=== PATIENT | female | born 1950 | race Caucasian/White ===

== ENCOUNTER → 2020-09-03 13:45 | Outpatient (BNVA) | payer MEDICARE, MEDICAID, SELFPAY | PROVIDERS: Family Provider Family Medicine; PCP Family Medicine; Visit Provider Nurse Practitioner Family | DX: N39.0 Urinary tract infection, site not specified (principal) | CPT/HCPCS: 81003; 87077; 87086; 87184 ==

== ENCOUNTER 2020-12-01 13:03 | Inpatient (IN) | payer MEDICARE, MEDICAID, SELFPAY ==
[2020-12-01] VITALS (16 sets, daily range): BP systolic 98–122; BP diastolic 64–94; PULSE 68–160; RESP 15–26; TEMP 36.6–37.1; O2SAT 96–100; BMI 23.0
--- NOTE | 2020-12-01 13:07 | XRR_ITS ---
PROCEDURE INFORMATION: Exam: XR Chest Exam date and time: 12/01/2020 1:07 PM Age: 70 years old Clinical indication: Other: Tachycardia TECHNIQUE: Imaging protocol: XR of the chest. Views: 1 view. COMPARISON: CR Chest 1 [place] [id number] 02/28/2018 2:35 PM FINDINGS: Lungs: Unremarkable. No consolidation. Pleural spaces: Unremarkable. No pleural effusion. No pneumothorax. Heart/Mediastinum: Unremarkable. No cardiomegaly. Bones/joints: Unremarkable. XR/XR chest 1V portable [id number] IMPRESSION: No acute findings.
--- NOTE | 2020-12-01 13:07 | W.ED.GENADLT ---
HPI - General Adult General: Chief complaint: General Medical Stated complaint: NAUSE/ DIARRHEA/ RAPID HEART RATE Time Seen by Provider: 12/01/20 13:06 History of Present Illness: HPI narrative: Ms. Valedz is a 70-year-old lady without significant past medical history presents the emergency department due to nausea and diarrhea. Symptom onset was Monday and subacute. She endorses associated abdominal discomfort with multiple episodes of nonbloody diarrhea. Today she was found to have rapid heart rate. She has associated generalized fatigue but no chest pain or shortness of breath. Overall the course of symptoms has persisted. The intensity is moderate. She denies similar episodes or irregular heart rate in the past. Review of Systems General: Reports: 10 or more systems reviewed and unremarkable except in HPI and below Narrative: CONSTITUTIONAL: see hpi EYES - denies pain, denies loss of vision EARS - denies ear issues. NOSE - denies congestion or rhinorrhea. THROAT - denies sore throat or difficulty swallowing. CARDIOVASCULAR - denies chest pain and palpitations RESPIRATORY - denies shortness of breath and cough GASTROINTESTINAL - see hpi GENITOURINARY - denies dysuria or urinary frequency MUSCULOSKELETAL- denies deformity or pain SKIN - denies rashes or new changed skin lesions NEUROLOGIC - denies focal weakness or sensory changes HEMATOLOGIC/LYMPHATIC - denies easy bruising or lymphadenopathy. PFS ED PFSH: Medical History Anxiety Bilateral wrist pain Chronic ankle pain, bilateral Chronic pain of both knees Dysuria GERD without esophagitis Interstitial cystitis Mixed incontinence Moderate episode of recurrent major depressive disorder Overactive bladder Recurrent UTI Tremor Surgical History Hx of hysterectomy Family History Mother , AT AGE 80 Diabetes Cancer Father CAD (coronary artery disease) Social History Smoking and tobacco status: never smoked Alcohol intake: never Marital status: / Current occupational status: disabled Physical Exam Narrative: EXAM NARRATIVE: GENERAL/CONSTITUTIONAL - well-appearing. No acute distress. Eyes - PERRL, no conjunctival injection ENMT - Atraumatic external nose and ears. Moist mucous membranes NECK - supple. trachea midline CARDIOVASCULAR - afib with rvr. Peripheral pulses 2+ and equal RESPIRATORY -clear to auscultation bilaterally. No retractions or accessory muscle use. ABDOMEN/GI - generalized tenderness. Nondistended. No tenderness to percussion or evidence of peritonitis MSK - Extremities without obvious deformity or tenderness to palpation SKIN - Warm, Dry NEURO - alert and appropriately oriented. strength and sensation intact. Moves all extremities equally. PSYCH - Appropriate mood and affect Course ED course: - Patient seen and evaluated by me at bedside - hall monitor applied and IV access obtained - initial evaluation notable for no acute distress, non toxic appearance. Etro fibrillation with RVR is present, no reported history of this. - Diltiazam ordered - No significant Hematologic or metabolic abnormality to expand patient symptoms - Xr without consolidation. CT abd/pelvis notable for colitis. Abx ordered. - Rate improved however pushes of metoprolol needed for additional rate control - Patient updated on ED eval results and need for admission. Patient was agreeable. - Hospitalist contacted and agreed to admit the patient. - Patient admitted without acute deterioration or significant events. Vital Signs: Vital signs: Vital Signs Temperature 97.7 F 12/03/20 18:50 Pulse Rate 67 12/03/20 20:23 Respiratory Rate 18 12/03/20 20:23 Blood Pressure 115/72 12/03/20 18:50 Pulse Oximetry 97 12/03/20 20:23 MDM - General Adult Medical Records: Attestation: I reviewed the patient's medical records. Lab Data: Attestation: I reviewed the patient's lab results. Labs: Lab Results 12/01/20 12/01/20 12/01/20 Range/Units 11:50 11:50 13:08 WBC 6.5 (4.0-10.0) 10^3/ uL RBC 4.95 (4.1-5.3) 10^6/u L Hgb 14.2 (11.5-15.3) g/dL Hct 43.9 (37.0-47.0) % MCV 88.7 (81-99) fl MCH 28.7 (28.0-34.0) pg MCHC 32.3 (30.0-36.0) g/dL RDW 13.2 (12.1-15.1) % Plt Count 213 (130-400) 10^3/c mm MPV 11.4 H (7.4-10.4) fL Neut % (Auto) 72.6 % Lymph % (Auto) 15.0 % [place] % (Auto) 11.3 % Eos % (Auto) 0.3 % Baso % (Auto) 0.5 % Neut # (Auto) 4.71 (1.8-7.7) 10^3/u L Lymph # (Auto) 1.0 (0.8-4.8) 10^3/u L [place] # (Auto) 0.7 (0.2-0.9) 10^3/u L Eos # (Auto) 0.0 (0.0-0.8) 10^3/u L Baso # (Auto) 0.0 (0.0-0.1) 10^3/u L Nucleated RBC % (a uto) 0 % Nucleated RBCs # 0.0 /100WBC D-Dimer (0-0.59) ug/mIFE U Sodium (136-145) mmol/L Potassium (3.5-5.1) mmol/L Chloride (98-107) mmol/L Carbon Dioxide (22-29) mmol/L Anion Gap (5-19) BUN (8-23) mg/dL Creatinine (0.5-0.9) mg/dL GFR Calculation (90-130) mL/min Glucose (65-115) mg/dL Calculated Osmolal ity (285-295) mOsm/k g Calcium (8.5-10.5) mg/dL Magnesium (1.7-2.3) mg/dL Total Bilirubin (0.15-1.2) mg/dL AST (0-32) U/L ALT (0-33) U/L Alkaline Phosphata se (35-105) IU/L Troponin T Baselin e (0-10) ng/L Troponin T 120 Min [place] 18.72 H (0-10) ng/L Delta Troponin T Not Reportable C-Reactive Protein (0.0-4.9) mg/L NT-Pro-B Natriuret Pep (0-125) pg/mL Total Protein (6.6-8.7) g/dL Albumin (3.5-5.2) g/dL Globulin (1.3-4.6) g/dL Procalcitonin (0-0.5) ng/mL TSH 2.11 (0.27-4.20) uIU/ mL SARS-CoV-2 Ag (Rap id) (Negative) 12/01/20 12/01/20 12/01/20 Range/Units 13:08 13:08 13:08 WBC (4.0-10.0) 10^3/ uL RBC (4.1-5.3) 10^6/u L Hgb (11.5-15.3) g/dL Hct (37.0-47.0) % MCV (81-99) fl MCH (28.0-34.0) pg MCHC (30.0-36.0) g/dL RDW (12.1-15.1) % Plt Count (130-400) 10^3/c mm MPV (7.4-10.4) fL Neut % (Auto) % Lymph % (Auto) % [place] % (Auto) % Eos % (Auto) % Baso % (Auto) % Neut # (Auto) (1.8-7.7) 10^3/u L Lymph # (Auto) (0.8-4.8) 10^3/u L [place] # (Auto) (0.2-0.9) 10^3/u L Eos # (Auto) (0.0-0.8) 10^3/u L Baso # (Auto) (0.0-0.1) 10^3/u L Nucleated RBC % (a uto) % Nucleated RBCs # /100WBC D-Dimer 2.21 H (0-0.59) ug/mIFE U Sodium 141 (136-145) mmol/L Potassium 4.0 (3.5-5.1) mmol/L Chloride 105 (98-107) mmol/L Carbon Dioxide 23 (22-29) mmol/L Anion Gap 17.0 (5-19) BUN 14 (8-23) mg/dL Creatinine 0.5 (0.5-0.9) mg/dL GFR Calculation 122.0 (90-130) mL/min Glucose 118 H (65-115) mg/dL Calculated Osmolal ity 294 (285-295) mOsm/k g Calcium 9.3 (8.5-10.5) mg/dL Magnesium 1.8 (1.7-2.3) mg/dL Total Bilirubin 0.2 (0.15-1.2) mg/dL AST 18 (0-32) U/L ALT 12 (0-33) U/L Alkaline Phosphata se 69 (35-105) IU/L Troponin T Baselin e 18 H (0-10) ng/L Troponin T 120 Min [place] (0-10) ng/L Delta Troponin T C-Reactive Protein 25.4 H (0.0-4.9) mg/L NT-Pro-B Natriuret Pep 947 H (0-125) pg/mL Total Protein 7.0 (6.6-8.7) g/dL Albumin 4.0 (3.5-5.2) g/dL Globulin 3.0 (1.3-4.6) g/dL Procalcitonin 0.11 (0-0.5) ng/mL TSH 2.11 (0.27-4.20) uIU/ mL SARS-CoV-2 Ag (Rap id) (Negative) 12/01/20 Range/Units 15:30 WBC (4.0-10.0) 10^3/ uL RBC (4.1-5.3) 10^6/u L Hgb (11.5-15.3) g/dL Hct (37.0-47.0) % MCV (81-99) fl MCH (28.0-34.0) pg MCHC (30.0-36.0) g/dL RDW (12.1-15.1) % Plt Count (130-400) 10^3/c mm MPV (7.4-10.4) fL Neut % (Auto) % Lymph % (Auto) % [place] % (Auto) % Eos % (Auto) % Baso % (Auto) % Neut # (Auto) (1.8-7.7) 10^3/u L Lymph # (Auto) (0.8-4.8) 10^3/u L [place] # (Auto) (0.2-0.9) 10^3/u L Eos # (Auto) (0.0-0.8) 10^3/u L Baso # (Auto) (0.0-0.1) 10^3/u L Nucleated RBC % (a uto) % Nucleated RBCs # /100WBC D-Dimer (0-0.59) ug/mIFE U Sodium (136-145) mmol/L Potassium (3.5-5.1) mmol/L Chloride (98-107) mmol/L Carbon Dioxide (22-29) mmol/L Anion Gap (5-19) BUN (8-23) mg/dL Creatinine (0.5-0.9) mg/dL GFR Calculation (90-130) mL/min Glucose (65-115) mg/dL Calculated Osmolal ity (285-295) mOsm/k g Calcium (8.5-10.5) mg/dL Magnesium (1.7-2.3) mg/dL Total Bilirubin (0.15-1.2) mg/dL AST (0-32) U/L ALT (0-33) U/L Alkaline Phosphata se (35-105) IU/L Troponin T Baselin e (0-10) ng/L Troponin T 120 Min [place] (0-10) ng/L Delta Troponin T C-Reactive Protein (0.0-4.9) mg/L NT-Pro-B Natriuret Pep (0-125) pg/mL Total Protein (6.6-8.7) g/dL Albumin (3.5-5.2) g/dL Globulin (1.3-4.6) g/dL Procalcitonin (0-0.5) ng/mL TSH (0.27-4.20) uIU/ mL SARS-CoV-2 Ag (Rap id) Negative (Negative) EKG Data^: EKG 1: Attestation: I personally reviewed and interpreted this EKG as follows: EKG interpretation date: 12/01/20 EKG interpretation time: 13:10 Prior EKG tracings: not available for review Interpretation: 12 lead shows irregular rhythm at rate of 157 No KS int, QRS 121, QTc 470 Right axis deviation Interp: A fib with RVR, RBBB, ectopy Computer generated interpretation: Chest X-Ray 12/01/20 13:07 IMPRESSION: No acute findings. Abdomen/Pelvis CT 12/01/20 13:55 IMPRESSION: There is colitis of the descending and rectosigmoid colons. Radiation Dose CTDIVOL = (mGy): DLP = 1140.73 (mGy-cm) Chest CTA 12/02/20 07:27 IMPRESSION: 1. Proximal main pulmonary arteries are normal. No evidence of pulmonary embolus. 2. Both lungs are well aerated. No acute pulmonary infiltrates. 3. No mediastinal or hilar lymphadenopathy. EKG 2: Attestation: I personally reviewed and interpreted this EKG as follows: EKG interpretation date: 12/01/20 EKG interpretation time: 15:30 Prior EKG tracings: available for review Interpretation: 12 lead shows irregular rhythm at rate of 109 No [place], QRS 126, QTc 408 Right axis dev Interp: A fib with RVR, improved rate from prior Computer generated interpretation: Chest X-Ray 12/01/20 13:07 IMPRESSION: No acute findings. Abdomen/Pelvis CT 12/01/20 13:55 IMPRESSION: There is colitis of the descending and rectosigmoid colons. Radiation Dose CTDIVOL = (mGy): DLP = 1140.73 (mGy-cm) Chest CTA 12/02/20 07:27 IMPRESSION: 1. Proximal main pulmonary arteries are normal. No evidence of pulmonary embolus. 2. Both lungs are well aerated. No acute pulmonary infiltrates. 3. No mediastinal or hilar lymphadenopathy. Discharge Plan Discharge Patient Disposition: Admitted As Inpatient Admit Provider: Emilee Champion Clinical Impression: Atrial fibrillation with rapid ventricular response, Colitis Condition: Stable Coding Level of Care Code ED Automotive Technician for Fredy Cabrera
--- NOTE | 2020-12-01 13:08 | ECG_ITS ---
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 Measurements Intervals [place] Rate: 157 P: PA: QRS: 83 QRSD: 121 T: -22 QT: 291 QTc: 470 Interpretive Statements ATRIAL FIBRILLATION WITH RAPID VENTRICULAR RESPONSE WITH ABERRANT CONDUCTION OR VENTRICULAR PREMATURE COMPLEXES RIGHT BUNDLE BRANCH BLOCK Compared to ECG 02/28/2018 14:24:37 Aberrant conduction of supraventricular beat(s) now present Ventricular premature complex(es) now present Right bundle-branch block now present Sinus rhythm no longer present Myocardial infarct finding no longer present Electronically Signed On 12-03-2020 9:05:05 CDT by Nery Dawson M.D. [email or web address]/[id number]
--- NOTE | 2020-12-01 13:55 | CTR_ITS ---
PROCEDURE INFORMATION: Exam: CT Abdomen And Pelvis With Contrast Exam date and time: 12/01/2020 1:55 PM Age: 70 years old Clinical indication: Vomiting and other: Diarrhea; Prior surgery; Surgery type: Hsyt; Additional info: Vomitting, pain, diarrhea TECHNIQUE: Imaging protocol: Computed tomography of the abdomen and pelvis with contrast. Radiation optimization: All CT scans at this facility use at least one of these dose optimization techniques: automated exposure control; mA and/or kV adjustment per patient size (includes targeted exams where dose is matched to clinical indication); or iterative reconstruction. Contrast material: OMNI 300; Contrast volume: 95 ml; Contrast route: INTRAVENOUS (IV); COMPARISON: CR XR chest 1V portable [id number] 12/01/2020 1:17 PM RADIATION DOSE METRICS: Total DLP (mGy-cm): 1140.73 FINDINGS: Liver: Normal. No mass. Gallbladder and bile ducts: Normal. No calcified stones. No ductal dilation. Pancreas: Normal. No ductal dilation. Spleen: Normal. No splenomegaly. Adrenal glands: Normal. No mass. Kidneys and ureters: Normal. No hydronephrosis. Stomach and bowel: There is wall thickening of the descending and rectosigmoid colons. No bowel obstruction. Appendix: No evidence of appendicitis. Intraperitoneal space: Unremarkable. No free air. No significant fluid collection. Vasculature: Unremarkable. No abdominal aortic aneurysm. Lymph nodes: Unremarkable. No enlarged lymph nodes. Urinary bladder: Unremarkable as visualized. Reproductive: There has been a hysterectomy. Bones/joints: Unremarkable. No acute fracture. Soft tissues: Unremarkable. CT/CT abdomen pelvis w con* [id number] IMPRESSION: There is colitis of the descending and rectosigmoid colons. Radiation Dose CTDIVOL = (mGy): DLP = 1140.73 (mGy-cm)
[2020-12-01 13:56] LABS: Basophils % 0.5 %; Eosinophils % 0.3 %; Hematocrit 43.9 % (37.0-47.0); Hemoglobin 14.2 g/dL (11.5-15.3); Mean Corpuscular HGB Conc 32.3 g/dL (30.0-36.0); Mean Corpuscular Hemoglobin 28.7 pg (28.0-34.0); Mean Corpuscular Volume 88.7 fl (81-99); Mean Platelet Volume 11.4 fL (7.4-10.4); Monocytes # 0.7 10^3/uL (0.2-0.9); Monocytes % 11.3 %; Neutrophils # 4.71 10^3/uL (1.8-7.7); Neutrophils % 72.6 %; Nucleated Red Blood Cells % 0 %; Platelet Count 213 10^3/cmm (130-400); Red Blood Count 4.95 10^6/uL (4.1-5.3); Red Cell Distribution Width 13.2 % (12.1-15.1); White Blood Count 6.5 10^3/uL (4.0-10.0)
--- NOTE | 2020-12-01 14:44 | PC.PHAR ---
PT STATES SHE HAS NOT BEEN TAKING ANY OF HER PRESCRIPTIONS FOR A FEW MONTHS BECAUSE SHE CANNOT AFFORD TO GET THEM. SHE IS TAKING OTC VITAMINS.
[2020-12-01 14:46] LABS: Troponin(5th) Baseline 18 ng/L (0-10)
[2020-12-01 14:57] LABS: NT Pro B Type Natriuretic Pept 947 pg/mL (0-125); Procalcitonin 0.11 ng/mL (0-0.5); Thyroid Stimulating Hormone 2.11 uIU/mL (0.27-4.20)
[2020-12-01 15:08] LABS: Alanine Aminotransferase 12 U/L (0-33); Alkaline Phosphatase 69 IU/L (35-105); Aspartate Amino Transferase 18 U/L (0-32); Blood Urea Nitrogen 14 mg/dL (8-23); C Reactive Protein 25.4 mg/L (0.0-4.9); Calcium 9.3 mg/dL (8.5-10.5); Carbon Dioxide 23 mmol/L (22-29); Chloride 105 mmol/L (98-107); Glucose 118 mg/dL (65-115); Magnesium 1.8 mg/dL (1.7-2.3); Osmolality Calculated 294 mOsm/kg (285-295); Sodium 141 mmol/L (136-145); Total Bilirubin 0.2 mg/dL (0.15-1.2)
--- NOTE | 2020-12-01 15:08 | ECG_ITS ---
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 Measurements Intervals [place] Rate: 109 P: NC: QRS: 63 QRSD: 126 T: -23 QT: 302 QTc: 408 Interpretive Statements ATRIAL FIBRILLATION WITH RAPID VENTRICULAR RESPONSE RIGHT BUNDLE BRANCH BLOCK [120+ ms QRS DURATION, UPRIGHT V1, 40+ ms S IN I/aVL/V4/V5/V6] Compared to ECG 12/01/2020 13:08:51 Aberrant conduction of supraventricular beat(s) no longer present Ventricular premature complex(es) no longer present Electronically Signed On 12-03-2020 10:41:27 CDT by Nery Dawson M.D. [email or web address] regional medical [email or web address] Metricsdelaware county hospital.[employer]/store/OM/[id number]
[2020-12-01] MEDS: lactated ringers 500 ML 999 ML IV (15:23)
[2020-12-01] MEDS: metoprolol tartrate 1 mg/1 mL SDV 5 mL 5 MG IVP (15:30)
--- NOTE | 2020-12-01 15:34 | ECG_ITS ---
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 Measurements Intervals [place] Rate: 96 P: 98 OK: 210 QRS: 231 QRSD: 130 T: 39 QT: 363 QTc: 460 Interpretive Statements ELECTRONIC VENTRICULAR PACEMAKER ABNORMAL RHYTHM ECG Compared to ECG 12/01/2020 13:08:51 Atrial fibrillation no longer present Aberrant conduction of supraventricular beat(s) no longer present Ventricular premature complex(es) no longer present Right bundle-branch block no longer present Electronically Signed On 12-03-2020 10:41:36 CDT by Nery Dawson M.D. [email or web address]/[id number] f
[2020-12-01] MEDS: iohexol 300 mg/mL 100 mL Btl IV (16:06)
[2020-12-01 16:13] LABS: SARS Covid-2 Antigen Negative (Negative)
[2020-12-01 16:52] LABS: Troponin 5 2HR 18.72 ng/L (0-10)
--- NOTE | 2020-12-01 17:07 | P.HP_ITS ---
Providers/Chief Complaint Primary Care Provider: Desirae Da Silva DO Chief Complaint: NAUSE/ DIARRHEA/ RAPID HEART RATE History of Present Illness Sabina Valdez is a 70 year old female who presented today with chief complaint of rigors, chills and abdominal pain. Patient stating that she had a stress test in [facility] which was unremarkable. She stopped following up with Dr. Jimenez. In last 3 days she has been experiencing multiple episodes of diarrhea associated with abdominal pain. She has not eaten out. She lives alone and co oks for herself. She has not noticed any fever, shortness of breath, vomiting. No recent use of antibiotics. No recent chest pain shortness of breath Diagnosis in the ER revealed A. fib with RVR and colitis she received antibiotics in the ER and was started on Cardizem drip it was running at 15 mg/h heart rate is in 70 systolic blood pressure 98 mmHg Review of Systems Const: Reports: chills, body aches and fatigue Eyes: Denies: change in vision ENMT: Denies: throat pain Card: Denies: chest pain Resp: Denies: dyspnea GI: Reports: abdominal pain, nausea and diarrhea; Denies: vomiting : Denies: flank pain Musc: Denies: neck pain Skin/Breast: Denies: rash Neuro: Denies: headache(s) Psych: Reports: anxiety Endo: Denies: polyuria Ortega/Lymph: Denies: easy bruising All/Imm: Denies: urticaria Medications/Allergies Home Medications Medication Instructions Recorded Confirmed Last Taken Type multivitamin 1 tab PO DAILY 06/16/20 12/01/20 12/01/20 History vitamin C-vitamin E capsule 1 cap PO DAILY cap 06/16/20 12/01/20 12/01/20 History cyanocobalamin (vitamin B-12) 250 mcg PO DAILY 12/01/20 12/01/20 12/01/20 History [Vitamin B-12] [id number] 1 cap PO DAILY 12/01/20 12/01/20 12/01/20 History [Krill Oil ([place] 3 and 6)] magnesium 200 mg PO DAILY 12/01/20 12/01/20 12/01/20 History Allergies Allergy/AdvReac Type Severity Reaction Status Date / Time codeine Allergy Unknown ALGY-Rash Verified 08/25/20 12:14 sulfamethoxazole Allergy Unknown ALGY-Rash Verified 08/25/20 12:14 [From Bactrim] trimethoprim [From Bactrim] Allergy Unknown ALGY-Rash Verified 08/25/20 12:14 PFSH Acute PFSH: Medical History Anxiety Bilateral wrist pain Chronic ankle pain, bilateral Chronic pain of both knees Dysuria GERD without esophagitis Interstitial cystitis Mixed incontinence Moderate episode of recurrent major depressive disorder Overactive bladder Recurrent UTI Tremor Surgical History Hx of hysterectomy Family History Mother , AT AGE 80 Diabetes Cancer Father CAD (coronary artery disease) Social History Smoking and tobacco status: never smoked Alcohol intake: never Marital status: / Current occupational status: disabled Vitals/I&O/Wt Last Vital Signs Temp 98.7 F 12/01/20 13:06 Pulse 87 12/01/20 15:33 Resp 15 12/01/20 15:33 BP 108/65 12/01/20 15:33 Pulse Ox 99 12/01/20 15:33 12/01/20 12/01/20 12/01/20 06:59 14:59 22:59 Intake Total 6.084 / 6.084 Balance 6.084 / 6.084 Weight last 48 hrs Weight 66.678 kg Physical Exam Narrative: EXAM NARRATIVE: Pleasant elderly female who appears stated age clinically looks dehydrated Variable S1-S2 no signs of heart failure Bilateral breath sounds without adventitious rhonchi or crackles Abdomen soft nontender no signs of peritonitis bowel sounds present Mild tenderness in left upper quadrant Lower extremity no edema Patient is awake and alert oriented time place and person No neurological deficit No sign of cellulitis tenderness of joint noticed EOMI, PERRLA Appropriate mood and affect Data : 12/01/20 13:08 12/01/20 13:08 A&P Assessment and plan (1) Atrial fibrillation with rapid ventricular response: Status: Acute (2) Colitis: Status: Acute Additional A&P Information A. fib with acute onset RVR Check TSH No active chest pain Troponin without significant delta Magnesium 1.8 Check D-dimer Previous stress test 2016 unremarkable We will request echo [id number]: We will start Eliquis 5 mg twice a day, benefits of medication explained to the patient along side effects and why this is indicated patient understood and agreed with initiation of Eliquis, she was explained why aspirin will not help in this scenario to prevent stroke Cardizem drip running at 15 mg/h we will start metoprolol 25 mg twice a day, I have asked nurse to titrate down Cardizem drip because her heart rate was in 70s systolic blood pressure 113 mmHg Acute colitis No signs of sepsis Patient is stating that her diarrhea has improved I highly doubt this is related to mesenteric acute embolic phenomenon there is no clinical signs of mesenteric ischemia, Continue IV fluid hydration along Eliquis I will keep her on Zosyn and soft diet GI soft diet advance as tolerated DVT prophylaxis not indicated I will start her on Eliquis Full code Attestations Medical Necessity Statement*: Needing more than 2 midnights in the hospital for colitis and new onset A. fib RVR Time Spent in Patient Care: Greater than 35 minutes Coding Level of Care Code Acute Dispatcher Electric Power for Chg Fwd Diagnoses Atrial fibrillation with rapid ventricular response I48.91 Colitis K52.9
[2020-12-01] MEDS: metroNIDAZOLE IV 500 MG/100 ML PREMIX 100 MG IV (17:37)
[2020-12-01] MEDS: cefTRIAXone 1,000 MG in sodium chloride 0.9% (plus) 50 ML 100 MG IV (17:37)
[2020-12-01 17:49] LABS: Add Urine Microscopic? NO; Charge for UA Resulting for Rev
[2020-12-01 17:58] LABS: Bilirubin Urine Neg (Negative); Blood Urine Neg (Negative); Glucose Urine UA Norm (Normal); Ketones Urine 1+ (Negative); Leukocyte Esterase Urine Negative (Negative); Nitrate Urine Negative (Negative); Protein Urine Neg (Negative); Urine Appearance Clear (CLEAR); Urine Color Straw (Yellow); Urobilinogen Urine Norm (Negative); pH Urine 5 (5-7)
[2020-12-01 18:35] LABS: D Dimer 2.21 ug/mIFEU (0-0.59)
[2020-12-01 19:08] LABS: Thyroid Stimulating Hormone 2.11 uIU/mL (0.27-4.20)
--- NOTE | 2020-12-01 19:08 | ECG_ITS ---
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 Measurements Intervals [place] Rate: 94 P: MN: QRS: 76 QRSD: 134 T: -48 QT: 397 QTc: 497 Interpretive Statements ATRIAL FIBRILLATION RIGHT BUNDLE BRANCH BLOCK [120+ ms QRS DURATION, UPRIGHT V1, 40+ ms S IN I/aVL/V4/V5/V6] Compared to ECG 12/01/2020 15:23:02 No significant changes Electronically Signed On 12-03-2020 10:41:14 CDT by Nery Dawson M.D. [id number]
[2020-12-01 20:26] LABS: Troponin 5 6HR 20.26 ng/L (0-10); Troponin 5 6HR Delta 2.26 ng/L (0-12)
--- NOTE | 2020-12-01 21:41 | PC.NURSE ---
Report called to Monica VARMA
[2020-12-01] MEDS: apixaban 5 mg Tablet PO (22:32)
[2020-12-01] MEDS: metoprolol tartrate 25 mg Tablet PO (22:32)
[2020-12-01] MEDS: piperacillin-tazobactam 3.375 GM in sodium chloride 0.9% (plus) 50 ML IV (22:34)
[2020-12-02] VITALS (11 sets, daily range): BP systolic 93–138; BP diastolic 60–82; PULSE 73–143; RESP 16–24; TEMP 36.4–36.8; O2SAT 94–99
[2020-12-02] MEDS: sodium chloride 0.9% 1,000 ML 75 ML IV (02:00)
[2020-12-02 03:43] LABS: Basophils % 0.6 %; Eosinophils # 0.1 10^3/uL (0.0-0.8); Eosinophils % 1.4 %; Hematocrit 41.9 % (37.0-47.0); Lymphocytes # 1.3 10^3/uL (0.8-4.8); Lymphocytes % 18.1 %; Mean Corpuscular Hemoglobin 28.4 pg (28.0-34.0); Mean Corpuscular Volume 91.7 fl (81-99); Mean Platelet Volume 10.8 fL (7.4-10.4); Monocytes # 1.1 10^3/uL (0.2-0.9); Monocytes % 14.8 %; Neutrophils # 4.63 10^3/uL (1.8-7.7); Neutrophils % 64.8 %; Nucleated Red Blood Cells % 0 %; Platelet Count 192 10^3/cmm (130-400); Red Blood Count 4.57 10^6/uL (4.1-5.3); Red Cell Distribution Width 13.2 % (12.1-15.1); White Blood Count 7.1 10^3/uL (4.0-10.0)
[2020-12-02 04:00] LABS: Anion Gap 15.9 (5-19); Blood Urea Nitrogen 11 mg/dL (8-23); Calcium 8.6 mg/dL (8.5-10.5); Carbon Dioxide 22 mmol/L (22-29); Chloride 106 mmol/L (98-107); Glucose 82 mg/dL (65-115); Magnesium 1.8 mg/dL (1.7-2.3); Osmolality Calculated 288 mOsm/kg (285-295); Potassium 3.9 mmol/L (3.5-5.1); Sodium 140 mmol/L (136-145)
[2020-12-02] MEDS: piperacillin-tazobactam 3.375 GM in sodium chloride 0.9% (plus) 50 ML IV ×3 (05:48→21:42)
--- NOTE | 2020-12-02 06:35 | PC.NURSE ---
Admit Note Patient admitted to [facility] from ED via stretcher. Covering service notified. Patient presents with c/o shakiness. Orders reviewed & will continue to monitor. Patient and/or auto claim representative oriented to environment, equipment, and informed of the following as found in the admission booklet: patient rights & responsibilities, visitor policy, hand and respiratory hygiene practice. Other education includes: telemetry, activity, and prescribed medications. Patient and/or auto claim representative verbalized understanding of all teaching.
--- NOTE | 2020-12-02 07:27 | CT_ITS ---
WS: [id number] CTA OF THE CHEST WITH PULMONARY EMBOLISM PROTOCOL TECHNIQUE: High-resolution contrast enhanced CTA of the chest with coronal and sagittal reformatted i mages with pulmonary embolism protocol. MIP images are also reviewed. CLINICAL INFORMATION: afib rvr new onset, sob COMPARISON: None. DLP: 462.[address] scans at [facility] use at least one of these dose optimization techniques: automated e xposure control; mA and/or kV adjustment per patient size (includes targeted exams where dose is matc hed to clinical indication); or iterative reconstruction. FINDINGS: Proximal main pulmonary arteries are normal. Normal segmental and subsegmental pulmonary arteries. No evidence of pulmonary embolus. Both lungs are well aerated. No acute pulmonary infiltrates. Mild chronic emphysematous changes. Subs egmental atelectasis in the lung bases. No mediastinal or hilar lymphadenopathy. No axillary lymphadenopathy. Adrenal glands are normal. CT/CT angio chest PE protcl [id number] IMPRESSION: 1. Proximal main pulmonary arteries are normal. No evidence of pulmonary embol us. 2. Both lungs are well aerated. No acute pulmonary infiltrates. 3. No mediastinal or hilar lymphadenopathy.
[2020-12-02] MEDS: iohexol 350 mg/mL 100 mL Btl IV (08:17)
[2020-12-02] MEDS: apixaban 5 mg Tablet PO ×2 (08:39→18:01)
[2020-12-02] MEDS: metoprolol tartrate 25 mg Tablet PO (08:39)
[2020-12-02] MEDS: magnesium oxide 400 mg tablet 200 MG PO (08:39)
--- NOTE | 2020-12-02 12:35 | PC.NURSE ---
cardizem drip has been weaned off.heart rate 70-80's afib.
--- NOTE | 2020-12-02 13:27 | P.PN_ITS ---
Subjective Subjective: Interval history: Patient is endorsing feeling better, high D- dimer, CTA rule out PE No signs of pneumonia Patient is denying any worsening abdominal pain or diarrhea No overnight fever or worsening leukocytosis Vitals/I&O/Wt Last Vital Signs Temp 97.9 F 12/02/20 04:05 Pulse 143 H 12/02/20 08:00 Resp 20 H 12/02/20 08:00 BP 103/81 12/02/20 08:00 Pulse Ox 94 12/02/20 07:56 12/01/20 12/02/20 12/02/20 22:59 06:59 14:59 Intake Total 696.75 / 702.834 121.500 / 824.334 125.0 / 125.0 Output Total 700 / 700 Balance 696.75 / 702.834 -578.500 / 124.334 125.0 / 125.0 Weight last 48 hrs Weight 66.224 kg Weight 66.224 kg Weight 66.678 kg Physical Exam Narrative: EXAM NARRATIVE: Patient was sitting comfortably without any active discomfort Saturating well on room air S1, S2 variable Cardizem running at 10 mg/h No active neurological deficit Abdomen soft with active bowel sounds mild tenderness to deep palpation in left quadrant otherwise no signs of worsening peritonitis Lower extremity no edema Awake alert oriented x3 GCS 15 Data : 12/02/20 03:05 12/02/20 03:05 A&P Assessment and plan (1) Atrial fibrillation with rapid ventricular response: Status: Acute (2) Colitis: Status: Acute Additional A&P Information A. fib with acute onset RVR Potassium and magnesium normal TSH normal Echo 40 to 45% EF no valvular abnormality Titrate off Cardizem drip we will add p.o. Cardizem to overlap with IV, will add Metroprolol as her heart rate is consistently above 110 for now Colitis: Afebrile no leukocytosis currently doing well on Zosyn Will de-escalate to Cipro and Flagyl at the time of discharge Advance diet to regular Full code DVT prophylaxis Lovenox Attestations Medical Necessity Statement*: Anticipating discharge tomorrow Time Spent in Patient Care: 16 - 35 minutes Coding Level of Care Code Acute Physician Credentialing Specialist for g Fwd Diagnoses Atrial fibrillation with rapid ventricular response I48.91 Colitis K52.9
[2020-12-02] MEDS: dilTIAZem 30 mg Tablet PO ×2 (16:07→19:39)
--- NOTE | 2020-12-02 21:51 | USCV_ITS ---
Sabina Valdez Age: 70 Gender: F : 1950 Exam Date: 12/02/2020 06:05 Ordering Phys: Emilee Champion MD Technologist: Ketty Katz [place] [facility] [place] Indication: A FIB BP: 93 / 60 HR: 96 Rhythm: Atrial fibrillation Technical Quality: Adequate MEASUREMENTS (Male / Female) Normal Values 2D ECHO LV Diastolic Diameter PLAX 4.2 cm 4.2 - 5.9 / 3.9 - 5.3 cm LV Systolic Diameter PLAX 2.9 cm IVS Diastolic Thickness 1.1 cm 0.6 - 1.0 / 0.6 - 0.9 cm IVS Systolic Thickness 1.8 cm LVPW Diastolic Thickness 1.3 cm 0.6 - 1.0 / 0.6 - 0.9 cm LVPW Systolic Thickness 1.6 cm LVOT Diameter 2.0 cm LV Ejection Fraction 2D Teich 56.8 % LV Ejection Fraction MOD 2C 34.9 % LV Ejection Fraction 2C AL 33.9 % LA Diameter 4.2 cm LA Width 4.0 cm LA Height 5.8 cm RA Width 2.7 cm RA Height 4.6 cm Aorta at Sinotubular Diameter 2.7 cm M-MODE Aortic Annulus Diameter 3.5 cm LA Ao Ratio MM 1.2 MV E Point Septal Separation 2.0 cm DOPPLER AV Peak Velocity 110.0 cm/s LVOT Peak Velocity 81.0 cm/s AV Area Cont Eq vti 2.5 cm squared AV Area Cont Eq pk 2.3 cm squared MV Peak Velocity 160.0 cm/s MV Area PHT 2.3 cm squared MV E' Velocity 113.0 cm/s TR Peak Velocity 210.0 cm/s TR Peak Gradient 17.6 mmHg TR Mean Velocity 167.6 cm/s TR Mean Gradient 11.8 mmHg TR Velocity Time Integral 66.6 cm TV Peak E Velocity 54.0 cm/s Right Atrial Pressure 3.0 mmHg Pulmonary Artery Systolic Pressu 20.6 mmHg PV Peak Velocity 98.0 cm/s RV Acceleration Time 0.1 s RV Ejection Time 0.2 s RV AcT/ET 0.4 FINDINGS Left Ventricle Normal left ventricular size. LV systolic function is mildly reduced with EF of 40-45%. Mild global hypokinesis is noted. Diastolic function is indeterminate because of atrial fibrillation Right Ventricle The right ventricle is normal in size and function. Right Atrium The right atrium is normal in size. Left Atrium The left atrium is enlarged Mitral Valve Mitral valve is thickened. There is mild mitral stenosis with mean gradient of 4 mmHg across the mitral valve. There is trace mitral regurgitation. Aortic Valve Structurally normal aortic valve without significant sclerosis or stenosis. There is mild aortic regurgitation. Tricuspid Valve Structurally normal tricuspid valve without significant stenosis. Trace tricuspid regurgitation. Pulmonary artery systolic pressure is normal. Pulmonic Valve Structurally normal pulmonic valve without significant stenosis. There is mild pulmonic regurgitation. Pericardium Normal pericardium without effusion. Aorta Normal ascending aorta dimension. CONCLUSIONS LV systolic function is mildly reduced with EF 40 to 45%. Diastolic function is indeterminate because of atrial fibrillation. Left atrium is enlarged. Mild mitral stenosis with mean gradient of 4 mmHg noted. Trace mitral regurgitation. Trace tricuspid regurgitation. Mild aortic regurgitation and mild pulmonic regurgitation. No comparison studies are available. Kyree Jimenez MD (Electronically Signed) Final Date: 02 December 2020 09:35 S
[2020-12-03] VITALS (9 sets, daily range): BP systolic 109–125; BP diastolic 72–91; PULSE 67–115; RESP 18–28; TEMP 36.5–37; O2SAT 97–100
[2020-12-03] MEDS: dilTIAZem 30 mg Tablet PO ×2 (02:08→08:10)
[2020-12-03] MEDS: acetaminophen 500 mg Tablet PO (02:08)
[2020-12-03 04:52] LABS: Basophils % 0.7 %; Eosinophils # 0.2 10^3/uL (0.0-0.8); Eosinophils % 2.7 %; Hematocrit 39.4 % (37.0-47.0); Hemoglobin 12.5 g/dL (11.5-15.3); Lymphocytes # 1.5 10^3/uL (0.8-4.8); Mean Corpuscular HGB Conc 31.7 g/dL (30.0-36.0); Mean Corpuscular Hemoglobin 28.7 pg (28.0-34.0); Mean Corpuscular Volume 90.6 fl (81-99); Mean Platelet Volume 10.8 fL (7.4-10.4); Monocytes # 0.8 10^3/uL (0.2-0.9); Neutrophils # 3.09 10^3/uL (1.8-7.7); Neutrophils % 55.2 %; Nucleated Red Blood Cells % 0 %; Platelet Count 208 10^3/cmm (130-400); Red Blood Count 4.35 10^6/uL (4.1-5.3); Red Cell Distribution Width 13.2 % (12.1-15.1); White Blood Count 5.6 10^3/uL (4.0-10.0)
[2020-12-03 05:09] LABS: Blood Urea Nitrogen 18 mg/dL (8-23); Calcium 8.1 mg/dL (8.5-10.5); Carbon Dioxide 23 mmol/L (22-29); Chloride 110 mmol/L (98-107); Glucose 95 mg/dL (65-115); Magnesium 1.7 mg/dL (1.7-2.3); Osmolality Calculated 296 mOsm/kg (285-295); Sodium 142 mmol/L (136-145)
[2020-12-03] MEDS: piperacillin-tazobactam 3.375 GM in sodium chloride 0.9% (plus) 50 ML IV ×2 (06:43→14:39)
[2020-12-03] MEDS: magnesium oxide 400 mg tablet 200 MG PO (08:10)
[2020-12-03] MEDS: apixaban 5 mg Tablet PO ×2 (08:10→18:41)
[2020-12-03] MEDS: digoxin 250 mcg/ml INJ 2 mL IVP ×2 (11:03→18:41)
--- NOTE | 2020-12-03 12:40 | P.PN_ITS ---
Subjective Subjective: Interval history: Patient was seen this morning, she went into A. fib RVR again heart rate range between 120-130s, she is also having loose stools, requested C. difficile panel start Cardizem drip and added metoprolol, gave her first loading dose of digoxin Patient is refusing intermediate and home health services, will follow up again with her before discharge Vitals/I&O/Wt Last Vital Signs Temp 98.6 F 12/03/20 04:00 Pulse 106 H 12/03/20 12:00 Resp 28 H 12/03/20 12:00 BP 125/79 12/03/20 12:00 Pulse Ox 99 12/03/20 12:00 12/02/20 12/03/20 12/03/20 22:59 06:59 14:59 Intake Total 1410 / 1585.0 200 / 1785.0 50 / 50 Output Total 250 / 250 600 / 850 Balance 1160 / 1335.0 -400 / 935.0 50 / 50 Weight last 48 hrs Weight 66.224 kg Weight 66.224 kg Weight 66.678 kg Physical Exam Narrative: EXAM NARRATIVE: She seems a bit anxious today A. fib RVR no active signs of peritonitis Lower extremity no edema Clinically does look dry Saturating well on room air Rhonchi at the base of the lungs Abdomen soft Data : 12/03/20 04:30 12/03/20 04:30 A&P Assessment and plan (1) Atrial fibrillation with rapid ventricular response: Status: Acute (2) Colitis: Status: Acute Additional A&P Information A. fib RVR No active chest pain or shortness of breath Clinically looks dry 2 episodes of diarrhea this morning I will give her 500 mL bolus Give her IV digoxin first loading dose Start Cardizem drip and add metoprolol Potassium 4 magnesium 1.7, TSH 2.1 EF 44 45%, no active chest pain, troponin without significant delta Colitis Patient is endorsing 2 episodes of diarrhea this morning rule out C. difficile Currently she is on Zosyn, clinically looks dry Full code DVT prophylaxis Eliquis Regular diet Attestations Medical Necessity Statement*: on Cardizem drip Time Spent in Patient Care: 16 - 35 minutes Coding Level of Care Code Acute Documentation Engineer for Chg Fwd Diagnoses Atrial fibrillation with rapid ventricular response I48.91 Colitis K52.9
[2020-12-03] MEDS: dilTIAZem 60 mg Tablet PO ×2 (14:38→20:32)
[2020-12-03] MEDS: sodium chloride 0.9% 500 ML IV (14:38)
[2020-12-03] MEDS: metoprolol tartrate 25 mg Tablet PO (15:57)
--- NOTE | 2020-12-03 16:45 | PC.NURSE ---
Cardizem drip was restarted at 1042 and drip was stopped at 1630.
--- NOTE | 2020-12-03 17:30 | PC.NURSE ---
Pt sitting up in bed watching TV and talking to staff. Pt resp even and non-labored no distress noted. Pt had no c/o pain or discomfort at the present time. No needs voiced at the present time. Call light in reach. Will cont to monitor.
[2020-12-04 00:25] VITALS: BP 122/77; PULSE 63; RESP 26
[2020-12-04] MEDS: piperacillin-tazobactam 3.375 GM in sodium chloride 0.9% (plus) 50 ML IV ×2 (00:35→05:43)
[2020-12-04] MEDS: dilTIAZem 60 mg Tablet PO ×2 (01:18→10:41)
[2020-12-04 03:37] VITALS: BP 106/63; PULSE 58; RESP 19; TEMP 36.5
[2020-12-04 04:26] LABS: Basophils % 0.8 %; Eosinophils # 0.2 10^3/uL (0.0-0.8); Hematocrit 41.5 % (37.0-47.0); Hemoglobin 13.1 g/dL (11.5-15.3); Lymphocytes # 1.8 10^3/uL (0.8-4.8); Lymphocytes % 34.1 %; Mean Corpuscular HGB Conc 31.6 g/dL (30.0-36.0); Mean Corpuscular Volume 91.8 fl (81-99); Mean Platelet Volume 10.8 fL (7.4-10.4); Monocytes # 0.7 10^3/uL (0.2-0.9); Neutrophils # 2.53 10^3/uL (1.8-7.7); Neutrophils % 47.5 %; Nucleated Red Blood Cells % 0 %; Platelet Count 226 10^3/cmm (130-400); Red Blood Count 4.52 10^6/uL (4.1-5.3); Red Cell Distribution Width 12.9 % (12.1-15.1); White Blood Count 5.3 10^3/uL (4.0-10.0)
[2020-12-04 04:46] LABS: Anion Gap 12.9 (5-19); Blood Urea Nitrogen 14 mg/dL (8-23); Calcium 8.5 mg/dL (8.5-10.5); Carbon Dioxide 23 mmol/L (22-29); Chloride 107 mmol/L (98-107); Glucose 87 mg/dL (65-115); Osmolality Calculated 288 mOsm/kg (285-295); Potassium 3.9 mmol/L (3.5-5.1); Sodium 139 mmol/L (136-145)
[2020-12-04 06:00] VITALS: PULSE 73
[2020-12-04 07:34] LABS: Slide Review Slide Review Perform
--- NOTE | 2020-12-04 07:58 | PC.NURSE ---
Shift Note Frequent safety and comfort rounds continue. Orders and/or nursing care completed as indicated. Patient monitored for response to intervention and treatment(s). Education provided includes plan of care. Patient and/or senior account representative verbalized understanding. Will continue to monitor.
[2020-12-04 08:27] VITALS: PULSE 73; RESP 18; O2SAT 97
--- NOTE | 2020-12-04 10:03 | PC.SOCIAL ---
IMM Update Discussed medicare rights with patient. Verbalized understanding. Gave patient a copy and placed initialed timed dated copy in chart.
[2020-12-04] MEDS: metoprolol tartrate 25 mg Tablet PO (10:41)
[2020-12-04] MEDS: magnesium oxide 400 mg tablet 200 MG PO (10:41)
[2020-12-04] MEDS: apixaban 5 mg Tablet PO (10:42)
--- NOTE | 2020-12-04 12:27 | PM.DCS ---
Discharge Providers Date of Admission: 12/01/20 16:59 Date of Discharge: December 04, 2020 Attending Provider at Admission: Emilee Champion MD Attending Provider at Discharge: Emilee Champion MD Primary Care Provider: Desirae Da Silva DO Diagnoses at Discharge Discharge Diagnosis (1) Atrial fibrillation with rapid ventricular response: Status: Acute (2) Colitis: Status: Acute Reason for Visit Reason for Visit: NAUSE/ DIARRHEA/ RAPID HEART RATE Hospital Course Hospital Course 70-year-old female who was admitted for management of new onset A. fib RVR, abdominal pain rigors and chills. She was diagnosed with colitis. Zosyn was started which improved her symptoms. She only had 2 episodes of loose stool which did not meet criteria for C. difficile sampling as stool was semisolid. She remained afebrile. For her rate control she was started on Cardizem drip in the ER after getting IV metoprolol. With Cardizem drip at optimal dose her heart rate was consistently above 120s fluctuating between 1 20-1 50s. She never complained of any chest pain or shortness of breath. Cardizem 30 mg p.o. every 6 hours was added however after 24 hours her heart rate went up to 150s again, Cardizem drip was reinitiated and this time it was overlapped with Cardizem 60 mg p.o. every 6 hour, addition of metoprolol 25 mg twice a day and digoxin 250 mcg x 2 IV push for loading dose. Cardizem drip was titrated off. Next day her heart rate was fluctuating between 70-90, rhythm never converted to sinus, however patient remained asymptomatic. She refused physical therapy evaluation and requested home health services. She will go home with Cardizem 240 mg extended release, metoprolol 25 mg twice a day and digoxin lowest possible dose. She will get digoxin level checked on 12/09, asked her to follow-up with Dr. Jimenez. Referral sent. The reason for choosing low-dose dose of digoxin is to stay cautious for electrolyte imbalance especially potassium because of her loose stools and colitis. Magnesium was repleted with p.o. regimen, CTA ruled out PE, she was given 40 mEq potassium chloride on the day of discharge, Potassium 3.9 Clinically patient looks euvolemic however BNP 947 with slightly reduced EF TSH normal Please note left atrial diameter 4.2 cm, left atrial with 4 cm Echo done during this hospitalization CONCLUSIONS LV systolic function is mildly reduced with EF 40 to 45%. Diastolic function is indeterminate because of atrial fibrillation. Left atrium is enlarged. Mild mitral stenosis with mean gradient of 4 mmHg noted. Trace mitral regurgitation. Trace tricuspid regurgitation. Mild aortic regurgitation and mild pulmonic regurgitation. No comparison studies are available. Physical Exam Narrative: EXAM NARRATIVE: A. fib rate controlled 70 to 90s no active signs of peritonitis Lower extremity no edema Clinically does look dry Saturating well on room air Rhonchi at the base of the lungs Abdomen soft Discharge Data Data Completed and Pending: Completed Studies During Hospitalization Category Date Time Status CT abdomen pelvis w con* [id number] Urge nt Cat Scan 12/01/20 13:[address] angio chest PE protcl [id number] Stat Cat Scan 12/02/20 07:27 Completed XR chest 1V arnav ble [id number] Urgent Exams 12/01/20 13:07 Completed CV. echo complete * [id number] Routine Ultrasound 12/02/20 21:51 Completed Pending at discharge Category Date Time Status C DIFF [Clostridi oides Difficile PC R] Routine Lab 12/03/20 10:47 Uncollected Enteric Bacterial Panel by PCR Rout ine Lab 12/03/20 12:57 Uncollected Enteric Parasite Panel by PCR Routi ne Lab 12/03/20 12:57 Uncollected Labs from last 24 hours 12/04/20 12/04/20 04:07 04:07 WBC 5.3 RBC 4.52 Hgb 13.1 Hct 41.5 MCV 91.8 MCH 29.0 MCHC 31.6 RDW 12.9 Plt Count 226 MPV 10.8 H Neut % (Auto) 47.5 Lymph % (Auto) 34.1 [place] % (Auto) 13.0 Eos % (Auto) 4.0 Baso % (Auto) 0.8 Neut # (Auto) 2.53 Lymph # (Auto) 1.8 [place] # (Auto) 0.7 Eos # (Auto) 0.2 Baso # (Auto) 0.0 Nucleated RBC % (a uto) 0 Nucleated RBCs # 0.0 Sodium 139 Potassium 3.9 Chloride 107 Carbon Dioxide 23 Anion Gap 12.9 BUN 14 Creatinine 0.5 GFR Calculation 122.0 Glucose 87 Calculated Osmolal ity 288 Calcium 8.5 Vitals: Last Vital Signs Temp 97.7 F 12/04/20 03:37 Pulse 73 12/04/20 08:27 Resp 18 12/04/20 08:27 BP 106/63 12/04/20 03:37 Pulse Ox 97 12/04/20 08:27 Discharge Plan Discharge Patient Disposition: Home Condition: Stable Prescriptions: New metoprolol tartrate 25 mg Tablet 25 mg PO BID@0900,2100 30 Days Qty: 60 RF: 3 Eliquis 5 mg Tablet 5 mg PO BID 30 Days Qty: 60 RF: 6 Cardizem LA 240 mg tablet extended release 24 hr 240 mg PO DAILY 30 Days Qty: 30 RF: 3 Flagyl 500 mg tablet 500 mg PO Q8H 7 Days Qty: 21 RF: 0 ciprofloxacin HCl 500 mg tablet 500 mg PO BID Qty: 14 RF: 0 Digox 125 mcg (0.125 mg) tablet 62.5 mcg PO DAILY Qty: 30 RF: 1 Continued vitamin C-vitamin E Capsule 1 cap PO DAILY RF: 0 multivitamin Tablet 1 tab PO DAILY RF: 0 Vitamin B-12 250 mcg Tablet 250 mcg PO DAILY RF: 0 magnesium 200 mg Tablet 200 mg PO DAILY RF: 0 Krill Oil ([place] 3 and 6) 1000-130(40-80) mg Capsule 1 cap PO DAILY RF: 0 Discharge Orders: Discharge Order (Routine); Ordered 12/04/20 Ordered By: Emilee Champion Other Ambulatory Orders: Digoxin (Routine) Timeframe: 20201209 Facility: [facility] - Location: Lab - Main Lab Ordered By: Emilee Champion Referrals: [place] In Home Service Setup [Other] (Call this number to get In Home Services Setup. They will ask you questions & based off your answers you are given points. You have to have a certain number of points to qualify. ) Ori Jimenez MD [Physician] - 4-7 days (New onset A. fib) Desirae Da Silva DO [Primary Care Provider] - 1-3 days Nery Dawson MD [Physician] - 7-10 days (New onset A. fib) Discharge Diet: Cardiac Discharge Activity: Increase activity as tolerated Patient Instructions: Opioid Safety Activity Restrictions/Additional Instructions: Please take Cardizem 240 mg daily and metoprolol 25 mg twice a day for heart rate control your ideal heart rate should be less than 110 on ambulation and less than 80 at rest We will need digoxin level test and I will give you a prescription for that which should be on 12/09 Please follow-up with Dr. Jimenez you will get digoxin very low dose Please do not take above-mentioned medications if your heart rate is less than 60 or blood pressure less than 100 mmHg You are getting Eliquis to prevent stroke 5 mg twice a day Please let your MD know if you notice any dark-colored stools or bleeding You will also get 7 days of antibiotics for your colitis Home health services being set up Please follow-up with your PCP as soon as possible Discharge Attestations Time Spent in Discharge Care*: less than 30 min Quality Metrics Clinical Quality Measures During this hospital stay, did patient experience: None Coding Level of Care Code Acute Chg FW DC note Diagnoses Atrial fibrillation with rapid ventricular response I48.91 Colitis K52.9
[2020-12-04 13:19] VITALS: BP 130/90; PULSE 73; RESP 18; O2SAT 97
[2020-12-04 14:22] VITALS: BP 106/63
--- NOTE | 2020-12-04 17:03 | PC.NURSE ---
Pt discharged home. IV removed no redness or swelling noted. Pts discharge instructions given along with prescriptions and follow up appointments. Pt had no c/o pain or discomfort at the time of discharge.
--- NOTE | 2020-12-08 08:21 | PC.SOCIAL ---
multiple attempts to reach patient yesterday, number that is listed for patient is no longer a working number, number listed for grandson, unable to leave a voicemail. called Dr. Jimenez's office and cancelled appointment that had been made for today. Will continue to call patient.
--- NOTE | 2020-12-08 11:59 | PC.SOCIAL ---
Sourcing Analyst has continued to make multiple phone calls, unable to reach patient. unable to leave voicemail.
== END 2020-12-04 13:39 | disposition home health service (06) | DRG 309 ==
LOC: ER 16:30 → CSU 20:09
PROVIDERS: Admitting Provider Internal Medicine; Emergency Provider Emergency Medicine; PCP Family Medicine; Visit Provider Internal Medicine
DX: I48.91 Unspecified atrial fibrillation (principal); F33.9 Major depressive disorder, recurrent, unspecified; K52.9 Noninfective gastroenteritis and colitis, unspecified; F41.9 Anxiety disorder, unspecified; K21.9 Gastro-esophageal reflux disease without esophagitis
CPT/HCPCS: 36415; 71045; 71275; 74177; 80048; 80053; 81003; 83735; 83880; 84145; 84443; 84484; 85025; 85378; 86140; 87426; 93005; 93306; 96365; 96366; 96367; 96375; 99285; J0696; J1160; J2543; J3490; J7030; J7040; Q9967; S0030

== ENCOUNTER 2020-12-05 23:01 | Emergency (ER) | payer MEDICARE, MEDICAID, SELFPAY ==
[2020-12-05 23:23] VITALS: BP 95/65; PULSE 87; RESP 15; TEMP 36.9; O2SAT 99; BMI 22.8
[2020-12-05 23:49] VITALS: BP 94/64; PULSE 74; RESP 14; O2SAT 97
--- NOTE | 2020-12-05 23:59 | W.ED.CHESTPA ---
HPI - Chest Pain General: Chief Complaint: Chest Pain Stated Complaint: A FIB WITH RVR Time Seen by Provider: 12/05/20 23:59 History of Present Illness: HPI narrative: Ms. Valdez is a 70-year-old lady with significant recent diagnosis of atrial fibrillation and hospitalization for such who presents emergency department due to concern over atrial fibrillation with RVR. She reports since discharge she has felt well until earlier on the . She describes feeling jittery all day though no specific shortness of breath, lightheadedness, chest pain, or palpitations. She reports compliance with her medication regimen however this is with the exception of her Eliquis which she has not been on. She endorses no additional shortness of breath. She has not been on her Eliquis because it is not available yet at pharmacy. Intensity of jitteriness was moderate and subacute in onset. It persisted throughout the day without significant change in intensity. She otherwise denies infectious symptoms or changes in health. No specific provoking, exacerbating, or alleviating factors identified. Review of Systems General: Reports: 10 or more systems reviewed and unremarkable except in HPI and below Narrative: CONSTITUTIONAL: denies fever, fatigue, weakness. See HPI EYES - denies pain, denies loss of vision EARS - denies ear issues. NOSE - denies congestion or rhinorrhea. THROAT - denies sore throat or difficulty swallowing. CARDIOVASCULAR - denies chest pain and palpitations RESPIRATORY - denies shortness of breath and cough GASTROINTESTINAL - denies abdominal pain, no nausea vomiting, no changes in bowel habits GENITOURINARY - denies dysuria or urinary frequency MUSCULOSKELETAL- denies deformity or pain SKIN - denies rashes or new changed skin lesions NEUROLOGIC - denies focal weakness or sensory changes HEMATOLOGIC/LYMPHATIC - denies easy bruising or lymphadenopathy. [facility] ED PFSH: Medical History Anxiety Bilateral wrist pain Chronic ankle pain, bilateral Chronic pain of both knees Dysuria GERD without esophagitis Interstitial cystitis Mixed incontinence Moderate episode of recurrent major depressive disorder Overactive bladder Recurrent UTI Tremor Surgical History Hx of hysterectomy Family History Mother , AT AGE 80 Diabetes Cancer Father CAD (coronary artery disease) Social History Smoking and tobacco status: never smoked Alcohol intake: never Marital status: / Current occupational status: disabled Physical Exam Narrative: EXAM NARRATIVE: GENERAL/CONSTITUTIONAL - well-appearing. No acute distress. Eyes - PERRL, no conjunctival injection ENMT - Atraumatic external nose and ears. Moist mucous membranes NECK - supple. trachea midline CARDIOVASCULAR - regular rate and rhythm. Peripheral pulses 2+ and equal RESPIRATORY -clear to auscultation bilaterally. No retractions or accessory muscle use. ABDOMEN/GI - Nontender/Nondistended. No tenderness to percussion or evidence of peritonitis MSK - Extremities without obvious deformity or tenderness to palpation SKIN - Warm, Dry NEURO - alert and appropriately oriented. strength and sensation intact. Moves all extremities equally. PSYCH - Appropriate mood and affect Course ED course: - Patient was seen and evaluated by me at bedside - Patient placed on cardiac monitors, IV access obtained - Initial evaluation notable for no acute distress, nontoxic appearance. EMS reports initial atrial fibrillation at a rate of approximately 150. They gave 15 mg Cardizem and her rate is now well controlled. - Labs notable for no significant hematologic abnormality to explain the patient's symptoms. The patient has mild new transaminitis of unclear etiology. -No lobar consolidation noted on x-ray. -Prior to completion of ED evaluation the patient left AGAINST MEDICAL ADVICE. I was performing laceration repair at time of notification and as such the patient declined to remain at the emergency department for any further discussion or otherwise typical AGAINST MEDICAL ADVICE information Vital Signs: Vital signs: Vital Signs Temperature 98.4 F 12/05/20 23:23 Pulse Rate 90 12/06/20 02:40 Respiratory Rate 15 12/06/20 02:40 Blood Pressure 123/70 12/06/20 02:40 Pulse Oximetry 97 12/06/20 02:40 MDM - Chest Pain Medical Records: Attestation: I reviewed the patient's medical records. Lab Data: Attestation: I reviewed the patient's lab results. Labs: Lab Results 12/05/20 12/05/20 12/05/20 Range/Units 23:00 23:00 23:00 WBC 8.6 (4.0-10.0) 10^3/ uL RBC 4.79 (4.1-5.3) 10^6/u L Hgb 13.6 (11.5-15.3) g/dL Hct 42.5 (37.0-47.0) % MCV 88.7 (81-99) fl MCH 28.4 (28.0-34.0) pg MCHC 32.0 (30.0-36.0) g/dL RDW 12.7 (12.1-15.1) % Plt Count 277 (130-400) 10^3/c mm MPV 11.4 H (7.4-10.4) fL Neut % (Auto) 53.4 % Lymph % (Auto) 31.5 % [place] % (Auto) 10.8 % Eos % (Auto) 2.6 % Baso % (Auto) 0.7 % Neut # (Auto) 4.60 (1.8-7.7) 10^3/u L Lymph # (Auto) 2.7 (0.8-4.8) 10^3/u L [place] # (Auto) 0.9 (0.2-0.9) 10^3/u L Eos # (Auto) 0.2 (0.0-0.8) 10^3/u L Baso # (Auto) 0.1 (0.0-0.1) 10^3/u L Nucleated RBC % (a uto) 0 % Nucleated RBCs # 0.0 /100WBC Sodium 136 (136-145) mmol/L Potassium 4.3 (3.5-5.1) mmol/L Chloride 100 (98-107) mmol/L Carbon Dioxide 24 (22-29) mmol/L Anion Gap 16.3 (5-19) BUN 20 (8-23) mg/dL Creatinine 0.6 (0.5-0.9) mg/dL GFR Calculation 98.8 (90-130) mL/min Glucose 97 (65-115) mg/dL Calculated Osmolal ity 285 (285-295) mOsm/k g Calcium 9.2 (8.5-10.5) mg/dL Magnesium 2.0 (1.7-2.3) mg/dL Total Bilirubin 0.2 (0.15-1.2) mg/dL AST 49 H (0-32) U/L ALT 62 H (0-33) U/L Alkaline Phosphata se 68 (35-105) IU/L Troponin T Baselin e 20 H (0-10) ng/L NT-Pro-B Natriuret Pep 2100 H (0-125) pg/mL Total Protein 6.8 (6.6-8.7) g/dL Albumin 4.0 (3.5-5.2) g/dL Globulin 2.8 (1.3-4.6) g/dL TSH 4.36 H (0.27-4.20) uIU/ mL EKG Data^: EKG 1: Attestation: I personally reviewed and interpreted this EKG as follows: EKG interpretation date: 12/06/20 EKG interpretation time: 00:25 Prior EKG tracings: available for review Interpretation: Twelve-lead EKG shows an irregular rhythm at a rate of 73. No IA interval, QRS duration 127, QTc 484. Normal axis. Interpretation: Atrial fibrillation, bundle branch block. Discharge Plan Discharge Prescriptions: No Action vitamin C-vitamin E Capsule 1 cap PO DAILY RF: 0 multivitamin Tablet 1 tab PO DAILY RF: 0 Vitamin B-12 250 mcg Tablet 250 mcg PO DAILY RF: 0 magnesium 200 mg Tablet 200 mg PO DAILY RF: 0 Krill Oil ([place] 3 and 6) 1000-130(40-80) mg Capsule 1 cap PO DAILY RF: 0 metoprolol tartrate 25 mg Tablet 25 mg PO BID@0900,2100 30 Days Qty: 60 RF: 3 Eliquis 5 mg Tablet 5 mg PO BID 30 Days Qty: 60 RF: 6 Cardizem LA 240 mg tablet extended release 24 hr 240 mg PO DAILY 30 Days Qty: 30 RF: 3 Flagyl 500 mg tablet 500 mg PO Q8H 7 Days Qty: 21 RF: 0 ciprofloxacin HCl 500 mg tablet 500 mg PO BID Qty: 14 RF: 0 Digox 125 mcg (0.125 mg) tablet 62.5 mcg PO DAILY Qty: 30 RF: 1 Referrals: Desirae Da Silva DO [Primary Care Provider] - Coding Level of Care Code ED Digital Sales Manager for Chg Rick
--- NOTE | 2020-12-06 00:02 | ECG_ITS ---
[facility] Test Date: 2020-12-06 Pat Name: Sabina Valdez Department: Room: Gender: Female Final Expense Agent: : 1950 Requested By: Kendall Jang Order Number: [id number] Dulce Maria MD: Nery Dawson M.D. Measurements Intervals [place] Rate: 73 P: [place]: QRS: 53 QRSD: 127 T: -6 QT: 437 QTc: 484 Interpretive Statements ATRIAL FLUTTER RIGHT BUNDLE BRANCH BLOCK [120+ ms QRS DURATION, UPRIGHT V1, 40+ ms S IN I/aVL/V4/V5/V6] Compared to ECG 12/01/2020 19:43:44 Atrial fibrillation no longer present Electronically Signed On 12-07-2020 19:14:30 CDT by Nery Dawson M.D. [email or web address]
--- NOTE | 2020-12-06 00:02 | XRR_ITS ---
PROCEDURE INFORMATION: Exam: XR Chest Exam date and time: 12/06/2020 12:02 AM Age: 70 years old Clinical indication: Sternal or substernal pain; Additional info: Chest pain TECHNIQUE: Imaging protocol: XR of the chest. Views: 1 view. COMPARISON: CR XR chest 1V portable [id number] 12/01/2020 1:17 PM FINDINGS: Lungs: Linear scar or atelectasis in the left mid lung. Pleural spaces: Unremarkable. No pleural effusion. No pneumothorax. Heart/Mediastinum: There is mild cardiomegaly. Bones/joints: Unremarkable. XR/XR chest 1V portable [id number] IMPRESSION: 1. Mild cardiomegaly. 2. Linear scar or atelectasis in the left mid lung.
[2020-12-06 00:34] LABS: Basophils # 0.1 10^3/uL (0.0-0.1); Basophils % 0.7 %; Eosinophils # 0.2 10^3/uL (0.0-0.8); Eosinophils % 2.6 %; Hematocrit 42.5 % (37.0-47.0); Hemoglobin 13.6 g/dL (11.5-15.3); Lymphocytes # 2.7 10^3/uL (0.8-4.8); Lymphocytes % 31.5 %; Mean Corpuscular Hemoglobin 28.4 pg (28.0-34.0); Mean Corpuscular Volume 88.7 fl (81-99); Mean Platelet Volume 11.4 fL (7.4-10.4); Monocytes # 0.9 10^3/uL (0.2-0.9); Monocytes % 10.8 %; Neutrophils % 53.4 %; Nucleated Red Blood Cells % 0 %; Platelet Count 277 10^3/cmm (130-400); Red Blood Count 4.79 10^6/uL (4.1-5.3); Red Cell Distribution Width 12.7 % (12.1-15.1); White Blood Count 8.6 10^3/uL (4.0-10.0)
[2020-12-06 00:46] LABS: Troponin(5th) Baseline 20 ng/L (0-10)
[2020-12-06 00:55] VITALS: BP 99/68; PULSE 73; RESP 16; O2SAT 98
[2020-12-06 00:57] LABS: Alanine Aminotransferase 62 U/L (0-33); Alkaline Phosphatase 68 IU/L (35-105); Anion Gap 16.3 (5-19); Aspartate Amino Transferase 49 U/L (0-32); Blood Urea Nitrogen 20 mg/dL (8-23); Calcium 9.2 mg/dL (8.5-10.5); Carbon Dioxide 24 mmol/L (22-29); Chloride 100 mmol/L (98-107); Globulin 2.8 g/dL (1.3-4.6); Glomerular Filtration Rate 98.8 mL/min (90-130); Glucose 97 mg/dL (65-115); NT Pro B Type Natriuretic Pept 2100 pg/mL (0-125); Osmolality Calculated 285 mOsm/kg (285-295); Potassium 4.3 mmol/L (3.5-5.1); Sodium 136 mmol/L (136-145); Thyroid Stimulating Hormone 4.36 uIU/mL (0.27-4.20); Total Bilirubin 0.2 mg/dL (0.15-1.2); Total Protein 6.8 g/dL (6.6-8.7)
[2020-12-06 01:16] LABS: Slide Review Slide Review Perform
--- NOTE | 2020-12-06 02:02 | ECG_ITS ---
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 Measurements Intervals [place] Rate: 74 P: [place]: QRS: 52 QRSD: 134 T: 7 QT: 439 QTc: 488 Interpretive Statements ATRIAL FLUTTER RIGHT BUNDLE BRANCH BLOCK [120+ ms QRS DURATION, UPRIGHT V1, 40+ ms S IN I/aVL/V4/V5/V6] Compared to ECG 12/01/2020 19:43:44 Atrial fibrillation no longer present Electronically Signed On 12-07-2020 21:37:27 CDT by Nery Dawson M.D. [email or web address].[employer]store/NU/[email or web address]/[id number] f
[2020-12-06 02:40] VITALS: BP 123/70; PULSE 90; RESP 15; O2SAT 97
== END 2020-12-06 02:24 ==
PROVIDERS: Emergency Provider Emergency Medicine; PCP Family Medicine
DX: R07.9 Chest pain, unspecified (principal); Z79.01 Long term (current) use of anticoagulants
CPT/HCPCS: 71045; 80053; 83735; 83880; 84443; 84484; 85025; 93005; 99283

== ENCOUNTER 2020-12-16 02:57 | Inpatient (IN) | payer MEDICARE, MEDICAID, SELFPAY ==
[2020-12-16] VITALS (25 sets, daily range): BP systolic 107–153; BP diastolic 67–105; PULSE 36–132; RESP 17–43; TEMP 36.2–36.8; O2SAT 92–99; BMI 22.8
--- NOTE | 2020-12-16 | CTR_ITS ---
[facility] Final Radiology Report Call: [phone] assistance Online chat: [email or web address] Name: JIMENA MASON Age: 70Years F Date: 12/16/2020 SSN: [id number] : 1950 Study: CT SPINE THORACIC WO Requesting Physician: ALEXYS NATION Images: [id number] Add?l Studies: Provided Clinical History: back pain Procedure Accession CTDI Vol (mGy) DLP (mGy-cm) CT SPINE THORACIC WO [id number] 948.63 PROCEDURE INFORMATION: Exam: CT Thoracic Spine Without Contrast Exam date and time: 12/16/2020 10:35 AM Age: 70 years old Clinical indication: Pain in thoracic spine; Additional info: Back pain TECHNIQUE: Imaging protocol: Computed tomography images of the thoracic spine without contrast. Radiation optimization: All CT scans at this facility use at least one of these dose optimization techniques: automated exposure control; mA and/or kV adjustment per patient size (includes targeted exams where dose is matched to clinical indication); or iterative reconstruction. COMPARISON: CT abdomen pelvis w con* [id number] 12/01/2020 4:02 PM RADIATION DOSE METRICS: Total DLP (mGy-cm): 948.63 FINDINGS: Vertebrae: Alignment is normal. No fracture. Discs/Spinal canal/Neural foramina: Degenerative changes throughout much of the thoracic spine. Mild. Soft tissues: Unremarkable. Pleural spaces: Moderate pleural effusions right greater than left. Heart: Cardiomegaly Thyroid: Thyroid nodule on the left. 15 mm. IMPRESSION: 1. No fracture. 2. Degenerative changes throughout much of the thoracic spine. Mild. 3. Moderate pleural effusions right greater than left. Thank you for allowing us to participate in the care of your patient. Dictated and Authenticated by: Justice Noe MD 12/16/2020 1:41 PM Central Time ([place] & [place]) [facility]
--- NOTE | 2020-12-16 | CTR_ITS ---
[facility] Final Radiology Report Call: [phone] assistance Online chat: [email or web address] Name: JIMENA MASON Age: 70Years F Date: 12/16/2020 SSN: [id number] : 1950 Study: CT SPINE LUMBAR WO Requesting Physician: ALEXYS NATION Images: [id number] Add?l Studies: Provided Clinical History: back pain Procedure Accession CTDI Vol (mGy) DLP (mGy-cm) CT SPINE LUMBAR WO [id number] 1899.54 PROCEDURE INFORMATION: Exam: CT Lumbar Spine Without Contrast Exam date and time: 12/16/2020 10:35 AM Age: 70 years old Clinical indication: Low back pain TECHNIQUE: Imaging protocol: Computed tomography images of the lumbar spine without contrast. Radiation optimization: All CT scans at this facility use at least one of these dose optimization techniques: automated exposure control; mA and/or kV adjustment per patient size (includes targeted exams where dose is matched to clinical indication); or iterative reconstruction. COMPARISON: CT thoracic spin wo con* [id number] 12/16/2020 12:37 PM RADIATION DOSE METRICS: Total DLP (mGy-cm): 1899.54 FINDINGS: Vertebrae: No spondylolisthesis. No pars defect. No fracture. Discs/Spinal canal/Neural foramina: Mild central canal narrowing L4-L5. Moderate degenerative disc disease diffusely reflected as decrease in disc space height and anterior endplate osteophytosis. Gallbladder and bile ducts: Question prominent gallbladder. Consider gallbladder ultrasound. Question mild inflammation in the upper abdomen. Soft tissues: See Gallbladder and bile ducts finding. IMPRESSION: 1. Moderate diffuse degenerative disc disease. 2. Mild central canal narrowing L4-L5. 3. Soft tissue prominence right upper abdomen likely gallbladder. Consider gallbladder ultrasound. Thank you for allowing us to participate in the care of your patient. Dictated and Authenticated by: Justice Noe MD 12/16/2020 1:45 PM Central Time ([place] & [place]) [facility]
--- NOTE | 2020-12-16 03:05 | ECG_ITS ---
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 Measurements Intervals [place] Rate: 131 P: 200 WV: 138 QRS: 90 QRSD: 131 T: -58 QT: 337 QTc: 499 Interpretive Statements SINUS TACHYCARDIA/atrial flutter WITH OCCASIONAL VENTRICULAR PREMATURE COMPLEXES RIGHT BUNDLE BRANCH BLOCK [120+ ms QRS DURATION, UPRIGHT V1, 40+ ms S IN I/aVL/V4/V5/V6] INTERPRETATION BASED ON A DEFAULT AGE OF 40 YEARS Compared to ECG 12/06/2020 00:18:23 Ventricular premature complex(es) now present Electronically Signed On 12-16-2020 23:31:14 CDT by Ori Jimenez M.D. [email or web address] [email or web address] c. watkins memorial hospitalBensussen Deutschsycamore [facility] center.[employer]/store/NU/[id number]/ecg/[id number] f
--- NOTE | 2020-12-16 03:06 | ED_ITS ---
HPI - Weakness General: Chief complaint: Back Pain/Injury Stated complaint: BACK/CHEST PAIN Time Seen by Provider: 12/16/20 03:04 Source: patient and EMS Mode of arrival: EMS Limitations: no limitations History of Present Illness: HPI Narrative: 70-year-old female has a history of A. fib. Patient has been here twice this month admitted once for her A. fib. She is on Cardizem digoxin and Eliquis. She states that this her months she just been having weakness shortness of breath and back pain. She states she started having palpitations today and her heart rate is in the one thirties A. fib with RVR. She has had slight cough and dyspnea. She denies any fevers. She denies any chest pain currently. Patient had a CTA earlier this month that was normal with no signs of pulmonary embolism or dissection. She denies any vomiting or diarrhea. Associated symptoms: Denies chills, dysuria, easy bruising, fever(s), nausea or vomiting Review of Systems Const: Denies: fever(s), chills, body aches or change in appetite Eyes: Denies: blurry vision or eye discomfort ENMT: Denies: throat pain or dental pain Card: Reports: palpitations Resp: Reports: dyspnea GI: Denies: abdominal pain, nausea, vomiting or diarrhea : Denies: dysuria Musc: Reports: back pain Skin/Breast: Denies: rash Neuro: Reports: weakness in extremities Psych: Denies: depression Ortega/Lymph: Denies: easy bruising All/Imm: Denies: urticaria PFS ED PFSH: Medical History (Updated 12/16/20 @ 04:26 by Case Flanagan MD) Anxiety Bilateral wrist pain Chronic ankle pain, bilateral Chronic pain of both knees Dysuria GERD without esophagitis Interstitial cystitis Mixed incontinence Moderate episode of recurrent major depressive disorder Overactive bladder Recurrent UTI Tremor Surgical History Hx of hysterectomy Family History (Updated 12/07/20 @ 18:36 by Kate Angulo RN) Mother , AT AGE 80 Diabetes Cancer CAD (coronary artery disease) Father CAD (coronary artery disease) Brother CAD (coronary artery disease) Sister CAD (coronary artery disease) Social History Smoking and tobacco status: never smoked Alcohol intake: never Marital status: / Current occupational status: disabled Physical Exam Const: COMMON NORMALS: no acute distress, patient oriented x3 and healthy appearing HENMT: COMMON NORMALS: normocephalic and atraumatic HEAD & SCALP: normocephalic and atraumatic Eye: COMMON NORMALS: Equal, round and reactive pupils present and EOMs intact bilaterally PUPIL: Yes Equal, round and reactive pupils present Neck/C-Spine: COMMON NORMALS: full ROM and supple Chest: COMMONS NORMALS: normal inspection of the chest and normal palpation of entire chest wall Resp: COMMON NORMALS: normal respiratory effort, No retractions, No use of ac cessory muscles and clear to auscultation bilaterally AUSCULTATION: clear to auscultation bilaterally Cardio: COMMON NORMALS: No murmurs present (Cardio) RATE: tachycardic RHYTHM: abnormal rhythm irregularly irregular GI: COMMON NORMALS: Normal to inspection, nondistended, normoactive bowel sounds present, Soft to palpation, non-tender and no masses PALPATION: Yes Soft to palpation Extremity: COMMON NORMALS: normal to inspection and full ROM Neuro: COMMON NORMALS: patient oriented x3, moves all extremities and no focal motor deficits Psych: COMMON NORMALS: mental status grossly normal, Normal thought process present and cooperative THOUGHT PROCESS: Normal thought process present Skin: COMMON NORMALS: no rashes or lesions noted and no wounds GENERAL SKIN EXAM: no rashes or lesions noted Course Vital Signs: Vital signs: Vital Signs Temperature 97.2 F L 12/16/20 03:06 Pulse Rate 132 H 12/16/20 03:06 Respiratory Rate 18 12/16/20 03:06 Blood Pressure 153/67 12/16/20 03:06 Pulse Oximetry 96 12/16/20 03:06 MDM - Weakness MDM Narrative: Medical decision making narrative: Patient presents with A. fib with RVR along with CHF. Patient's heart rate is still in the one tens after Cardizem bolus. Patient started on a Cardizem drip and I spoke to hospitalist will admit to cardiac stepdown. Patient has been stable while here. She has no signs of pulmonary embolism she had a normal CTA earlier this month. Lab Data: Labs: Lab Results 12/16/20 12/16/20 12/16/20 03:02 03:02 03:02 WBC 8.2 10^3/uL 10^3/ uL (4.0-10.0) RBC 4.62 10^6/uL 10^6 /uL (4.1-5.3) Hgb 13.3 g/dL g/dL (11.5-15.3) Hct 42.5 % % (37.0-47.0) MCV 92.0 fl fl (81-99) MCH 28.8 pg pg (28.0-34.0) MCHC 31.3 g/dL g/dL (30.0-36.0) RDW 14.1 % % (12.1-15.1) Plt Count 241 10^3/cmm 10^3 /cmm (130-400) MPV 11.5 fL H fL (7.4-10.4) Neut % (Auto) 63.0 % % Lymph % (Auto) 24.1 % % [place] % (Auto) 10.7 % % Eos % (Auto) 1.2 % % Baso % (Auto) 0.6 % % Neut # (Auto) 5.16 10^3/uL 10^3 /uL (1.8-7.7) Lymph # (Auto) 2.0 10^3/uL 10^3/ uL (0.8-4.8) [place] # (Auto) 0.9 10^3/uL 10^3/ uL (0.2-0.9) Eos # (Auto) 0.1 10^3/uL 10^3/ uL (0.0-0.8) Baso # (Auto) 0.1 10^3/uL 10^3/ uL (0.0-0.1) Nucleated RBC % (a uto) 0 % % Nucleated RBCs # 0.0 /100WBC /100W BC PT 16.60 SECONDS H S ECONDS (12.1-14.9) INR 1.31 H (0.8-1.2) Sodium 137 mmol/L mmol/L (136-145) Potassium 4.4 mmol/L mmol/L (3.5-5.1) Chloride 105 mmol/L mmol/L (98-107) Carbon Dioxide 20 mmol/L L mmol/ L (22-29) Anion Gap 16.4 (5-19) BUN 21 mg/dL mg/dL (8-23) Creatinine 0.5 mg/dL mg/dL (0.5-0.9) GFR Calculation 122.0 mL/min mL/m in (90-130) Glucose 135 mg/dL H mg/dL (65-115) Calculated Osmolal ity 289 mOsm/kg mOsm/ kg (285-295) Calcium 9.2 mg/dL mg/dL (8.5-10.5) Total Bilirubin 0.5 mg/dL mg/dL (0.15-1.2) AST 33 U/L H U/L (0-32) ALT 33 U/L U/L (0-33) Alkaline Phosphata se 75 IU/L IU/L (35-105) Troponin T Baselin e NT-Pro-B Natriuret Pep 2226 pg/mL H pg/m L (0-125) Total Protein 6.6 g/dL g/dL (6.6-8.7) Albumin 3.6 g/dL g/dL (3.5-5.2) Globulin 3.0 g/dL g/dL (1.3-4.6) Digoxin 0.3 ng/mL L ng/mL (0.6-1.2) SARS-CoV-2 Ag (Rap id) 12/16/20 12/16/20 03:02 03:18 WBC RBC Hgb Hct MCV MCH MCHC RDW Plt Count MPV Neut % (Auto) Lymph % (Auto) [place] % (Auto) Eos % (Auto) Baso % (Auto) Neut # (Auto) Lymph # (Auto) [place] # (Auto) Eos # (Auto) Baso # (Auto) Nucleated RBC % (a uto) Nucleated RBCs # PT INR Sodium Potassium Chloride Carbon Dioxide Anion Gap BUN Creatinine GFR Calculation Glucose Calculated Osmolal ity Calcium Total Bilirubin AST ALT Alkaline Phosphata se Troponin T Baselin e 15 ng/L H ng/L (0-10) NT-Pro-B Natriuret Pep Total Protein Albumin Globulin Digoxin SARS-CoV-2 Ag (Rap id) Negative (Negative) Imaging Data^: CXR: Attestation: I personally reviewed and interpreted this imaging study as follows: Radiologist's impression: [email or web address] [address] XRay Report Signed Patient: Sabina Valdez Unit #: [id number] : 1950 Age/Sex: 70 / F ADM Date: 12/16/20 Loc: ER Room/Bed: Attending Dr: Ordering Provider/Ordering MD: Case Flanagan MD Date of Service: 12/16/20 Procedure(s): XR chest 1V portable [id number] Accession Number(s): [id number] Report Number: [id number] PROCEDURE INFORMATION: Exam: XR Chest Exam date and time: 12/16/2020 3:05 AM Age: 70 years old Clinical indication: Shortness of breath; Chest pressure; Patient HX: Chest pain with SOB. History of afib. TECHNIQUE: Imaging protocol: XR of the chest. Views: 1 view. COMPARISON: CR (CHEST, ) 12/06/2020 12:42 AM FINDINGS: Lungs: There is enlargement of the pulmonary vascularity. There is thickening of the interstitial markings. Pleural spaces: Unremarkable. No pleural effusion. No pneumothorax. Heart/Mediastinum: The heart is mildly enlarged. Bones/joints: Unremarkable. XR/XR chest 1V portable [id number] IMPRESSION: Congestive heart failure. Dictated By: Juwan Montero Signed By: Juwan Montero Signed Date/Time: 12/16/20346 DD/ 4 EKG Data^: EKG 1: Attestation: I personally reviewed and interpreted this EKG as follows: EKG interpretation date: 12/16/20 EKG interpretation time: 04:01 Interpretation: atrial fib rvr hr [address] or twave abnormaliteis qrs 134 qtc 412 Discharge Plan Discharge Patient Disposition: Admitted As Inpatient Clinical Impression: Atrial fibrillation with RVR, CHF (congestive heart failure) Condition: Stable Coding Level of Care Code ED Production Sorter for Chg Fwd Exam Comprehensive
[2020-12-16 03:18] LABS: Basophils # 0.1 10^3/uL (0.0-0.1); Basophils % 0.6 %; Eosinophils # 0.1 10^3/uL (0.0-0.8); Eosinophils % 1.2 %; Hematocrit 42.5 % (37.0-47.0); Hemoglobin 13.3 g/dL (11.5-15.3); Lymphocytes % 24.1 %; Mean Corpuscular HGB Conc 31.3 g/dL (30.0-36.0); Mean Corpuscular Hemoglobin 28.8 pg (28.0-34.0); Mean Platelet Volume 11.5 fL (7.4-10.4); Monocytes # 0.9 10^3/uL (0.2-0.9); Monocytes % 10.7 %; Neutrophils # 5.16 10^3/uL (1.8-7.7); Nucleated Red Blood Cells % 0 %; Platelet Count 241 10^3/cmm (130-400); Red Blood Count 4.62 10^6/uL (4.1-5.3); Red Cell Distribution Width 14.1 % (12.1-15.1); White Blood Count 8.2 10^3/uL (4.0-10.0)
[2020-12-16 03:28] LABS: INR 1.31 (0.8-1.2)
[2020-12-16] MEDS: sodium chloride 0.9% 1,000 ML 999 ML IV (03:37)
[2020-12-16 03:46] LABS: Troponin(5th) Baseline 15 ng/L (0-10)
[2020-12-16 03:53] LABS: Alanine Aminotransferase 33 U/L (0-33); Albumin Level 3.6 g/dL (3.5-5.2); Alkaline Phosphatase 75 IU/L (35-105); Aspartate Amino Transferase 33 U/L (0-32); Blood Urea Nitrogen 21 mg/dL (8-23); Calcium 9.2 mg/dL (8.5-10.5); Carbon Dioxide 20 mmol/L (22-29); Chloride 105 mmol/L (98-107); Digoxin 0.3 ng/mL (0.6-1.2); Glucose 135 mg/dL (65-115); NT Pro B Type Natriuretic Pept 2226 pg/mL (0-125); Osmolality Calculated 289 mOsm/kg (285-295); Sodium 137 mmol/L (136-145); Total Bilirubin 0.5 mg/dL (0.15-1.2); Total Protein 6.6 g/dL (6.6-8.7)
[2020-12-16 03:54] LABS: Anion Gap 16.4 (5-19); Potassium 4.4 mmol/L (3.5-5.1)
[2020-12-16 03:54] LABS: SARS Covid-2 Antigen Negative (Negative)
--- NOTE | 2020-12-16 05:05 | ECG_ITS ---
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 Measurements Intervals [place] Rate: 130 P: [place]: QRS: 90 QRSD: 134 T: -43 QT: 335 QTc: 493 Interpretive Statements ATRIAL FLUTTER/TACHYCARDIA WITH RAPID VENTRICULAR RESPONSE RIGHT BUNDLE BRANCH BLOCK [120+ ms QRS DURATION, UPRIGHT V1, 40+ ms S IN I/aVL/V4/V5/V6] Compared to ECG 12/16/2020 03:20:44 Sinus tachycardia no longer present Ventricular premature complex(es) no longer present Electronically Signed On 12-16-2020 23:48:10 CDT by Ori Jimenez M.D. [email or web address] medical centerKnox Media Hubsamaritan north health center.[employer]s/store/OM/[id number]/ecg/[id number]
[2020-12-16 06:29] LABS: Troponin 5 2HR 13.32 ng/L (0-10)
[2020-12-16 06:33] LABS: Troponin 5 2HR Delta -1.68 ABS# (0-10)
--- NOTE | 2020-12-16 09:00 | PC.NURSE ---
Pt lying in bed awake talking to staff. Pt resp even and non-labored no distress noted. Pt on Cardizem drip at 10 ml/hr. Pt had no c/o pain or discomfort at the present time. No needs voiced. Call light in reach.
[2020-12-16] MEDS: FUROsemide 10 mg/mL SDV 2mL 20 MG IVP (09:55)
[2020-12-16] MEDS: digoxin 125 mcg Tablet 62.5 MCG PO (09:56)
[2020-12-16] MEDS: pantoprazole DR 40 mg Tablet PO (09:56)
[2020-12-16] MEDS: apixaban 5 mg Tablet PO ×2 (09:56→17:20)
[2020-12-16] MEDS: dilTIAZem ER (24HR) 240 mg Capsule PO (09:56)
[2020-12-16] MEDS: metoprolol tartrate 25 mg Tablet PO (10:24)
--- NOTE | 2020-12-16 10:24 | PM.HP ---
Providers/Chief Complaint Admitting Physician: Lselie Jamison MD Primary Care Provider: Desirae Da Silva DO Chief Complaint: BACK/CHEST PAIN History of Present Illness Sabina Valdez is a 70 year old female with past medical history of recently diagnosed atrial fibrillation, mixed congestive heart failure who was recently discharged from hospital on December 04 on Cardizem two forty, metoprolol twenty-five twice daily, digoxin 62.5 mcg daily. She states since last Monday that is December 07 she has been having recurrent episodes of back pain, chest pain, pain in her left shoulder along with palpitations and difficulty in breathing on and off on mild exertion which has been getting worse so she came to the ER today. She denies any nausea vomiting, diarrhea, headache. Blood work in the ER done shows white count of 8.2, hemoglobin 13.3, INR 1.3, bicarb of twenty, AST/ALT of 33/33, baseline troponin of 15, proBNP of 2226. Review of Systems General: Reports: 10 or more systems reviewed and unremarkable except in HPI and below Const: Denies: fever(s), chills, body aches, change in appetite, change in weight, malaise, night sweats, diaphoresis, change in sleep pattern, daytime sleepiness or snoring Eyes: Denies: change in vision, blurry vision, photophobia, eye discomfort or eye discharge ENMT: Denies: throat pain, enlarged tonsils, hoarseness, mouth pain, oral sores, dry mouth, tinnitus, nasal congestion or post nasal drip Card: Denies: chest pain, palpitations, irregular heart rhythm, edema, swelling of feet/ankles, lightheadedness, syncope, pre-syncope, dyspnea on exertion, orthopnea, leg pain with exertion or acrocyanosis Resp: Denies: dyspnea, productive cough, non-productive cough, wheezing, stridor, pain on inspiration, change in phlegm color, hemoptysis or chest congestion GI: Denies: abdominal pain, nausea, vomiting, hematemesis, coffee ground emesis, dysphagia, heartburn, diarrhea, constipation, bloating, GI cramping, change in bowel habits, pain on defecation, hematochezia or melena : Denies: flank pain, dysuria, urinary frequency, urinary urgency, urinary hesitancy, nocturia or hematuria Musc: Denies: neck pain, back pain, extremity pain, joint pain, joint swelling, joint redness, joint stiffness or limited range of motion Neuro: Denies: headache(s), numbness in extremities, weakness in extremities, sensory changes, lack of coordination, difficulty walking, frequent falls, dizziness, vertigo, confusion, Slurred speech present, difficulty communicating thoughts or seizure-like activity Psych: Denies: anxiety, depression, mood swings, panic attacks, hopelessness or irritability Endo: Denies: polyuria, polydipsia, tired all the time, cold intolerance, excessive sweating, flushing or heat intolerance Ortega/Lymph: Denies: easy bruising or easy bleeding All/Imm: Denies: tongue swelling, facial swelling or acute wheezing Medications/Allergies Home Medications Medication Instructions Recorded Confirmed Last Taken Type multivitamin 1 tab PO DAILY 06/16/20 12/16/20 12/15/20 13:00 History vitamin C-vitamin E capsule 1 cap PO DAILY cap 06/16/20 12/16/20 12/15/20 09:00 History Krill Oil ([place] 3 and 6) 1 cap PO DAILY 12/01/20 12/16/20 12/15/20 13:00 History cyanocobalamin (vitamin B-12) 250 mcg PO DAILY 12/01/20 12/16/20 12/15/20 09:00 History [Vitamin B-12] magnesium 200 mg PO DAILY 12/01/20 12/16/20 12/07/20 09:00 History apixaban [Eliquis] 5 mg PO BID 30 Days #60 tab 12/04/20 12/16/20 12/15/20 21:00 Rx 5 mg ciprofloxacin HCl 500 mg PO BID #14 tab 12/04/20 12/16/20 12/15/20 21:00 Rx digoxin [Digox] 62.5 mcg PO DAILY #30 tab 12/04/20 12/16/20 12/15/20 09:00 Rx diltiazem HCl [Cardizem LA] 240 mg PO DAILY 30 Days #30 tab 12/04/20 12/16/20 12/15/20 09:00 Rx metoprolol tartrate 25 mg PO BID@0900,2100 30 Days #60 12/04/20 12/16/20 12/15/20 09:00 Rx tab Allergies Allergy/AdvReac Type Severity Reaction Status Date / Time codeine Allergy Unknown ALGY-Rash Verified 08/25/20 12:14 sulfamethoxazole Allergy Unknown ALGY-Rash Verified 08/25/20 12:14 [From Bactrim] trimethoprim [From Bactrim] Allergy Unknown ALGY-Rash Verified 08/25/20 12:14 PFSH Acute PFSH: Medical History (Updated 12/16/20 @ 10:30 by Indra Jackson MD) Anxiety Aortic regurgitation Back pain Bilateral wrist pain Chest pain Chronic ankle pain, bilateral Chronic pain of both knees Depression Dizziness Dysuria GERD without esophagitis Interstitial cystitis Migraine Mitral regurgitation Mixed incontinence Moderate episode of recurrent major depressive disorder Overactive bladder Recurrent UTI Shortness of breath Tremor Surgical History Hx of hysterectomy Family History (Updated 12/07/20 @ 18:36 by Kate Angulo RN) Mother , AT AGE 80 Diabetes Cancer CAD (coronary artery disease) Father CAD (coronary artery disease) Brother CAD (coronary artery disease) Sister CAD (coronary artery disease) Social History Smoking and tobacco status: never smoked Alcohol intake: never Marital status: / Current occupational status: disabled Vitals/I&O/Wt Last Vital Signs Temp 97.7 F 12/16/20 07:52 Pulse 86 12/16/20 09:56 Resp 25 H 12/16/20 07:52 BP 113/83 12/16/20 07:52 Pulse Ox 95 12/16/20 07:52 Weight last 48 hrs Weight 66.224 kg Physical Exam Narrative: EXAM NARRATIVE: General: No acute distress, AO x3, anxious HEENT: PERRLA, pupils bilaterally equal and reactive Chest: Normal vesicular breath sounds, no added sounds, equal good air entry bilaterally CVS: S1-S2 irregularly irregular,no tachycardia, no gallops, no rubs Abdomen: Soft, nontender, no organomegaly, bowel sounds present Neuro: No focal deficits, no facial deformity, AO x3, power 5/5 in all limbs Data : 12/16/20 03:02 12/16/20 03:02 A&P Assessment and plan (1) Atrial fibrillation with RVR: Status: Acute (2) CHF (congestive heart failure): Status: Acute (3) Chest pain: Status: Acute (4) Back pain: Status: Acute Additional A&P Information Atrial fibrillation: Recent diagnosis. Recently discharged on Cardizem 240 mg daily, metoprolol 25 twice daily, digoxin 62.5 mcg daily. Check digoxin levels. If digoxin level is low can plan to stop digoxin and increase metoprolol. Continue with Cardizem drip for now. We will try to wean accordingly keeping heart rate less than one hundred. Increase metoprolol to 50 mg twice daily. Continue with home dose of Eliquis 5 mg twice daily. Congestive heart failure: Recent diagnosis. Recent echocardiogram done on December 02 showed an EF of 40 to 45% with diastolic dysfunction, enlarged LA, mild MR, mild AI. Start on IV Lasix 40 mg daily for now. Strict input output charting, daily weights. Chest pain: Given low EF cannot rule out ischemic cardiomyopathy as well. Discussed with patient once heart rate is controlled can plan for possible stress test. Patient verbalized understanding. Check HbA1c, lipid panel. Back pain: Chronic. CT back. Tramadol 50 mg every 12 as needed. Full code. Carb consistent cardiac diet. Eliquis will help with DVT prophylaxis. Famotidine for PUD prophylaxis. Attestations Medical Necessity Statement*: Admission for more than two midnights for management of atrial fibrillation with rapid ventricular response, congestive heart failure, chest pain under evaluation. Time Spent in Patient Care: Greater than 35 minutes (>than 50% of time spent in counselling and/or direct pt care on unit). Coding Level of Care Code Acute Wash Test Checker for [facility] Fwd Diagnoses Atrial fibrillation with RVR I48.91 CHF (congestive heart failure) I50.9 Chest pain R07.9 Back pain M54.9
--- NOTE | 2020-12-16 11:03 | PC.PHAR ---
PT STATES SHE TAKES CARE OF HER OWN MEDICATIONS-PT STATES SHE IS TAKING CARDIZEM [place] [facility]MG [facility] STATES THEY HAVE THIS MEDICATION ON HOLD AND NEVER FILLED IT-PT STATES SHE HAS BEEN USING OFLOXACIN 0.3% 5 DROPS IN BOTH EARS DAILY [facility] LAST FILLED ON 11/10/20 FOR 5 DROPS TO AFFECTED EAR BID FOR 7-10 DAYS-PT STATES SHE STOP TAKING METRONIDAZOLE FILLED ON 12/04/20 7D/S- PT STATES SHE HASNT TAKEN CYMBALTA OR USED PREMARIN VAG CREAM FOR OVER A MONTH
[2020-12-16 11:06] LABS: Troponin 5 6HR 12.71 ng/L (0-10)
[2020-12-16 11:07] LABS: Troponin 5 6HR Delta -2.29 ng/L (0-12)
[2020-12-16 11:45] LABS: Estmated Average Glucose 111; Hemoglobin A1C 5.5 % (4.0-6.0)
[2020-12-16] MEDS: metoprolol tartrate 25 mg Tablet 50 MG PO ×2 (11:45→21:31)
[2020-12-16 11:57] LABS: Folate Level 19.5 ng/mL (4.8-37.3)
[2020-12-16 12:27] LABS: Iron 85 ug/dL (37-145); Thyroid Stimulating Hormone 6.97 uIU/mL (0.27-4.20)
[2020-12-16 12:31] LABS: Total Iron Binding Capacity 303 mcg/dl; Unsaturated Iron Binding 218 ug/dL (112-347)
[2020-12-16 12:44] LABS: Vitamin B12 896 pg/mL (232-1245)
--- NOTE | 2020-12-16 14:15 | PC.NURSE ---
Pts heart rate running from 50s to 70s. Cardizem drip turned off. MD notified.
[2020-12-16 14:46] LABS: Add Urine Microscopic? NO; Charge for UA Resulting for Rev
[2020-12-16 14:58] LABS: Bilirubin Urine Neg (Negative); Blood Urine Neg (Negative); Glucose Urine UA Norm (Normal); Ketones Urine Negative (Negative); Leukocyte Esterase Urine Negative (Negative); Nitrate Urine Negative (Negative); Protein Urine Neg (Negative); Urine Appearance Clear (CLEAR); Urine Color Straw (Yellow); Urobilinogen Urine Norm (Negative); pH Urine 5 (5-7)
[2020-12-16 15:07] LABS: Amphetamines Screen Urine Negative (Negative); Barbiturates Screen Urine Negative (Negative); Benzodiazepines Screen Urine Negative (Negative); Cocaine Screen Urine Negative (Negative); Opiate Screen Urine Negative (Negative); PCP Screen Urine Negative (Negative); THC Screen Urine Negative (Negative)
--- NOTE | 2020-12-16 18:23 | ECG_ITS ---
[facility] Test Date: 2020-12-17 Pat Name: Sabina Valdez Department: Room: 101 Gender: Female Ranger Aide: : 1950 Requested By: Indra Jackson Order Number: [id number] Dulce Maria MD: Ori Jimenez M.D. Interpretive Statements NAME OF STUDY: LEXISCAN SESTAMIBI STRESS TEST INDICATION: Unstable Angina PROCEDURE: At the baseline, the EKG revealed atrial flutter/fibrillation with a controlled ventricular response rate of 71 bpm. Right bundle branch block pattern. Some nonspecific T wave changes. The baseline blood pressure was 136/79 mm Hg with a heart rate of 70 beats/min. Lexiscan was infused over a period of 20 seconds. A total of 0.4 milligrams of Lexiscan was infused. The stress phase was continued for a total of 5 minutes. Heart rate at the end of the stress phase was 85 with a blood pressure 111/68. The EKG at the peak infusion revealed no significant changes. Sestamibi was injected 20 seconds after the Lexiscan infusion. Blood pressure at the end of the recovery phase was 117/70 with a heart rate of 72 per minute. CONCLUSION: 1. No significant EKG changes with the LexiScan infusion 2. No LexiScan induced chest pain or cardiac arrhythmia 3. Normal blood pressure and heart rate response 4. Sestamibi/sestamibi perfusion scan pending; see separate report. Electronically Signed On 12-31-2020 23:42:09 CDT by Ori Jimenez M.D. [id number]
[2020-12-16] MEDS: ondansetron 2 mg/ML SDV 2 mL 4 MG IVP (20:00)
[2020-12-17] VITALS (14 sets, daily range): BP systolic 114–144; BP diastolic 70–80; PULSE 54–105; RESP 17–28; TEMP 36.6–36.8; O2SAT 86–97
[2020-12-17 04:17] LABS: Alanine Aminotransferase 24 U/L (0-33); Albumin Level 3.1 g/dL (3.5-5.2); Alkaline Phosphatase 60 IU/L (35-105); Aspartate Amino Transferase 22 U/L (0-32); Blood Urea Nitrogen 17 mg/dL (8-23); Calcium 8.3 mg/dL (8.5-10.5); Carbon Dioxide 24 mmol/L (22-29); Chloride 108 mmol/L (98-107); Chol HDL Ratio 2.81 mg/dL (0.0-4.40); Cholesterol 118 mg/dL (0-200); Globulin 2.7 g/dL (1.3-4.6); Glomerular Filtration Rate 98.8 mL/min (90-130); Glucose 92 mg/dL (65-115); HDL Cholesterol 42 mg/dL (60-100); LDL Cholesterol Calculated 64 mg/dL (50-129); Magnesium 1.9 mg/dL (1.7-2.3); Osmolality Calculated 291 mOsm/kg (285-295); Sodium 140 mmol/L (136-145); Total Bilirubin 0.4 mg/dL (0.15-1.2); Total Protein 5.8 g/dL (6.6-8.7); Triglycerides 58 mg/dL (0-150); VLDL Cholestrol Calculation 12 mg/dL (0-30)
[2020-12-17 04:20] LABS: Anion Gap 12.1 (5-19); Potassium 4.1 mmol/L (3.5-5.1)
--- NOTE | 2020-12-17 06:28 | PC.NURSE ---
patient is awake sitting up in bed this morning prepped to go for her stress test, patient had a good night and rested well, no complaints stated by patient at this time patient is currently in stable condition.
[2020-12-17] MEDS: regadenoson 0.4 Mg/5 ml Syringe IVP (08:00)
--- NOTE | 2020-12-17 08:00 | SUR.PREOP ---
No pain reported prior to the start of the stress test.
[2020-12-17] MEDS: aminophylline 25 mg/mL SDV 10 mL IVP (08:11)
[2020-12-17] MEDS: FUROsemide 10 mg/mL SDV 2mL 20 MG IVP (09:19)
[2020-12-17] MEDS: pantoprazole DR 40 mg Tablet PO (09:19)
[2020-12-17] MEDS: dilTIAZem ER (24HR) 240 mg Capsule PO (09:19)
[2020-12-17] MEDS: apixaban 5 mg Tablet PO (09:19)
[2020-12-17] MEDS: metoprolol tartrate 25 mg Tablet 50 MG PO ×2 (09:19→21:26)
--- NOTE | 2020-12-17 14:03 | PC.CHAP ---
Pastoral Care Encounter/Spiritual Assessment Type of Contact [x] Declined rubber chemist visit [] Patient/Family/Request visit [] Outpatient visit [] Follow-up visit [] Physician referral [] Code/Alert [] Routine visit [] Staff referral [] Actively dying [] Patient sleeping [] Family support [] [] Out of room [] Palliative care [] [] Receiving care in room [] Pre-surgical visit [] Trauma [] Long length of stay [] ICU visit [] Other: Relational/Emotional Strength [] Patient feels connected with others/family/visitors/staff [] Distress [] Loneliness/isolation [] Abandonment Spirituality of Patient [] Person of Joanna [] Attends Moravian of their Joanna [] Believes in Prayer [] Reads Bible or Scientology materials [] There are Spiritual issues to be addressed Admissions Clinician Interventions [] Prayer [] Active listening [] Non-anxious presence [] Spiritual/emotional support [] Crisis/trauma care [] Spiritual counseling [] Bereavement support [] Provided bereavement packet [] Provided Bible/devotional materials [] Provided toy/stuffed animal, coloring book to patient or family member [] Provided Communion [] Anointing/[place] [] Salvation [] Completed spiritual assessment [] Other: Impact on Illness or Injury [] Angry [] Fearful [] Anxious [] Often cries [] Exhaustion [] Unable to work [] Unable to attend judaism [] Unable to walk/stand [] Unable to read [] Unable to drive [] Unable to eat/drink [] Unable to sleep [] Unable to be with family [] Patient intubated [] Other: Summary Declined rubber chemist visit Time spent with patient 5 mins
--- NOTE | 2020-12-17 14:05 | P.PN_ITS ---
Subjective Subjective: Interval history: No acute events overnight. On examination today patient be taken to the practice. Denies any nausea vomiting, headache. Has remained rate controlled. Cardizem drip stopped yesterday Vitals/I&O/Wt Last Vital Signs Temp 97.9 F 12/17/20 12:00 Pulse 79 12/17/20 12:00 Resp 28 H 12/17/20 12:00 BP 134/78 12/17/20 12:00 Pulse Ox 96 12/17/20 12:00 12/16/20 12/17/20 12/17/20 22:59 06:59 14:59 Intake Total 365 / 365 480 / 845 Output Total 150 / 150 150 / 300 400 / 400 Balance 215 / 215 330 / 545 -400 / -400 Weight last 48 hrs Weight 69.853 kg Weight 66.224 kg Physical Exam Narrative: EXAM NARRATIVE: General: No acute distress, AO x3, anxious HEENT: PERRLA, pupils bilaterally equal and reactive Chest: Normal vesicular breath sounds, no added sounds, equal good air entry bilaterally CVS: S1-S2 irregularly irregular,no tachycardia, no gallops, no rubs Abdomen: Soft, nontender, no organomegaly, bowel sounds present Neuro: No focal deficits, no facial deformity, AO x3, power 5/5 in all limbs Data : 12/16/20 03:02 12/17/20 03:20 Other Labs: Laboratory Results Lexiscan stress test: IMPRESSIONS Medium-sized area of moderate ischemia noted in basal to distal anteroseptal wall suggestive of possible lesion in the LAD territory. Large area of old myocardial infarction versus scarring noted in basal to distal inferior infer olateral wall. EKG segment will be documented separately. Impressions Chest X-Ray 12/16/20 03:05 IMPRESSION: Congestive heart failure. A&P Assessment and plan (1) Atrial fibrillation with RVR: Status: Acute (2) CHF (congestive heart failure): Status: Acute (3) Chest pain: Status: Acute (4) Back pain: Status: Acute (5) Positive cardiac stress test: Status: Acute Additional A&P Information Atrial fibrillation: Recent diagnosis. Rate controlled. Continue with Cardizem 240 mg daily, metoprolol 50 mg twice daily. Continue with home dose of Eliquis 5 mg twice daily. Congestive heart failure: Recent diagnosis. 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 Continue with IV Lasix 40 mg daily for now. Strict input output charting, daily weights. Positive stress test/chest pain: Stress test results appreciated. Given low EF cannot rule out ischemic cardiomyopathy as well. A1c 5.5, lipid panel within normal limits. Start patient on aspirin 81 mg daily. Troponin negative on admission. Will consult cardiology for possible cardiac angiogram. Back pain: Chronic. Secondary to the degenerative disc disorder CT back. Tramadol 50 mg every 12 as needed. Full code. Carb consistent cardiac diet. Eliquis will help with DVT prophylaxis. Famotidine for PUD prophylaxis. Attestations Medical Necessity Statement*: Needs further hospitalization for management of atrial fibrillation, systolic congestive heart failure, positive stress test Time Spent in Patient Care: Greater than 35 minutes (>than 50% of time spent in counselling and/or direct pt care on unit) . Coding Level of Care Code Acute Services Account Manager for Fredy Cabrera Diagnoses Atrial fibrillation with RVR I48.91 CHF (congestive heart failure) I50.9 Chest pain R07.9 Back pain M54.9 Positive cardiac stress test R94.39
--- NOTE | 2020-12-17 16:00 | PC.NURSE ---
Pt is sitting up in bed talking to staff. Pts resp even and non-labored no distress noted. Pt has no c/o pain or discomfort at the present time. No needs voiced. Call light in reach. Will cont to monitor.
--- NOTE | 2020-12-17 18:23 | NMCV_ITS ---
NM june perf SPECT r/s* [id number] Sabina Valdez Age: 70 Gender: F : 1950 Exam Date: 12/17/2020 07:05 Ordering Phys: Indra Jackson MD Technologist: SUPA Cummings Exam Location: [facility] Indications: BACK/ CHEST PAIN STRESS TEST [facility] IMAGE PROTOCOL Rest/Stress 1 Lexiscan Day Radiopharmaceutical Dose (mCi) Administration Site Administered by Rest: Tc-99m 10.9 IV SUPA Olivares Sestamibi Stress:Tc-99m 32.6 IV SUPA Cummings Sestamivianney Rest: 17-Dec-2020 60 Discovery 630 Stress: 17-Dec-2020 30 Discovery 630 0.4mg Lexiscan. Supine position only as patient was unable to lay prone. SPECT RESULTS Technical Quality: Good Raw Data Analysis: Normal Image Corrections: No attenuation or motion correction applied Summed Stress Score: 12 Summed Rest Score: 10 Summed Difference Score: 2 PERFUSION FINDINGS Large area of patchy decreased tracer uptake noted in basal to distal inferior inferolateral wall suggestive of old myocardial infarction versus scarring in the inferior inferolateral wall. Medium-sized area of moderate reversibility noted in basal to distal anteroseptal wall suggestive of ischemia in the LAD territory. FUNCTIONAL RESULTS (calculated via Gated SPECT) Stress Image LV EF (%): 24 Stress EDV (mL):106 TID: 0.94 Stress ESV (mL):81 Rest Image LV EF (%): 24 FUNCTIONAL FINDINGS: Severe global hypokinesis. Severely depressed ejection fraction 24% IMPRESSIONS Medium-sized area of moderate ischemia noted in basal to distal anteroseptal wall suggestive of possible lesion in the LAD territory. Large area of old myocardial infarction versus scarring noted in basal to distal inferior inferolateral wall. EKG segment will be documented separately. Emilee Veronica MD (Electronically Signed) Final Date: 17 December 2020 11:29 S
--- NOTE | 2020-12-17 19:40 | PM.CONSULT ---
Providers/Reason For Consult Consulting Physician/Specialty*: Cardiology Reason for Consult*: Abnormal stress test, new onset of heart failure, LV dysfunction Attending Physician: Indra Jackson MD Primary Care Provider: Travis Boss History of Present Illness History of Present Illness Sabina Valdez is a 70 year old female past medical history significant for hypertension but recent atrial fibrillation congestive heart failure new onset new onset of left ventricle dysfunction for worsening of chest pain and back pain and uncontrolled atrial fibrillation was admitted to the hospital. During the process of investigation she underwent stress test which was suggestive of moderate ischemia in the LAD territory. It is the reason we have been asked to assist in her care. According the patient few days ago she was admitted with atrial fibrillation at that time echocardiogram was performed it was thought that new onset of heart failure may be due to atrial fibrillation and she will follow up with cardiology as an outpatient for LV dysfunction however after discharge from the hospital she continues to have symptoms which are worsened including shortness of breath palpitation racing of the heart and pain in the back in between 2 shoulder. Today her heart rate is under control she still says that her back is sore. She has been ruled out for acute current syndrome however stress test being positive in LAD territory may further require exploration with left heart catheterization. Review of Systems General: Reports: 10 or more systems reviewed and unremarkable except in HPI and below Const: Denies: fever(s), chills, body aches, change in appetite, change in weight, malaise, night sweats, diaphoresis, change in sleep pattern, daytime sleepiness or snoring Eyes: Denies: change in vision, blurry vision, photophobia, eye discomfort or eye discharge ENMT: Denies: throat pain, enlarged tonsils, hoarseness, mouth pain, oral sores, dental pain, dry mouth, tinnitus, nasal congestion or post nasal drip Card: Denies: chest pain, palpitations, irregular heart rhythm, edema, swelling of feet/ankles, lightheadedness, syncope, pre-syncope, dyspnea on exertion, orthopnea, leg pain with exertion or acrocyanosis Resp: Denies: dyspnea, productive cough, non-productive cough, wheezing, stridor, pain on inspiration, change in phlegm color, hemoptysis or chest congestion GI: Denies: abdominal pain, nausea, vomiting, hematemesis, coffee ground emesis, dysphagia, heartburn, diarrhea, constipation, bloating, GI cramping, change in bowel habits, pain on defecation, hematochezia or melena : Denies: flank pain, dysuria, urinary frequency, urinary urgency, urinary hesitancy, nocturia or hematuria Musc: Denies: neck pain, back pain, extremity pain, joint pain, joint swelling, joint redness, joint stiffness or limited range of motion Skin/Breast: Denies: rash Neuro: Denies: headache(s), numbness in extremities, weakness in extremities, sensory changes, lack of coordination, difficulty walking, frequent falls, dizziness, vertigo, confusion, Slurred speech present, difficulty communicating thoughts or seizure-like activity Psych: Denies: anxiety, depression, mood swings, panic attacks, hopelessness or irritability Endo: Denies: polyuria, polydipsia, tired all the time, cold intolerance, excessive sweating, flushing or heat intolerance Ortega/Lymph: Denies: easy bruising or easy bleeding All/Imm: Denies: urticaria, tongue swelling, facial swelling or acute wheezing Meds/Allergies Home Medications and Allergies Home Medications Medication Instructions Recorded Confirmed Last Taken Type multivitamin 1 tab PO DAILY@12 06/16/20 12/16/20 12/15/20 History Krill Oil ([place] 3 and 6) 1 cap PO DAILY 12/01/20 12/16/20 12/15/20 History cyanocobalamin (vitamin B-12) 250 mcg PO QAM 12/01/20 12/16/20 12/15/20 History [Vitamin B-12] magnesium 200 mg PO DAILY 12/01/20 12/16/20 12/01/20 History apixaban [Eliquis] 5 mg PO BID 30 Days #60 tab 12/04/20 12/16/20 12/15/20 Rx digoxin [Digox] 62.5 mcg PO DAILY #30 tab 12/04/20 12/16/20 12/15/20 09:00 Rx diltiazem HCl [Cardizem LA] 240 mg PO DAILY 30 Days #30 tab 12/04/20 12/16/20 Unknown Rx metoprolol tartrate 25 mg PO BID@0900,2100 30 Days #60 12/04/20 12/16/20 12/15/20 09:00 Rx tab ascorbic acid (vitamin C) [Vitamin 500 mg PO QAM 12/16/20 12/16/20 12/15/20 History C] aspirin 325 mg PO Q4H PRN 12/16/20 12/16/20 Unknown History aspirin [Aspir-81] 324 mg PO ONCE 12/16/20 12/16/20 12/15/20 History ciprofloxacin HCl 500 mg PO BID 12/16/20 12/16/20 12/15/20 History fluticasone propionate [Flonase] 2 spray INTRANASAL DAILY 12/16/20 12/16/20 Unknown History ofloxacin 5 drp OTIC (EAR) DAILY 12/16/20 12/16/20 12/15/20 History Allergies Allergy/AdvReac Type Severity Reaction Status Date / Time codeine Allergy Unknown ALGY-Rash Verified 12/16/20 11:03 sulfamethoxazole Allergy Unknown ALGY-Rash Verified 12/16/20 11:03 [From Bactrim] trimethoprim [From Bactrim] Allergy Unknown ALGY-Rash Verified 12/16/20 11:03 Current Medications Current Medications Generic Name Dose Route Start Last Admin Trade Name Freq PRN Reason Stop Dose Admin Aminophylline 25 mg 12/17/20 07:02 12/17/20 08:11 Aminophylline 25 Mg/Ml Sdv 10 Ml IVP 12/18/20 07:01 25 mg Q2M PRN Administration see dose instructions Apixaban 5 mg 12/16/20 09:00 12/17/20 09:19 Apixaban 5 Mg Tablet PO 5 mg BID JODIE Administration Digoxin 62.5 mcg 12/16/20 09:00 12/16/20 09:56 Digoxin 125 Mcg Tablet PO 62.5 mcg DAILY JODIE Administration Diltiazem HCl 240 mg 12/16/20 09:00 12/17/20 09:19 Diltiazem Er (24hr) 240 Mg Capsule PO 240 mg DAILY JODIE Administration Furosemide 20 mg 12/16/20 08:30 12/17/20 09:19 Furosemide 10 Mg/Ml Sdv 2ml IVP 20 mg Q24H JODIE Administration Diltiazem HCl 125 mg/ Sodium 125 mls @ 10 mls/hr 12/16/20 04:30 12/17/20 11:05 Chloride IV Not Given .[id number] JODIE 10 MG/HR Metoprolol Tartrate 50 mg 12/16/20 10:30 12/17/20 09:19 Metoprolol Tartrate 25 Mg Tablet PO 50 mg BID@0900,2100 JODIE Administration Ondansetron HCl 4 mg 12/16/20 08:06 12/16/20 20:00 Ondansetron 2 Mg/Ml Sdv 2 Ml IVP 4 mg Q8H PRN Administration vomiting, or N/V if npo Pantoprazole Sodium 40 mg 12/16/20 09:00 12/17/20 09:[address] 40 Mg Tablet PO 40 mg DAILY JDOIE Administration PFSH Acute PFSH: Medical History (Updated 12/17/20 @ 22:38 by Emilee Veronica MD) Anxiety Aortic regurgitation Back pain Bilateral wrist pain Chest pain Chronic ankle pain, bilateral Chronic pain of both knees Depression Dizziness Dysuria GERD without esophagitis Interstitial cystitis Migraine Mitral regurgitation Mixed incontinence Moderate episode of recurrent major depressive disorder Overactive bladder Recurrent UTI Shortness of breath Tremor Surgical History Hx of hysterectomy Family History (Updated 12/07/20 @ 18:36 by Kate Angulo RN) Mother , AT AGE 80 Diabetes Cancer CAD (coronary artery disease) Father CAD (coronary artery disease) Brother CAD (coronary artery disease) Sister CAD (coronary artery disease) Social History Smoking and tobacco status: never smoked Alcohol intake: never Marital status: / Current occupational status: disabled Dietary Habits: Current diet type/program: regular Vitals/I&O/Wt Last Vital Signs Temp 98.2 F 12/17/20 16:00 Pulse 73 12/17/20 19:24 Resp 24 H 12/17/20 19:24 BP 121/72 12/17/20 19:24 Pulse Ox 97 12/17/20 19:24 12/17/20 12/17/20 12/17/20 06:59 14:59 22:59 Intake Total 480 / 845 Output Total 150 / 300 700 / 700 850 / 1550 Balance 330 / 545 -700 / -700 -850 / -1550 Weight last 48 hrs Weight 154 lb Weight 146 lb Physical Exam Narrative: EXAM NARRATIVE: GENERAL: Patient is alert, awake and oriented x3. NECK: No jugular vein distension. HEENT: No cyanosis. No icterus. No pallor. HEART: Regular S1 and S2. No murmur, rub or gallop. LUNGS: Clear to auscultate bilaterally. ABDOMEN: Soft, nontender and nondistended. Positive bowel sounds. No guarding, rebound or tenderness. CENTRAL NERVOUS SYSTEM: Grossly nonfocal. EXTREMITIES: Lower extremities without edema bilaterally. A&P Assessment and plan (1) Atrial fibrillation with RVR: Currently rate controlled on anticoagulation we will stop it anticoagulation for now for possible left heart cath in the morning Status: Acute (2) CHF (congestive heart failure): well compensated continue current regimen patient has LV dysfunction and new onset of heart failure for that she requires further exploration with left heart cath Status: Acute Qualifiers: Heart failure type: systolic Heart failure chronicity: chronic Qualified Code(s): I50.22 - Chronic systolic (congestive) heart failure (3) Chest pain: Worsening of chest pressure radiating to the back and back pressure in the face of positive stress test could be angina further exploration as above with left heart cath has been recommended. Patient has been explained all risk benefit and alternative for the procedure she understand risk for major minor bleeding, hematoma, stroke arrhythmia pseudoaneurysm vascular injury. She would like to proceed with it. Patient is a candidate for DAPT however we will load her with Plavix tonight. Plan is to continue Plavix and apixaban without aspirin if she requires stents in order to avoid bleeding Status: Acute Qualifiers: Chest pain type: precordial pain Qualified Code(s): R07.2 - Precordial pain (4) Positive cardiac stress test: As defined above patient will be going for left heart cath in the morning for a positive stress test for the plan be devised as per progress of the patient Status: Acute Consult Attestations Medical Necessity Statement: Patient require continuation hospitalization for above defined care Coding Level of Care Code New Pt Acute Protection Manager for [facility] Rick Patient Type New History Detailed Exam Detailed Medical Decision Making Moderate Complexity Diagnoses Atrial fibrillation with RVR I48.91 CHF (congestive heart failure) I50.22 Heart failure type: systolic Heart failure chronicity: chronic Chest pain R07.2 Chest pain type: precordial pain Positive cardiac stress test R94.39
--- NOTE | 2020-12-17 20:26 | PC.NURSE ---
Received report from AVANI Robbins. Patient resting in bed. Assisted up to BSC with standby assist. Patient tolerated well. Discussed possible LHC tomorrow. Dr Veronica in to see patient. Patient verbalized understanding. Patient denies pain presently but is requesting her normal evening pain medication she takes at home.
[2020-12-17] MEDS: zolpidem 5 mg Tablet PO (21:25)
[2020-12-17] MEDS: TRAMadol 50 mg Tablet PO (21:25)
[2020-12-17] MEDS: clopidogrel 300 mg Tablet PO (21:26)
[2020-12-18] VITALS (9 sets, daily range): BP systolic 91–134; BP diastolic 39–83; PULSE 42–75; RESP 14–26; TEMP 36.3–36.6; O2SAT 94–97
--- NOTE | 2020-12-18 04:41 | PC.NURSE ---
Shift Note Frequent safety and comfort rounds continue. Orders and/or nursing care completed as indicated. Patient monitored for response to intervention and treatment(s). Education provided includes plavix and LHC. Patient and grandson verbalized complete understanding. Discussed left heart cath and expectations at length. Patient reports feeling much at ease. Patient reports pain controlled this morning. Denies other needs. No distress observed. Will continue to monitor.
[2020-12-18 04:53] LABS: Basophils # 0.1 10^3/uL (0.0-0.1); Basophils % 0.9 %; Eosinophils # 0.2 10^3/uL (0.0-0.8); Eosinophils % 3.3 %; Hematocrit 40.4 % (37.0-47.0); Hemoglobin 12.8 g/dL (11.5-15.3); Lymphocytes # 1.4 10^3/uL (0.8-4.8); Lymphocytes % 22.8 %; Mean Corpuscular HGB Conc 31.7 g/dL (30.0-36.0); Mean Corpuscular Hemoglobin 29.6 pg (28.0-34.0); Mean Corpuscular Volume 93.3 fl (81-99); Monocytes # 0.9 10^3/uL (0.2-0.9); Monocytes % 13.9 %; Neutrophils # 3.67 10^3/uL (1.8-7.7); Neutrophils % 58.2 %; Nucleated Red Blood Cells % 0 %; Platelet Count 228 10^3/cmm (130-400); Red Blood Count 4.33 10^6/uL (4.1-5.3); Red Cell Distribution Width 14.2 % (12.1-15.1); White Blood Count 6.3 10^3/uL (4.0-10.0)
[2020-12-18 05:15] LABS: Alanine Aminotransferase 20 U/L (0-33); Albumin Level 3.4 g/dL (3.5-5.2); Alkaline Phosphatase 60 IU/L (35-105); Anion Gap 11.9 (5-19); Aspartate Amino Transferase 15 U/L (0-32); Blood Urea Nitrogen 18 mg/dL (8-23); Calcium 8.6 mg/dL (8.5-10.5); Carbon Dioxide 24 mmol/L (22-29); Chloride 108 mmol/L (98-107); Globulin 2.9 g/dL (1.3-4.6); Glomerular Filtration Rate 98.8 mL/min (90-130); Glucose 92 mg/dL (65-115); Osmolality Calculated 292 mOsm/kg (285-295); Potassium 3.9 mmol/L (3.5-5.1); Sodium 140 mmol/L (136-145); Total Bilirubin 0.4 mg/dL (0.15-1.2); Total Protein 6.3 g/dL (6.6-8.7)
[2020-12-18] MEDS: aspirin 81 mg EC Tablet PO (09:24)
[2020-12-18] MEDS: dilTIAZem ER (24HR) 240 mg Capsule PO (09:24)
[2020-12-18] MEDS: pantoprazole DR 40 mg Tablet PO (09:24)
[2020-12-18] MEDS: metoprolol tartrate 25 mg Tablet 50 MG PO (09:29)
[2020-12-18] MEDS: FUROsemide 10 mg/mL SDV 2mL 20 MG IVP (10:00)
--- NOTE | 2020-12-18 10:51 | P.PN_ITS ---
Subjective Subjective: Interval history: No acute events overnight. Patient has remained hemodynamically stable and afebrile. Has remained rate controlled. Denies any nausea, vomiting, headache. Complaining of occasional back pain. Plan for angiogram today. Grandson at bedside. Vitals/I&O/Wt Last Vital Signs Temp 97.8 F 12/18/20 07:36 Pulse 71 12/18/20 07:36 Resp 14 12/18/20 07:36 BP 119/75 12/18/20 07:36 Pulse Ox 96 12/18/20 07:36 12/17/20 12/18/20 12/18/20 22:59 06:59 14:59 Intake Total 240 / 240 0 / 0 Output Total 850 / 1550 Balance -610 / -1310 0 / 0 Weight last 48 hrs Weight 67.495 kg Weight 69.853 kg Physical Exam Narrative: EXAM NARRATIVE: General: No acute distress, AO x3, anxious HEENT: PERRLA, pupils bilaterally equal and reactive Chest: Normal vesicular breath sounds, no added sounds, equal good air entry bilaterally CVS: S1-S2 irregularly irregular,no tachycardia, no gallops, no rubs Abdomen: Soft, nontender, no organomegaly, bowel sounds present Neuro: No focal deficits, no facial deformity, AO x3, power 5/5 in all limbs Data : 12/18/20 04:09 12/18/20 04:09 A&P Assessment and plan (1) Atrial fibrillation with RVR: Status: Acute (2) CHF (congestive heart failure): Status: Acute Qualifiers: Heart failure chronicity: chronic Heart failure type: systolic Qualified Code(s): I50.22 - Chronic systolic (congestive) heart failure (3) Chest pain: Status: Acute Qualifiers: Chest pain type: precordial pain Qualified Code(s): R07.2 - Precordial pain (4) Back pain: Status: Acute (5) Positive cardiac stress test: Status: Acute Additional A&P Information Atrial fibrillation: Recent diagnosis. Rate controlled. Continue with Cardizem 240 mg daily, metoprolol 50 mg twice daily. Eliquis on hold for angiogram. Will continue home dose of Eliquis 5 mg twice daily post procedure. Congestive heart failure: Recent diagnosis. 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 Continue with IV Lasix 40 mg daily for now. Strict input output charting, daily weights. Positive stress test/chest pain: Stress test results appreciated. Given low EF cannot rule out ischemic cardiomyopathy as well. Plan for angiogram today. A1c 5.5, lipid panel within normal limits. Appreciate cardiology recommendations. Continue with aspirin. Loaded with Plavix overnight. Back pain: Chronic. Secondary to the degenerative disc disorder CT back. Tramadol 50 mg every 12 as needed. Full code. Carb consistent cardiac diet. Eliquis will help with DVT prophylaxis. Famotidine for PUD prophylaxis. Attestations Medical Necessity Statement*: For management of positive stress test, angina, atrial fibrillation, new low EF with cardiac angiogram and possible intervention today Time Spent in Patient Care: Greater than 35 minutes (>than 50% of time sp ent in counselling and/or direct pt care on unit) . Coding Level of Care Code Acute Leather Polisher for Fredy Chaud Diagnoses Atrial fibrillation with RVR I48.91 CHF (congestive heart failure) I50.22 Heart failure chronicity: chronic Heart failure type: systolic Chest pain R07.2 Chest pain type: precordial pain Back pain M54.9 Positive cardiac stress test R94.39
[2020-12-18] MEDS: sodium chloride 0.9% 1,000 ML 50 ML IV (11:26)
--- NOTE | 2020-12-18 12:30 | PC.NURSE ---
To catheter builder Ushered via bed.
--- NOTE | 2020-12-18 13:00 | XACV_ITS ---
Exam Room: [facility] Ht: 170 cm Wt: 67 kg BSA: 1.79 m2 Gender: Female : 1950 Any Known Allergies: Other Exam Priority: Routine Procedure(s): Procedure Description: Diagnostic procedure Procedure Description: Left Heart Catheterization Procedure Description: Left ventriculography Procedure Description: Coronary Angiography Glenys HARRISON; Diagnostic Cath Status: Elective Diagnostic Findings * Left Main has no disease. * Right Coronary Artery has no disease. * Distal Left Anterior Descending: mild 40% stenosis, ASTER: 3 flow. * CIRC AV: severe 90% stenosis, ASTER: 3 flow. * Coronary angiography shows left dominance. Conclusions 1. Patient require anticoagulation for atrial fibrillation with A. fib RVR patient leaked cardiac markers had chest pain. Angiogram was noted to have severely depressed LV function and distal circumflex high-grade lesion. At this point we will continue medical management. At this point no intervention indicated. 2. There is severe coronary artery disease with two vessel disease. 3. The apex, septal, basal posterior, anterolateral, inferobasal doe are hypokinetic. 4. The mid posterior and mid inferior doe are akinetic. 5. Severe left ventricular systolic dysfunction. Ejection fraction of 20%. Recommendations * Continue current medical management and risk factor modification. Ventriculography Ejection Fraction: 20.0 % Pressures Phase:Rest AO : 100 / 62 ( 80 ) @ 12:27:00 PM 152 / 55 ( 92 ) @ 12:30:00 PM 114 / 58 ( 61 ) @ 12:43:00 PM LV : 111 / 8 / 17 @ 12:42:00 PM 102 / 9 / 49 @ 12:43:00 PM Clinical Evaluation EBL: 5mL-10mL Procedural Details Procedure Consent Obtained. Current Diagnosis : NSTEMI. Pre-Procedure Time Out. Identified patient by full name and date of as verbalized by the patient/guarantor. Does the consent match the physician's order: Yes. Accurate & Complete Informed Consent: Yes. Inpatient/Outpatient History & Physical on Chart: Yes. If H&P is completed, is and addenduem needed: Yes; If yes, is the addendum complete: N/A. Visualize and Verify Site with Patient/Guarantor: N/A. Relevant Radiology Images available: Yes. Pre-op teaching completed and patient verbalized understanding. The risks, benefits, and alternatives of sedation and/or procedure were discussed by physician. The patient agrees to continue. Procedure started. [facility] Clinical Fraility Score: 4: Vulnerable. Orthotic And Prosthetic Technician Indications: ACS > 24 hours. Chest Pain Symptom Assessment: Typical Angina Symptoms. PERRLA. Strong, equal hand outpatient admitting clerk bilaterally. Lungs clear x 5 lobes. IV Site on Arrival: 18 gauge in the left anticubital. IV Fluids: 0.9% NaCl at KVO. 0 mL infused prior to test lab technician. Pre Procedural Pulses: right radial was 2+. Oxygen started at 2liters/min via nasal canula. right groin was prepped with chloroprep then draped in the usual sterile fashion. right radial was prepped with chloroprep then draped in the usual sterile fashion. Physician notified. Baseline sample Acquired. HR: 70 BPM. Physician arrived. Physician scrubbed in. Immediate Pre-Procedure Time Out. Correct Patient: Yes; Correct Procedure: Yes; Correct Site: Yes; Correct Patient Position: Yes; Correct Supplies: Yes; Dried Flammable Prep: Yes; Blood Products Available: N/A;. Lidocaine 1% infiltrated to the right radial. Arterial access obtained. A 5 honduran TIG catheter in over wire. Multiple views taken of left coronary artery. Catheter redirected to the RCA. Multiple views taken of right coronary artery. Catheter removed over the exchange wire. Physician review of cine films. Side port of sheath attached to Normal Saline flush at KVO to maintain patency. Catheter removed over the exchange wire. A 5 honduran Angled Pig catheter in over wire. EDP Sample taken: LV 111/8,17; HR: 73 BPM; SpO2: 96%. LV gram performed in BISHOP @ 10 mL/second for a total of 30 mL. EDP Sample taken: LV 102/9,49; HR: 80 BPM; SpO2: 97%. Pullback taken: LV Off; AO Off; Mean: , Peak to Peak: , SEP: ; HR: 61 BPM; SpO2: 97%. Catheter removed over the exchange wire. A TR Band was successful obtaining hemostatsis at the Right Radial artery insertion site. TR band placed. Hemostasis obtained. Arterial sheath flushed and connected to tranducer and pressure bag with heparinized saline. Post Procedure: Pulses reassessed and unchanged. PERRLA. Strong, equal hand outpatient admitting clerk bilaterally. No VTE prophylaxis required. Medication's Wasted: Lidocaine 1% = 15 mL. Medication's Wasted: Heparin = 1000 units. Medication's Wasted: Nitro = 49.8 mcg. Medication's Wasted: Other = Versed 1 mg Fentanyl 75 mg. Medication's Wasted: Other = Benadryl 25 mg. Total IV fluids: 54 mL. Contrast type used: Omnipaque 300 mgI/mL, 500 mL bottle. Complications: None. Estimated blood loss: 5mL-10mL. Procedure completed. Vital chart was stopped. Patient transferred by wheelchair to 1st floor. Access Site Site: Right Radial artery Sheath Size: 6 Fr Hemostasis Method: TR Band Hemostasis Success: Successful Procedure Medications Start: 1:12 PM Stop: 1:12 PM Medication: Versed 1 mg and Fentanyl 25 mcg Amount: 1 Route: I.V. Start: 1:21 PM Stop: 1:21 PM Medication: Nitrogylcerin Amount: 200 mcg Route: I.A. Start: 1:25 PM Stop: 1:25 PM Medication: Heparin Amount: 5000 units Route: I.V. Start: 1:39 PM Stop: 1:39 PM Medication: Diphendryamine Amount: 25 mg Route: I.V. I, the attending physician, have reviewed and verified all procedure medications. Yes, all medications given per verbal order History/Risk Factors Hypertension: No Dyslipidemia: No Peripheral Arterial Disease (PAD): No Myocardial Infarction (WA): No Obesity: No Renal Disease: No Tobacco Use: Never Prior Interventions PCI: No CABG: No Valve Surgery: No Report Signatures Finalized by Emilee Veronica MD on 12/30/2020 08:12 PM
--- NOTE | 2020-12-18 15:21 | P.PN_ITS ---
Subjective Subjective: Interval history: Patient underwent left heart cath this afternoon. He was noted to have single-vessel coronary artery disease with distal groove left circumflex lesion around 80 to 90%. Medical management was advised. Vitals/I&O/Wt Last Vital Signs Temp 97.9 F 12/18/20 11:36 Pulse 70 12/18/20 11:36 Resp 20 H 12/18/20 11:36 BP 134/82 12/18/20 11:36 Pulse Ox 97 12/18/20 11:36 12/18/20 12/18/20 12/18/20 06:59 14:59 22:59 Intake Total 0 / 0 Balance 0 / 0 Weight last 48 hrs Weight 148 lb 12.8 oz Weight 154 lb Physical Exam Narrative: EXAM NARRATIVE: GENERAL: Patient is alert, awake and oriented x3. NECK: No jugular vein distension. HEENT: No cyanosis. No icterus. No pallor. HEART: Regular S1 and S2. No murmur, rub or gallop. LUNGS: Clear to auscultate bilaterally. ABDOMEN: Soft, nontender and nondistended. Positive bowel sounds. No guarding, rebound or tenderness. CENTRAL NERVOUS SYSTEM: Grossly nonfocal. EXTREMITIES: Lower extremities without edema bilaterally. Data : 12/18/20 04:09 12/18/20 04:09 A&P Assessment and plan (1) Atrial fibrillation with RVR: Currently heart rate controlled however patient has congestive heart failure with significantly depressed LV function therefore we recommend either starting patient on beta-janelle metoprolol with combination of digoxin and discontinuing calcium channel janelle which could have negative anatomic effect. At the same time since patient has single-vessel coronary artery disease for antianginal therapy will add isosorbide mononitrate 15 mg once a day. If patient goes back and forth in A. fib she may can be started on amiodarone. Status: Acute (2) CHF (congestive heart failure): Appear to be well compensated however she has severely depressed LV function left ventricle ejection fraction 25%. Advised LifeVest Status: Acute Qualifiers: Heart failure chronicity: chronic Heart failure type: systolic Qualified Code(s): I50.22 - Chronic systolic (congestive) heart failure (3) Chest pain: Patient underwent coronary angiogram today she was noted to have significant 90% stenosis of distal groove circumflex vessel. Since it is single-vessel disease and this vessel is highly unlikely to cause LV dysfunction and may be an incidental finding and because of the fact that treating it with stent may will require patient to take antiplatelet along with anticoagulation which can put her at a high risk for bleeding we therefore recommend medical management and not to place stent however in the future if he continues to have chest pain we may can change our strategy. I have explained this to the patient and her grandson in detail who is by bedside. Status: Acute Qualifiers: Chest pain type: precordial pain Qualified Code(s): R07.2 - Precordial pain (4) Positive cardiac stress test: As above. Status: Acute Attestations Medical Necessity Statement*: Patient require continuation hospitalization overnight for optimization of medicine Coding Level of Care Code Established Pt Acute Territory Sales Professional for Fredy Cabrera Patient Type Established History Detailed Exam Detailed Medical Decision Making Moderate Complexity Diagnoses Atrial fibrillation with RVR I48.91 CHF (congestive heart failure) I50.22 Heart failure chronicity: chronic Heart failure type: systolic Chest pain R07.2 Chest pain type: precordial pain Positive cardiac stress test R94.39
--- NOTE | 2020-12-18 17:01 | PC.NURSE ---
2nd TR Band if off no Bleeding or hematoma on right wrist. radial pulse is palpable +2.
--- NOTE | 2020-12-18 17:45 | PC.NURSE ---
TR band off No hematoma, bleeding or swelling. radial pulse is palpable. Instructed pt to not lift any weight, use right arm to push, pull for next 24 hrs. Discuss to pt on post angiogram home care instructions such as s/s of infection, wound care and what to expect on her right arm. Pt verbalizes understanding.
[2020-12-18] MEDS: metoprolol tartrate 25 mg Tablet 12.5 MG PO (20:27)
[2020-12-18] MEDS: zolpidem 5 mg Tablet PO (20:28)
[2020-12-19 00:07] VITALS: BP 108/68; PULSE 68; RESP 17; O2SAT 93
[2020-12-19 04:07] LABS: Basophils # 0.1 10^3/uL (0.0-0.1); Basophils % 1.5 %; Eosinophils # 0.2 10^3/uL (0.0-0.8); Eosinophils % 2.7 %; Hematocrit 40.9 % (37.0-47.0); Hemoglobin 12.9 g/dL (11.5-15.3); Lymphocytes # 1.2 10^3/uL (0.8-4.8); Mean Corpuscular HGB Conc 31.5 g/dL (30.0-36.0); Mean Corpuscular Hemoglobin 29.1 pg (28.0-34.0); Mean Corpuscular Volume 92.1 fl (81-99); Mean Platelet Volume 11.2 fL (7.4-10.4); Monocytes # 0.8 10^3/uL (0.2-0.9); Monocytes % 13.3 %; Neutrophils # 3.67 10^3/uL (1.8-7.7); Neutrophils % 61.8 %; Nucleated Red Blood Cells % 0 %; Platelet Count 240 10^3/cmm (130-400); Red Blood Count 4.44 10^6/uL (4.1-5.3); Red Cell Distribution Width 14.4 % (12.1-15.1); White Blood Count 5.9 10^3/uL (4.0-10.0)
[2020-12-19 04:15] VITALS: BP 125/81; PULSE 75; RESP 22; TEMP 36.6; O2SAT 96
[2020-12-19 04:28] LABS: Alanine Aminotransferase 18 U/L (0-33); Albumin Level 3.3 g/dL (3.5-5.2); Alkaline Phosphatase 61 IU/L (35-105); Anion Gap 10.8 (5-19); Aspartate Amino Transferase 15 U/L (0-32); Blood Urea Nitrogen 22 mg/dL (8-23); Calcium 8.6 mg/dL (8.5-10.5); Carbon Dioxide 24 mmol/L (22-29); Chloride 107 mmol/L (98-107); Globulin 2.9 g/dL (1.3-4.6); Glomerular Filtration Rate 98.8 mL/min (90-130); Glucose 90 mg/dL (65-115); Osmolality Calculated 289 mOsm/kg (285-295); Potassium 3.8 mmol/L (3.5-5.1); Sodium 138 mmol/L (136-145); Total Bilirubin 0.5 mg/dL (0.15-1.2); Total Protein 6.2 g/dL (6.6-8.7)
[2020-12-19 04:43] VITALS: PULSE 71
--- NOTE | 2020-12-19 04:44 | PC.NURSE ---
Shift Note Frequent safety and comfort rounds continue. Pt did not sleep much throughout the night. Orders and nursing care completed as indicated. Patient monitored for response to intervention and treatment. Education provided included importance to use call light before getting out of bed. Patient needs reinforcement.
--- NOTE | 2020-12-19 07:30 | PC.SOCIAL ---
IMM update IMM updated with patient. Verbalized an understanding. Copy Pg. 2 provided. Initialled, dated, timed and placed in chart.
[2020-12-19 08:00] VITALS: BP 127/67; PULSE 71; RESP 24; TEMP 36.5; O2SAT 98
[2020-12-19] MEDS: apixaban 5 mg Tablet PO (08:02)
[2020-12-19] MEDS: isosorbide mononitrate ER 30 mg Tablet 15 MG PO (08:02)
[2020-12-19] MEDS: pantoprazole DR 40 mg Tablet PO (08:02)
[2020-12-19] MEDS: metoprolol tartrate 25 mg Tablet 50 MG PO (08:02)
[2020-12-19] MEDS: dilTIAZem ER (24HR) 180 mg Capsule PO (08:02)
[2020-12-19] MEDS: FUROsemide 20 mg Tablet PO (08:02)
[2020-12-19] MEDS: aspirin 81 mg EC Tablet PO (08:02)
--- NOTE | 2020-12-19 08:45 | P.PN_ITS ---
Subjective Subjective: Interval history: Patient is overall doing well. No complaints of chest pain, shortness of breath or palpitations. Vitals/I&O/Wt Last Vital Signs Temp 97.7 F 12/19/20 08:00 Pulse 71 12/19/20 08:00 Resp 24 H 12/19/20 08:00 BP 127/67 12/19/20 08:00 Pulse Ox 98 12/19/20 08:00 12/18/20 12/19/20 12/19/20 22:59 06:59 14:59 Intake Total 240 / 240 1000 / 1240 440 / 440 Output Total 600 / 600 Balance -360 / -360 1000 / 640 440 / 440 Weight last 48 hrs Weight 149 lb 4.8 oz Weight 148 lb 12.8 oz Physical Exam Narrative: EXAM NARRATIVE: GENERAL: Patient is alert, awake and oriented x3. NECK: No jugular vein distension. HEENT: No cyanosis. No icterus. No pallor. HEART: Regular S1 and S2. No murmur, rub or gallop. LUNGS: Clear to auscultate bilaterally. ABDOMEN: Soft, nontender and nondistended. Positive bowel sounds. No guarding, rebound or tenderness. CENTRAL NERVOUS SYSTEM: Grossly nonfocal. EXTREMITIES: Lower extremities without edema bilaterally. Data : 12/19/20 03:05 12/19/20 03:05 A&P Assessment and plan (1) Atrial fibrillation with RVR: Rate controlled currently. Continue metoprolol and cardizem. Patient has single vessel coronary artery disease, plan for medical therapy. Start on Imdur Patient is stable to be discharged from cardiology standpoint Status: Acute (2) CHF (congestive heart failure): LV systolic function is depressed. Well compensated at this time Status: Acute Qualifiers: Heart failure chronicity: chronic Heart failure type: systolic Qualified Code(s): I50.22 - Chronic systolic (congestive) heart failure Attestations Medical Necessity Statement*: Care expected to cross 2 midnights. Coding Level of Care Code Acute Police Communications Dispatcher for Fredy Cabrera Diagnoses Atrial fibrillation with RVR I48.91 CHF (congestive heart failure) I50.22 Heart failure chronicity: chronic Heart failure type: systolic
--- NOTE | 2020-12-19 09:02 | PM.DCS ---
Discharge Providers Date of Admission: 12/16/20 04:23 Date of Discharge: December 19, 2020 Attending Provider at Admission: Leslie Jamison MD Attending Provider at Discharge: Idnra Jackson MD Consults: Cardiology: Dr. Veronica Primary Care Provider: Travis Boss Diagnoses at Discharge Discharge Diagnosis (1) Atrial fibrillation with RVR: Status: Acute (2) CHF (congestive heart failure): Status: Acute Qualifiers: Heart failure chronicity: chronic Heart failure type: systolic Qualified Code(s): I50.22 - Chronic systolic (congestive) heart failure (3) Chest pain: Status: Acute Qualifiers: Chest pain type: precordial pain Qualified Code(s): R07.2 - Precordial pain (4) Positive cardiac stress test: Status: Acute Reason for Visit Reason for Visit: BACK/CHEST PAIN Hospital Course Hospital Course Sabina Valdez is a 70 year old female with past medical history of recently diagnosed atrial fibrillation, mixed congestive heart failure who was recently discharged from hospital on December 04 on Cardizem two forty, metoprolol twenty-five twice daily, digoxin 62.5 mcg daily. She states since last Monday that is December 07 she has been having recurrent episodes of back pain, chest pain, pain in her left shoulder along with palpitations and difficulty in breathing on and off on mild exertion which has been getting worse so she came to the ER today. She denies any nausea vomiting, diarrhea, headache. Blood work in the ER done shows white count of 8.2, hemoglobin 13.3, INR 1.3, bicarb of twenty, AST/ALT of 33/33, baseline troponin of 15, proBNP of 2226. Patient under the hospital for further management of atrial fibrillation with rapid ventricular response. Initially started on Cardizem drip which was transitioned over to oral Cardizem. Her rate limiting medications were adjusted. She supposed to take Cardizem 180 mg daily, metoprolol 50 mg twice daily and to stop digoxin. Patient recently in hospital a week prior to admission during which time she was found to have a new EF of 40 to 45% with diastolic dysfunction, enlarged left atrium, mild MR and mild AI. No further work-up of new congestive heart failure patient underwent Lexiscan stress test on December 16 which was concerning for medium sized area of moderate ischemia in basal to distal anteroseptal wall suggestive of possible lesion in LAD territory, large area of old myocardial infarction versus scarring in basal to distal inferior, inferior lateral valve. Cardiology was consulted and patient underwent cardiac angiogram on December 18 which showed single-vessel coronary artery disease with distal groove LCx lesion around 80 to 90%. It is believed the lesion is not contributing to patient's symptoms are low EF and was decided to treat medically. Patient is been discharged hemodynamically stable condition with advice to follow-up with the primary care provider within next 1 week and with cardiology within next 2 weeks. Physical Exam Narrative: EXAM NARRATIVE: General: No acute distress, AO x3, anxious HEENT: PERRLA, pupils bilaterally equal and reactive Chest: Normal vesicular breath sounds, no added sounds, equal good air entry bilaterally CVS: S1-S2 irregularly irregular,no tachycardia, no gallops, no rubs Abdomen: Soft, nontender, no organomegaly, bowel sounds present Neuro: No focal deficits, no facial deformity, AO x3, power 5/5 in all limbs Discharge Data Data Completed and Pending: Completed Studies During Hospitalization Category Date Time Status CT lumbar spine w o con* [id number] Routi ne Cat Scan 12/16/20 10:[address] thoracic spin wo con* [id number] Rout ine Cat Scan 12/16/20 10:35 Completed Sestamibi Stress Test Request Routi ne Exams 12/16/20 18:23 Draft XR chest 1V arnav ble [id number] Stat Exams 12/16/20 03:05 Completed NM june perf SPECT r/s* [id number] Routin e Nuc Med 12/17/20 18:23 Completed Pending at discharge Category Date Time Status [employer] request for service Routin e Exams 12/18/20 13:00 Taken Labs from last 24 hours 12/19/20 12/19/20 03:05 03:05 WBC 5.9 RBC 4.44 Hgb 12.9 Hct 40.9 MCV 92.1 MCH 29.1 MCHC 31.5 RDW 14.4 Plt Count 240 MPV 11.2 H Neut % (Auto) 61.8 Lymph % (Auto) 20.0 Major % (Auto) 13.3 Eos % (Auto) 2.7 Baso % (Auto) 1.5 Neut # (Auto) 3.67 Lymph # (Auto) 1.2 Major # (Auto) 0.8 Eos # (Auto) 0.2 Baso # (Auto) 0.1 Nucleated RBC % (a uto) 0 Nucleated RBCs # 0.0 Sodium 138 Potassium 3.8 Chloride 107 Carbon Dioxide 24 Anion Gap 10.8 BUN 22 Creatinine 0.6 GFR Calculation 98.8 Glucose 90 Calculated Osmolal ity 289 Calcium 8.6 Total Bilirubin 0.5 AST 15 ALT 18 Alkaline Phosphata se 61 Total Protein 6.2 L Albumin 3.3 L Globulin 2.9 Addt'l Data from Hospital Stay: Laboratory Results WBC 5.9 10^3/uL (4.0- 10.0) 12/19/20 03:05 RBC 4.44 10^6/uL (4.1 -5.3) 12/19/20 03:05 Hgb 12.9 g/dL (11.5-1 5.3) 12/19/20 03:05 Hct 40.9 % (37.0-47.0 ) 12/19/20 03:05 MCV 92.1 fl (81-99) 12/19/20 03:05 MCH 29.1 pg (28.0-34. 0) 12/19/20 03:05 MCHC 31.5 g/dL (30.0-3 6.0) 12/19/20 03:05 RDW 14.4 % (12.1-15.1 ) 12/19/20 03:05 Plt Count 240 10^3/cmm (130 -400) 12/19/20 03:05 MPV 11.2 fL (7.4-10.4 ) H 12/19/20 03:05 Neut % (Auto) 61.8 % 12/19/20 03:05 Lymph % (Auto) 20.0 % 12/19/20 03:05 Major % (Auto) 13.3 % 12/19/20 03:05 Eos % (Auto) 2.7 % 12/19/20 03:05 Baso % (Auto) 1.5 % 12/19/20 03:05 Neut # (Auto) 3.67 10^3/uL (1.8 -7.7) 12/19/20 03:05 Lymph # (Auto) 1.2 10^3/uL (0.8- 4.8) 12/19/20 03:05 Major # (Auto) 0.8 10^3/uL (0.2- 0.9) 12/19/20 03:05 Eos # (Auto) 0.2 10^3/uL (0.0- 0.8) 12/19/20 03:05 Baso # (Auto) 0.1 10^3/uL (0.0- 0.1) 12/19/20 03:05 Nucleated RBC % (a uto) 0 % 12/19/20 03:05 Nucleated RBCs # 0.0 /100WBC 12/19/20 03:05 PT 16.60 SECONDS (12 .1-14.9) H 12/16/20 03:02 INR 1.31 (0.8-1.2) H 12/16/20 03:02 Sodium 138 mmol/L (136-1 45) 12/19/20 03:05 Potassium 3.8 mmol/L (3.5-5 .1) 12/19/20 03:05 Chloride 107 mmol/L (98-10 7) 12/19/20 03:05 Carbon Dioxide 24 mmol/L (22-29) 12/19/20 03:05 Anion Gap 10.8 (5-19) 12/19/20 03:05 BUN 22 mg/dL (8-23) 12/19/20 03:05 Creatinine 0.6 mg/dL (0.5-0. 9) 12/19/20 03:05 GFR Calculation 98.8 mL/min (90-1 30) 12/19/20 03:05 Glucose 90 mg/dL (65-115) 12/19/20 03:05 Estimat Average Gl ucose 111 12/16/20 03:02 Hemoglobin A1c 5.5 % (4.0-6.0) 12/16/20 03:02 Calculated Osmolal ity 289 mOsm/kg (285- 295) 12/19/20 03:05 Calcium 8.6 mg/dL (8.5-10 .5) 12/19/20 03:05 Magnesium 1.9 mg/dL (1.7-2. 3) 12/17/20 03:20 Iron 85 ug/dL (37-145) 12/16/20 03:02 TIBC 303 mcg/dl 12/16/20 03:02 % Saturation 28.0 % (20-50) 12/16/20 03:02 Unsat Iron Binding 218 ug/dL (112-34 7) 12/16/20 03:02 Total Bilirubin 0.5 mg/dL (0.15-1 .2) 12/19/20 03:05 AST 15 U/L (0-32) 12/19/20 03:05 ALT 18 U/L (0-33) 12/19/20 03:05 Alkaline Phosphata se 61 IU/L (35-105) 12/19/20 03:05 Troponin T Baselin e 15 ng/L (0-10) H 12/16/20 03:02 Troponin T 120 Min [place] 13.32 ng/L (0-10) H 12/16/20 06:05 Delta Troponin T -1.68 ABS# (0-10) L 12/16/20 06:05 Troponin T Hi Sens 6Hr 12.71 ng/L (0-10) H 12/16/20 10:30 Troponin T Hi Sens 6Hr Delta -2.29 ng/L (0-12) L 12/16/20 10:30 NT-Pro-B Natriuret Pep 2226 pg/mL (0-125 ) H 12/16/20 03:02 Total Protein 6.2 g/dL (6.6-8.7 ) L 12/19/20 03:05 Albumin 3.3 g/dL (3.5-5.2 ) L 12/19/20 03:05 Globulin 2.9 g/dL (1.3-4.6 ) 12/19/20 03:05 Triglycerides 58 mg/dL (0-150) 12/17/20 03:20 Cholesterol 118 mg/dL (0-200) 12/17/20 03:20 LDL Cholesterol, C alc 64 mg/dL (50-129) 12/17/20 03:20 Total VLDL Cholest agustina 12 mg/dL (0-30) 12/17/20 03:20 HDL Cholesterol 42 mg/dL (60-100) L 12/17/20 03:20 Cholesterol/HDL Ra pepper 2.81 mg/dL (0.0-4 .40) 12/17/20 03:20 Vitamin B12 896 pg/mL (232-12 45) 12/16/20 03:02 Folate 19.5 ng/mL (4.8-3 7.3) 12/16/20 03:02 TSH 6.97 uIU/mL (0.27 -4.20) H 12/16/20 03:02 Free T4 1.40 ng/dL (0.82- 1.77) 12/16/20 03:02 Urine Color Straw (Yellow) 12/16/20 14:40 Urine Appearance Clear (CLEAR) 12/16/20 14:40 Urine pH 5 (5-7) 12/16/20 14:40 Ur Specific Gravit y 1.010 (1.005-1.0 30) 12/16/20 14:40 Urine Protein Neg (Negative) 12/16/20 14:40 Urine Glucose (UA) Norm (Normal) 12/16/20 14:40 Urine Ketones Negative (Negati ve) 12/16/20 14:40 Urine Blood Neg (Negative) 12/16/20 14:40 Urine Nitrate Negative (Negati ve) 12/16/20 14:40 Urine Bilirubin Neg (Negative) 12/16/20 14:40 Urine Urobilinogen Norm mg/dL (Negat james) 12/16/20 14:40 Ur Leukocyte Maggy ase Negative (Negati ve) 12/16/20 14:40 Digoxin 0.3 ng/mL (0.6-1. 2) L 12/16/20 03:02 Urine Opiates Scre en Negative ng/mL (N egative) 12/16/20 14:40 Ur Barbiturates Sc reen Negative ng/mL (N egative) 12/16/20 14:40 Ur Phencyclidine S crn Negative ng/mL (N egative) 12/16/20 14:40 Ur Amphetamines Sc reen Negative ng/mL (N egative) 12/16/20 14:40 U Benzodiazepines Scrn Negative ng/mL (N egative) 12/16/20 14:40 Urine Cocaine Scre en Negative ng/mL (N egative) 12/16/20 14:40 U Marijuana (THC) Screen Negative ng/mL (N egative) 12/16/20 14:40 SARS-CoV-2 Ag (Rap id) Negative (Negati ve) 12/16/20 03:18 Impressions Chest X-Ray 12/16/20 03:05 IMPRESSION: Congestive heart failure. Lexiscan stress test: PERFUSION FINDINGS Large area of patchy decreased tracer uptake noted in basal to distal inferior inferolateral wall suggestive of old myocardial infarction versus scarring in the inferior inferolateral wall. Medium-sized area of moderate reversibility noted in basal to distal anteroseptal wall suggestive of ischemia in the LAD territory. FUNCTIONAL RESULTS (calculated via Gated SPECT) Stress Image LV EF (%): 24 Stress EDV (mL):106 TID: 0.94 Stress ESV (mL):81 Rest Image LV EF (%): 24 FUNCTIONAL FINDINGS: Severe global hypokinesis. Severely depressed ejection fraction 24% IMPRESSIONS Medium-sized area of moderate ischemia noted in basal to distal anteroseptal wall suggestive of possible lesion in the LAD territory. Large area of old myocardial infarction versus scarring noted in basal to distal inferior inferolateral wall. EKG segment will be documented separately. Emilee Veronica MD (Electronically Signed) Final Date: 17 December 2020 11:29 Echocardiogram: CONCLUSIONS LV systolic function is mildly reduced with EF 40 to 45%. Diastolic function is indeterminate because of atrial fibrillation. Left atrium is enlarged. Mild mitral stenosis with mean gradient of 4 mmHg noted. Trace mitral regurgitation. Trace tricuspid regurgitation. Mild aortic regurgitation and mild pulmonic regurgitation. No comparison studies are available. Kyree Jimenez MD (Electronically Signed) Final Date: 02 December 2020 09:35 Vitals: Last Vital Signs Temp 97.7 F 12/19/20 08:00 Pulse 71 12/19/20 08:00 Resp 24 H 12/19/20 08:00 BP 127/67 12/19/20 08:00 Pulse Ox 98 12/19/20 08:00 Discharge Plan Discharge Patient Disposition: Home Condition: Stable Prescriptions: New isosorbide mononitrate 30 mg Tablet Extended Release 24 Hr 15 mg PO DAILY 30 Days Qty: 30 RF: 0 aspirin 81 mg Tablet,Delayed Release (Dr/Ec) 81 mg PO DAILY 30 Days Qty: 30 RF: 0 furosemide 20 mg Tablet 20 mg PO DAILY@0800 30 Days Qty: 30 RF: 0 DILT-XR 180 mg Capsule,Ext.Rel 24h Degradable 180 mg PO DAILY 30 Days Qty: 30 RF: 0 metoprolol tartrate 50 mg tablet 50 mg PO BID Qty: 60 RF: 0 lisinopril 2.5 mg tablet 2.5 mg PO DAILY Qty: 30 RF: 0 Continued multivitamin Tablet 1 tab PO DAILY@12 RF: 0 cyanocobalamin (vitamin B-12) [Vitamin B-12] 250 mcg Tablet 250 mcg PO QAM RF: 0 magnesium 200 mg Tablet 200 mg PO DAILY RF: 0 Krill Oil ([place] 3 and 6) 1000-130(40-80) mg Capsule 1 cap PO DAILY RF: 0 Eliquis 5 mg Tablet 5 mg PO BID 30 Days Qty: 60 RF: 6 ofloxacin 0.3 % Drops 5 drp otic (ear) DAILY RF: 0 Flonase 50 mcg/actuation [place],Suspension 2 spray INTRANASAL DAILY RF: 0 Discontinued metoprolol tartrate 25 mg Tablet 25 mg PO BID@0900,2100 30 Days Qty: 60 RF: 3 diltiazem HCl [Cardizem LA] 240 mg tablet extended release 24 hr 240 mg PO DAILY 30 Days Qty: 30 RF: 3 digoxin [Digox] 125 mcg (0.125 mg) tablet 62.5 mcg PO DAILY Qty: 30 RF: 1 ciprofloxacin HCl 250 mg tablet 500 mg PO BID RF: 0 Vitamin C 500 mg Tablet 500 mg PO QAM RF: 0 aspirin 325 mg Tablet 325 mg PO Q4H PRN (Reason: Headache) RF: 0 Aspir-81 81 mg Tablet,Delayed Release (Dr/Ec) 324 mg PO ONCE RF: 0 Discharge Orders: Discharge Order (Routine); Ordered 12/19/20 Ordered By: Indra Jackson Referrals: Emilee Veronica MD [Physician] - 2 weeks Travis Boss [Primary Care Provider] - 12/22/20 9:00 am (Your appointment with Travis Braxton has been moved up. The appointment on January 01, 2021 has been cancelled. [facility] has been scheduled for this appointment. Phone: . Round Trip (will call when ready for pickup to return home) with Trip ID: [id number]. They will pick you up from your residence at [address] [place] [address] between 8:17am-8:37am. If this information is incorrect please call them to update.) Patient Instructions: Opioid Safety Activity Restrictions/Additional Instructions: Stop digoxin. Increase the dose of metoprolol to 50 mg twice daily. Dose of Cardizem has been decreased to 20 mg daily. Imdur 15 mg daily, lisinopril 2.5 mg daily. Do not take aspirin 324 mg anymore. Take baby aspirin 81 mg daily. Continue Eliquis 5 mg twice daily. Follow-up with your primary care provider on set appointment and with Dr. Howard from cardiology within next 2 weeks. Discharge Attestations Time Spent in Discharge Care*: greater than 30 min Specific Discharge Activities: educating patient, discussing with pcp/other providers, discussing with case work aide/social workers/dc planners, documenting/other paperwork and evaluating patient/reviewing data Status at Discharge: Cognitive status at discharge: cognitively intact, Behavioral status at discharge: cooperative, Functional status at discharge: independent ambulation Overall status at discharge: patient is back to baseline Quality Metrics Clinical Quality Measures During this hospital stay, did patient experience: None Coding Level of Care Code Acute Chg FW DC note Diagnoses Atrial fibrillation with RVR I48.91 CHF (congestive heart failure) I50.22 Heart failure chronicity: chronic Heart failure type: systolic Chest pain R07.2 Chest pain type: precordial pain Positive cardiac stress test R94.39
[2020-12-19 10:02] VITALS: BP 127/67; PULSE 71; RESP 24; TEMP 36.5; O2SAT 98
--- NOTE | 2020-12-19 10:29 | PC.NURSE ---
discharge education has been provided, nurse went over medication list and instructions thoroughly. pt has no questions or concerns. waiting for meds to beds to be delivered before transport may be arranged. Pts VS are stable. Nurse will continue to monitor.
--- NOTE | 2020-12-19 11:26 | PC.NURSE ---
d/c is pending due to delivery of meds from [facility]
--- NOTE | 2020-12-22 14:59 | PC.SOCIAL ---
discharge follow up call made. patient is aware of all new medications and directions for taking. patient has stopped all discontinued medications. patient wasn't able to make appointment today with pcp, due to diarrhea, but rescheduled and will set up her medicaid ride. patient given follow up date and time to see Jaylin Oquendo, and she will set up her ride for that appointment too. Patient denies any questions or concerns.
== END 2020-12-19 13:10 | disposition home or self-care (01) | DRG 286 ==
LOC: ER 04:28 → CSU 04:51
PROVIDERS: Internal Medicine Cardiovascular Disease; Admitting Provider Student in an Organized Health Care Education/Training Program; Emergency Provider Emergency Medicine; PCP Clinical Nurse Specialist Adult Health; Visit Provider Student in an Organized Health Care Education/Training Program
PROC: B2151ZZ Fluoroscopy of Left Heart using Low Osmolar Contrast (ICD-10-PCS; principal; 2020-12-18 12:30)
DX: I48.91 Unspecified atrial fibrillation (principal); I50.43 Acute on chronic combined systolic (congestive) and diastolic (congestive) heart failure; F33.9 Major depressive disorder, recurrent, unspecified; I25.10 Atherosclerotic heart disease of native coronary artery without angina pectoris; F41.9 Anxiety disorder, unspecified; K21.9 Gastro-esophageal reflux disease without esophagitis; Z87.440 Personal history of urinary (tract) infections; M51.36 Other intervertebral disc degeneration, lumbar region; I25.5 Ischemic cardiomyopathy; Z79.01 Long term (current) use of anticoagulants
CPT/HCPCS: 36415; 71045; 72128; 72131; 78452; 80053; 80061; 80162; 80306; 81003; 82607; 82746; 83036; 83540; 83550; 83735; 83880; 84439; 84443; 84484; 85025; 85610; 87426; 93005; 93017; 93452; 96365; 96375; 99285; A9500; C1769; C1887; C1894; J0280; J1200; J1644; J1940; J2250; J2405; J2785; J3010; J3490; J7030; Q9967

== ENCOUNTER 2020-12-31 06:08 | Inpatient (IN) | payer MEDICARE, MEDICAID, SELFPAY ==
[2020-12-31] VITALS (52 sets, daily range): BP systolic 105–140; BP diastolic 59–110; PULSE 71–140; RESP 14–34; TEMP 36.2–36.8; O2SAT 69–100; BMI 24.1
[2020-12-31 06:23] LABS: Basophils # 0.1 10^3/uL (0.0-0.1); Eosinophils # 0.1 10^3/uL (0.0-0.8); Eosinophils % 2.2 %; Hematocrit 42.4 % (37.0-47.0); Hemoglobin 13.6 g/dL (11.5-15.3); Lymphocytes # 1.6 10^3/uL (0.8-4.8); Lymphocytes % 26.8 %; Mean Corpuscular HGB Conc 32.1 g/dL (30.0-36.0); Mean Corpuscular Hemoglobin 29.1 pg (28.0-34.0); Mean Corpuscular Volume 90.6 fl (81-99); Mean Platelet Volume 11.1 fL (7.4-10.4); Monocytes # 0.8 10^3/uL (0.2-0.9); Monocytes % 12.8 %; Neutrophils # 3.36 10^3/uL (1.8-7.7); Neutrophils % 56.7 %; Nucleated Red Blood Cells % 0 %; Platelet Count 205 10^3/cmm (130-400); Red Blood Count 4.68 10^6/uL (4.1-5.3); Red Cell Distribution Width 14.1 % (12.1-15.1); White Blood Count 5.9 10^3/uL (4.0-10.0)
--- NOTE | 2020-12-31 06:25 | XRR_ITS ---
PROCEDURE INFORMATION: Exam: XR Right Ankle Exam date and time: 12/31/2020 6:25 AM Age: 70 years old Clinical indication: Bilateral; Patient HX: Pain to ankle since last pm, no known injury TECHNIQUE: Imaging protocol: XR Right ankle. Views: 3 or more views. COMPARISON: CR XR tibia fibula RT 2V [id number] 12/31/2020 6:48 AM FINDINGS: Bones/joints: Normal. Soft tissues: Normal. XR/XR ankle RT min 3V* [id number] IMPRESSION: No significant abnormality. Radiation Dose CTDIVOL = (mGy): DLP = (mGy-cm)
--- NOTE | 2020-12-31 06:25 | XRR_ITS ---
PROCEDURE INFORMATION: Exam: XR Right Tibia and Fibula Exam date and time: 12/31/2020 6:25 AM Age: 70 years old Clinical indication: Bilateral; Patient HX: Pain to ankle since last pm, no known injury TECHNIQUE: Imaging protocol: XR Right tibia and fibula. Views: 2 views. COMPARISON: CR XR knee RT 3V* [id number] 12/31/2020 6:43 AM FINDINGS: Bones/joints: Normal. Soft tissues: Normal. XR/XR tibia fibula RT 2V [id number] IMPRESSION: The right tibia and fibula are unremarkable. Radiation Dose CTDIVOL = (mGy): DLP = (mGy-cm)
--- NOTE | 2020-12-31 06:25 | XRR_ITS ---
PROCEDURE INFORMATION: Exam: XR Right Knee Exam date and time: 12/31/2020 6:25 AM Age: 70 years old Clinical indication: Other: No pain to knee TECHNIQUE: Imaging protocol: XR Right knee. Views: 3 views. COMPARISON: No relevant prior studies available. FINDINGS: Bones/joints: No fracture or other acute bony abnormalities are seen. [id number] DJD is present with small osteophyte formation on the patella, medial femoral condyle and tibial plateau. There is mild joint space narrowing. Soft tissues: Normal. XR/XR knee RT 3V* [id number] IMPRESSION: Chronic DJD. No acute abnormality. Radiation Dose CTDIVOL = (mGy): DLP = (mGy-cm)
--- NOTE | 2020-12-31 06:26 | ED_ITS ---
HPI - Arrhythmia/Palpitations General: Chief Complaint: Arrhythmia/Palpitations Stated Complaint: R LEG PAIN/Elevated HR Time Seen by Provider: 12/31/20 06:08 History of Present Illness: HPI narrative: 70-year-old female presents emergency room via EMS complaining of right lower leg pain. She refers the pain from the knee distally. She states she woke up with the pain yesterday and has been going on for 16+ hours. She was recently in the emergency room was noted to be in atrial fibrillation was started on diltiazem and Eliquis. She has been taking her Eliquis regularly. Today EMS found her in A. fib with RVR and she remains in that rhythm on arrival here. However she is completely asymptomatic of it. She is not concerned about her heart rate and mostly focused on the leg. She denies any chest pain or shortness of breath. No history of any trauma to the leg. MD complaint: rapid heart beat and heart racing Onset (ago): minute(s) Duration: constant Severity: moderate Context: occurred during rest Arrhythmia history: atrial fibrillation Associated symptoms: Reports anxiety (Related to her leg pain); Deny cough, diaphoresis, muscle cramps, nausea, paresthesias, pre-syncope, sense of impending doom, short of breath, syncope or vomiting Review of Systems Const: Denies: diaphoresis ENMT: Denies: throat pain, ear or mastoid pain, nasal discharge or nasal congestion Card: Denies: syncope or pre-syncope Resp: Denies: dyspnea, productive cough or non-productive cough GI: Denies: nausea or vomiting : Denies: flank pain, difficulty voiding, dysuria, urinary frequency or urinary urgency Musc: Denies: muscle cramps Skin/Breast: Denies: rash or pruritus Psych: Reports: anxiety (Related to her leg pain) PFSH ED PFSH: Medical History Anxiety Aortic regurgitation Back pain Bilateral wrist pain Chest pain Chronic ankle pain, bilateral Chronic pain of both knees Depression Dizziness Dysuria GERD without esophagitis Interstitial cystitis Migraine Mitral regurgitation Mixed incontinence Moderate episode of recurrent major depressive disorder Overactive bladder Positive cardiac stress test Recurrent UTI Shortness of breath Tremor Surgical History Hx of hysterectomy Family History Mother , AT AGE 80 Diabetes Cancer CAD (coronary artery disease) Father CAD (coronary artery disease) Brother CAD (coronary artery disease) Sister CAD (coronary artery disease) Social History Smoking and tobacco status: never smoked Alcohol intake: never Marital status: / Current occupational status: disabled Physical Exam Const: COMMON NORMALS: no acute distress GENERAL APPEARANCE: cooperative and comfortable ORIENTATION/CONSCIOUSNESS: Yes awake, Yes oriented to person, Yes oriented to place and Yes oriented to time HENMT: COMMON NORMALS: normocephalic, atraumatic and hearing grossly normal bilaterally HEAD & SCALP: normocephalic and atraumatic Neck/C-Spine: COMMON NORMALS: no JVD Resp: COMMON NORMALS: normal respiratory effort, No retractions, No use of accessory muscles and clear to auscultation bilaterally AUSCULTATION: clear to auscultation bilaterally Cardio: COMMON NORMALS: no JVD and No murmurs present (Cardio) RATE: tachycardic RHYTHM: abnormal rhythm irregularly irregular GI: COMMON NORMALS: Soft to palpation and No hepatosplenomegaly present AUSCULTATION: Yes normoactive bowel sounds PALPATION: Yes Soft to palpation, No Tenderness to palpation present (GI), No Guarding due to palpation present (GI) and Yes No hepatosplenomegaly present Extremity: COMMON NORMALS: normal to inspection, capillary refill normal, no clubbing, cyanosis or edema, no calf tenderness and no pedal edema OTHER: Fullness in the right popliteal fossa negative Homans test no obvious deformities no redness no erythema no swelling Neuro: SENSORIUM/ORIENTATION: Yes oriented to person, Yes oriented to place and Yes oriented to time Skin: COMMON NORMALS: no rashes or lesions noted GENERAL SKIN EXAM: no rashes or lesions noted Course Vital Signs: Vital signs: Vital Signs Temperature 97.1 F L 12/31/20 06:09 Pulse Rate 116 H 12/31/20 08:49 Respiratory Rate 17 12/31/20 08:49 Blood Pressure 140/94 12/31/20 08:49 Pulse Oximetry 94 12/31/20 08:49 MDM - Arrhythmia/Palpitations MDM Narrative: Medical decision making narrative: Labs imaging and EKGs reviewed. Patient has a right popliteal artery occlusion. This despite being on Eliquis. Her rate did respond well to the single dose of IV push diltiazem along with her regular oral dose this morning. Discussed with Dr. Pierce he is intending to see the patient in the emergency room Lab Data: Labs: Lab Results 12/31/20 12/31/20 12/31/20 05:53 05:53 05:53 WBC 5.9 10^3/uL 10^3/ uL (4.0-10.0) RBC 4.68 10^6/uL 10^6 /uL (4.1-5.3) Hgb 13.6 g/dL g/dL (11.5-15.3) Hct 42.4 % % (37.0-47.0) MCV 90.6 fl fl (81-99) MCH 29.1 pg pg (28.0-34.0) MCHC 32.1 g/dL g/dL (30.0-36.0) RDW 14.1 % % (12.1-15.1) Plt Count 205 10^3/cmm 10^3 /cmm (130-400) MPV 11.1 fL H fL (7.4-10.4) Neut % (Auto) 56.7 % % Lymph % (Auto) 26.8 % % [place] % (Auto) 12.8 % % Eos % (Auto) 2.2 % % Baso % (Auto) 1.0 % % Neut # (Auto) 3.36 10^3/uL 10^3 /uL (1.8-7.7) Lymph # (Auto) 1.6 10^3/uL 10^3/ uL (0.8-4.8) [place] # (Auto) 0.8 10^3/uL 10^3/ uL (0.2-0.9) Eos # (Auto) 0.1 10^3/uL 10^3/ uL (0.0-0.8) Baso # (Auto) 0.1 10^3/uL 10^3/ uL (0.0-0.1) Nucleated RBC % (a uto) 0 % % Nucleated RBCs # 0.0 /100WBC /100W BC Sodium 139 mmol/L mmol/L (136-145) Potassium 3.7 mmol/L mmol/L (3.5-5.1) Chloride 105 mmol/L mmol/L (98-107) Carbon Dioxide 20 mmol/L L mmol/ L (22-29) Anion Gap 17.7 (5-19) BUN 16 mg/dL mg/dL (8-23) Creatinine 0.6 mg/dL mg/dL (0.5-0.9) GFR Calculation 98.8 mL/min mL/mi n (90-130) Glucose 151 mg/dL H mg/dL (65-115) Calculated Osmolal ity 292 mOsm/kg mOsm/ kg (285-295) Calcium 9.2 mg/dL mg/dL (8.5-10.5) Total Bilirubin 0.5 mg/dL mg/dL (0.15-1.2) AST 14 U/L U/L (0-32) ALT 14 U/L U/L (0-33) Alkaline Phosphata se 73 IU/L IU/L (35-105) Troponin T Baselin e 16 ng/L H ng/L (0-10) Troponin T 120 Min [place] Troponin T Total Protein 7.0 g/dL g/dL (6.6-8.7) Albumin 3.9 g/dL g/dL (3.5-5.2) Globulin 3.1 g/dL g/dL (1.3-4.6) 12/31/20 07:53 WBC RBC Hgb Hct MCV MCH MCHC RDW Plt Count MPV Neut % (Auto) Lymph % (Auto) [place] % (Auto) Eos % (Auto) Baso % (Auto) Neut # (Auto) Lymph # (Auto) [place] # (Auto) Eos # (Auto) Baso # (Auto) Nucleated RBC % (a uto) Nucleated RBCs # Sodium Potassium Chloride Carbon Dioxide Anion Gap BUN Creatinine GFR Calculation Glucose Calculated Osmolal ity Calcium Total Bilirubin AST ALT Alkaline Phosphata se Troponin T Baselin e Troponin T 120 Min [place] 16.82 ng/L H ng/L (0-10) Delta Troponin T 0.82 ABS# ABS# (0-10) Total Protein Albumin Globulin Discharge Plan Discharge Patient Disposition: Admitted As Inpatient Admit Provider: Kyree Jimenez Clinical Impression: Thrombosis of right popliteal artery, Atrial fibrillation with RVR, PAD (peripheral artery disease) Condition: Stable Coding Level of Care Code ED Splicing Machine Operator Automatic for Chg Fwd Exam Comprehensive
[2020-12-31 06:39] LABS: Alanine Aminotransferase 14 U/L (0-33); Albumin Level 3.9 g/dL (3.5-5.2); Alkaline Phosphatase 73 IU/L (35-105); Anion Gap 17.7 (5-19); Aspartate Amino Transferase 14 U/L (0-32); Blood Urea Nitrogen 16 mg/dL (8-23); Calcium 9.2 mg/dL (8.5-10.5); Carbon Dioxide 20 mmol/L (22-29); Chloride 105 mmol/L (98-107); Globulin 3.1 g/dL (1.3-4.6); Glomerular Filtration Rate 98.8 mL/min (90-130); Glucose 151 mg/dL (65-115); Osmolality Calculated 292 mOsm/kg (285-295); Potassium 3.7 mmol/L (3.5-5.1); Sodium 139 mmol/L (136-145); Total Bilirubin 0.5 mg/dL (0.15-1.2)
[2020-12-31 06:40] LABS: Troponin(5th) Baseline 16 ng/L (0-10)
--- NOTE | 2020-12-31 07:25 | USCV_ITS ---
Sabina Valdez Age: 70 Gender: F : 1950 Exam Date: 12/31/2020 07:32 Ordering Phys: Nick Butler DO Technologist: Ketty Katz [place]am Location: [facility] [place] Indication: RLE PAIN HISTORY: Lower extremity pain. PROCEDURES: Venous duplex imaging was performed in only the right lower extremity. The following venous structures were evaluated: common femoral vein, profunda vein, proximal portion of the greater saphenous vein, superficial femoral vein, and the popliteal vein. In addition, the posterior tibial and peroneal trunk were evaluated. Serial compression, augmentation maneuvers, and spectral Doppler flow evaluation were performed. FINDINGS: No evidence of DVT seen in any vessel visualized at this time. CONCLUSIONS No evidence of right lower extremity DVT. Suman Powell MD (Electronically Signed) Final Date: 31 December 2020 16:35 S
[2020-12-31] MEDS: HYDROcodone-acetaminophen 5-325 mg Tablet 1 TAB PO (07:36)
[2020-12-31] MEDS: dilTIAZem ER (24HR) 180 mg Capsule PO (07:38)
--- NOTE | 2020-12-31 07:41 | USCV_ITS ---
ValdezSabina rincon Age: 70 Gender: F : 1950 Exam Date: 12/31/2020 07:43 Ordering Phys: Nick Butler DO Technologist: Ketty Katz Exam Location: [facility] – [place]_ Indication: RLE PAIN Risk Factors: Previous Vascular Surgery: RIGHT LEFT Waveform Velocity (cm/s) Velocity (cm/s) Waveform Triphasic 49.9 Iliac Prox Triphasic 53.9 Iliac Mid Triphasic 47.8 Iliac Distal Triphasic 45.8 OUTSIDE SALESMAN Biphasic 28.7 SFA Prox Monophasic 19.4 SFA Mid Monophasic 15.5 SFA Dist N/A POP N/A PLUCK TRIMMER N/A DPA FINDINGS NO FLOW SEEN IN RIGHT SFA DIST-PLUCK TRIMMER AND DPA Weak Doppler signals in the mid and distal superficial femoral artery on the right side. No Doppler flow signals in the popliteal and infrapopliteal vessels. CONCLUSIONS 1. Features of subtotal occlusion of the mid to distal superficial femoral artery with no evidence of blood flow in the popliteal and infrapopliteal vessels, based on the above findings. 2. Dr. Schafer was informed about this findings. Dr Ori Jimenez MD [facility] (Electronically Signed) Final Date: 31 December 2020 08:35 S
[2020-12-31] MEDS: heparin 5,000 unit/mL INJ 1 mL 4000 UNIT IVP (08:23)
--- NOTE | 2020-12-31 08:42 | XACV_ITS ---
Wt: 68 kg BSA: 1.80 m2 Any Known Allergies: Other Gender: Female : 1950 Exam Type: Invasive Peripheral Vascular Procedure(s): Procedure Description: Peripheral Cath Diagnostic Procedure Procedure Description: Mechanical thrombectomy with Penumbra Procedure Description: Stent placement in the peroneal artery Procedure Description: Balloon angioplasty Exam Priority: Routine Abdominal Diagnostic Findings Distal abdominal aorta: Patent. Lower Extremity Diagnostic Findings Left common iliac artery: Patent Left external iliac artery: Patent Left internal iliac artery: Patent Left common femoral artery: Patent Left proximal SFA: Patent Left proximal profunda femoris: Patent. Right common iliac artery: Patent Right external iliac artery: Patent Right common femoral artery: Patent but has slow flow Right profunda femoris artery: Occluded proximally with thrombus seen. Right SFA:Mid segment occluded, has large thrombus buden noted. INDICATION: ACUTE LIMB ISCHEMIA OF THE RIGHT LOWER EXTREMITY WITH NO FLOW BELOW MID SFA. Lower Extremity Interventional Findings Periphreal intervention procedure: We obtained access in the left common femoral artery with a 6 Syriac sheath.IV heparin was administered. Using a Glidewire, a long 8 Fr sheath was inserted in right external iliac artery going up and over after abdominal angiogram was performed. Mid SFA had total thrombotic occlusion. We crossed the occluded segment with Glidewire. CAT 8 penumbra catheter was inserted and used to perform mechanical thrombectomy. Significant amount of thrombus was extracted serially. Patient kept on having distal embolization of thrombus. Balloon angioplasty was also performed using a 5.0 x 40 mm balloon in the distal SFA to popliteal artery. We then used a 3.0 x 120 mm balloon to perform balloon angioplasty and TP trunk and proximal peroneal artery. At this time it was noted that patient's anterior tibial and posterior tibial arteries are occluded. Flow was noted in the peroneal artery. We performed balloon angioplasty from mid to distal peroneal artery using 2.0 x 200 mm balloon. This was followed by performing mechanical thrombectomy with a CAT Rx catheter. Proximal to mid peroneal artery seem to have residual thrombus. We decided to put coronary stents measuring 2.5 x 30 mm resolute Carolyn stent overlapping with a 2.75 x 30 mm resolute Carolyn stent. At this time final angiogram demonstrated single vessel runoff to the foot. Pulse was dopplerable. Collateral blood supply was also noted below the knee. Long sheath was switched to short 8 Syriac sheath and was sutured in place for removal later.. Conclusions Acute limb ischemia with thrombotic occlusion of the mid SFA/popliteal artery and TP trunk (Source likely heart as had recent onset Atrial fibrillation and compliance with medications is not known). Severe below the knee peripheral artery disease. Single vessel runoff to the foot established. Recommendations Transfer to CSU. We will start Eliquis 5mg BID and plavix 75mg daily. Aggressive risk factor modification. Outpatient cardiology follow up in 1-2 weeks. Access Site Site: Left Femoral artery Sheath Size: 6 Fr Hemost... Method: Suture Hemost... Success: Successful Procedure Details Findings Procedure Consent Obtained. Admit Source: Emergency department. Pre-Procedure Time Out. Identified patient by full name and date of as verbalized by the patient/guarantor. Does the consent match the physician's order: Yes. Accurate & Complete Informed Consent: Yes. Inpatient/Outpatient History & Physical on Chart: Yes. If H&P is completed, is and addenduem needed: N/A; If yes, is the addendum complete: N/A. Visualize and Verify Site with Patient/Guarantor: N/A. Relevant Radiology Images available: N/A. Pre-op teaching completed and patient verbalized understanding. The risks, benefits, and alternatives of sedation and/or procedure were discussed by physician. The patient agrees to continue. Procedure started. Correct patient, site and procedure confirmed by cath team. PERRLA. Strong, equal hand spar cap beveler bilaterally. Lungs clear x 5 lobes. IV Site on Arrival: 20 gauge in the left anticubital. Oxygen started at 2liters/min via nasal canula. Physician notified. Baseline sample Acquired. HR: 112 BPM. bilateral groins was prepped with chloroprep then draped in the usual sterile fashion. Physician arrived. Physician scrubbed in. Immediate Pre-Procedure Time Out. Correct Patient: Yes; Correct Procedure: Yes; Correct Site: Yes; Correct Patient Position: Yes; Correct Supplies: Yes; Dried Flammable Prep: Yes; Blood Products Available: N/A;. Time out performed with cath team. Lidocaine 1% infiltrated to the left groin. Arterial access obtained with micropuncture set. A 6FrFr UF catheter in over wire. wire out. handinjection performed through UF catheter. glidewire inserted. Abdominal aortogram performed in AP @ 10 mL/sec for a total of 20 mL. glidewire inserted. wire out. catheter inserted in the illiac. handinjection performed. Catheter out. sheath out. 6F flexor sheath inserted. Right leg runoff performed 10ml/sec for a total of 30mL. Seeker catheter inserted over the wire. wire out. seeker located in the common femeral. handinjection performed. glidewire in. seeker down to distal SFA. wire located in popliteal. seeker out. Sheath upsized to a 8 Fr. CAT8 Aspiration Catheter and Tubing inserted in SFA. LOT#[id number]. wire out. aspirating at this time. wire inserted. catheter out. glidewire located in the distal SFA. right leg runoff performed 10mL/sec for a total of 20mL. wire back down to paratineal. wire parked in popliteal. CAT8 inserted. aspiration started. wire reinserted. aspiration stopped. CAT8 out. right leg runoff performed 10mL/sec for a total of 20mL. Inflation number : 1 A AB ARMADA 35 OTW [id number] was prepped and advanced across the Distal Superficial Femoral, Left , then inflated to 8 BERTO for 0:46 seconds. Inflation number: 2 The AB ARMADA 35 OTW [id number] was reinflated across the Distal Superficial Femoral, Right, to 10 BERTO for 0:33 seconds. Inflation number: 3 The AB ARMADA 35 OTW [id number] was reinflated across the Distal Superficial Femoral, Right, to 10 BERTO for 0:24 seconds. Inflation number: 1 The AB ARMADA 35 OTW [id number] was reinflated across the Proximal Popliteal, Right, to 10 BERTO for 0:22 seconds. Inflation number: 2 The AB ARMADA 35 OTW [id number] was reinflated across the Proximal Popliteal, Right, to 6 BERTO for 0:28 seconds. Inflation number: 1 The AB ARMADA 35 OTW [id number] was reinflated across the Tibial Peroneal Trunk, Right, to 2 BERTO for 0:21 seconds. Balloon out. checking results. right leg runoff 10mL/sec for a total of 20mL. handinjection performed through the sheath. CAT8 inserted. wire out. apiration started. SEP8 catheter inserted. LOT#[id number]. SEP8 out. SEP8 inserted. SEP8 out. Glidewire in. CAT8 out. handinjection performed. Seeker catheter inserted over the wire. handinjection performed. handinjection performed. Side port of sheath attached to Normal Saline flush at KVO to maintain patency. Command wire inserted through seeker. Family update. Inflation number : 1 A AB ARMADA 14 OTW [id number] was prepped and advanced across the Peroneal, Right , then inflated to 8 BERTO for 0:36 seconds. Inflation number: 2 The AB ARMADA 14 OTW [id number] was reinflated across the Peroneal, Right, to 4 BERTO for 0:32 seconds. Inflation number: 3 The AB ARMADA 14 OTW [id number] was reinflated across the Peroneal, Right, to 2 BERTO for 0:33 seconds. Balloon out over wire. seeker located in the tibial peroneal trunk. wire out. handinjection performed through the seeker. command wire in. seeker out. CAT RX 140cm catheter inserted. LOT#[id number]. aspiration started. aspiration stopped. Inflation number : 4 A AB ARMADA 14 OTW [id number] was prepped and advanced across the Peroneal, Right , then inflated to 6 BERTO for 0:38 seconds. Inflation number: 5 The AB ARMADA 14 OTW [id number] was reinflated across the Peroneal, Right, to 4 BERTO for 0:36 seconds. Balloon out over wire. Inflation number : 6 A AB ARMADA 14 OTW [id number] was prepped and advanced across the Peroneal, Right , then inflated to 8 BERTO for 0:32 seconds. Inflation number: 7 The AB ARMADA 14 OTW [id number] was reinflated across the Peroneal, Right, to 8 BERTO for 0:18 seconds. Balloon out over wire. Seeker catheter inserted over the wire. seeker parked in paroneal. command inserted. Inflation number : 1 A AB ARMADA 14 OTW [id number] was prepped and advanced across the Proximal Peroneal, Right , then inflated to 12 BERTO for 1:00 seconds. family updated. Balloon out over wire. Seeker catheter inserted over the wire. wire out. handinjection performed through the seeker. seeker out. Inflation Number : 8 A MDT R CAROLYN 2.5X30 HOMER -Lot Number# [id number] exp date: 05-31-2022 was prepped and advanced across the Peroneal, Right. The stent was deployed at 12 BERTO for 0:33 seconds. Stent balloon out over wire. Inflation Number : 9 A MDT R CAROLYN 2.75X30 HOMER -Lot Number# [id number] exp date: 07-13-2023 was prepped and advanced across the Peroneal, Right. The stent was deployed at 10 BERTO for 0:44 seconds. Stent balloon out over wire. seeker inserted over wire. wire out. handinjection performed through seeker. seeker out. ACT drawn. Results 197 seconds. Therapeutic limits - pre-heparin administration 90-150 seconds and monitoring heparin during a vascular procedure >250 seconds. right leg runoff performed 10mL/sec for a total of 20mL. Sheath upsized to a 6 Fr. wire and catheter out. Sheath(s) sutured into position with 2-0 silk and sterile 4x4's and Op-site applied over the site. No oozing or signs and symptoms of hematoma noted. Post Procedure: Pulses reassessed and unchanged. PERRLA. Strong, equal hand spar cap beveler bilaterally. No VTE prophylaxis required. Medication's Wasted: Lidocaine 1% = 4 mL. Medication's Wasted: Heparin = 3000 units. Medication's Wasted: Nitro = 49.4 mg. Medication's Wasted: Other = metop. 5mg. Total IV fluids: 455 mL. Contrast type used: Visipaque 320 mgI/mL, 500 mL bottle. Contrast Material : Visipaque 266 ml. Post-op diagnosis: acute limb ischimia. Complications: none. Estimated blood loss: 5mL-10mL. A Suture was successful obtaining hemostatsis at the Left Femoral artery insertion site. Procedure completed. Patient transferred by bed to 1st floor. Vital chart was stopped. Procedure Medications Start: 8:50 AM Stop: 8:50 AM Medication: Fentanyl Amount: 50 mcg Route: I.V. Start: 9:02 AM Stop: 9:02 AM Medication: Versed Amount: 1 mg Route: I.V. Start: 9:16 AM Stop: 9:16 AM Medication: Versed Amount: 0.5 mg Route: I.V. Start: 9:18 AM Stop: 9:18 AM Medication: Versed Amount: 0.5 mg Route: I.V. Start: 9:26 AM Stop: 9:26 AM Medication: Heparin Amount: 4000 units Route: I.V. Start: 9:31 AM Stop: 9:31 AM Medication: Fentanyl Amount: 25 mcg Route: I.V. Start: 9:32 AM Stop: 9:32 AM Medication: Versed Amount: 0.5 mg Route: I.V. Start: 10:09 AM Stop: 10:09 AM Medication: Fentanyl Amount: 25 mcg Route: I.V. Start: 10:16 AM Stop: 10:16 AM Medication: Versed Amount: 0.5 mg Route: I.V. Start: 10:31 AM Stop: 10:31 AM Medication: Heparin Amount: 4000 units Route: I.V. Start: 10:32 AM Stop: 10:32 AM Medication: Versed Amount: 0.5 mg Route: I.V. Start: 10:35 AM Stop: 10:35 AM Medication: Heparin Amount: 1000 units Route: I.V. Start: 10:40 AM Stop: 10:40 AM Medication: Fentanyl Amount: 25 mcg Route: I.V. Start: 10:58 AM Stop: 10:58 AM Medication: Fentanyl Amount: 25 mcg Route: I.V. Start: 11:07 AM Stop: 11:07 AM Medication: Versed Amount: 0.5 mg Route: I.V. Start: 11:26 AM Stop: 11:26 AM Medication: Nitrogylcerin Amount: 300 mcg Route: I.A. Start: 11:35 AM Stop: 11:35 AM Medication: Fentanyl Amount: 25 mcg Route: I.V. Start: 11:46 AM Stop: 11:46 AM Medication: Versed Amount: 0.5 mg Route: I.V. Start: 11:46 AM Stop: 11:46 AM Medication: Fentanyl Amount: 25 mcg Route: I.V. Start: 11:52 AM Stop: 11:52 AM Medication: Nitrogylcerin Amount: 300 mcg Route: I.A. Start: 11:59 AM Stop: 11:59 AM Medication: Heparin Amount: 2000 units Route: I.V. Start: 12:04 PM Stop: 12:04 PM Medication: Plavix Amount: 300 mg Route: P.O. I, the attending physician, have reviewed and verified all procedure medications. Yes, all medications given per verbal order Report Signatures Finalized by Kyree Jimenez MD on 01/14/2021 11:07 AM
--- NOTE | 2020-12-31 08:52 | PM.HP ---
Providers/Chief Complaint Admitting Physician: Kyree Jimenez MD Primary Care Provider: Travis Boss Chief Complaint: R LEG PAIN/Elevated HR History of Present Illness Sabina Valdez is a 70 year old female with past medical history of atrial fibrillation recently diagnosed last month and was started on Eliquis and Cardizem has presented with severe right lower extremity pain. She woke up with pain yesterday and has been going on for about 12 to 16 hours. Per patient she called EMS however initially was thought to have muscle cramps. This morning she could not tolerate the pain and came to the ER. Arterial duplex showed no flow below the knee. Per patient she has been compliant with her Eliquis. She was also in A. fib with RVR at presentation. Right lower extremity is cold and tender to touch. Given acute limb symptoms, she was emergently taken to the [facility]. Found to have extensive thrombosis from mid to distal SFA all the way down to the foot. After thrombectomy and balloon angioplasty we were able to restore 1 vessel runoff to foot. Dopplerable pulses. Review of Systems Const: Denies: diaphoresis ENMT: Denies: throat pain, ear or mastoid pain, nasal discharge or nasal congestion Card: Denies: syncope or pre-syncope Resp: Denies: dyspnea, productive cough or non-productive cough GI: Denies: nausea or vomiting : Denies: flank pain, difficulty voiding, dysuria, urinary frequency or urinary urgency Musc: Reports: extremity pain and muscle cramps Skin/Breast: Denies: rash or pruritus Psych: Reports: anxiety (Related to her leg pain) Medications/Allergies Home Medications Medication Instructions Recorded Confirmed Last Taken Type multivitamin 1 tab PO DAILY@12 06/16/20 12/31/20 12/30/20 History cyanocobalamin (vitamin B-12) 250 mcg PO QAM 12/01/20 12/31/20 12/30/20 History [Vitamin B-12] Eliquis 5 mg PO BID 30 Days #60 tab 12/04/20 12/31/20 12/30/20 Rx fluticasone propionate 2 spray INTRANASAL DAILY 12/16/20 12/31/20 Unknown History ofloxacin 5 drp OTIC (EAR) DAILY 12/16/20 12/31/20 12/15/20 History aspirin 81 mg PO DAILY 30 Days #30 tab 12/19/20 12/31/20 12/30/20 Rx diltiazem HCl [DILT-XR] 180 mg PO DAILY 30 Days #30 cap 12/19/20 12/31/20 12/30/20 Rx furosemide 20 mg PO DAILY@0800 30 Days #30 tab 12/19/20 12/31/20 12/30/20 Rx lisinopril 2.5 mg PO DAILY #30 tab 12/19/20 12/31/20 Unknown Rx metoprolol tartrate 50 mg PO BID #60 tab 12/19/20 12/31/20 12/30/20 Rx acetaminophen [Tylenol Ex Str 1,000 mg PO Q4H PRN 12/31/20 12/31/20 12/31/20 04:46 History Rapid Release] ascorbic acid (vitamin C) [Vitamin 500 mg PO DAILY 12/31/20 12/31/20 12/30/20 History C] isosorbide mononitrate 30 mg PO DAILY 12/31/20 12/31/20 12/30/20 History Allergies Allergy/AdvReac Type Severity Reaction Status Date / Time codeine Allergy Unknown ALGY-Rash Verified 12/31/20 17:24 sulfamethoxazole Allergy Unknown ALGY-Rash Verified 12/31/20 17:24 [From Bactrim] trimethoprim [From Bactrim] Allergy Unknown ALGY-Rash Verified 12/31/20 17:24 PFSH Acute PFSH: Medical History Anxiety Aortic regurgitation Back pain Bilateral wrist pain Chest pain Chronic ankle pain, bilateral Chronic pain of both knees Depression Dizziness Dysuria GERD without esophagitis Interstitial cystitis Migraine Mitral regurgitation Mixed incontinence Moderate episode of recurrent major depressive disorder Overactive bladder Positive cardiac stress test Recurrent UTI Shortness of breath Tremor Surgical History Hx of hysterectomy Family History Mother , AT AGE 80 Diabetes Cancer CAD (coronary artery disease) Father CAD (coronary artery disease) Brother CAD (coronary artery disease) Sister CAD (coronary artery disease) Social History Smoking and tobacco status: never smoked Alcohol intake: never Marital status: / Current occupational status: disabled Vitals/I&O/Wt Last Vital Signs Temp 97.1 F L 12/31/20 06:09 Pulse 116 H 12/31/20 08:49 Resp 17 12/31/20 08:49 BP 140/94 12/31/20 08:49 Pulse Ox 94 12/31/20 08:49 Weight last 48 hrs Weight 154 lb Physical Exam Narrative: EXAM NARRATIVE: GENERAL: Patient is alert, awake and oriented x3. In severe pain NECK: No jugular vein distension. HEENT: No cyanosis. No icterus. No pallor. HEART: Irregularly irregular, tachycardic. No murmur LUNGS: Clear to auscultate bilaterally. ABDOMEN: Soft, nontender and nondistended. Positive bowel sounds. No guarding, rebound or tenderness. CENTRAL NERVOUS SYSTEM: Grossly nonfocal. EXTREMITIES: Right lower extremity is cool to touch. No palpable pulses. Movement intact however tender to touch. Data : 01/01/21 04:20 01/01/21 04:20 A&P Assessment and plan (1) PAD (peripheral artery disease): Status: Acute (2) Limb ischemia: Status: Acute (3) Atrial fibrillation with RVR: Status: Acute Patient has presented with acute limb ischemia with no flow below mid to distal SFA. Likely etiology embolism from cardiac source is had A. fib. Compliance with anticoagulation is questionable. She underwent successful thrombectomy and balloon angioplasty of right lower extremity. Also had HOMER x2 placed in peroneal artery. 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 However the liver to restore single-vessel runoff to the foot. Has dopplerable pulses at foot. Transfer to cardiac stepdown unit Continue Eliquis 5 mg twice daily and Plavix. Continue rate controlling agents including Cardizem and metoprolol. Frequent Doppler checks of the right lower extremity. At this time she has a dopplerable pulses. Telemetry monitoring Attestations Medical Necessity Statement*: Care expected to cross 2 midnights. Patient had presented with acute limb ischemia and underwent limb salvage procedure including thrombectomy, balloon angioplasty and stent placement in the right lower extremity. Coding Level of Care Code Acute Senior [employer] [facility] Diagnoses PAD (peripheral artery disease) I73.9 Limb ischemia I99.8 Atrial fibrillation with RVR I48.91
[2020-12-31 08:54] LABS: Troponin 5 2HR 16.82 ng/L (0-10); Troponin 5 2HR Delta 0.82 ABS# (0-10)
--- NOTE | 2020-12-31 12:09 | ECG_ITS ---
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 Measurements Intervals [place] Rate: 146 P: ND: QRS: 78 QRSD: 120 T: -1 QT: 313 QTc: 488 Interpretive Statements ATRIAL FIBRILLATION WITH RAPID VENTRICULAR RESPONSE RIGHT BUNDLE BRANCH BLOCK [120+ ms QRS DURATION, UPRIGHT V1, 40+ ms S IN I/aVL/V4/V5/V6] Compared to ECG 12/16/2020 04:01:15 Atrial flutter no longer present Electronically Signed On 01-01-2021 19:44:33 CDT by Nery Dawson M.D. [email or web address]
[2020-12-31 17:18] LABS: Partial Thromboplastin Time 95.1 SECONDS (23.9-36.7)
--- NOTE | 2020-12-31 17:23 | PC.PHAR ---
pt states she takes care of her own medications-rx filled for imdur mono er 30mg take 15mg daily 12/19/20-pt states she couldnt cut them in half so shes been taking the whole 30mg tab daily-notes are made in the pharmacy comments
[2020-12-31] MEDS: ALPRAZolam 0.5 mg Tablet 0.25 MG PO (18:09)
[2020-12-31] MEDS: metoprolol tartrate 50 mg Tablet PO (18:09)
--- NOTE | 2020-12-31 19:34 | PC.NURSE ---
Patient has been incontinent of urine x 5. Patient voided once in bedpan. Encouraged patient to use call light and request bedpan. Patient cleaned each time with bath wipes and blue pads placed.
--- NOTE | 2020-12-31 20:32 | PC.NURSE ---
Awaiting 1899 PTT results from lab. Lab notified.
[2020-12-31 21:03] LABS: Partial Thromboplastin Time 23.5 SECONDS (23.9-36.7)
[2020-12-31] MEDS: fentaNYL 50 mcg/mL INJ 2mL IVP (21:09)
--- NOTE | 2020-12-31 22:03 | PC.NURSE ---
Dr. Jimenez notified sheath pull at 2119. Called to verify Eliquis order. Ordered to give first dose of Eliquis at 0030 (3 hours after sheath removal). Sheath removed at 2119. Manual pressure held for 20 minutes. Very small hematoma noted quickly after sheath pull. Hematoma has resolved. Dressing applied. VSS. Patient educated on bedrest per order/protocol and verbalized understanding.
[2020-12-31] MEDS: temazepam 15 mg Capsule PO (23:59)
[2021-01-01] VITALS (47 sets, daily range): BP systolic 82–132; BP diastolic 55–91; PULSE 82–118; RESP 11–37; TEMP 36.6–38.4; O2SAT 76–100
--- NOTE | 2021-01-01 00:09 | PC.NURSE ---
Patient has had several episodes of urinary incontinence. Patient's absorbent pads have been replaced and skin cleansed each time.
[2021-01-01] MEDS: apixaban 5 mg Tablet PO ×3 (01:20→20:07)
--- NOTE | 2021-01-01 03:42 | PC.NURSE ---
Patient ambulated with nurse to bathroom. Left groin site still WNL. Right foot cooler than left foot. Pulse doppled. No change from beginning of shift. VSS.
[2021-01-01 05:15] LABS: Basophils # 0.1 10^3/uL (0.0-0.1); Basophils % 0.8 %; Eosinophils # 0.1 10^3/uL (0.0-0.8); Eosinophils % 2.1 %; Hematocrit 36.6 % (37.0-47.0); Lymphocytes # 1.2 10^3/uL (0.8-4.8); Lymphocytes % 20.4 %; Mean Corpuscular HGB Conc 30.1 g/dL (30.0-36.0); Mean Corpuscular Hemoglobin 28.9 pg (28.0-34.0); Mean Corpuscular Volume 96.1 fl (81-99); Mean Platelet Volume 11.3 fL (7.4-10.4); Monocytes # 0.9 10^3/uL (0.2-0.9); Monocytes % 14.8 %; Neutrophils # 3.73 10^3/uL (1.8-7.7); Neutrophils % 61.2 %; Nucleated Red Blood Cells % 0 %; Platelet Count 181 10^3/cmm (130-400); Red Blood Count 3.81 10^6/uL (4.1-5.3); Red Cell Distribution Width 14.4 % (12.1-15.1); White Blood Count 6.1 10^3/uL (4.0-10.0)
[2021-01-01 05:43] LABS: Anion Gap 11.3 (5-19); Blood Urea Nitrogen 14 mg/dL (8-23); Calcium 8.6 mg/dL (8.5-10.5); Carbon Dioxide 23 mmol/L (22-29); Chloride 108 mmol/L (98-107); Glomerular Filtration Rate 157.8 mL/min (90-130); Glucose 91 mg/dL (65-115); Osmolality Calculated 286 mOsm/kg (285-295); Potassium 4.3 mmol/L (3.5-5.1); Sodium 138 mmol/L (136-145)
[2021-01-01] MEDS: clopidogrel 75 mg Tablet PO (09:05)
[2021-01-01] MEDS: metoprolol tartrate 50 mg Tablet PO ×2 (09:05→18:39)
--- NOTE | 2021-01-01 09:50 | P.PN_ITS ---
Subjective Subjective: Interval history: Patient is overall doing well. She has palpable and dopplerable PT pulse. Right lower extremity is warm. Today she has walked without any symptoms. Vitals/I&O/Wt Last Vital Signs Temp 98.2 F 01/01/21 04:00 Pulse 94 01/01/21 09:00 Resp 23 H 01/01/21 09:00 BP 103/65 01/01/21 09:00 Pulse Ox 97 01/01/21 09:00 12/31/20 01/01/21 01/01/21 22:59 06:59 14:59 Intake Total 280 / 280 400 / 680 222 / 222 Output Total 120 / 120 100 / 100 Balance 160 / 160 400 / 560 122 / 122 Weight last 48 hrs Weight 154 lb Physical Exam Narrative: EXAM NARRATIVE: GENERAL: Patient is alert, awake and oriented x3. In severe pain NECK: No jugular vein distension. HEENT: No cyanosis. No icterus. No pallor. HEART: Irregularly irregular, tachycardic. No murmur LUNGS: Clear to auscultate bilaterally. ABDOMEN: Soft, nontender and nondistended. Positive bowel sounds. No guarding, rebound or tenderness. CENTRAL NERVOUS SYSTEM: Grossly nonfocal. EXTREMITIES: Right lower extremity is warm. PT is palpable and dopplerable Data : 01/02/21 03:29 01/02/21 03:29 A&P Assessment and plan (1) PAD (peripheral artery disease): Status: Acute (2) Limb ischemia: Status: Acute (3) Atrial fibrillation with RVR: Status: Acute Patient has presented with acute limb ischemia with no flow below mid to distal SFA. Likely etiology embolism from cardiac source is had A. fib. Compliance with anticoagulation is questionable. She underwent successful mechanical thrombectomy with penumbra and balloon angioplasty of right lower extremity. Also had HOMER x2 placed in peroneal artery. 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 Now has dopplerable and palpable PT pulse. She is ambulating and right lower extremity and foot is warm without any pain. Continue Eliquis 5 mg twice daily and Plavix. Continue Cardizem and metoprolol. We will stop isosorbide as she becomes hypotensive. No chest pains at this time. Heart rate is better controlled now. If patient stays stable by tomorrow, will discharge tomorrow. Attestations Medical Necessity Statement*: Care expected to cross 2 mid nights. Patient had presented with acute limb ischemia and underwent successful emergent revascularization with thrombectomy, balloon angioplasty and stent placement. Coding Level of Care Code Acute Medical Administrator for g Fwd Diagnoses PAD (peripheral artery disease) I73.9 Limb ischemia I99.8 Atrial fibrillation with RVR I48.91
--- NOTE | 2021-01-01 10:41 | PC.CHAP ---
Pastoral Care Encounter/Spiritual Assessment Type of Contact [] Declined quilt maker visit [] Patient/Family/Request visit [] Outpatient visit [] Follow-up visit [] Physician referral [] Code/Alert [x] Routine visit [] Staff referral [] Actively dying [] Patient sleeping [] Family support [] [] Out of room [] Palliative care [] [] Receiving care in room [] Pre-surgical visit [] Trauma [] Long length of stay [] ICU visit [] Other: Relational/Emotional Strength [] Patient feels connected with others/family/visitors/staff [] Distress [] Loneliness/isolation [] Abandonment Spirituality of Patient [] Person of Joanna [] Attends Cheondoism of their Joanna [] Believes in Prayer [] Reads Bible or Yazdanism materials [] There are Spiritual issues to be addressed Location Worker Interventions [x] Prayer [x] Active listening [x] Non-anxious presence [x] Spiritual/emotional support [] Crisis/trauma care [] Spiritual counseling [] Bereavement support [] Provided bereavement packet [] Provided Bible/devotional materials [] Provided toy/stuffed animal, coloring book to patient or family member [] Provided Communion [] Anointing/[place] [] Salvation [x] Completed spiritual assessment [] Other: Impact on Illness or Injury [] Angry [] Fearful [] Anxious [] Often cries [] Exhaustion [] Unable to work [] Unable to attend anabaptist [] Unable to walk/stand [] Unable to read [] Unable to drive [] Unable to eat/drink [] Unable to sleep [] Unable to be with family [] Patient intubated [] Other: Summary prayed for strength and healing Time spent with patient 5 min
--- NOTE | 2021-01-01 19:36 | PC.NURSE ---
Shift Note Frequent safety and comfort rounds continue. Orders and/or nursing care completed as indicated. Patient monitored for response to intervention and treatment(s) on frequent neurovasular checks on her right and left lower extremities. Education provided includes to call nurse for any increasing pain on legs . Patient and/or construction sales representative verbalizes understanding. Will continue to monitor.
[2021-01-01] MEDS: temazepam 15 mg Capsule PO (20:07)
--- NOTE | 2021-01-01 20:18 | PC.NURSE ---
Received report from AVANI Anne. Patient resting in bed. Denies pain or needs. Patient has current axillary temperature of 101.1. Room is extremely warm and patient refuses to let me adjust any cooler. Patient denies any feelings of sickness only reports feeling tired. Informed Dr Coulter of temperature. No orders received at this time.
--- NOTE | 2021-01-01 20:21 | PC.NURSE ---
Received telephone order from Dr Jimenez to obtain chest xray at this time due to increased temperature. RBVO
--- NOTE | 2021-01-01 20:23 | XRR_ITS ---
PROCEDURE INFORMATION: Exam: XR Chest Exam date and time: 01/01/2021 8:23 PM Age: 70 years old Clinical indication: Fever; Additional info: Increased temperature/possible infection TECHNIQUE: Imaging protocol: XR of the chest. Views: 1 view. Total images: 1 COMPARISON: CR (CHEST, ) 12/16/2020 3:13 AM FINDINGS: Lungs: Nonspecific left lung base opacity favors atelectasis or pneumonia. Coarse chronic pulmonary markings. Pleural spaces: Unremarkable. No pleural effusion. No pneumothorax. Heart/Mediastinum: Mild cardiomegaly stable. Bones/joints: Osseous structures are unchanged from the prior exam. XR/XR chest 1V portable [id number] IMPRESSION: 1. Nonspecific left lung base opacity favors atelectasis or pneumonia. 2. Mild cardiomegaly stable. 3. Coarse chronic pulmonary markings. Radiation Dose CTDIVOL = (mGy): DLP = (mGy-cm)
--- NOTE | 2021-01-01 21:23 | PC.NURSE ---
Patient current temperature is at 100.[address] Jimenez of change. No new orders received.
[2021-01-02] VITALS (15 sets, daily range): BP systolic 92–126; BP diastolic 62–106; PULSE 80–120; RESP 10–30; TEMP 36.7–37.7; O2SAT 94–100
[2021-01-02 04:04] LABS: Basophils % 0.5 %; Eosinophils # 0.1 10^3/uL (0.0-0.8); Eosinophils % 1.6 %; Hematocrit 37.1 % (37.0-47.0); Hemoglobin 11.5 g/dL (11.5-15.3); Lymphocytes # 1.2 10^3/uL (0.8-4.8); Lymphocytes % 16.2 %; Mean Corpuscular Hemoglobin 28.5 pg (28.0-34.0); Mean Corpuscular Volume 92.1 fl (81-99); Mean Platelet Volume 11.4 fL (7.4-10.4); Monocytes # 1.2 10^3/uL (0.2-0.9); Monocytes % 15.9 %; Neutrophils # 4.83 10^3/uL (1.8-7.7); Neutrophils % 65.3 %; Nucleated Red Blood Cells % 0 %; Platelet Count 181 10^3/cmm (130-400); Red Blood Count 4.03 10^6/uL (4.1-5.3); Red Cell Distribution Width 14.2 % (12.1-15.1); White Blood Count 7.4 10^3/uL (4.0-10.0)
[2021-01-02 04:33] LABS: Anion Gap 14.1 (5-19); Blood Urea Nitrogen 18 mg/dL (8-23); Calcium 8.7 mg/dL (8.5-10.5); Carbon Dioxide 22 mmol/L (22-29); Chloride 103 mmol/L (98-107); Glomerular Filtration Rate 98.8 mL/min (90-130); Glucose 91 mg/dL (65-115); Osmolality Calculated 281 mOsm/kg (285-295); Potassium 4.1 mmol/L (3.5-5.1); Sodium 135 mmol/L (136-145)
[2021-01-02] MEDS: metoprolol tartrate 50 mg Tablet PO ×2 (06:11→17:38)
--- NOTE | 2021-01-02 06:13 | PC.NURSE ---
Patient's heart rate 110 to 150s. Administered metoprolol early.
--- NOTE | 2021-01-02 06:15 | PC.NURSE ---
Shift Note Frequent safety and comfort rounds continue. Orders and/or nursing care completed as indicated. Patient monitored for response to intervention and treatment(s). Education provided includes metoprolol. Patient verbalized complete understanding. Patient denies pain or needs. No distress observed. Assisted patient up to BSC. Patient has incontinence with movement and change of position. Temperature improved throughout the night. Will continue to monitor.
[2021-01-02] MEDS: dilTIAZem ER (24HR) 180 mg Capsule PO (08:45)
[2021-01-02] MEDS: apixaban 5 mg Tablet PO ×2 (08:46→20:23)
[2021-01-02] MEDS: clopidogrel 75 mg Tablet PO (08:46)
[2021-01-02 09:49] LABS: Creatine Phosphokinase 137 U/L (26-192)
--- NOTE | 2021-01-02 10:15 | PM.CONSULT ---
Providers/Reason For Consult Consulting Physician/Specialty*: MD Manuel/internal medicine Reason for Consult*: Fever Attending Physician: Kyree Jimenez M.D Primary Care Provider: Travis Boss History of Present Illness History of Present Illness Sabina Valdez is a 70 year old female with past medical history of atrial fibrillation, mixed congestive heart failure who was recently in hospital and discharged on December 19 with adjustment of medication for atrial fibrillation and congestive heart failure. She was admitted to the hospital on December 31 this time with acute limb ischemia and found to have extensive thrombosis of mid to distal SFA all the way down to foot. Post thrombectomy and balloon angioplasty. Patient has been doing well. Medicine was consulted for episode of fevers yesterday evening. Examination patient lying comfortably in bed. Having her lunch. Denies any nausea, vomiting, fever at home, difficulty in breathing, dysuria, diarrhea, abdominal pain, headache, cough, runny nose. She states she is feeling a lot better now and has no pain in the leg anymore. Complaining of occasional dizziness when standing up. On review of lab work COVID-19 antigen recently negative on December 16. Blood work shows stable white count of 7 without a left shift. On review of images patient did had a chest x-ray yesterday which was negative for any acute abnormality other than possible atelectasis at left base. On review of culture history patient had pansensitive E. coli in August 2020 and urine culture. Review of Systems General: Reports: 10 or more systems reviewed and unremarkable except in HPI and below Const: Denies: fever(s), chills, body aches, change in appetite, change in weight, malaise, night sweats, diaphoresis, change in sleep pattern, daytime sleepiness or snoring Eyes: Denies: change in vision, blurry vision, photophobia, eye discomfort or eye discharge ENMT: Denies: throat pain, enlarged tonsils, hoarseness, mouth pain, oral sores, dry mouth, tinnitus, nasal congestion or post nasal drip Card: Denies: chest pain, palpitations, irregular heart rhythm, edema, swelling of feet/ankles, lightheadedness, syncope, pre-syncope, dyspnea on exertion, orthopnea, leg pain with exertion or acrocyanosis Resp: Denies: dyspnea, productive cough, non-productive cough, wheezing, stridor, pain on inspiration, change in phlegm color, hemoptysis or chest congestion GI: Denies: abdominal pain, nausea, vomiting, hematemesis, coffee ground emesis, dysphagia, heartburn, diarrhea, constipation, bloating, GI cramping, change in bowel habits, pain on defecation, hematochezia or melena : Denies: flank pain, dysuria, urinary frequency, urinary urgency, urinary hesitancy, nocturia or hematuria Musc: Denies: neck pain, back pain, extremity pain, joint pain, joint swelling, joint redness, joint stiffness or limited range of motion Neuro: Denies: headache(s), numbness in extremities, weakness in extremities, sensory changes, lack of coordination, difficulty walking, frequent falls, dizziness, vertigo, confusion, Slurred speech present, difficulty communicating thoughts or seizure-like activity Psych: Denies: anxiety, depression, mood swings, panic attacks, hopelessness or irritability Endo: Denies: polyuria, polydipsia, tired all the time, cold intolerance, excessive sweating, flushing or heat intolerance Ortega/Lymph: Denies: easy bruising or easy bleeding All/Imm: Denies: tongue swelling, facial swelling or acute wheezing Meds/Allergies Home Medications and Allergies Home Medications Medication Instructions Recorded Confirmed Last Taken Type multivitamin 1 tab PO DAILY@12 06/16/20 12/31/20 12/30/20 History cyanocobalamin (vitamin B-12) 250 mcg PO QAM 12/01/20 12/31/20 12/30/20 History [Vitamin B-12] Eliquis 5 mg PO BID 30 Days #60 tab 12/04/20 12/31/20 12/30/20 Rx fluticasone propionate 2 spray INTRANASAL DAILY 12/16/20 12/31/20 Unknown History ofloxacin 5 drp OTIC (EAR) DAILY 12/16/20 12/31/20 12/15/20 History diltiazem HCl [DILT-XR] 180 mg PO DAILY 30 Days #30 cap 12/19/20 12/31/20 12/30/20 Rx furosemide 20 mg PO DAILY@0800 30 Days #30 tab 12/19/20 12/31/20 12/30/20 Rx lisinopril 2.5 mg PO DAILY #30 tab 12/19/20 12/31/20 Unknown Rx metoprolol tartrate 50 mg PO BID #60 tab 12/19/20 12/31/20 12/30/20 Rx Vitamin C 500 mg PO DAILY 12/31/20 12/31/20 12/30/20 History acetaminophen 1,000 mg PO Q4H PRN 12/31/20 12/31/20 12/31/20 04:46 History amoxicillin-pot clavulanate 1 tab PO BID 5 Days #10 tab 01/02/21 Unknown Rx [Augmentin] clopidogrel 75 mg PO DAILY #90 tab 01/02/21 Unknown Rx levofloxacin 500 mg PO Q24H 5 Days #5 tab 01/02/21 Unknown Rx Allergies Allergy/AdvReac Type Severity Reaction Status Date / Time codeine Allergy Unknown ALGY-Rash Verified 12/31/20 17:24 sulfamethoxazole Allergy Unknown ALGY-Rash Verified 12/31/20 17:24 [From Bactrim] trimethoprim [From Bactrim] Allergy Unknown ALGY-Rash Verified 12/31/20 17:24 Current Medications Current Medications Generic Name Dose Route Start Last Admin Trade Name Freq PRN Reason Stop Dose Admin Alprazolam 0.25 mg 12/31/20 16:36 12/31/20 18:09 Alprazolam 0.5 Mg Tablet PO 0.25 mg TID PRN Administration ANXIETY Apixaban 5 mg 01/01/21 00:30 01/02/21 08:46 Apixaban 5 Mg Tablet PO 5 mg BID@0900,2100 JODIE Administration Clopidogrel Bisulfate 75 mg 01/01/21 09:00 01/02/21 08:46 Clopidogrel 75 Mg Tablet PO 75 mg DAILY JODIE Administration Diltiazem HCl 180 mg 01/01/21 09:00 01/02/21 08:45 Diltiazem Er (24hr) 180 Mg Capsule PO 180 mg DAILY JODIE Administration Fentanyl 50 mcg 12/31/20 16:36 12/31/20 21:09 Fentanyl 50 Mcg/Ml Inj 2ml IVP 50 mcg PRN PRN Administration PAIN Fluticasone Propionate 2 spray 01/01/21 09:00 01/02/21 08:46 Fluticasone Nasal [place] 16gm Btl INTRANASAL Not Given DAILY JODIE Metoprolol Tartrate 50 mg 12/31/20 18:00 01/02/21 06:11 Metoprolol Tartrate 50 Mg Tablet PO 50 mg BID JODIE Administration Temazepam 15 mg 12/31/20 16:36 01/01/21 20:07 Temazepam 15 Mg Capsule PO 15 mg BEDTIME PRN Administration INSOMNIA PFSH Acute PFSH: Medical History (Updated 01/02/21 @ 13:22 by Indra Jackson MD) Anxiety Aortic regurgitation Atrial fibrillation with RVR Back pain Bilateral wrist pain CAD (coronary artery disease) Angiogram 12/18/2020 showed two-vessel disease, distal circumflex high-grade lesion Chest pain CHF (congestive heart failure) EF 40 to 45% on echo and 20-25% on LV gram from cardiac angiogram with global LV hypokinesia, diastolic dysfunction. Chronic ankle pain, bilateral Chronic pain of both knees Depression Dizziness Dysuria GERD without esophagitis Interstitial cystitis Migraine Mitral regurgitation Mixed incontinence Moderate episode of recurrent major depressive disorder Overactive bladder Positive cardiac stress test Recurrent UTI Shortness of breath Tremor Surgical History Hx of hysterectomy Family History Mother , AT AGE 80 Diabetes Cancer CAD (coronary artery disease) Father CAD (coronary artery disease) Brother CAD (coronary artery disease) Sister CAD (coronary artery disease) Social History Smoking and tobacco status: never smoked Alcohol intake: never Marital status: / Current occupational status: disabled Vitals/I&O/Wt Last Vital Signs Temp 98.1 F 01/02/21 08:00 Pulse 103 H 01/02/21 08:46 Resp 10 L 01/02/21 08:46 BP 123/78 01/02/21 08:46 Pulse Ox 97 01/02/21 04:00 01/01/21 01/02/21 01/02/21 22:59 06:59 14:59 Intake Total 600 / 1182 120 / 1302 340 / 340 Output Total 550 / 650 Balance 600 / 1082 -430 / 652 340 / 340 Physical Exam Narrative: EXAM NARRATIVE: No acute distress, AO x3, anxious HEENT: PERRLA, pupils bilaterally equal and reactive Chest: Normal vesicular breath sounds, no added sounds, equal good air entry bilaterally CVS: S1-S2 irregularly irregular,no tachycardia, no gallops, no rubs Abdomen: Soft, nontender, no organomegaly, bowel sounds present Neuro: No focal deficits, no facial deformity, AO x3, power 5/5 in all limbs Extremities: Pulses bilaterally palpable without any signs of gangrene A&P Assessment and plan (1) Fever: Status: Acute (2) Atrial fibrillation with RVR: Status: Acute (3) Limb ischemia: Status: Acute (4) Thrombosis of right popliteal artery: Status: Acute (5) CHF (congestive heart failure): Status: Acute Qualifiers: Heart failure chronicity: chronic Heart failure type: systolic Qualified Code(s): I50.22 - Chronic systolic (congestive) heart failure (6) Recurrent UTI: Status: Acute Additional A&P Information Fever: Unlikely infectious source. Could be secondary to recent acute limb ischemia post reperfusion No white count. Patient does not have any acute localizing symptoms. Does have history of E. coli UTI in August. Check procalcitonin, MRSA swab, urinalysis, urine culture, blood culture, flu swab, COVID-19 rapid antigen. Chest x-ray done yesterday negative for any acute infection. For now start patient on Zosyn. If patient is being discharged can be discharged on oral Levaquin and Augmentin for 5 days. Atrial fibrillation with rapid response: Rate controlled. History of mixed congestive heart failure: Optimized currently. History of CAD: No active chest pain. Acute limb ischemia: Post thrombectomy. As per cardiology. Full code. Cardiac diet. Eliquis will help with DVT prophylaxis. Thank you for including us in care of Ms. Valdez. Please call with any questions. We will change treatment as per clinical course and results of the investigations. Consult Attestations Medical Necessity Statement: As per primary team. Time Spent in Patient Care: Greater than 35 minutes (>than 50% of time spent in counselling and/or direct pt care on unit). Coding Level of Care Code Acute Respiratory Assistant for Fredy Cabrera Diagnoses Fever R50.9 Atrial fibrillation with RVR I48.91 Limb ischemia I99.8 Thrombosis of right popliteal artery I74.3 CHF (congestive heart failure) I50.22 Heart failure chronicity: chronic Heart failure type: systolic Recurrent UTI N39.0
--- NOTE | 2021-01-02 10:35 | P.DS_ITS ---
Discharge Providers Date of Admission: 12/31/20 16:36 Date of Discharge: January 02, 2021 Attending Provider at Admission: Kyree Jimenez M.D Attending Provider at Discharge: Kyree iJmenez M.D Primary Care Provider: Travis Boss Diagnoses at Discharge Discharge Diagnosis (1) PAD (peripheral artery disease): Status: Acute (2) Limb ischemia: Status: Acute Permanent problem details: Acute limb ischemia with limb salvage percutaneous procedure performed. (3) Atrial fibrillation with RVR: Status: Acute Reason for Visit Reason for Visit: R LEG PAIN/Elevated HR Discharge Data Data Completed and Pending: Completed Studies During Hospitalization Category Date Time Status CXRP [XR chest 1V portable [id number]] R outine Exams 01/01/21 20:23 Completed XR ankle RT min 3 V* [id number] Stat Exams 12/31/20 06:25 Completed XR knee RT 3V* [id number] Stat Exams 12/31/20 06:25 Completed XR tibia fibula R T 2V [id number] Stat Exams 12/31/20 06:25 [place] [id number] Stat Ultrasound 12/31/20 07:41 [place] [id number] Stat Ultrasound 12/31/20 07:25 Completed Pending at discharge Category Date Time Status HOME TEACHING GRADES 9 THRU 12 TEACHER request for service Stat Exams 12/31/20 08:42 Taken Bacterial Antigen Stat Lab 01/02/21 10:10 Ordered Basic Metabolic P more AM LABS Lab 01/03/21 04:00 Ordered Blood Culture Sta t Lab 01/02/21 10:09 Ordered Complete Blood Co unt w/Auto AM LABS Lab 01/03/21 04:00 Ordered Legionella Antige n STAT Routine Lab 01/02/21 10:10 Uncollected MRSA by PCR Routi ne Lab 01/02/21 10:09 Uncollected Platelet Count Q2 D Lab 01/04/21 04:00 Ordered Procalcitonin Rou sherine Lab 01/02/21 03:29 Received Sputum Culture an d Gram Stain Stat Lab 01/02/21 10:08 Uncollected TIBC [Total Iron Binding Capacity] Routine Lab 01/02/21 03:29 Received Urinalysis and Mi croscopic Routine Lab 01/02/21 09:58 Uncollected Labs from last 24 hours 01/02/21 01/02/21 01/02/21 03:29 03:29 03:29 WBC RBC Hgb Hct MCV MCH MCHC RDW Plt Count MPV Neut % (Auto) Lymph % (Auto) [place] % (Auto) Eos % (Auto) Baso % (Auto) Neut # (Auto) Lymph # (Auto) [place] # (Auto) Eos # (Auto) Baso # (Auto) Nucleated RBC % (a uto) Nucleated RBCs # Sodium 135 L Potassium 4.1 Chloride 103 Carbon Dioxide 22 Anion Gap 14.1 BUN 18 Creatinine 0.6 GFR Calculation 98.8 Glucose 91 Calculated Osmolal ity 281 L Calcium 8.7 Iron Pending TIBC Pending % Saturation Pending Unsat Iron Binding Pending Creatine Kinase 137 Procalcitonin Pending 01/02/21 03:29 WBC 7.4 RBC 4.03 L Hgb 11.5 Hct 37.1 MCV 92.1 MCH 28.5 MCHC 31.0 RDW 14.2 Plt Count 181 MPV 11.4 H Neut % (Auto) 65.3 Lymph % (Auto) 16.2 [place] % (Auto) 15.9 Eos % (Auto) 1.6 Baso % (Auto) 0.5 Neut # (Auto) 4.83 Lymph # (Auto) 1.2 [place] # (Auto) 1.2 H Eos # (Auto) 0.1 Baso # (Auto) 0.0 Nucleated RBC % (a uto) 0 Nucleated RBCs # 0.0 Sodium Potassium Chloride Carbon Dioxide Anion Gap BUN Creatinine GFR Calculation Glucose Calculated Osmolal ity Calcium Iron TIBC % Saturation Unsat Iron Binding Creatine Kinase Procalcitonin Vitals: Last Vital Signs Temp 98.1 F 01/02/21 08:00 Pulse 103 H 01/02/21 08:46 Resp 10 L 01/02/21 08:46 BP 123/78 01/02/21 08:46 Pulse Ox 97 01/02/21 04:00 Discharge Plan Discharge Patient Disposition: Home Condition: Stable Prescriptions: New amoxicillin-pot clavulanate [Augmentin] 500-125 mg tablet 1 tab PO BID 5 Days Qty: 10 RF: 0 levofloxacin 500 mg tablet 500 mg PO Q24H 5 Days Qty: 5 RF: 0 No Action multivitamin Tablet 1 tab PO DAILY@12 RF: 0 cyanocobalamin (vitamin B-12) [Vitamin B-12] 250 mcg Tablet 250 mcg PO QAM RF: 0 Eliquis 5 mg Tablet 5 mg PO BID 30 Days Qty: 60 RF: 6 ofloxacin 0.3 % Drops 5 drp otic (ear) DAILY RF: 0 fluticasone propionate 50 mcg/actuation [place],Suspension 2 spray INTRANASAL DAILY RF: 0 aspirin 81 mg Tablet,Delayed Release (Dr/Ec) 81 mg PO DAILY 30 Days Qty: 30 RF: 0 furosemide 20 mg Tablet 20 mg PO DAILY@0800 30 Days Qty: 30 RF: 0 diltiazem HCl [DILT-XR] 180 mg Capsule,Ext.Rel 24h Degradable 180 mg PO DAILY 30 Days Qty: 30 RF: 0 metoprolol tartrate 50 mg tablet 50 mg PO BID Qty: 60 RF: 0 lisinopril 2.5 mg tablet 2.5 mg PO DAILY Qty: 30 RF: 0 isosorbide mononitrate 30 mg tablet extended release 24 hr 30 mg PO DAILY RF: 0 Tylenol Ex Str Rapid Release 500 mg Tablet 1,000 mg PO Q4H PRN (Reason: Pain) RF: 0 Vitamin C 500 mg Tablet 500 mg PO DAILY RF: 0 Referrals: Travis Boss [Primary Care Provider] - Patient Instructions: Opioid Safety Activity Restrictions/Additional Instructions: [facility] will submit an application to see if you qualify for help through your medicaid with housekeeping at home. The state can take up to a couple of weeks to process your application. If you have not heard anything within two weeks, please call Travis at [facility] at [phone] to follow up. Discharge Attestations Status at Discharge: Cognitive status at discharge: cognitively intact , Behavioral status at discharge: cooperative , Coding Level of Care Code Acute [facility] [place] note Diagnoses PAD (peripheral artery disease) I73.9 Limb ischemia I99.8 Atrial fibrillation with RVR I48.91
[2021-01-02 10:36] LABS: Iron 50 ug/dL (37-145); Total Iron Binding Capacity 311 mcg/dl; Unsaturated Iron Binding 261 ug/dL (112-347)
[2021-01-02 10:42] LABS: Procalcitonin 0.06 ng/mL (0-0.5)
--- NOTE | 2021-01-02 11:30 | PC.NURSE ---
Orthostatic hypotension Pt stated she is weak and dizzy today when going to bedside commode. BP check upon laying, sitting and standing Lying-129/82, Hr-106 sitting-107/84, HR-123 standing-77/59, HR-148 Pt reports of urinary incontinence and hx of bladder infection. Dr Jimenez notified via phone. Received orders to cancel her discharge order and start pt on pt/ot eval. give 250 ml of NS bolus then 100 ml/hr for 6 hrs of IV NS. Hospitalist has been consulted too.
[2021-01-02 11:51] LABS: Urine Appearance Clear (CLEAR); Urine Color Yellow (Yellow)
[2021-01-02 11:52] LABS: Bilirubin Urine Neg (Negative); Blood Urine Neg (Negative); Glucose Urine UA Norm (Normal); Ketones Urine Negative (Negative); Leukocyte Esterase Urine 2+ (Negative); Nitrate Urine Negative (Negative); Protein Urine Neg (Negative); Sulfosalicylic Acid Urine Negative (Negative); Urobilinogen Urine Norm (Negative); pH Urine 8 (5-7)
[2021-01-02 11:53] LABS: Bacteria Urine 2+ /hpf; Squamous Epithelial Cell Urine 0-4 /hpf (0-5); WBC Urine 55-80 /hpf (0-5)
[2021-01-02 11:54] LABS: Add Urine Culture? Yes
[2021-01-02] MEDS: sodium chloride 0.9% 250 ML IV (12:50)
[2021-01-02] MEDS: sodium chloride 0.9% 1,000 ML 100 ML IV (12:51)
[2021-01-02] MEDS: piperacillin-tazobactam 3.375 GM in sodium chloride 0.9% (plus) 50 ML IV ×2 (13:44→20:23)
--- NOTE | 2021-01-02 14:40 | PC.NURSE ---
security is talking to pt and grandson regarding lost clothing and shoes.
--- NOTE | 2021-01-02 14:47 | PC.OT ---
Evaluation will be completed tomorrow secondary to medical status.
[2021-01-02] MEDS: fluticasone nasal spray 16gm Btl 2 SPRAY INTRANASAL (17:37)
[2021-01-02 18:25] LABS: Influenza A by IFA Negative (Negative); Influenza B by IFA Negative (Negative); SARS Covid-2 Antigen Negative (Negative)
--- NOTE | 2021-01-02 19:31 | PC.NURSE ---
Received report from AVANI Anne. Patient resting in bed. Nephew at bedside. Patient reports having items of clothing and 2 pairs of slippers coming up missing. Patient does have cell phone and blue charging cord at bedside. Patient denies pain or needs. No distress observed. Will continue to monitor.
--- NOTE | 2021-01-02 20:11 | P.PN_ITS ---
Subjective Subjective: Interval history: Initial plan was to discharge patient today however on ambulation her heart rate become more controlled. Discharge was canceled. She denies any complaints of chest pain. Dyspnea on exertion. Right lower extremity is warm and she denies any leg pain. Vitals/I&O/Wt Last Vital Signs Temp 98.3 F 01/02/21 19:32 Pulse 83 01/02/21 19:32 Resp 14 01/02/21 19:32 BP 92/62 01/02/21 19:32 Pulse Ox 98 01/02/21 19:32 01/02/21 01/02/21 01/02/21 06:59 14:59 22:59 Intake Total 120 / 1302 950 / 950 272 / 1222 Output Total 550 / 650 300 / 300 Balance -430 / 652 950 / 950 -28 / 922 Physical Exam Narrative: EXAM NARRATIVE: GENERAL: Patient is alert, awake and oriented x3. In severe pain NECK: No jugular vein distension. HEENT: No cyanosis. No icterus. No pallor. HEART: Irregularly irregular, tachycardic. No murmur LUNGS: Clear to auscultate bilaterally. ABDOMEN: Soft, nontender and nondistended. Positive bowel sounds. No guarding, rebound or tenderness. CENTRAL NERVOUS SYSTEM: Grossly nonfocal. EXTREMITIES: Right lower extremity is warm. PT is palpable and dopplerable Data : 01/03/21 03:30 01/03/21 03:30 Micro: Microbiology 01/02/21 10:45 Bacterial Antigens - Final Urine Kidney 01/02/21 10:45 Legionella Urinary Antigen - Final Urine,Clean Catch 01/02/21 11:35 MRSA Culture - Final Nose 01/02/21 10:53 Blood Culture - Preliminary Blood SPECIMEN COLLECTED 01/02/21 10:50 Blood Culture - Preliminary Blood SPECIMEN COLLECTED A&P Assessment and plan (1) PAD (peripheral artery disease): Status: Acute (2) Limb ischemia: Status: Acute (3) Atrial fibrillation with RVR: Status: Acute (4) UTI (urinary tract infection): Status: Acute Patient has presented with acute limb ischemia with no flow below mid to distal SFA. Likely etiology embolism from cardiac source is had A. fib. Compliance with anticoagulation is questionable. She underwent successful mechanical thrombectomy with penumbra and balloon angioplasty of right lower extremity. Also had HOMER x2 placed in peroneal artery. 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 Now has dopplerable and palpable PT pulse. She is ambulating and right lower extremity and foot is warm without any pain. Continue Eliquis 5 mg twice daily and Plavix. Continue Cardizem and metoprolol. Initial plan was for discharge today however on ambulation her heart rates increase. We will hydrate her today as she may be dry secondary to poor oral intake. At rest heart rates are controlled. If heart rate control becomes an issue, may initiate digoxin. We will discuss with case management possibility of facility placement if patient agrees. Attestations Medical Necessity Statement*: Care expected to cross 2 midnights. Patient had presented with acute limb ischemia status post successful revascularization. She has been having uncontrolled heart rates on ambulation. Coding Level of Care Code Acute Full Time Paramedic for Fredy Cabrera Diagnoses PAD (peripheral artery disease) I73.9 Limb ischemia I99.8 Atrial fibrillation with RVR I48.91 UTI (urinary tract infection) N39.0
[2021-01-03] VITALS (11 sets, daily range): BP systolic 94–133; BP diastolic 63–78; PULSE 60–120; RESP 16–36; TEMP 36.6–37.1; O2SAT 94–100
[2021-01-03 03:59] LABS: Basophils % 0.6 %; Eosinophils # 0.2 10^3/uL (0.0-0.8); Eosinophils % 3.5 %; Hematocrit 37.5 % (37.0-47.0); Hemoglobin 11.9 g/dL (11.5-15.3); Lymphocytes # 1.3 10^3/uL (0.8-4.8); Lymphocytes % 20.8 %; Mean Corpuscular HGB Conc 31.7 g/dL (30.0-36.0); Mean Corpuscular Hemoglobin 29.6 pg (28.0-34.0); Mean Corpuscular Volume 93.3 fl (81-99); Mean Platelet Volume 11.2 fL (7.4-10.4); Monocytes % 16.3 %; Neutrophils # 3.58 10^3/uL (1.8-7.7); Neutrophils % 57.8 %; Nucleated Red Blood Cells % 0 %; Platelet Count 197 10^3/cmm (130-400); Red Blood Count 4.02 10^6/uL (4.1-5.3); Red Cell Distribution Width 14.4 % (12.1-15.1); White Blood Count 6.2 10^3/uL (4.0-10.0)
[2021-01-03] MEDS: piperacillin-tazobactam 3.375 GM in sodium chloride 0.9% (plus) 50 ML IV ×3 (04:26→20:30)
[2021-01-03 04:33] LABS: Blood Urea Nitrogen 16 mg/dL (8-23); Carbon Dioxide 22 mmol/L (22-29); Chloride 106 mmol/L (98-107); Glomerular Filtration Rate 98.8 mL/min (90-130); Glucose 94 mg/dL (65-115); Osmolality Calculated 287 mOsm/kg (285-295); Sodium 138 mmol/L (136-145)
[2021-01-03] MEDS: clopidogrel 75 mg Tablet PO (08:36)
[2021-01-03] MEDS: apixaban 5 mg Tablet PO ×2 (08:36→20:32)
[2021-01-03] MEDS: metoprolol tartrate 50 mg Tablet PO (08:36)
[2021-01-03] MEDS: dilTIAZem ER (24HR) 180 mg Capsule PO (08:36)
[2021-01-03] MEDS: fluticasone nasal spray 16gm Btl 2 SPRAY INTRANASAL (08:40)
--- NOTE | 2021-01-03 09:15 | PC.SOCIAL ---
IMM updated with patient. Verbalized an understanding. Copy Pg2 provided. Initialled, dated, timed, and placed in chart.
--- NOTE | 2021-01-03 10:00 | PC.NURSE ---
Pt is up to bedside commode when pt is up and ambualting to commode, HR is in between 110s to 130s, afib. spO2 is between 95-100% on room air during activity. Notified in person and orders received to give 25 mg of metoprolol once now and increase Metoprolol to 75 mg twice a day.
[2021-01-03] MEDS: metoprolol tartrate 25 mg Tablet PO (11:39)
--- NOTE | 2021-01-03 13:00 | PC.NURSE ---
Pt HR during activity this afternoon is between 80s to upper 90s, afib Pt has episodes of HR ranges between 60s to 80s this afternoon during at rest.
--- NOTE | 2021-01-03 13:16 | PM.PN ---
Subjective Subjective: Interval history: Patient is pain-free at this time. Her heart rates are still elevated on the ambulation. Vitals/I&O/Wt Last Vital Signs Temp 97.9 F 01/03/21 11:32 Pulse 74 01/03/21 11:32 Resp 24 H 01/03/21 11:32 BP 113/64 01/03/21 11:32 Pulse Ox 98 01/03/21 11:32 01/02/21 01/03/21 01/03/21 22:59 06:59 14:59 Intake Total 1277 / 2227 50 / 2277 410 / 410 Output Total 650 / 650 700 / 1350 750 / 750 Balance 627 / 1577 -650 / 927 -340 / -340 Physical Exam Narrative: EXAM NARRATIVE: GENERAL: Patient is alert, awake and oriented x3. In severe pain NECK: No jugular vein distension. HEENT: No cyanosis. No icterus. No pallor. HEART: Irregularly irregular, tachycardic. No murmur LUNGS: Clear to auscultate bilaterally. ABDOMEN: Soft, nontender and nondistended. Positive bowel sounds. No guarding, rebound or tenderness. CENTRAL NERVOUS SYSTEM: Grossly nonfocal. EXTREMITIES: Right lower extremity is warm. PT is palpable and dopplerable Data : 01/03/21 03:30 01/03/21 03:30 Micro: Microbiology 01/02/21 10:53 Blood Culture - Preliminary Blood NEGATIVE TO DATE 01/02/21 10:50 Blood Culture - Preliminary Blood NEGATIVE TO DATE 01/02/21 10:45 Urine Culture - Preliminary Urine,Clean Catch Enterococcus species 01/02/21 10:45 Bacterial Antigens - Final Urine Kidney 01/02/21 10:45 Legionella Urinary Antigen - Final Urine,Clean Catch 01/02/21 11:35 MRSA Culture - Final Nose A&P Assessment and plan (1) PAD (peripheral artery disease): Status: Acute (2) Limb ischemia: Status: Acute (3) Atrial fibrillation with RVR: Status: Acute (4) UTI (urinary tract infection): Status: Acute Patient has presented with acute limb ischemia with no flow below mid to distal SFA. Likely etiology embolism from cardiac source is had A. fib. Compliance with anticoagulation is questionable. She underwent successful mechanical thrombectomy with penumbra and balloon angioplasty of right lower extremity. Also had HOMER x2 placed in peroneal artery. 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 Now has dopplerable and palpable PT pulse. She is ambulating and right lower extremity and foot is warm without any pain. Continue Eliquis 5 mg twice daily and Plavix. Continue Cardizem and metoprolol. We have uptitrated metoprolol dose to 75 mg twice daily. If heart rates remain uncontrolled we will start digoxin. Discussed with case management possibility of facility placement. Patient does not want to be transferred to a facility and wants home nursing. If heart rates are improved by tomorrow, potential discharge home tomorrow. Attestations Medical Necessity Statement*: Care expected to cross two midnights. Coding Level of Care Code Acute Butcher Or Smallgoods Maker for [facility] Rick Diagnoses PAD (peripheral artery disease) I73.9 Limb ischemia I99.8 Atrial fibrillation with RVR I48.91 UTI (urinary tract infection) N39.0
--- NOTE | 2021-01-03 14:35 | PM.PN ---
Subjective Subjective: Interval history: No acute events overnight. Patient has remained hemodynamically stable and afebrile. Lying comfortably in bed on examination today. Heart rate and blood pressure is better controlled at rest but tachycardic on ambulation.. Vitals/I&O/Wt Last Vital Signs Temp 97.9 F 01/03/21 11:32 Pulse 74 01/03/21 11:32 Resp 24 H 01/03/21 11:32 BP 113/64 01/03/21 11:32 Pulse Ox 98 01/03/21 11:32 01/02/21 01/03/21 01/03/21 22:59 06:59 14:59 Intake Total 1277 / 2227 50 / 2277 410 / 410 Output Total 650 / 650 700 / 1350 750 / 750 Balance 627 / 1577 -650 / 927 -340 / -340 Physical Exam Narrative: EXAM NARRATIVE: No acute distress, AO x3, anxious HEENT: PERRLA, pupils bilaterally equal and reactive Chest: Normal vesicular breath sounds, no added sounds, equal good air entry bilaterally CVS: S1-S2 irregularly irregular,no tachycardia, no gallops, no rubs Abdomen: Soft, nontender, no organomegaly, bowel sounds present Neuro: No focal deficits, no facial deformity, AO x3, power 5/5 in all limbs Extremities: Pulses bilaterally palpable without any signs of gangrene Data : 01/03/21 03:30 01/03/21 03:30 Micro: Microbiology 01/02/21 10:53 Blood Culture - Preliminary Blood NEGATIVE TO DATE 01/02/21 10:50 Blood Culture - Preliminary Blood NEGATIVE TO DATE 01/02/21 10:45 Urine Culture - Preliminary Urine,Clean Catch Enterococcus species 01/02/21 10:45 Bacterial Antigens - Final Urine Kidney 01/02/21 10:45 Legionella Urinary Antigen - Final Urine,Clean Catch 01/02/21 11:35 MRSA Culture - Final Nose A&P Assessment and plan (1) Fever: Status: Acute (2) Atrial fibrillation with RVR: Status: Acute (3) Limb ischemia: Status: Acute (4) Thrombosis of right popliteal artery: Status: Acute (5) CHF (congestive heart failure): Status: Acute Qualifiers: Heart failure chronicity: chronic Heart failure type: systolic Qualified Code(s): I50.22 - Chronic systolic (congestive) heart failure (6) Recurrent UTI: Status: Acute Additional A&P Information Fever: No leukocytosis. Has remained afebrile 36 hours. No localizing symptoms. Can be secondary to reperfusion injury post recanalization of acute limb. MRSA negative, blood cultures so far negative, urine Legionella bacterial antigen negative. Urine culture consistent with Enterococcus though patient denies any dysuria. For now continue with Zosyn. We will plan to de-escalate antibiotics as per culture results. Atrial fibrillation with rapid response: Metoprolol uptitrated, continue Cardizem. Management as per cardiology. History of mixed congestive heart failure: Optimized currently. History of CAD: No active chest pain. Acute limb ischemia: Post thrombectomy. As per cardiology. Full code. Cardiac diet. [place] will help with DVT prophylaxis. Case management consultation. High concern for noncompliance as an outpatient given recurrent admissions and acute thrombotic limb ischemia while supposedly being on anticoagulation. Discussed safe discharge planning with patient. She is adamant of not going to SNF. Is agreeable for in-home services. Please management has been alerted. Thank you for including us in care of Ms. Valdez. Please call with any questions. We will change treatment as per clinical course and results of the investigations. Attestations Medical Necessity Statement*: As per primary team. Time Spent in Patient Care: Greater than 35 minutes (>than 50% of time spent in counselling and/or direct pt care on unit). Coding Level of Care Code Acute Board Certified Orthodontist for Fredy Cabrera Diagnoses Fever R50.9 Atrial fibrillation with RVR I48.91 Limb ischemia I99.8 Thrombosis of right popliteal artery I74.3 CHF (congestive heart failure) I50.22 Heart failure chronicity: chronic Heart failure type: systolic Recurrent UTI N39.0
[2021-01-03] MEDS: metoprolol tartrate 50 mg Tablet 75 MG PO (20:35)
[2021-01-04 04:00] VITALS: BP 117/71; PULSE 86; RESP 20; TEMP 36.8; O2SAT 99
[2021-01-04] MEDS: piperacillin-tazobactam 3.375 GM in sodium chloride 0.9% (plus) 50 ML IV (04:49)
[2021-01-04 05:31] VITALS: PULSE 67
[2021-01-04 05:41] LABS: Basophils # 0.1 10^3/uL (0.0-0.1); Basophils % 0.9 %; Eosinophils # 0.2 10^3/uL (0.0-0.8); Eosinophils % 3.8 %; Hematocrit 38.8 % (37.0-47.0); Hemoglobin 12.1 g/dL (11.5-15.3); Lymphocytes # 1.4 10^3/uL (0.8-4.8); Lymphocytes % 23.8 %; Mean Corpuscular HGB Conc 31.2 g/dL (30.0-36.0); Mean Corpuscular Hemoglobin 28.5 pg (28.0-34.0); Mean Corpuscular Volume 91.5 fl (81-99); Mean Platelet Volume 11.2 fL (7.4-10.4); Monocytes # 0.8 10^3/uL (0.2-0.9); Monocytes % 14.1 %; Neutrophils # 3.29 10^3/uL (1.8-7.7); Neutrophils % 56.5 %; Nucleated Red Blood Cells % 0 %; Platelet Count 229 10^3/cmm (130-400); Red Blood Count 4.24 10^6/uL (4.1-5.3); Red Cell Distribution Width 14.2 % (12.1-15.1); White Blood Count 5.8 10^3/uL (4.0-10.0)
[2021-01-04 06:25] LABS: Alanine Aminotransferase 14 U/L (0-33); Albumin Level 3.6 g/dL (3.5-5.2); Alkaline Phosphatase 68 IU/L (35-105); Anion Gap 13.1 (5-19); Aspartate Amino Transferase 16 U/L (0-32); Blood Urea Nitrogen 19 mg/dL (8-23); Calcium 8.8 mg/dL (8.5-10.5); Carbon Dioxide 23 mmol/L (22-29); Chloride 110 mmol/L (98-107); Globulin 3.1 g/dL (1.3-4.6); Glucose 88 mg/dL (65-115); Osmolality Calculated 296 mOsm/kg (285-295); Potassium 4.1 mmol/L (3.5-5.1); Sodium 142 mmol/L (136-145); Total Bilirubin 0.5 mg/dL (0.15-1.2); Total Protein 6.7 g/dL (6.6-8.7)
[2021-01-04 08:00] VITALS: BP 111/76; PULSE 84; RESP 18; TEMP 36.4; O2SAT 99
--- NOTE | 2021-01-04 08:27 | P.DS_ITS ---
Discharge Providers Date of Admission: 12/31/20 16:36 Date of Discharge: January 04, 2021 Attending Provider at Admission: Kyree Jimenez M.D Attending Provider at Discharge: Kyree Jimenez M.D Primary Care Provider: Travis Boss Diagnoses at Discharge Discharge Diagnosis (1) Fever: (2) Atrial fibrillation with RVR: Permanent problem details: Heart rate controlled (3) Limb ischemia: Permanent problem details: Acute limb ischemia with limb salvage percutaneous procedure performed. (4) Thrombosis of right popliteal artery: Status: Resolved (5) CHF (congestive heart failure): Status: Acute Permanent problem details: EF 40 to 45% on echo and 20-25% on LV gram from cardiac angiogram with global LV hypokinesia, diastolic dysfunction. Qualifiers: Heart failure chronicity: chronic Heart failure type: systolic Qualified Code(s): I50.22 - Chronic systolic (congestive) heart failure (6) Recurrent UTI: Status: Acute Reason for Visit Reason for Visit: Acute limb ischemia Brief History: 70 year old female with past medical history of atrial fibrillation recently diagnosed last month and was started on Eliquis and Cardizem has presented with severe right lower extremity pain. She woke up with pain yesterday and has been going on for about 12 to 16 hours. Per patient she called EMS however initially was thought to have muscle cramps. This morning she could not tolerate the pain and came to the ER. Arterial duplex showed no flow below the knee. Hospital Course Hospital Course 70 year old female with past medical history of atrial fibrillation recently diagnosed last month and was started on Eliquis and Cardizem has presented with severe right lower extremity pain. She woke up with pain and was going on for about 12 to 16 hours. Per patient she called EMS however initially was thought to have muscle cramps. On the morning of hospitalization, she could not tolerate the pain and came to the ER. Arterial duplex showed no flow below the knee. Per patient she has been compliant with her Eliquis. She was also in A. fib with RVR at presentation. Given acute limb symptoms, she was emergently taken to the Atmospheric Technician. Found to have extensive thrombosis from mid to distal SFA all the way down to the foot. After thrombectomy and balloon angioplasty we were able to restore 1 vessel runoff to foot. Dopplerable pulses. Patient's leg symptoms completely resolved. She did have multiple episodes of afib with RVR that was finally rate controlled. She also had febrile episodes and medicine team was consulted. She was put on antibiotics with possible UTI diagnosis. Patient refused facility placement and wanted to go home. Need for continued anticoagulation emphasized at time of discharge. Physical Exam Narrative: EXAM NARRATIVE: GENERAL: Patient is alert, awake and oriented x3. In severe pain NECK: No jugular vein distension. HEENT: No cyanosis. No icterus. No pallor. HEART: Irregularly irregular, tachycardic. No murmur LUNGS: Clear to auscultate bilaterally. ABDOMEN: Soft, nontender and nondistended. Positive bowel sounds. No guarding, rebound or tenderness. CENTRAL NERVOUS SYSTEM: Grossly nonfocal. EXTREMITIES: Right lower extremity is warm. PT is palpable and dopplerable Discharge Data Data Completed and Pending: Completed Studies During Hospitalization Category Date Time Status CXRP [XR chest 1V portable [id number]] R outine Exams 01/01/21 20:23 Completed XR ankle RT min 3 V* [id number] Stat Exams 12/31/20 06:25 Completed XR knee RT 3V* [id number] Stat Exams 12/31/20 06:25 Completed XR tibia fibula R T 2V [id number] Stat Exams 12/31/20 06:25 [place] [id number] Stat Ultrasound 12/31/20 07:41 [place] [id number] Stat Ultrasound 12/31/20 07:25 Completed Pending at discharge Category Date Time Status SHOWROOM SALES ASSISTANT request for service Stat Exams 12/31/20 08:42 Taken Blood Culture Sta t Lab 01/02/21 10:53 Results Sputum Culture an d Gram Stain Stat Lab 01/02/21 10:08 Uncollected Urine Culture Rou sherine Lab 01/02/21 10:45 Results Urine Culture Rou sherine Lab 01/04/21 08:04 Uncollected Labs from last 24 hours 01/04/21 01/04/21 05:03 05:03 WBC 5.8 RBC 4.24 Hgb 12.1 Hct 38.8 MCV 91.5 MCH 28.5 MCHC 31.2 RDW 14.2 Plt Count 229 MPV 11.2 H Neut % (Auto) 56.5 Lymph % (Auto) 23.8 Trigg % (Auto) 14.1 Eos % (Auto) 3.8 Baso % (Auto) 0.9 Neut # (Auto) 3.29 Lymph # (Auto) 1.4 Trigg # (Auto) 0.8 Eos # (Auto) 0.2 Baso # (Auto) 0.1 Nucleated RBC % (a uto) 0 Nucleated RBCs # 0.0 Sodium 142 Potassium 4.1 Chloride 110 H Carbon Dioxide 23 Anion Gap 13.1 BUN 19 Creatinine 0.5 GFR Calculation 122.0 Glucose 88 Calculated Osmolal ity 296 H Calcium 8.8 Total Bilirubin 0.5 AST 16 ALT 14 Alkaline Phosphata se 68 Total Protein 6.7 Albumin 3.6 Globulin 3.1 Vitals: Last Vital Signs Temp 98.3 F 01/04/21 04:00 Pulse 67 01/04/21 05:31 Resp 20 H 01/04/21 04:00 BP 117/71 01/04/21 04:00 Pulse Ox 99 01/04/21 04:00 Discharge Plan Discharge Patient Disposition: Home Condition: Stable Prescriptions: New clopidogrel 75 mg Tablet 75 mg PO DAILY Qty: 90 RF: 3 Continued multivitamin Tablet 1 tab PO DAILY@12 RF: 0 cyanocobalamin (vitamin B-12) [Vitamin B-12] 250 mcg Tablet 250 mcg PO QAM RF: 0 Eliquis 5 mg Tablet 5 mg PO BID 30 Days Qty: 60 RF: 6 ofloxacin 0.3 % Drops 5 drp otic (ear) DAILY RF: 0 fluticasone propionate 50 mcg/actuation [place],Suspension 2 spray INTRANASAL DAILY RF: 0 lisinopril 2.5 mg tablet 2.5 mg PO DAILY Qty: 30 RF: 0 acetaminophen 500 mg Tablet 1,000 mg PO Q4H PRN (Reason: Pain) RF: 0 Vitamin C 500 mg Tablet 500 mg PO DAILY RF: 0 Discontinued aspirin 81 mg Tablet,Delayed Release (Dr/Ec) 81 mg PO DAILY 30 Days Qty: 30 RF: 0 isosorbide mononitrate 30 mg tablet extended release 24 hr 30 mg PO DAILY RF: 0 No Action metoprolol tartrate 50 mg tablet 50 mg PO BID Qty: 60 RF: 3 Discharge Orders: Discharge Order (Routine); Ordered 01/04/21 Ordered By: Kyree Jimenez Referrals: Kyree Jimenez M.D [Physician] - 1 month (Spoke with Cindi at [facility], during your appointment with Jaylin. You will be scheduled for an follow-up appointment with Dr. Jimenez. If you have any questions please call ) Jaylin Oquendo FNP [Nurse Practitioner] - 1 week (Please follow-up with Jaylin Oquendo on at 10:45A.M. If you have any questions or need to reschedule. Please call ) Travis Boss [Primary Care Provider] - 4-7 days (Please follow-up with Travis Boss on ay 2:00P.M. If you have any questionsor need to reschedule. Please call ) Discharge Diet: Cardiac Discharge Activity: Increase activity as tolerated Patient Instructions: Amoxicillin/Clavulanate Potassium (By mouth) (Augmentin, Augmentin..., Levofloxacin (By mouth), Clopidogrel (By mouth) (Plavix), Peripheral Vascular Stent Placement (DC), Peripheral Vascular Angioplasty (DC) Activity Restrictions/Additional Instructions: [employer] In-Home Services will submit an application to see if you qualify for help through your medicaid with housekeeping at home. The state can take up to a couple of weeks to process your application. If you have not heard anything within two weeks, please call Travis rosario [facility] at [phone] to follow up. Discharge Attestations Time Spent in Discharge Care*: greater than 30 min Status at Discharge: Cognitive status at discharge: cognitively intact , Behavioral status at discharge: cooperative , Quality Metrics Clinical Quality Measures During this hospital stay, did patient experience: None Coding Level of Care Code Acute Chg FW DC note Diagnoses Fever R50.9 Atrial fibrillation with RVR I48.91 Limb ischemia I99.8 Thrombosis of right popliteal artery I74.3 CHF (congestive heart failure) I50.22 Heart failure chronicity: chronic Heart failure type: systolic Recurrent UTI N39.0
[2021-01-04] MEDS: dilTIAZem ER (24HR) 180 mg Capsule PO (08:44)
[2021-01-04] MEDS: metoprolol tartrate 50 mg Tablet 75 MG PO (08:44)
[2021-01-04] MEDS: apixaban 5 mg Tablet PO (08:44)
[2021-01-04] MEDS: fluticasone nasal spray 16gm Btl 2 SPRAY INTRANASAL (08:44)
[2021-01-04] MEDS: clopidogrel 75 mg Tablet PO (08:44)
--- NOTE | 2021-01-04 08:48 | PM.PN ---
Subjective Subjective: Interval history: No acute events overnight. Medications: Reviewed: Yes Vitals/I&O/Wt Last Vital Signs Temp 98.3 F 01/04/21 04:00 Pulse 67 01/04/21 05:31 Resp 20 H 01/04/21 04:00 BP 117/71 01/04/21 04:00 Pulse Ox 99 01/04/21 04:00 01/03/21 01/04/21 01/04/21 22:59 06:59 14:59 Intake Total 290 / 700 150 / 850 Output Total 200 / 950 600 / 1550 100 / 100 Balance 90 / -250 -450 / -700 -100 / -100 Physical Exam Const: COMMON NORMALS: patient oriented x3 HENMT: COMMON NORMALS: normocephalic and atraumatic HEAD & SCALP: normocephalic and atraumatic Resp: COMMON NORMALS: clear to auscultation bilaterally EFFORT & INSPECTION: Yes symmetric chest movement AUSCULTATION: clear to auscultation bilaterally Cardio: COMMON NORMALS: regular rate, regular rhythm, S1 normal heart sound present, S2 normal heart sound present, No gallops present (Cardio), No murmurs present (Cardio), No rub (Cardio) and Peripheral pulses 2+ throughout RATE: regular rate RHYTHM: regular rhythm HEART SOUNDS: S1 normal heart sound present and S2 normal heart sound present PERIPHERAL PULSES: Peripheral pulses 2+ throughout GI: COMMON NORMALS: Normal to inspection, nondistended, normoactive bowel sounds present, Soft to palpation, non-tender, No hepatosplenomegaly present and no masses AUSCULTATION: Yes normoactive bowel sounds PALPATION: Yes Soft to palpation and Yes No hepatosplenomegaly present RECTAL EXAM: deferred Extremity: COMMON NORMALS: no clubbing, cyanosis or edema and no pedal edema Neuro: COMMON NORMALS: patient oriented x3 Data : 01/04/21 05:03 01/04/21 05:03 Micro: Microbiology 01/02/21 10:53 Blood Culture - Preliminary Blood NEGATIVE TO DATE 01/02/21 10:50 Blood Culture - Preliminary Blood NEGATIVE TO DATE 01/02/21 10:45 Urine Culture - Preliminary Urine,Clean Catch Enterococcus species A&P Assessment and plan (1) Fever: Status: Acute (2) Atrial fibrillation with RVR: Status: Acute (3) Limb ischemia: Status: Acute (4) Thrombosis of right popliteal artery: Status: Acute (5) CHF (congestive heart failure): Status: Acute Qualifiers: Heart failure chronicity: chronic Heart failure type: systolic Qualified Code(s): I50.22 - Chronic systolic (congestive) heart failure (6) Recurrent UTI: Status: Acute Additional A&P Information Fever: No leukocytosis. Has remained afebrile 36 hours. No localizing symptoms. Can be secondary to reperfusion injury post recanalization of acute limb. MRSA negative, blood cultures so far negative, urine Legionella bacterial antigen negative. Urine culture consistent with Enterococcus though patient denies any dysuria. For now continue with Zosyn. We will plan to de-escalate antibiotics as per culture results. Atrial fibrillation with rapid response: Metoprolol uptitrated, continue Cardizem. Management as per cardiology. History of mixed congestive heart failure: Optimized currently. History of CAD: No active chest pain. Acute limb ischemia: Post thrombectomy. As per cardiology. Full code. Cardiac diet. Cal will help with DVT prophylaxis. Case management consultation. High concern for noncompliance as an outpatient given recurrent admissions and acute thrombotic limb ischemia while supposedly being on anticoagulation. Discussed safe discharge planning with patient. She is adamant of not going to SNF. Is agreeable for in-home services. Please management has been alerted. Thank you for including us in care of Ms. Valdez. Please call with any questions. We will change treatment as per clinical course and results of the investigations. Attestations Medical Necessity Statement*: per primary team Coding Level of Care Code Acute Lehr Operator for [facility] Rick Diagnoses Fever R50.9 Atrial fibrillation with RVR I48.91 Limb ischemia I99.8 Thrombosis of right popliteal artery I74.3 CHF (congestive heart failure) I50.22 Heart failure chronicity: chronic Heart failure type: systolic Recurrent UTI N39.0
[2021-01-04 09:23] VITALS: BP 111/76; PULSE 67; RESP 84; TEMP 36.4; O2SAT 99
--- NOTE | 2021-01-04 10:17 | PC.NURSE ---
Attempted x2 to collect clean catch UA. First time pt had already voided in brief prior to catching specimen. 2nd attempt pt missed the sterile UA container and only voided a very small amt and couldn't go any more.
--- NOTE | 2021-01-04 10:18 | PC.NURSE ---
Patient declined ride arranged by operations planner. States her grandson will arrange a cab to take her home.
--- NOTE | 2021-01-08 08:07 | PC.SOCIAL ---
discharge follow up call, called number listed, it says no longer a working number. called grandson yesterday, left a message and tried again today, no answer.
== END 2021-01-04 10:30 | disposition home or self-care (01) | DRG 271 ==
LOC: ER 08:35 → CCL 08:50 → CSU 15:50
PROVIDERS: Student in an Organized Health Care Education/Training Program; Admitting Provider Internal Medicine; Emergency Provider Family Medicine; PCP Clinical Nurse Specialist Adult Health; Visit Provider Internal Medicine
PROC: X2CS3T7 Extirpation of Matter from Right Lower Extremity Artery using Computer-aided Mechanical Aspiration, Percutaneous Approach, New Technology Group 7 (ICD-10-PCS; principal; 2020-12-31 08:45)
PROC: X2CS3T7 Extirpation of Matter from Right Lower Extremity Artery using Computer-aided Mechanical Aspiration, Percutaneous Approach, New Technology Group 7 (ICD-10-PCS; 2020-12-31 08:45)
DX: I75.021 Atheroembolism of right lower extremity (principal); F33.9 Major depressive disorder, recurrent, unspecified; I50.22 Chronic systolic (congestive) heart failure; N39.0 Urinary tract infection, site not specified; I48.91 Unspecified atrial fibrillation; F41.9 Anxiety disorder, unspecified; I08.0 Rheumatic disorders of both mitral and aortic valves; K21.9 Gastro-esophageal reflux disease without esophagitis; Z87.440 Personal history of urinary (tract) infections; Z79.01 Long term (current) use of anticoagulants; I70.221 Atherosclerosis of native arteries of extremities with rest pain, right leg
CPT/HCPCS: 36415; 37184; 37185; 37224; 37230; 71045; 73562; 73590; 73610; 75625; 75710; 80048; 80053; 81001; 82550; 83540; 83550; 84145; 84484; 85025; 85730; 86403; 87040; 87077; 87086; 87186; 87426; 87449; 87641; 87804; 93005; 93926; 93971; 96365; 96375; 97116; 97161; 97166; 97535; 99285; C1725; C1757; C1769; C1874; C1887; C1894; J1644; J2250; J2543; J3010; J3490; J7030; J7050; Q9967

== ENCOUNTER 2021-01-15 00:49 | Emergency (ER) | payer MEDICARE, MEDICAID, SELFPAY ==
[2021-01-15 00:51] VITALS: BP 150/99; PULSE 117; RESP 25; TEMP 36.6; O2SAT 95; BMI 24.1
--- NOTE | 2021-01-15 00:59 | XRR_ITS ---
PROCEDURE INFORMATION: Exam: XR Chest Exam date and time: 01/15/2021 12:59 AM Age: 70 years old Clinical indication: Chest pressure; Prior surgery; Patient HX: Chest pain. Had coronary stents placed approximately two weeks ago. History of chf. ; Additional info: Cp TECHNIQUE: Imaging protocol: XR of the chest. Views: 1 view. COMPARISON: CR XR chest 1V portable [id number] 01/01/2021 8:40 PM FINDINGS: Lungs: There is enlargement of the pulmonary vascularity. There is thickening of the interstitial markings. Hazy left basilar opacity likely represents atelectasis or airspace edema. Pleural spaces: Small left pleural effusion. Heart/Mediastinum: The heart is mildly enlarged. Bones/joints: Unremarkable. XR/XR chest 1V portable [id number] IMPRESSION: 1. Congestive heart failure. 2. Small left pleural effusion. 3. Hazy left basilar opacity likely represents atelectasis or airspace edema. Radiation Dose CTDIVOL = (mGy): DLP = (mGy-cm)
--- NOTE | 2021-01-15 00:59 | ECG_ITS ---
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 Measurements Intervals [place] Rate: 120 P: [place]: QRS: 81 QRSD: 120 T: -56 QT: 322 QTc: 456 Interpretive Statements ATRIAL FIBRILLATION WITH RAPID VENTRICULAR RESPONSE RIGHT BUNDLE BRANCH BLOCK [120+ ms QRS DURATION, UPRIGHT V1, 40+ ms S IN I/aVL/V4/V5/V6] Compared to ECG 12/31/2020 06:14:50 No significant changes Electronically Signed On 01-15-2021 22:46:02 CDT by Kyree Jimenez M.D. [id number]
--- NOTE | 2021-01-15 01:01 | W.ED.BACK ---
HPI - Back Pain/Injury General: Chief Complaint: Back Pain/Injury Stated Complaint: BACK,LEG,ARM PAIN Time Seen by Provider: 01/15/21 00:56 Source: patient and EMS Mode of arrival: EMS Limitations: no limitations History of Present Illness: HPI Narrative: 70-year-old female who states she been having pain in her left arm and left upper back over the last 5 days. States it is much worse with palpation or movement. She denies any fevers or injuries. Denies any shortness of breath. States pain is currently 3 out of 10. Associated symptoms: Deny abdominal pain, chills, dysuria, fever(s), nausea or vomiting Review of Systems Const: Denies: fever(s), chills, body aches or change in appetite Eyes: Denies: blurry vision or eye discomfort ENMT: Denies: throat pain or dental pain Card: Denies: chest pain Resp: Denies: dyspnea GI: Denies: abdominal pain, nausea, vomiting or diarrhea : Denies: dysuria Musc: Reports: back pain Skin/Breast: Denies: rash Neuro: Denies: headache(s) Psych: Denies: depression [place]/Lymph: Denies: easy bruising All/Imm: Denies: urticaria PFSH ED PFSH: Medical History Anxiety Aortic regurgitation Atrial fibrillation with RVR Back pain Bilateral wrist pain CAD (coronary artery disease) Angiogram 12/18/2020 showed two-vessel disease, distal circumflex high-grade lesion Chest pain CHF (congestive heart failure) EF 40 to 45% on echo and 20-25% on LV gram from cardiac angiogram with global LV hypokinesia, diastolic dysfunction. Chronic ankle pain, bilateral Chronic pain of both knees Depression Dizziness Dysuria Fever GERD without esophagitis Interstitial cystitis Limb ischemia Acute limb ischemia with limb salvage percutaneous procedure performed. Migraine Mitral regurgitation Mixed incontinence Moderate episode of recurrent major depressive disorder Overactive bladder Positive cardiac stress test Recurrent UTI Shortness of breath Tremor Surgical History Hx of hysterectomy Family History Mother , AT AGE 80 Diabetes Cancer CAD (coronary artery disease) Father CAD (coronary artery disease) Brother CAD (coronary artery disease) Sister CAD (coronary artery disease) Social History Smoking and tobacco status: never smoked Alcohol intake: never Marital status: / Current occupational status: disabled Physical Exam Const: COMMON NORMALS: no acute distress, patient oriented x3 and healthy appearing HENMT: COMMON NORMALS: normocephalic and atraumatic HEAD & SCALP: normocephalic and atraumatic Eye: COMMON NORMALS: Equal, round and reactive pupils present and EOMs intact bilaterally PUPIL: Yes Equal, round and reactive pupils present Neck/C-Spine: COMMON NORMALS: full ROM and supple Chest: COMMONS NORMALS: normal inspection of the chest and normal palpation of entire chest wall Resp: COMMON NORMALS: normal respiratory effort, No retractions, No use of accessory muscles and clear to auscultation bilaterally AUSCULTATION: clear to auscultation bilaterally Cardio: COMMON NORMALS: regular rate, regular rhythm and No murmurs present (Cardio) RATE: regular rate RHYTHM: regular rhythm GI: COMMON NORMALS: Normal to inspection, nondistended, normoactive bowel sounds present, Soft to palpation, non-tender and no masses PALPATION: Yes Soft to palpation Back/Pelvis: OTHER: point tender over left upper back Extremity: COMMON NORMALS: normal to inspection and full ROM Neuro: COMMON NORMALS: patient oriented x3, moves all extremities and no focal motor deficits Psych: COMMON NORMALS: mental status grossly normal, Normal thought process present and cooperative THOUGHT PROCESS: Normal thought process present Skin: COMMON NORMALS: no rashes or lesions noted and no wounds GENERAL SKIN EXAM: no rashes or lesions noted Course Vital Signs: Vital signs: Vital Signs Temperature 97.9 F 01/15/21 00:51 Pulse Rate 83 01/15/21 01:47 Respiratory Rate 18 01/15/21 01:22 Blood Pressure 113/83 01/15/21 01:47 Pulse Oximetry 95 01/15/21 01:22 MDM - Back Pain/Injury MDM Narrative: Medical decision making narrative: Patient presents here with back pain and arm pain likely muscular in nature. Her troponins here are negative with no signs of acute coronary syndrome she is to follow-up and return if worsening she understands agrees to plan. Lab Data: Labs: Lab Results 01/15/21 01/15/21 01/15/21 01:03 01:03 01:03 WBC 8.1 10^3/uL 10^3/ uL (4.0-10.0) RBC 4.01 10^6/uL L 10 ^6/uL (4.1-5.3) Hgb 11.6 g/dL g/dL (11.5-15.3) Hct 36.4 % L % (37.0-47.0) MCV 90.8 fl fl (81-99) MCH 28.9 pg pg (28.0-34.0) MCHC 31.9 g/dL g/dL (30.0-36.0) RDW 14.0 % % (12.1-15.1) Plt Count 225 10^3/cmm 10^3 /cmm (130-400) MPV 11.1 fL H fL (7.4-10.4) Neut % (Auto) 62.4 % % Lymph % (Auto) 24.8 % % [place] % (Auto) 9.0 % % Eos % (Auto) 2.7 % % Baso % (Auto) 0.9 % % Neut # (Auto) 5.04 10^3/uL 10^3 /uL (1.8-7.7) Lymph # (Auto) 2.0 10^3/uL 10^3/ uL (0.8-4.8) [place] # (Auto) 0.7 10^3/uL 10^3/ uL (0.2-0.9) Eos # (Auto) 0.2 10^3/uL 10^3/ uL (0.0-0.8) Baso # (Auto) 0.1 10^3/uL 10^3/ uL (0.0-0.1) Nucleated RBC % (a uto) 0 % % Nucleated RBCs # 0.0 /100WBC /100W BC PT 14.20 SECONDS SEC ONDS (12.1-14.9) INR 1.07 (0.8-1.2) Sodium 139 mmol/L mmol/L (136-145) Potassium 4.2 mmol/L mmol/L (3.5-5.1) Chloride 108 mmol/L H mmol /L (98-107) Carbon Dioxide 19 mmol/L L mmol/ L (22-29) Anion Gap 16.2 (5-19) BUN 21 mg/dL mg/dL (8-23) Creatinine 0.5 mg/dL mg/dL (0.5-0.9) GFR Calculation 122.0 mL/min mL/m in (90-130) Glucose 118 mg/dL H mg/dL (65-115) Calculated Osmolal ity 292 mOsm/kg mOsm/ kg (285-295) Calcium 9.4 mg/dL mg/dL (8.5-10.5) Total Bilirubin 0.4 mg/dL mg/dL (0.15-1.2) AST 42 U/L H U/L (0-32) ALT 27 U/L U/L (0-33) Alkaline Phosphata se 95 IU/L IU/L (35-105) Troponin T Baselin e Troponin T 120 Min ely [place] Troponin T Total Protein 6.6 g/dL g/dL (6.6-8.7) Albumin 3.7 g/dL g/dL (3.5-5.2) Globulin 2.9 g/dL g/dL (1.3-4.6) 01/15/21 01/15/21 01:03 02:54 WBC RBC Hgb Hct MCV MCH MCHC RDW Plt Count MPV Neut % (Auto) Lymph % (Auto) [place] % (Auto) Eos % (Auto) Baso % (Auto) Neut # (Auto) Lymph # (Auto) [place] # (Auto) Eos # (Auto) Baso # (Auto) Nucleated RBC % (a uto) Nucleated RBCs # PT INR Sodium Potassium Chloride Carbon Dioxide Anion Gap BUN Creatinine GFR Calculation Glucose Calculated Osmolal ity Calcium Total Bilirubin AST ALT Alkaline Phosphata se Troponin T Baselin e 16 ng/L H ng/L (0-10) Troponin T 120 Min ely [place] 14.94 ng/L H ng/L (0-10) [place] Troponin T -1.06 ABS# L ABS# (0-10) Total Protein Albumin Globulin Imaging Data^: CXR: Attestation: I personally reviewed and interpreted this imaging study as follows: My impression: No acute abnormality EKG Data^: EKG 1: Attestation: I personally reviewed and interpreted this EKG as follows: EKG interpretation date: 01/15/21 EKG interpretation time: 01:02 Interpretation: afib hr [address] or t wave abnormalities qrs 120 qtc 393 Discharge Plan Discharge Patient Disposition: Home Clinical Impression: Thoracic back pain Qualifiers: Chronicity: acute Back pain laterality: left Qualified Code(s): M54.6 - Pain in thoracic spine Condition: Stable Prescriptions: No Action metoprolol tartrate 50 mg tablet 50 mg PO BID Qty: 60 RF: 3 multivitamin Tablet 1 tab PO DAILY@12 RF: 0 cyanocobalamin (vitamin B-12) [Vitamin B-12] 250 mcg Tablet 250 mcg PO QAM RF: 0 Eliquis 5 mg Tablet 5 mg PO BID 30 Days Qty: 60 RF: 6 ofloxacin 0.3 % Drops 5 drp otic (ear) DAILY RF: 0 fluticasone propionate 50 mcg/actuation [place],Suspension 2 spray INTRANASAL DAILY RF: 0 furosemide 20 mg Tablet 20 mg PO DAILY@0800 30 Days Qty: 30 RF: 0 diltiazem HCl [DILT-XR] 180 mg Capsule,Ext.Rel 24h Degradable 180 mg PO DAILY 30 Days Qty: 30 RF: 0 lisinopril 2.5 mg tablet 2.5 mg PO DAILY Qty: 30 RF: 0 acetaminophen 500 mg Tablet 1,000 mg PO Q4H PRN (Reason: Pain) RF: 0 Vitamin C 500 mg Tablet 500 mg PO DAILY RF: 0 clopidogrel 75 mg Tablet 75 mg PO DAILY Qty: 90 RF: 3 Discharge Orders: Discharge ED (Routine); Ordered 01/15/21 Ordered By: Case Flanagan Referrals: Travis Boss [Primary Care Provider] - Discharge Diet: Advance as tolerated Discharge Activity: Resume usual activity Patient Instructions: Back Pain (ED) Coding Level of Care Code ED 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
[2021-01-15 01:12] LABS: Basophils # 0.1 10^3/uL (0.0-0.1); Basophils % 0.9 %; Eosinophils # 0.2 10^3/uL (0.0-0.8); Eosinophils % 2.7 %; Hematocrit 36.4 % (37.0-47.0); Hemoglobin 11.6 g/dL (11.5-15.3); Lymphocytes % 24.8 %; Mean Corpuscular HGB Conc 31.9 g/dL (30.0-36.0); Mean Corpuscular Hemoglobin 28.9 pg (28.0-34.0); Mean Corpuscular Volume 90.8 fl (81-99); Mean Platelet Volume 11.1 fL (7.4-10.4); Monocytes # 0.7 10^3/uL (0.2-0.9); Neutrophils # 5.04 10^3/uL (1.8-7.7); Neutrophils % 62.4 %; Nucleated Red Blood Cells % 0 %; Platelet Count 225 10^3/cmm (130-400); Red Blood Count 4.01 10^6/uL (4.1-5.3); White Blood Count 8.1 10^3/uL (4.0-10.0)
[2021-01-15 01:13] VITALS: RESP 18; O2SAT 96
[2021-01-15] MEDS: morphine 4 mg/mL SDV 1 mL IVP (01:13)
[2021-01-15] MEDS: ondansetron 2 mg/ML SDV 2 mL 4 MG IVP (01:13)
[2021-01-15 01:22] VITALS: BP 124/86; PULSE 118; RESP 18; O2SAT 95
[2021-01-15 01:27] LABS: INR 1.07 (0.8-1.2)
[2021-01-15 01:31] VITALS: BP 127/87; PULSE 95
[2021-01-15 01:32] LABS: Troponin(5th) Baseline 16 ng/L (0-10)
[2021-01-15 01:36] LABS: Alanine Aminotransferase 27 U/L (0-33); Albumin Level 3.7 g/dL (3.5-5.2); Alkaline Phosphatase 95 IU/L (35-105); Anion Gap 16.2 (5-19); Aspartate Amino Transferase 42 U/L (0-32); Blood Urea Nitrogen 21 mg/dL (8-23); Calcium 9.4 mg/dL (8.5-10.5); Carbon Dioxide 19 mmol/L (22-29); Chloride 108 mmol/L (98-107); Globulin 2.9 g/dL (1.3-4.6); Glucose 118 mg/dL (65-115); Osmolality Calculated 292 mOsm/kg (285-295); Potassium 4.2 mmol/L (3.5-5.1); Sodium 139 mmol/L (136-145); Total Bilirubin 0.4 mg/dL (0.15-1.2); Total Protein 6.6 g/dL (6.6-8.7)
[2021-01-15] MEDS: sodium chloride 0.9% 1,000 ML 999 ML IV (01:39)
[2021-01-15 01:47] VITALS: BP 113/83; PULSE 83
--- NOTE | 2021-01-15 02:59 | ECG_ITS ---
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 Measurements Intervals [place] Rate: 97 P: [place]: QRS: 92 QRSD: 125 T: 250 QT: 402 QTc: 511 Interpretive Statements ATRIAL FLUTTER/TACHYCARDIA RIGHT BUNDLE BRANCH BLOCK [120+ ms QRS DURATION, UPRIGHT V1, 40+ ms S IN I/aVL/V4/V5/V6] Compared to ECG 01/15/2021 01:02:12 Atrial fibrillation no longer present Electronically Signed On 01-15-2021 22:49:20 CDT by Kyree Jimenez M.D. [id number]
[2021-01-15 03:29] LABS: Troponin 5 2HR 14.94 ng/L (0-10)
[2021-01-15 03:30] LABS: Troponin 5 2HR Delta -1.06 ABS# (0-10)
[2021-01-15 03:49] VITALS: BP 130/62; PULSE 90; RESP 18; O2SAT 94
== END 2021-01-15 03:52 | disposition home or self-care (01) ==
PROVIDERS: Emergency Provider Emergency Medicine; PCP Clinical Nurse Specialist Adult Health
DX: M54.6 Pain in thoracic spine (principal); Z79.01 Long term (current) use of anticoagulants; Z79.02 Long term (current) use of antithrombotics/antiplatelets; I25.10 Atherosclerotic heart disease of native coronary artery without angina pectoris; I50.9 Heart failure, unspecified
CPT/HCPCS: 36415; 71045; 80053; 84484; 85025; 85610; 93005; 96361; 96374; 96375; 99284; J2270; J2405; J3490; J7030

== ENCOUNTER 2021-01-24 21:43 | Inpatient (IN) | payer MEDICARE, MEDICAID, SELFPAY ==
[2021-01-24 21:43] VITALS: BP 133/92; PULSE 135; RESP 20; TEMP 37.3; O2SAT 99; BMI 24.1
--- NOTE | 2021-01-24 21:44 | ED_ITS ---
Documented by User: Kendall Jang MD 01/27/21 21:51 HPI - SOB/Dyspnea General: Chief Complaint: Back Pain/Injury Stated Complaint: back pain Time Seen by Provider: 01/24/21 21:44 History of Present Illness: HPI Narrative: Ms. Valdez is a 70-year-old lady with complex past medical history including heart failure, PCI, acute limb ischemia requiring peripheral intervention of the right lower extremity and history of atrial fibrillation with RVR who presents emergency department due to back pain and shortness of breath. She reports acute onset of symptoms approximately 1 hour prior to arrival. She was doing well and does not recall specific provoking factor. She got up from a bowel movement took a few steps and had sudden onset back pain and shortness of breath. Intensity of symptoms is moderate to severe and worse with movement. She was found by EMS to be in A. fib with RVR. She reports adamantly compliance with her anticoagulation regimen. No other specific exacerbating relieving factors identified. Review of Systems General: Reports: 10 or more systems reviewed and unremarkable except in HPI and below PFSH ED PFSH: Medical History (Updated 01/25/21 @ 07:38 by Jorge Trujillo MD) Anxiety Aortic regurgitation Atrial fibrillation Back pain CAD (coronary artery disease) Angiogram 12/18/2020 showed single-vessel disease, distal circumflex high- grade lesion, recommendation for medical management at time CHF (congestive heart failure) EF 40 to 45% on echo and 20-25% on LV gram from cardiac angiogram with global LV hypokinesia, diastolic dysfunction. Chronic ankle pain, bilateral Chronic pain of both knees Depression GERD without esophagitis Interstitial cystitis Limb ischemia Acute limb ischemia with limb salvage percutaneous procedure performed. Migraine Mitral regurgitation Moderate episode of recurrent major depressive disorder Overactive bladder PAD (peripheral artery disease) Positive cardiac stress test (~11/2020) Recurrent UTI Tremor Surgical History (Updated 01/25/21 @ 03:18 by Tierra Rossi MD) History of cardiac catheterization (12/18/20) Dr Veronica Hx of hysterectomy Status post peripheral artery angioplasty with insertion of stent (12/31/20) Dr Jimenez, thrombectomy and balloon angioplasty RLE, drug eluting stent 2 x to peroneal artery Family History Mother , AT AGE 80 Diabetes Cancer CAD (coronary artery disease) Father CAD (coronary artery disease) Brother CAD (coronary artery disease) Sister CAD (coronary artery disease) Social History Smoking and tobacco status: never smoked Alcohol intake: never Marital status: / Current occupational status: disabled Physical Exam Narrative: EXAM NARRATIVE: GENERAL/CONSTITUTIONAL -ill-appearing. No acute distress Eyes - PERRL, no conjunctival injection ENMT - Atraumatic external nose and ears. Dry mucous membranes NECK - supple. trachea midline CARDIOVASCULAR -irregularly irregular rhythm, tachycardia. Radial pulses present. Unable to palpate DP PT bilaterally. Overall temperature and appearance of bilateral feet similar. RESPIRATORY -diminished to auscultation bilaterally. ABDOMEN/GI -generalized tenderness to palpation. No peritonitis or distention. MSK - Extremities without obvious deformity or tenderness to palpation SKIN - Warm, Dry NEURO - alert and appropriately oriented. Poor overall medical billing representative. Moves all extremities equally. Course ED course: - Patient was seen and evaluated by me at bedside - Patient placed on cardiac monitors, IV access obtained - Initial evaluation notable for ill appearance. Atrial fibrillation with RVR. - Fluids and antibiotics given. - it was initially unclear that the patient had 2 separate procedures as patient was unsure of exactly which he had. She has a history of both PCI and thrombectomy due to acute limb ischemia. As noted in exam similar appearance and feeling as well as preserved motor function to bilateral feet. [id number] ultrasound performed without pulsatile flow noted in the right lower extremity. Radiology performed ultrasound ordered. - Labs notable for leukocytosis. Normocytic anemia. Thrombocytopenia of unclear etiology. No significant metabolic abnormalities to explain patient's symptoms. Delta troponin negative. BNP markedly elevated. - Imaging notable for mild increased pulmonary vascular congestion. Given patient's current critical illness CT imaging ordered. CT imaging notable for pericholecystic fluid. Patient has pleural effusions. - Discussed arterial ultrasound findings with on-call interventional cardiology. Patient will be evaluated in the morning given absence of motor findings and similar appearance of bilateral feet. Heparin drip ordered. - Patient care handed off to Dr. Flanagan pending admission to ICU. Patient currently has been multiple serious medical conditions including A. fib with RVR for which she is being treated with esmolol. She has likely subacute or past few weeks reocclusion of lower extremity arterial supply on the right treated with heparin. For sepsis type picture in the context of gallbladder findings on CT antibiotics ordered. Vital Signs: Vital signs: Vital Signs Temperature 98.0 F 01/27/21 08:00 Pulse Rate 132 H 01/27/21 21:00 Respiratory Rate 18 01/27/21 21:00 Blood Pressure 112/78 01/27/21 21:00 Pulse Oximetry 99 01/27/21 21:00 MDM - SOB/Dyspnea Medical Records: Attestation: I reviewed the patient's medical records. Lab Data: Attestation: I reviewed the patient's lab results. Labs: Lab Results 01/24/21 01/24/21 01/24/21 21:40 21:40 21:40 WBC 14.9 10^3/uL H 10 ^3/uL (4.0-10.0) RBC 4.79 10^6/uL 10^6 /uL (4.1-5.3) Hgb 13.0 g/dL g/dL (11.5-15.3) Hct 43.3 % % (37.0-47.0) MCV 90.4 fl fl (81-99) MCH 27.1 pg L pg (28.0-34.0) MCHC 30.0 g/dL g/dL (30.0-36.0) RDW 15.1 % % (12.1-15.1) Plt Count 127 10^3/cmm L 10 ^3/cmm (130-400) MPV 12.2 fL H fL (7.4-10.4) Neut % (Auto) 77.1 % % Lymph % (Auto) 11.5 % % [place] % (Auto) 10.4 % % Eos % (Auto) 0.1 % % Baso % (Auto) 0.2 % % Neut # (Auto) 11.53 10^3/uL H 1 0^3/uL (1.8-7.7) Lymph # (Auto) 1.7 10^3/uL 10^3/ uL (0.8-4.8) [place] # (Auto) 1.6 10^3/uL H 10^ 3/uL (0.2-0.9) Eos # (Auto) 0.0 10^3/uL 10^3/ uL (0.0-0.8) Baso # (Auto) 0.0 10^3/uL 10^3/ uL (0.0-0.1) Nucleated RBC % (a uto) 0.6 % % Nucleated RBCs # 0.1 /100WBC /100W BC Sodium 145 mmol/L mmol/L (136-145) Potassium 3.8 mmol/L mmol/L (3.5-5.1) Chloride 111 mmol/L H mmol /L (98-107) Carbon Dioxide 21 mmol/L L mmol/ L (22-29) Anion Gap 16.8 (5-19) BUN 31 mg/dL H mg/dL (8-23) Creatinine 0.5 mg/dL mg/dL (0.5-0.9) GFR Calculation 122.0 mL/min mL/m in (90-130) Glucose 114 mg/dL mg/dL (65-115) Calculated Osmolal ity 307 mOsm/kg H mOs m/kg (285-295) Lactate Calcium 8.6 mg/dL mg/dL (8.5-10.5) Total Bilirubin 1.8 mg/dL H mg/dL (0.15-1.2) AST 168 U/L H U/L (0-32) ALT 176 U/L H U/L (0-33) Alkaline Phosphata se 84 IU/L IU/L (35-105) Troponin T Baselin e 26 ng/L H ng/L (0-10) Troponin T 120 Min [place] Troponin T NT-Pro-B Natriuret Pep 9598 pg/mL H pg/m L (0-125) Total Protein 6.6 g/dL g/dL (6.6-8.7) Albumin 3.6 g/dL g/dL (3.5-5.2) Globulin 3.0 g/dL g/dL (1.3-4.6) Lipase 47 U/L U/L (13-60) TSH 2.57 uIU/mL uIU/m L (0.27-4.20) Urine Color Urine Appearance Urine pH Ur Specific Gravit y Urine Protein Urine Glucose (UA) Urine Ketones Urine Blood Urine Nitrate Urine Bilirubin Urine Urobilinogen Ur Leukocyte Maggy ase Urine RBC Urine WBC Ur Squamous Epith Cells Amorphous Sediment Urine Bacteria 01/24/21 01/24/21 01/25/21 23:20 23:35 00:25 WBC RBC Hgb Hct MCV MCH MCHC RDW Plt Count MPV Neut % (Auto) Lymph % (Auto) [place] % (Auto) Eos % (Auto) Baso % (Auto) Neut # (Auto) Lymph # (Auto) [place] # (Auto) Eos # (Auto) Baso # (Auto) Nucleated RBC % (a uto) Nucleated RBCs # Sodium Potassium Chloride Carbon Dioxide Anion Gap BUN Creatinine GFR Calculation Glucose Calculated Osmolal ity Lactate 1.7 mmol/L mmol/L (0.5-2.2) Calcium Total Bilirubin AST ALT Alkaline Phosphata se Troponin T Baselin e Troponin T 120 Min [place] 23.89 ng/L H ng/L (0-10) Delta Troponin T -2.11 ABS# L ABS# (0-10) NT-Pro-B Natriuret Pep Total Protein Albumin Globulin Lipase TSH Urine Color Yellow (Yellow) Urine Appearance Sl hazy (CLEAR) Urine pH 6.5 (5-7) Ur Specific Gravit y 1.010 (1.005-1.030) Urine Protein 1+ H (Negative) Urine Glucose (UA) Norm (Normal) Urine Ketones 1+ H (Negative) Urine Blood 2+ H (Negative) Urine Nitrate Positive H (Negative) Urine Bilirubin 1+ H (Negative) Urine Urobilinogen 8 mg/dL H mg/dL (Negative) Ur Leukocyte Maggy ase 2+ H (Negative) Urine RBC 15-25 /hpf H /hpf (0-2) Urine WBC >100 /hpf H /hpf (0-5) Ur Squamous Epith Cells 15-25 /hpf H /hpf (0-5) Amorphous Sediment Not Reportable Urine Bacteria 4+ /hpf H /hpf (NONE) EKG Data^: EKG 1: Attestation: I personally reviewed and interpreted this EKG as follows: EKG Interpretation Date: 01/24/21 EKG interpretation time: 22:03 Interpretation: Twelve-lead EKG shows an irregular rhythm at a rate of 140. SD interval not present. QRS duration 122, QTc 467. Normal axis. Interpretation: Atrial fibrillation with rapid ventricular response. Interventricular conduction delay Critical Care Time Critical Care Time: Critical Care Time: Yes Total Critical Care Time: 35 Attestation: This case had a high probability of a clinically significant, sudden, or life threatening deterioration of this patient's condition which required my full and direct attention, intervention and personal management. Discharge Plan Discharge Patient Disposition: Admitted As Inpatient Admit Provider: Tierra Rossi Clinical Impression: Atrial fibrillation with RVR, PAD (peripheral artery disease), Pleural effusion, Cholecystitis CHF (congestive heart failure) Qualifiers: Heart failure type: systolic Heart failure chronicity: acute on chronic Qualified Code(s): I50.23 - Acute on chronic systolic (congestive) heart failure Condition: Stable Coding Level of Care Code ED Wood Tile Installer for Chg Fwd Documented by User: Case Flanagan MD 01/25/21 00:49 HPI - SOB/Dyspnea General: Chief Complaint: Back Pain/Injury Stated Complaint: back pain Time Seen by Provider: 01/24/21 21:44 PFSH ED PFSH: Medical History (Updated 01/25/21 @ 07:38 by Jorge Trujillo MD) Anxiety Aortic regurgitation Atrial fibrillation Back pain CAD (coronary artery disease) Angiogram 12/18/2020 showed single-vessel disease, distal circumflex high- grade lesion, recommendation for medical management at time CHF (congestive heart failure) EF 40 to 45% on echo and 20-25% on LV gram from cardiac angiogram with global LV hypokinesia, diastolic dysfunction. Chronic ankle pain, bilateral Chronic pain of both knees Depression GERD without esophagitis Interstitial cystitis Limb ischemia Acute limb ischemia with limb salvage percutaneous procedure performed. Migraine Mitral regurgitation Moderate episode of recurrent major depressive disorder Overactive bladder PAD (peripheral artery disease) Positive cardiac stress test (~11/2020) Recurrent UTI Tremor Surgical History (Updated 01/25/21 @ 03:18 by Tierra Rossi MD) History of cardiac catheterization (12/18/20) Dr Veronica Hx of hysterectomy Status post peripheral artery angioplasty with insertion of stent (12/31/20) Dr Jimenez, thrombectomy and balloon angioplasty RLE, drug eluting stent 2 x to peroneal artery Family History Mother , AT AGE 80 Diabetes Cancer CAD (coronary artery disease) Father CAD (coronary artery disease) Brother CAD (coronary artery disease) Sister CAD (coronary artery disease) Social History Smoking and tobacco status: never smoked Alcohol intake: never Marital status: / Current occupational status: disabled Course Vital Signs: Vital signs: Vital Signs Temperature 98.0 F 01/27/21 08:00 Pulse Rate 132 H 01/27/21 21:00 Respiratory Rate 18 01/27/21 21:00 Blood Pressure 112/78 01/27/21 21:00 Pulse Oximetry 99 01/27/21 21:00 MDM - SOB/Dyspnea MDM Narrative: Medical decision making narrative: I took patient over from Dr. Neville's, no multiple complaints initial complaint was A. fib with RVR she is on esmolol drip currently patient also has an elevated white count low-grade fever CT showing bilateral pleural effusions and possible acalculous cholecystitis. Patient started on IV antibiotics as well. She had a recent stent placed in her right femoral artery does have possible ischemic limb Dr. Vreonica of cardiology has been consulted Dr. Trujillo of surgery has been consulted patient will be admitted to the hospitalist to the ICU. Lab Data: Labs: Lab Results 01/24/21 01/24/21 01/24/21 21:40 21:40 21:40 WBC 14.9 10^3/uL H 10 ^3/uL (4.0-10.0) RBC 4.79 10^6/uL 10^6 /uL (4.1-5.3) Hgb 13.0 g/dL g/dL (11.5-15.3) Hct 43.3 % % (37.0-47.0) MCV 90.4 fl fl (81-99) MCH 27.1 pg L pg (28.0-34.0) MCHC 30.0 g/dL g/dL (30.0-36.0) RDW 15.1 % % (12.1-15.1) Plt Count 127 10^3/cmm L 10 ^3/cmm (130-400) MPV 12.2 fL H fL (7.4-10.4) Neut % (Auto) 77.1 % % Lymph % (Auto) 11.5 % % [place] % (Auto) 10.4 % % Eos % (Auto) 0.1 % % Baso % (Auto) 0.2 % % Neut # (Auto) 11.53 10^3/uL H 1 0^3/uL (1.8-7.7) Lymph # (Auto) 1.7 10^3/uL 10^3/ uL (0.8-4.8) [place] # (Auto) 1.6 10^3/uL H 10^ 3/uL (0.2-0.9) Eos # (Auto) 0.0 10^3/uL 10^3/ uL (0.0-0.8) Baso # (Auto) 0.0 10^3/uL 10^3/ uL (0.0-0.1) Nucleated RBC % (a uto) 0.6 % % Nucleated RBCs # 0.1 /100WBC /100W BC Sodium 145 mmol/L mmol/L (136-145) Potassium 3.8 mmol/L mmol/L (3.5-5.1) Chloride 111 mmol/L H mmol /L (98-107) Carbon Dioxide 21 mmol/L L mmol/ L (22-29) Anion Gap 16.8 (5-19) BUN 31 mg/dL H mg/dL (8-23) Creatinine 0.5 mg/dL mg/dL (0.5-0.9) GFR Calculation 122.0 mL/min mL/m in (90-130) Glucose 114 mg/dL mg/dL (65-115) Calculated Osmolal ity 307 mOsm/kg H mOs m/kg (285-295) Lactate Calcium 8.6 mg/dL mg/dL (8.5-10.5) Total Bilirubin 1.8 mg/dL H mg/dL (0.15-1.2) AST 168 U/L H U/L (0-32) ALT 176 U/L H U/L (0-33) Alkaline Phosphata se 84 IU/L IU/L (35-105) Troponin T Baselin e 26 ng/L H ng/L (0-10) Troponin T 120 Min [place] Troponin T NT-Pro-B Natriuret Pep 9598 pg/mL H pg/m L (0-125) Total Protein 6.6 g/dL g/dL (6.6-8.7) Albumin 3.6 g/dL g/dL (3.5-5.2) Globulin 3.0 g/dL g/dL (1.3-4.6) Lipase 47 U/L U/L (13-60) TSH 2.57 uIU/mL uIU/m L (0.27-4.20) Urine Color Urine Appearance Urine pH Ur Specific Gravit y Urine Protein Urine Glucose (UA) Urine Ketones Urine Blood Urine Nitrate Urine Bilirubin Urine Urobilinogen Ur Leukocyte Maggy ase Urine RBC Urine WBC Ur Squamous Epith Cells Amorphous Sediment Urine Bacteria 01/24/21 01/24/21 01/25/21 23:20 23:35 00:25 WBC RBC Hgb Hct MCV MCH MCHC RDW Plt Count MPV Neut % (Auto) Lymph % (Auto) [place] % (Auto) Eos % (Auto) Baso % (Auto) Neut # (Auto) Lymph # (Auto) [place] # (Auto) Eos # (Auto) Baso # (Auto) Nucleated RBC % (a uto) Nucleated RBCs # Sodium Potassium Chloride Carbon Dioxide Anion Gap BUN Creatinine GFR Calculation Glucose Calculated Osmolal ity Lactate 1.7 mmol/L mmol/L (0.5-2.2) Calcium Total Bilirubin AST ALT Alkaline Phosphata se Troponin T Baselin e Troponin T 120 Min [place] 23.89 ng/L H ng/L (0-10) Delta Troponin T -2.11 ABS# L ABS# (0-10) NT-Pro-B Natriuret Pep Total Protein Albumin Globulin Lipase TSH Urine Color Yellow (Yellow) Urine Appearance Sl hazy (CLEAR) Urine pH 6.5 (5-7) Ur Specific Gravit y 1.010 (1.005-1.030) Urine Protein 1+ H (Negative) Urine Glucose (UA) Norm (Normal) Urine Ketones 1+ H (Negative) Urine Blood 2+ H (Negative) Urine Nitrate Positive H (Negative) Urine Bilirubin 1+ H (Negative) Urine Urobilinogen 8 mg/dL H mg/dL (Negative) Ur Leukocyte Maggy ase 2+ H (Negative) Urine RBC 15-25 /hpf H /hpf (0-2) Urine WBC >100 /hpf H /hpf (0-5) Ur Squamous Epith Cells 15-25 /hpf H /hpf (0-5) Amorphous Sediment Not Reportable Urine Bacteria 4+ /hpf H /hpf (NONE) Imaging Data^: CT Chest: Attestation: I personally reviewed and interpreted this imaging study as follows: Radiologist's impression: [address] [address] [address] Scan Report Signed Patient: Sabina Valdez Unit #: [id number] : 1950 Age/Sex: 70 / F ADM Date: 01/24/21 Loc: ER Room/Bed: Attending Dr: Ordering Provider/Ordering MD: Kendall Jang MD Date of Service: 01/24/21 Procedure(s): CT angio chest w abd pel w con Accession Number(s): [id number] Report Number: [id number] PROCEDURE INFORMATION: Exam: CTA Chest With Contrast Exam date and time: 01/24/2021 10:21 PM Age: 70 years old Clinical indication: Pain; Nausea; Fever and shortness of breath; Patient HX: C/O lbp and SOB; Additional info: Chest pain, SOB, post cath TECHNIQUE: Imaging protocol: Computed tomographic angiography of the chest with contrast. 3D rendering (Not supervised by radiologist): MIP and/or 3D reconstructed images were created by the technologist. Total images: 980 Radiation optimization: All CT scans at this facility use at least one of these dose optimization techniques: automated exposure control; mA and/or kV adjustment per patient size (includes targeted exams where dose is matched to clinical indication); or iterative reconstruction. Contrast material: OMNI 350; Contrast volume: 95 ml; Contrast route: INTRAVENOUS (IV); COMPARISON: CT angio chest PE protcl [id number] 12/02/2020 8:09 AM RADIATION DOSE METRICS: Total DLP (mGy-cm): 1055.25 FINDINGS: Pulmonary arteries: No visible evidence of pulmonary embolism/pulmonary arterial thrombus. Aorta: The thoracic aorta is nonaneurysmal. Mild arterial sclerotic disease. Thyroid: Small 9 mm left thyroid nodule. No follow-up recommended. Lungs: Findings of low-grade interstitial edema. Minimal dependent atelectasis lung bases. Findings of mild air trapping of COPD/chronic bronchitis. Pleural spaces: Bilateral moderate volume pleural effusions, right volume greater than left. Heart: Cardiomegaly. Left ventricular prominence. No visible pericardial effusion. Coronary artery disease. Early filling of the inferior vena cava with contrast often seen in right-sided heart failure. Lymph nodes: No visible active mediastinal or hilar lymphadenopathy. Bones/joints: No visible active or acute osseous pathology. Soft tissues: Unremarkable. IMPRESSION: 1. No visible evidence of pulmonary embolism/pulmonary arterial thrombus. 2. Bilateral moderate volume pleural effusions, right volume greater than left. 3. Cardiomegaly with coronary artery disease and evidence of early filling of the inferior vena cava with contrast often seen in right-sided heart failure. 4. Findings of low-grade interstitial edema. COMMENTS: Consistent with the [place] [employer]'s Incidental Findings Committee white paper (J Am Teresa Radiol 2015): In patients aged 35 years and older with an incidental thyroid nodule equal to or greater than 1.[address], MRI or extrathyroidal US, further evaluation with dedicated thyroid US is recommended for patients with normal life expectancy and without comorbidities. For smaller nodules without suspicious features, no further evaluation or follow up is recommended. PROCEDURE INFORMATION: Exam: CT Abdomen And Pelvis With Contrast Exam date and time: 01/24/2021 10:21 PM Age: 70 years old Clinical indication: Pain; Nausea; Fever and shortness of breath; Patient HX: C/O lbp and SOB; Additional info: Chest pain, SOB, post cath TECHNIQUE: Imaging protocol: Computed tomography of the abdomen and pelvis with contrast. Radiation optimization: All CT scans at this facility use at least one of these dose optimization techniques: automated exposure control; mA and/or kV adjustment per patient size (includes targeted exams where dose is matched to clinical indication); or iterative reconstruction. Contrast material: OMNI 350; Contrast volume: 95 ml; Contrast route: INTRAVENOUS (IV); COMPARISON: 1. CT angio chest PE protcl [id number] 12/02/2020 8:[address] abdomen pelvis w con* [id number] 12/01/2020 4:02:06 PM RADIATION DOSE METRICS: Total DLP (mGy-cm): 1055.25 FINDINGS: Liver: No visible hepatic mass or cystic structure. Gallbladder and bile ducts: The gallbladder appears inflamed. The gallbladder wall demonstrates mild enhancement. Evidence of mild pericholecystic fluid. No visible cholelithiasis. Potential acalculous cholecystitis. Pancreas: Pancreas is unremarkable for age. No visible pancreatic ductal ectasia. Spleen: Spleen unremarkable. Adrenal glands: Adrenal glands unremarkable. Kidneys and ureters: No hydronephrosis or perinephric fluid. No visible nephrolithiasis. Simple parapelvic renal cysts left kidney. Stomach and bowel: Mild diverticulosis coli without visible evidence for acute diverticulitis. Nonobstructive bowel pattern. No visible adynamic or reactive ileus. Heavy fecal residue consistent with constipation. Appendix: The appendix is not visualized. Intraperitoneal space: No visible pneumoperitoneum or intraperitoneal ascites. Vasculature: Portal vein patent. The abdominal aorta is nonaneurysmal. Mild arterial sclerotic disease. Lymph nodes: No visible enlarged lymph nodes. Urinary bladder: Urinary bladder unremarkable. Reproductive: Status post hysterectomy. Bones/joints: No visible acute osseous abnormality. Soft tissues: Unremarkable. Other findings: Motion artifact. CT/CT angio chest w abd pel w con IMPRESSION: 1. The gallbladder appears inflamed. Potential low-grade acalculous cholecystitis. 2. Diverticulosis coli without evidence for acute diverticulitis. COMMENTS: Consistent with the [place] [employer]'s Incidental Findings Committee white paper (J Am Teresa Radiol 2018): Any incidental renal lesion less than 1 cm or classified as too small to characterize, or any incidental cystic renal lesion characterized as simple-appearing, is likely benign. No follow-up imaging is recommended for these lesions per consensus recommendations based on imaging criteria. Radiation Dose CTDIVOL = (mGy): DLP = 1055.25 1055.25 (mGy-cm) Dictated By: Guevara Will Signed By: Guevara Will Signed Date/Time: 01/24/21 2336 DD/ 20 Critical Care Time Critical Care Time: Critical Care Time: Yes Total Critical Care Time: 35 Attestation: The high probability of a clinically significant, sudden or life threatening deterioration of the patient's [] system(s) required my full and direct attention, intervention and personal management. The critical care time is as shown. This time is in addition to time spent performing any reported procedures but includes the following: [x] Data and vital sign review and interpretation [x] Patient assessment, examination and intervention [x] Documentation [x] Medication orders and management Discharge Plan Discharge Patient Disposition: Admitted As Inpatient Admit Provider: Tierra Rossi Clinical Impression: Atrial fibrillation with RVR, PAD (peripheral artery disease), Pleural effusion, Cholecystitis CHF (congestive heart failure) Qualifiers: Heart failure type: systolic Heart failure chronicity: acute on chronic Qualified Code(s): I50.23 - Acute on chronic systolic (congestive) heart failure Condition: Stable Coding Level of Care Code ED Wood Tile Installer for Fredy Cabrera
--- NOTE | 2021-01-24 21:45 | ECG_ITS ---
[facility] Test Date: 2021-01-24 Pat Name: Sabina Valdez Department: Room: Gender: Female Civil Engineering Director: : 1950 Requested By: Kendall Jang Order Number: [id number] Reading MD: ANDREA GUILLORY Measurements Intervals [place] Rate: 140 P: AL: QRS: 78 QRSD: 122 T: -56 QT: 305 QTc: 467 Interpretive Statements ATRIAL FIBRILLATION WITH RAPID VENTRICULAR RESPONSE RIGHT BUNDLE BRANCH BLOCK [120+ ms QRS DURATION, UPRIGHT V1, 40+ ms S IN I/aVL/V4/V5/V6] Compared to ECG 01/15/2021 02:46:54 Atrial flutter no longer present Electronically Signed On 01-25-2021 0:10:05 CDT by ANDREA GUILLORY [email or web address] mississippi regional medical centerRipple Labsmercy health st. [id number]
--- NOTE | 2021-01-24 21:45 | XRR_ITS ---
PROCEDURE INFORMATION: Exam: XR Chest Exam date and time: 01/24/2021 9:45 PM Age: 70 years old Clinical indication: Dyspnea; Additional info: SOB TECHNIQUE: Imaging protocol: XR of the chest. Views: 1 view. Total images: 1 COMPARISON: CR (CHEST, ) 01/15/2021 1:06 AM FINDINGS: Lungs: Mild bibasilar ground-glass interstitial lung disease which could reflect active interstitial pneumonitis and/or interstitial edema/pulmonary edema. Evidence of central pulmonary hyperemia. Favor interstitial edema. Evidence of COPD/chronic bronchitis. Pleural spaces: Suspected small bilateral subpulmonic pleural effusions. No pneumothorax. Heart/Mediastinum: Cardiac structures and configuration with cardiomegaly and arteriosclerosis. Bones/joints: Unremarkable. XR/XR chest 1V portable [id number] IMPRESSION: Findings most consistent with low-grade interstitial edema. Radiation Dose CTDIVOL = (mGy): DLP = (mGy-cm)
[2021-01-24 22:03] LABS: Basophils % 0.2 %; Eosinophils % 0.1 %; Hematocrit 43.3 % (37.0-47.0); Lymphocytes # 1.7 10^3/uL (0.8-4.8); Lymphocytes % 11.5 %; Mean Corpuscular Hemoglobin 27.1 pg (28.0-34.0); Mean Corpuscular Volume 90.4 fl (81-99); Mean Platelet Volume 12.2 fL (7.4-10.4); Monocytes # 1.6 10^3/uL (0.2-0.9); Monocytes % 10.4 %; Neutrophils # 11.53 10^3/uL (1.8-7.7); Neutrophils % 77.1 %; Nucleated Red Blood Cells # 0.1 /100WBC; Nucleated Red Blood Cells % 0.6 %; Platelet Count 127 10^3/cmm (130-400); Red Blood Count 4.79 10^6/uL (4.1-5.3); Red Cell Distribution Width 15.1 % (12.1-15.1); White Blood Count 14.9 10^3/uL (4.0-10.0)
[2021-01-24] MEDS: ondansetron 2 mg/ML SDV 2 mL 4 MG IVP (22:16)
--- NOTE | 2021-01-24 22:21 | CTR_ITS ---
PROCEDURE INFORMATION: Exam: CTA Chest With Contrast Exam date and time: 01/24/2021 10:21 PM Age: 70 years old Clinical indication: Pain; Nausea; Fever and shortness of breath; Patient HX: C/O lbp and SOB; Additional info: Chest pain, SOB, post cath TECHNIQUE: Imaging protocol: Computed tomographic angiography of the chest with contrast. 3D rendering (Not supervised by radiologist): MIP and/or 3D reconstructed images were created by the technologist. Total images: 980 Radiation optimization: All CT scans at this facility use at least one of these dose optimization techniques: automated exposure control; mA and/or kV adjustment per patient size (includes targeted exams where dose is matched to clinical indication); or iterative reconstruction. Contrast material: OMNI 350; Contrast volume: 95 ml; Contrast route: INTRAVENOUS (IV); COMPARISON: CT angio chest PE protcl [id number] 12/02/2020 8:09 AM RADIATION DOSE METRICS: Total DLP (mGy-cm): 1055.25 FINDINGS: Pulmonary arteries: No visible evidence of pulmonary embolism/pulmonary arterial thrombus. Aorta: The thoracic aorta is nonaneurysmal. Mild arterial sclerotic disease. Thyroid: Small 9 mm left thyroid nodule. No follow-up recommended. Lungs: Findings of low-grade interstitial edema. Minimal dependent atelectasis lung bases. Findings of mild air trapping of COPD/chronic bronchitis. Pleural spaces: Bilateral moderate volume pleural effusions, right volume greater than left. Heart: Cardiomegaly. Left ventricular prominence. No visible pericardial effusion. Coronary artery disease. Early filling of the inferior vena cava with contrast often seen in right-sided heart failure. Lymph nodes: No visible active mediastinal or hilar lymphadenopathy. Bones/joints: No visible active or acute osseous pathology. Soft tissues: Unremarkable. IMPRESSION: 1. No visible evidence of pulmonary embolism/pulmonary arterial thrombus. 2. Bilateral moderate volume pleural effusions, right volume greater than left. 3. Cardiomegaly with coronary artery disease and evidence of early filling of the inferior vena cava with contrast often seen in right-sided heart failure. 4. Findings of low-grade interstitial edema. COMMENTS: Consistent with the [employer] [place] [employer]'s Incidental Findings Committee white paper (J Am Teresa Radiol 2015): In patients aged 35 years and older with an incidental thyroid nodule equal to or greater than 1.[address], MRI or extrathyroidal US, further evaluation with dedicated thyroid US is recommended for patients with normal life expectancy and without comorbidities. For smaller nodules without suspicious features, no further evaluation or follow up is recommended. PROCEDURE INFORMATION: Exam: CT Abdomen And Pelvis With Contrast Exam date and time: 01/24/2021 10:21 PM Age: 70 years old Clinical indication: Pain; Nausea; Fever and shortness of breath; Patient HX: C/O lbp and SOB; Additional info: Chest pain, SOB, post cath TECHNIQUE: Imaging protocol: Computed tomography of the abdomen and pelvis with contrast. Radiation optimization: All CT scans at this facility use at least one of these dose optimization techniques: automated exposure control; mA and/or kV adjustment per patient size (includes targeted exams where dose is matched to clinical indication); or iterative reconstruction. Contrast material: OMNI 350; Contrast volume: 95 ml; Contrast route: INTRAVENOUS (IV); COMPARISON: 1. CT angio chest PE protcl [id number] 12/02/2020 8:[address] abdomen pelvis w con* [id number] 12/01/2020 4:02:06 PM RADIATION DOSE METRICS: Total DLP (mGy-cm): 1055.25 FINDINGS: Liver: No visible hepatic mass or cystic structure. Gallbladder and bile ducts: The gallbladder appears inflamed. The gallbladder wall demonstrates mild enhancement. Evidence of mild pericholecystic fluid. No visible cholelithiasis. Potential acalculous cholecystitis. Pancreas: Pancreas is unremarkable for age. No visible pancreatic ductal ectasia. Spleen: Spleen unremarkable. Adrenal glands: Adrenal glands unremarkable. Kidneys and ureters: No hydronephrosis or perinephric fluid. No visible nephrolithiasis. Simple parapelvic renal cysts left kidney. Stomach and bowel: Mild diverticulosis coli without visible evidence for acute diverticulitis. Nonobstructive bowel pattern. No visible adynamic or reactive ileus. Heavy fecal residue consistent with constipation. Appendix: The appendix is not visualized. Intraperitoneal space: No visible pneumoperitoneum or intraperitoneal ascites. Vasculature: Portal vein patent. The abdominal aorta is nonaneurysmal. Mild arterial sclerotic disease. Lymph nodes: No visible enlarged lymph nodes. Urinary bladder: Urinary bladder unremarkable. Reproductive: Status post hysterectomy. Bones/joints: No visible acute osseous abnormality. Soft tissues: Unremarkable. Other findings: Motion artifact. CT/CT angio chest w abd pel w con IMPRESSION: 1. The gallbladder appears inflamed. Potential low-grade acalculous cholecystitis. 2. Diverticulosis coli without evidence for acute diverticulitis. COMMENTS: Consistent with the [employer] [place] [employer]'s Incidental Findings Committee white paper (J Am Teresa Radiol 2018): Any incidental renal lesion less than 1 cm or classified as too small to characterize, or any incidental cystic renal lesion characterized as simple-appearing, is likely benign. No follow-up imaging is recommended for these lesions per consensus recommendations based on imaging criteria. Radiation Dose CTDIVOL = (mGy): DLP = 1055.25~1055.25 (mGy-cm)
[2021-01-24] MEDS: aspirin 81 mg Chew Tablet 324 MG PO (22:22)
[2021-01-24 22:23] VITALS: RESP 18; O2SAT 96
[2021-01-24] MEDS: fentaNYL 50 mcg/mL INJ 2mL IVP (22:23)
[2021-01-24 22:27] VITALS: BP 127/86; PULSE 137; RESP 18; O2SAT 97
[2021-01-24 22:27] LABS: Troponin(5th) Baseline 26 ng/L (0-10)
[2021-01-24 22:34] LABS: Alanine Aminotransferase 176 U/L (0-33); Albumin Level 3.6 g/dL (3.5-5.2); Alkaline Phosphatase 84 IU/L (35-105); Anion Gap 16.8 (5-19); Aspartate Amino Transferase 168 U/L (0-32); Blood Urea Nitrogen 31 mg/dL (8-23); Calcium 8.6 mg/dL (8.5-10.5); Carbon Dioxide 21 mmol/L (22-29); Chloride 111 mmol/L (98-107); Glucose 114 mg/dL (65-115); Lipase 47 U/L (13-60); NT Pro B Type Natriuretic Pept 9598 pg/mL (0-125); Osmolality Calculated 307 mOsm/kg (285-295); Potassium 3.8 mmol/L (3.5-5.1); Sodium 145 mmol/L (136-145); Thyroid Stimulating Hormone 2.57 uIU/mL (0.27-4.20); Total Bilirubin 1.8 mg/dL (0.15-1.2); Total Protein 6.6 g/dL (6.6-8.7)
[2021-01-24] MEDS: iohexol 350 mg/mL 100 mL Btl IV (22:56)
--- NOTE | 2021-01-24 23:16 | USR_ITS ---
PROCEDURE INFORMATION: Exam: US Duplex Lower Extremity Arteries Exam date and time: 01/24/2021 11:16 PM Age: 70 years old Clinical indication: Pain; Leg, lower; Right; Prior surgery; Surgery date: 1-6 months; Surgery type: Stent and bi pass in legs; Additional info: Post intervention, can't identify pulses TECHNIQUE: Imaging protocol: Real-time ultrasound scan of the arteries of the bilateral lower extremities with 2-D minaya scale, color Doppler flow and spectral waveform analysis. Images documented and saved. COMPARISON: CT angio chest w abd pel w con 01/24/2021 10:52 PM FINDINGS: Right common femoral artery: Right common femoral artery biphasic blood flow suggesting a degree of stenosis. Right superficial femoral artery: Right superficial femoral artery demonstrates areas of biphasic blood flow suggesting a degree of stenosis. Right popliteal artery: Right popliteal artery demonstrates biphasic blood flow suggesting a degree of stenosis. Right calf/foot arteries: Right posterior tibial artery and dorsalis pedis arteries demonstrate no blood flow. Left common femoral artery: Left common femoral artery is not visualized. Left superficial femoral artery: Left superficial femoral artery and popliteal artery demonstrate triphasic blood flow. Left popliteal artery: No occlusion or significant stenosis. Normal waveform. Left calf/foot arteries: Left dorsalis pedis artery and posterior tibial artery demonstrates biphasic blood flow suggesting a degree of stenosis. US/[place] [id number] IMPRESSION: 1. Right posterior tibial artery and dorsalis pedis arteries demonstrate no blood flow. 2. Right common femoral artery biphasic blood flow suggesting a degree of stenosis. 3. Right superficial femoral artery demonstrates areas of biphasic blood flow suggesting a degree of stenosis. 4. Right popliteal artery demonstrates biphasic blood flow suggesting a degree of stenosis. 5. Left common femoral artery is not visualized. 6. Left superficial femoral artery and popliteal artery demonstrate triphasic blood flow. 7. Left dorsalis pedis artery and posterior tibial artery demonstrates biphasic blood flow suggesting a degree of stenosis. Radiation Dose CTDIVOL = (mGy): DLP = (mGy-cm)
[2021-01-24] MEDS: esmolol drip 2,500 MG/250 ML PREMIX 20.96 MG IV (23:32)
[2021-01-24 23:35] VITALS: BP 115/78; PULSE 134; RESP 16; O2SAT 96
--- NOTE | 2021-01-24 23:37 | USR_ITS ---
PROCEDURE INFORMATION: Exam: US Abdomen, Limited; Right Upper Quadrant Exam date and time: 01/24/2021 11:37 PM Age: 70 years old Clinical indication: Abdominal pain; Additional info: Abd pain TECHNIQUE: Imaging protocol: US abdomen. Real time ultrasound with image documentation. Limited exam focused on the right upper quadrant. COMPARISON: CT angio chest w abd pel w con 01/24/2021 10:52 PM FINDINGS: Liver: Hepatic steatosis. Gallbladder: Negative for cholelithiasis. Gallbladder wall is thickened measuring up to 1.5 cm. Positive Pena's sign is reported. Small amount of edema about the gallbladder wall. Common bile duct: Normal. No stones. No dilation. Pancreas: Visualized pancreas is unremarkable. Right kidney: Right kidney 17 mm cyst, negative for follow-up advised. US/US gall bladder [id number] IMPRESSION: 1. Negative for cholelithiasis, however, gallbladder wall appears thickened up to at least 1.5 cm with a positive Pena's sign and small amount of edema about the gallbladder wall, concerning for an evolving cholecystitis, a nuclear medicine HIDA scan could further evaluate this. 2. Right kidney 17 mm cyst, negative for follow-up advised. 3. Hepatic steatosis 4. Right kidney 17 mm cyst, negative for follow-up advised. Radiation Dose CTDIVOL = (mGy): DLP = (mGy-cm)
[2021-01-24 23:38] LABS: Lactate (Lactic Acid level) 1.7 mmol/L (0.5-2.2)
[2021-01-24] MEDS: piperacillin-tazobactam 4.5 GM in sodium chloride 0.9% (plus) 50 ML IV (23:43)
--- NOTE | 2021-01-24 23:45 | ECG_ITS ---
[facility] [place] [facility] Date: 2021-01-24 Pat Name: Sabina Valdez Department: Room: Gender: Female [employer] Developer: : 1950 Requested By: Kendall Jang Order Number: [id number] Reading MD: ANDREA GUILLORY Measurements Intervals Clarks Rate: 75 P: 37 PA: 189 QRS: 0 QRSD: 85 T: 41 QT: 371 QTc: 416 Interpretive Statements SINUS RHYTHM Compared to ECG 01/24/2021 21:57:17 Atrial fibrillation no longer present Right bundle-branch block no longer present Electronically Signed On 01-25-2021 0:14:06 CDT by ANDREA GUILLORY [id number]
[2021-01-24 23:47] VITALS: BP 115/78; PULSE 140; RESP 30; O2SAT 92
[2021-01-25] VITALS (106 sets, daily range): BP systolic 83–146; BP diastolic 59–105; PULSE 61–161; RESP 10–30; TEMP 36.2–36.7; O2SAT 88–100; BMI 23.1
[2021-01-25] MEDS: fentaNYL 50 mcg/mL INJ 2mL IVP ×6 (00:33→21:06)
[2021-01-25] MEDS: heparin 5,000 unit/mL INJ 1 mL IV (00:34)
[2021-01-25] MEDS: heparin drip 25,000 UNIT/500 ML PREMIX 19.56 UNIT IV (00:42)
[2021-01-25 00:58] LABS: Troponin 5 2HR 23.89 ng/L (0-10)
[2021-01-25 01:00] LABS: Troponin 5 2HR Delta -2.11 ABS# (0-10)
[2021-01-25 01:16] LABS: Add Urine Microscopic? YES; Bilirubin Urine 1+ (Negative); Blood Urine 2+ (Negative); Glucose Urine UA Norm (Normal); Ketones Urine 1+ (Negative); Leukocyte Esterase Urine 2+ (Negative); Nitrate Urine Positive (Negative); Protein Urine 1+ (Negative); Urine Appearance SL Hazy (CLEAR); Urine Color Yellow (Yellow); Urobilinogen Urine 8 mg/dL (Negative); pH Urine 6.5 (5-7)
[2021-01-25 01:31] LABS: Add Urine Culture? No; Bacteria Urine 4+ /hpf; RBC Urine 15-25 /hpf (0-2); Squamous Epithelial Cell Urine 15-25 /hpf (0-5); WBC Urine >100 /hpf (0-5)
--- NOTE | 2021-01-25 03:06 | PM.HP ---
Providers/Chief Complaint Admitting Physician: Tierra Rossi MD Primary Care Provider: Travis Boss Chief Complaint: back pain History of Present Illness Sabina Valdez is a 70 year old female with a complex recent history who presented to the emergency room with chief complaint of back pain. Pain was in the mid to lower back and predominantly on the right side. It was severe and associated with shortness of breath. Upon arrival patient was noted to be in atrial fibrillation with rapid ventricular response. She has a known history of atrial fibrillation and review of records shows it has been difficult to rate control on prior admissions. She was discharged with oral metoprolol last hospital stay at 50 mg twice daily. It looks like she has been on rhythm before and at least during 1 hospital stay digoxin was recommended. Extensive work-up was done in the ER due to other complaints such as pain in the right lower extremity and multiple comorbid conditions. She underwent cardiac catheterization at the end of November that revealed single-vessel disease for which medical management was recommended. She presented in early December with critical limb ischemia and ended up having 2 stents placed in the right lower extremity peroneal artery. She has known CHF with echo that showed ejection fraction around 40% but an arteriogram at the end of November demonstrating ejection fraction around 20%. She is on an YESI inhibitor chronically. She was prescribed Eliquis because of the stent placement in early December but it is unclear if she has been taking it as prescribed. Ultimately with the work-up today she was found to have recurrent critical limb ischemia in the same leg involving the right posterior tibial and dorsalis pedis arteries. Additionally she had abnormal liver enzymes, positive Pena sign and imaging findings suggestive of early cholecystitis. She had an abnormal urinalysis although it did look to be a contaminated specimen and persisted in having atrial fibrillation with rapid ventricular response despite initiation of esmolol. She was started on a heparin drip for critical limb ischemia. Dr. Veronica was consulted from cardiology and Dr. Trujillo was consulted from surgery. Patient is being admitted to the ICU for further care. Currently she is complaining of pain in the right lower extremity and right upper quadrant around to the right back. She denies chest pain. She has been short of breath but is not currently short of breath. She does have palpitations. She denies any vomiting. She has had some dysuria and urinary frequency. No hematuria. Bowels have been regular. She has not sought medical care elsewhere since she was last here. Review of Systems Const: Reports: chills, change in appetite (No appetite), fatigue and malaise; Denies: fever(s) ENMT: Denies: throat pain or nasal congestion Card: Reports: palpitations, dyspnea on exertion and leg pain with exertion; Denies: chest pain or edema Resp: Reports: dyspnea; Denies: pain on inspiration GI: Reports: abdominal pain; Denies: nausea, vomiting, diarrhea, constipation, hematochezia or melena : Reports: difficulty voiding and urinary frequency; Denies: hematuria Musc: Reports: back pain and extremity pain (Right lower extremity below the knee) Skin/Breast: Reports: other (No acute sores or new bruises) Neuro: Reports: numbness in extremities (Right lower extremity), weakness in extremities and difficulty walking (Secondary to pain) Psych: Denies: anxiety Ortega/Lymph: Denies: easy bruising Medications/Allergies Home Medications Medication Instructions Recorded Confirmed Last Taken Type multivitamin 1 tab PO DAILY@12 06/16/20 12/31/20 12/30/20 History cyanocobalamin (vitamin B-12) 250 mcg PO QAM 12/01/20 12/31/20 12/30/20 History [Vitamin B-12] Eliquis 5 mg PO BID 30 Days #60 tab 12/04/20 12/31/20 12/30/20 Rx fluticasone propionate 2 spray INTRANASAL DAILY 12/16/20 12/31/20 Unknown History ofloxacin 5 drp OTIC (EAR) DAILY 12/16/20 12/31/20 12/15/20 History lisinopril 2.5 mg PO DAILY #30 tab 12/19/20 12/31/20 Unknown Rx Vitamin C 500 mg PO DAILY 12/31/20 12/31/20 12/30/20 History acetaminophen 1,000 mg PO Q4H PRN 12/31/20 12/31/20 12/31/20 04:46 History clopidogrel 75 mg PO DAILY #90 tab 01/02/21 Unknown Rx metoprolol tartrate 50 mg tablet 50 mg PO BID #60 tab 01/11/21 01/11/21 Unknown Rx Allergies Allergy/AdvReac Type Severity Reaction Status Date / Time codeine Allergy Unknown ALGY-Rash Verified 01/21/21 09:17 sulfamethoxazole Allergy Unknown ALGY-Rash Verified 01/21/21 09:17 [From Bactrim] trimethoprim [From Bactrim] Allergy Unknown ALGY-Rash Verified 01/21/21 09:17 PFSH Acute PFSH: Medical History (Updated 01/25/21 @ 03:56 by Tierra Rossi MD) Anxiety Aortic regurgitation Atrial fibrillation Back pain CAD (coronary artery disease) Angiogram 12/18/2020 showed single-vessel disease, distal circumflex high-grade lesion, recommendation for medical management at time CHF (congestive heart failure) EF 40 to 45% on echo and 20-25% on LV gram from cardiac angiogram with global LV hypokinesia, diastolic dysfunction. Chronic ankle pain, bilateral Chronic pain of both knees Depression GERD without esophagitis Interstitial cystitis Limb ischemia Acute limb ischemia with limb salvage percutaneous procedure performed. Migraine Mitral regurgitation Moderate episode of recurrent major depressive disorder Overactive bladder PAD (peripheral artery disease) Positive cardiac stress test (~11/2020) Recurrent UTI Tremor Surgical History (Updated 01/25/21 @ 03:18 by Tierra Rossi MD) History of cardiac catheterization (12/18/20) Dr Veronica Hx of hysterectomy Status post peripheral artery angioplasty with insertion of stent (12/31/20) Dr Jimenez, thrombectomy and balloon angioplasty RLE, drug eluting stent 2 x to peroneal artery Family History Mother , AT AGE 80 Diabetes Cancer CAD (coronary artery disease) Father CAD (coronary artery disease) Brother CAD (coronary artery disease) Sister CAD (coronary artery disease) Social History Smoking and tobacco status: never smoked Alcohol intake: never Marital status: / Current occupational status: disabled Vitals/I&O/Wt Last Vital Signs Temp 99.2 F 01/24/21 21:43 Pulse 112 H 01/25/21 02:02 Resp 30 H 01/25/21 03:01 BP 102/77 01/25/21 02:30 Pulse Ox 96 01/25/21 03:01 01/24/21 01/24/21 01/25/21 14:59 22:59 06:59 Intake Total 224.634 / 224.634 Balance 224.634 / 224.634 Weight last 48 hrs Weight 69.853 kg Physical Exam Narrative: EXAM NARRATIVE: Constitutional: Awake and alert, thin build, chronic ill appearance HEENT: Mild bitemporal wasting, pupils are equally reactive, arcus senilis is noted nasopharynx is clear, oropharynx with dry mucous membranes and poor dentition, tongue is coated with scattered white patches Neck: Supple Respiratory: Decreased breath sounds at the bases, shallow respirations at times, no wheezes Cardiovascular: Tachycardic, irregularly irregular rhythm, no discernible murmurs Abdomen: Soft, tender to palpation right upper quadrant without rebound or guarding, nondistended with positive bowel sounds : Lopez catheter noted Extremities: Both lower extremities are cool to touch but the right lower extremity is cooler than the left lower extremity. Strong femoral pulses are noted on the right but I am unable to palpate popliteal pulse nor foot pulses. Right foot has a dusky appearance. Capillary refill is around 5 seconds. Skin: Scattered bruises in spots consistent with iatrogenic effect, skin has a slightly grayish hue all over presently, dry Neuro: Speech clear, face symmetric, moves all extremities but generally weak Psych: Flat affect Urinary Catheter Management^: Lopez: Cath Placed During This Visit: yes Urinary Catheter Date of Insertion: 01/25/21 Urinary Catheter Time of Insertion: 00:45 Data : 01/24/21 21:40 01/24/21 21:40 Other Labs: Laboratory Results WBC 14.9 10^3/uL (4.0-10.0) H 01/24/21 21:40 RBC 4.79 10^6/uL (4.1-5.3) 01/24/21 21:40 Hgb 13.0 g/dL (11.5-15.3) 01/24/21 21:40 Hct 43.3 % (37.0-47.0) 01/24/21 21:40 MCV 90.4 fl (81-99) 01/24/21 21:40 MCH 27.1 pg (28.0-34.0) L 01/24/21 21:40 MCHC 30.0 g/dL (30.0-36.0) 01/24/21 21:40 RDW 15.1 % (12.1-15.1) 01/24/21 21:40 Plt Count 127 10^3/cmm (130-400) L 01/24/21 21:40 MPV 12.2 fL (7.4-10.4) H 01/24/21 21:40 Neut % (Auto) 77.1 % 01/24/21 21:40 Lymph % (Auto) 11.5 % 01/24/21 21:40 Custer % (Auto) 10.4 % 01/24/21 21:40 Eos % (Auto) 0.1 % 01/24/21 21:40 Baso % (Auto) 0.2 % 01/24/21 21:40 Neut # (Auto) 11.53 10^3/uL (1.8-7.7) H 01/24/21 21:40 Lymph # (Auto) 1.7 10^3/uL (0.8-4.8) 01/24/21 21:40 Custer # (Auto) 1.6 10^3/uL (0.2-0.9) H 01/24/21 21:40 Eos # (Auto) 0.0 10^3/uL (0.0-0.8) 01/24/21 21:40 Baso # (Auto) 0.0 10^3/uL (0.0-0.1) 01/24/21 21:40 Nucleated RBC % (auto) 0.6 % 01/24/21 21:40 Nucleated RBCs # 0.1 /100WBC 01/24/21 21:40 Sodium 145 mmol/L (136-145) 01/24/21 21:40 Potassium 3.8 mmol/L (3.5-5.1) 01/24/21 21:40 Chloride 111 mmol/L (98-107) H 01/24/21 21:40 Carbon Dioxide 21 mmol/L (22-29) L 01/24/21 21:40 Anion Gap 16.8 (5-19) 01/24/21 21:40 BUN 31 mg/dL (8-23) H 01/24/21 21:40 Creatinine 0.5 mg/dL (0.5-0.9) 01/24/21 21:40 GFR Calculation 122.0 mL/min (90-130) 01/24/21 21:40 Glucose 114 mg/dL (65-115) 01/24/21 21:40 Calculated Osmolality 307 mOsm/kg (285-295) H 01/24/21 21:40 Lactate 1.7 mmol/L (0.5-2.2) 01/24/21 23:20 Calcium 8.6 mg/dL (8.5-10.5) 01/24/21 21:40 Total Bilirubin 1.8 mg/dL (0.15-1.2) H 01/24/21 21:40 AST 168 U/L (0-32) H 01/24/21 21:40 ALT 176 U/L (0-33) H 01/24/21 21:40 Alkaline Phosphatase 84 IU/L (35-105) 01/24/21 21:40 Troponin T Baseline 26 ng/L (0-10) H 01/24/21 21:40 Troponin T 120 Minute 23.89 ng/L (0-10) H 01/24/21 23:35 Delta Troponin T -2.11 ABS# (0-10) L 01/24/21 23:35 NT-Pro-B Natriuret Pep 9598 pg/mL (0-125) H 01/24/21 21:40 Total Protein 6.6 g/dL (6.6-8.7) 01/24/21 21:40 Albumin 3.6 g/dL (3.5-5.2) 01/24/21 21:40 Globulin 3.0 g/dL (1.3-4.6) 01/24/21 21:40 Lipase 47 U/L (13-60) 01/24/21 21:40 TSH 2.57 uIU/mL (0.27-4.20) 01/24/21 21:40 Urine Color Yellow (Yellow) 01/25/21 00:25 Urine Appearance Sl hazy (CLEAR) 01/25/21 00:25 Urine pH 6.5 (5-7) 01/25/21 00:25 Ur Specific Arnold 1.010 (1.005-1.030) 01/25/21 00:25 Urine Protein 1+ (Negative) H 01/25/21 00:25 Urine Glucose (UA) Norm (Normal) 01/25/21 00:25 Urine Ketones 1+ (Negative) H 01/25/21 00:25 Urine Blood 2+ (Negative) H 01/25/21 00:25 Urine Nitrate Positive (Negative) H 01/25/21 00:25 Urine Bilirubin 1+ (Negative) H 01/25/21 00:25 Urine Urobilinogen 8 mg/dL (Negative) H 01/25/21 00:25 Ur Leukocyte Esterase 2+ (Negative) H 01/25/21 00:25 Urine RBC 15-25 /hpf (0-2) H 01/25/21 00:25 Urine WBC >100 /hpf (0-5) H 01/25/21 00:25 Ur Squamous Epith Cells 15-25 /hpf (0-5) H 01/25/21 00:25 Amorphous Sediment Not Reportable 01/25/21 00:25 Urine Bacteria 4+ /hpf (NONE) H 01/25/21 00:25 Impressions Chest X-Ray 01/24/21 21:45 IMPRESSION: Findings most consistent with low-grade interstitial edema. Radiation Dose CTDIVOL = (mGy): DLP = (mGy-cm) Chest/Abdomen/Pelvis CT 01/24/21 22:21 IMPRESSION: 1. No visible evidence of pulmonary embolism/pulmonary arterial thrombus. 2. Bilateral moderate volume pleural effusions, right volume greater than left. 3. Cardiomegaly with coronary artery disease and evidence of early filling of the inferior vena cava with contrast often seen in right-sided heart failure. 4. Findings of low-grade interstitial edema. IMPRESSION: 1. The gallbladder appears inflamed. Potential low-grade acalculous cholecystitis. 2. Diverticulosis coli without evidence for acute diverticulitis. COMMENTS: Consistent with the [place] [employer]'s Incidental Findings Committee white paper (J Am Teresa Radiol 2018): Any incidental renal lesion less than 1 cm or classified as too small to characterize, or any incidental cystic renal lesion characterized as simple-appearing, is likely benign. No follow-up imaging is recommended for these lesions per consensus recommendations based on imaging criteria. Radiation Dose CTDIVOL = (mGy): DLP = 1055.25~1055.25 (mGy-cm) Duplex Scan Lower Extremity Artery 01/24/21 23:16 IMPRESSION: 1. Right posterior tibial artery and dorsalis pedis arteries demonstrate no blood flow. 2. Right common femoral artery biphasic blood flow suggesting a degree of stenosis. 3. Right superficial femoral artery demonstrates areas of biphasic blood flow suggesting a degree of stenosis. 4. Right popliteal artery demonstrates biphasic blood flow suggesting a degree of stenosis. 5. Left common femoral artery is not visualized. 6. Left superficial femoral artery and popliteal artery demonstrate triphasic blood flow. 7. Left dorsalis pedis artery and posterior tibial artery demonstrates biphasic blood flow suggesting a degree of stenosis. Radiation Dose CTDIVOL = (mGy): DLP = (mGy-cm) ADDENDUM: 01/25/21 0138 THIS REPORT CONTAINS FINDINGS THAT MAY BE CRITICAL TO PATIENT CARE. The findings were verbally communicated via telephone conference with Dr. Flanagan at 1:37 AM CDT on 01/25/2021. The findings were acknowledged and understood. Radiation Dose CTDIVOL = (mGy): DLP = (mGy-cm) Gallbladder Ultrasound 01/24/21 23:37 IMPRESSION: 1. Negative for cholelithiasis, however, gallbladder wall appears thickened up to at least 1.5 cm with a positive Pena's sign and small amount of edema about the gallbladder wall, concerning for an evolving cholecystitis, a nuclear medicine HIDA scan could further evaluate this. 2. Right kidney 17 mm cyst, negative for follow-up advised. 3. Hepatic steatosis 4. Right kidney 17 mm cyst, negative for follow-up advised. Radiation Dose CTDIVOL = (mGy): DLP = (mGy-cm) Micro: Microbiology 01/24/21 23:15 Blood Culture - Preliminary Blood SPECIMEN COLLECTED 01/24/21 23:00 Blood Culture - Preliminary Blood SPECIMEN COLLECTED A&P Assessment and plan (1) Back pain: This is patient's chief complaint, mid to lower back primarily on the right side without radiation associated with shortness of breath Qualifiers: Back pain location: low back pain Chronicity: acute Back pain laterality: right Sciatica presence: without sciatica Qualified Code(s): M54.50 - Low back pain, unspecified (2) Critical limb ischemia with history of revascularization of same extremity: Had 2 stents placed in the right peroneal artery on December by Dr. Jimenez with return of flow and dopplerable foot pulses. Currently without dopplerable pulses and absence of flow on arterial ultrasound in the right posterior tibial artery and dorsalis pedis artery. Has associated pain and duskiness and coolness of the foot. Supposed to be on Plavix and Eliquis but unclear if she is taking as directed. Status: Acute (3) Acute cholecystitis: With report of inflammatory changes on CT imaging as well as wall thickening/edema and a positive Pena sign on gallbladder ultrasound concerning for early or evolving cholecystitis. Has elevation in total bilirubin, AST and ALT but alkaline phosphatase is normal which is not necessarily consistent. Liver enzyme abnormalities could be from congestion. In addition to positive Pena sign on ultrasound imaging, she does have pain noted on physical exam as well Status: Acute (4) UTI (urinary tract infection): In a patient with history of recurrent urinary tract infections. Specimen is contaminated with squamous epithelial cells. She does report dysuria and urinary frequency. Status: Acute Qualifiers: Urinary tract infection type: acute cystitis Hematuria presence: without hematuria Qualified Code(s): N30.00 - Acute cystitis without hematuria (5) Atrial fibrillation with RVR: Patient with known atrial fibrillation. Has been on metoprolol outpatient. Was difficult to control last hospital stay from review of records. Status: Acute (6) CHF (congestive heart failure): Acute on chronic with EF 40-45% on echo and 20-25% on LV gram from cardiac angiogram on 12/18/2020 with global LV hypokinesia, diastolic dysfunction. Has small pleural effusions and evidence of pulmonary edema on chest x-ray which I suspect is primarily from A. fib with RVR currently. Chronically on an YESI inhibitor low-dose but not on diuresis usually. Status: Chronic Qualifiers: Heart failure type: systolic Heart failure chronicity: acute on chronic Qualified Code(s): I50.23 - Acute on chronic systolic (congestive) heart failure (7) Single vessel coronary artery disease: Left circumflex, underwent cardiac catheterization on December 18 of this year. Given the location and size of the vessel, decision was made for medical management at the time. Denies current chest pain. Status: Acute (8) Chronic anticoagulation: Supposed to be on Eliquis but unclear if she is taking as directed Status: Acute Additional A&P Information Normal lactic acid Inpatient admission ICU care currently Continue heparin drip Dr. Veronica has been consulted secondary to critical limb ischemia, ED physician discussed with him Monitor right foot for worsening Continue esmolol drip, titrating up for rate control Check digoxin level If digoxin level is low we will load with digoxin Maintain n.p.o. status for possible intervention Broad-spectrum antibiotics to include vancomycin, Zosyn and Levaquin which should cover not only for potential acute cholecystitis but also urinary tract infection with organisms that have been recently identified (include enterooccus faecalis and pansensitive E. coli) Follow-up pending cultures Dr. Trujillo has been consulted due to concern for acute cholecystitis, ED physician discussed with him May require some IV diuresis, currently blood pressures are low normal and maintaining saturations Continue low-dose lisinopril as blood pressure tolerates Need to see if we can get medication she is actually taking clarified versus what is prescribed, discussed with nursing staff Oxygen therapy if needed Lopez catheter for close monitoring of urine output and patient with multiple comorbid conditions Pain control as needed for right lower extremity Laxative therapy with narcotics No mechanical prophylaxis secondary to severe peripheral artery disease Heparin drip covers in place of pharmacological prophylaxis presently Findings, concerns and plans were discussed briefly with patient and she was given an opportunity to ask questions Currently anticipate discharge home patient refused skilled placement the last time. Would be ideal if she could get to a facility for short period of time just so we can see what happens with someone at least watching over what medicine she is or is not taking. Full code Attestations Medical Necessity Statement*: Anticipated stay greater than 2 midnights in a patient presenting with recurrent critical limb ischemia, back pain and abdominal pain and findings of acute cholecystitis Coding Level of Care Code Acute Pellet Preparation Operator for Fredy Cabrera Diagnoses Back pain M54.50 Back pain location: low back pain Chronicity: acute Back pain laterality: right Sciatica presence: without sciatica Critical limb ischemia with history of revascularization of same extremity I70.229; Z98.890 Acute cholecystitis K81.0 UTI (urinary tract infection) N30.00 Urinary tract infection type: acute cystitis Hematuria presence: without hematuria Atrial fibrillation with RVR I48.91 CHF (congestive heart failure) I50.23 Heart failure type: systolic Heart failure chronicity: acute on chronic Single vessel coronary artery disease I25.10 Chronic anticoagulation Z79.01
--- NOTE | 2021-01-25 03:45 | ECG_ITS ---
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1950 Requested By: Kendall Jang Order Number: [id number] Dulce Maria MD: ANDREA GUILLORY Measurements Intervals Spencer Rate: 134 P: MN: QRS: 89 QRSD: 125 T: 268 QT: 325 QTc: 487 Interpretive Statements ATRIAL FIBRILLATION WITH RAPID VENTRICULAR RESPONSE RIGHT BUNDLE BRANCH BLOCK [120+ ms QRS DURATION, UPRIGHT V1, 40+ ms S IN I/aVL/V4/V5/V6] MODERATE T-WAVE ABNORMALITY, CONSIDER LATERAL ISCHEMIA [-0.1+ mV T-WAVE IN I/aVL/V5/V6] Compared to ECG 01/24/2021 23:46:21 Right bundle-branch block now present T-wave abnormality now present Possible ischemia now present Sinus rhythm no longer present Electronically Signed On 01-25-2021 21:59:28 CDT by ANDREA GUILLORY [id number]
[2021-01-25] MEDS: esmolol drip 2,500 MG/250 ML PREMIX 83.82 MG IV (03:50)
[2021-01-25] MEDS: digoxin 250 mcg/ml INJ 2 mL 125 MCG IVP ×2 (03:52→04:17)
--- NOTE | 2021-01-25 03:59 | PC.PHAR ---
Vancomycin is dosed at 1500mg IVPB every 12 hours to produce a predicted trough level of 17.51 (population based pharmacokinetic analysis). A trough level has been ordered from the lab to be obtained before the fourth dose to confirm and adjust if needed.
[2021-01-25] MEDS: levofloxacin-dextrose 5 % 500 MG/100 ML PREMIX 100 MG IV (04:18)
[2021-01-25 05:04] LABS: INR 1.79 (0.8-1.2)
[2021-01-25 05:12] LABS: Alkaline Phosphatase 68 IU/L (35-105); Digoxin 0.3 ng/mL (0.6-1.2); Lactate Dehydrogenase 387 U/L (135-214); Magnesium 1.9 mg/dL (1.7-2.3); Total Bilirubin 1.2 mg/dL (0.15-1.2); Troponin 5 6HR 24.03 ng/L (0-10)
[2021-01-25 05:28] LABS: Partial Thromboplastin Time 125.1 SECONDS (23.9-36.7); Troponin 5 6HR Delta -1.97 ng/L (0-12)
[2021-01-25 05:41] LABS: Gamma Glutamyl Transferase 40 U/L (5-36)
[2021-01-25 05:42] LABS: Chloride 114 mmol/L (98-107); Potassium 3.9 mmol/L (3.5-5.1); Sodium 144 mmol/L (136-145)
[2021-01-25 05:44] LABS: Alanine Aminotransferase 143 U/L (0-33); Albumin Level 0.2 g/dL (3.5-5.2); Anion Gap 16.9 (5-19); Aspartate Amino Transferase 127 U/L (0-32); Blood Urea Nitrogen 29 mg/dL (8-23); Calcium 7.7 mg/dL (8.5-10.5); Carbon Dioxide 17 mmol/L (22-29); Globulin 4.9 g/dL (1.3-4.6); Glucose 116 mg/dL (65-115); Osmolality Calculated 305 mOsm/kg (285-295); Total Protein 5.1 g/dL (6.6-8.7)
[2021-01-25] MEDS: digoxin 250 mcg/ml INJ 2 mL IVP ×3 (06:18→17:02)
--- NOTE | 2021-01-25 07:13 | PM.CONSULT ---
Providers/Reason For Consult Consulting Physician/Specialty*: Jorge Trujillo MD Reason for Consult*: Concern for acute cholecystitis Requesting Physician: Dr. Flanagan Attending Physician: Tierra Rossi MD Primary Care Provider: Travis Boss History of Present Illness History of Present Illness Chief Complaint: My side hurts History of present illness: Ms. irena Valdez is a pleasant 70 year old female with multiple medical comorbidities. Patient presented to the emergency department with right-sided abdominal pain described as being sharp referred to the back and in the epigastric area. Nothing seems to make it worse or better. Patient did not have this problem before and she is not aware of any gallbladder disease in the past. She tries to avoid greasy as every now and then she would get intermittent fatty dyspepsia. Patient apparently has an ejection fraction of 20% on an arteriogram that was done back in November. Also patient presents with worsening pain of the right lower extremity concerning for critical limb ischemia and was placed on heparin drip. And was admitted to the hospitalist service. Patient had undergone stent placements by cardiac services before back in December 2020. Patient does have atrial fibrillation with RVR and she is on chronic Eliquis therapy. Further work-up was done in the form of CT scan of the abdomen and pelvis Review of Systems General: Reports: 10 or more systems reviewed and unremarkable except in HPI and below Meds/Allergies Home Medications and Allergies Home Medications Medication Instructions Recorded Confirmed Last Taken Type multivitamin 1 tab PO DAILY@12 06/16/20 12/31/20 12/30/20 History cyanocobalamin (vitamin B-12) 250 mcg PO QAM 12/01/20 12/31/20 12/30/20 History [Vitamin B-12] Eliquis 5 mg PO BID 30 Days #60 tab 12/04/20 12/31/20 12/30/20 Rx fluticasone propionate 2 spray INTRANASAL DAILY 12/16/20 12/31/20 Unknown History ofloxacin 5 drp OTIC (EAR) DAILY 12/16/20 12/31/20 12/15/20 History lisinopril 2.5 mg PO DAILY #30 tab 12/19/20 12/31/20 Unknown Rx Vitamin C 500 mg PO DAILY 12/31/20 12/31/20 12/30/20 History acetaminophen 1,000 mg PO Q4H PRN 12/31/20 12/31/20 12/31/20 04:46 History clopidogrel 75 mg PO DAILY #90 tab 01/02/21 Unknown Rx metoprolol tartrate 50 mg tablet 50 mg PO BID #60 tab 01/11/21 01/11/21 Unknown Rx Allergies Allergy/AdvReac Type Severity Reaction Status Date / Time codeine Allergy Unknown ALGY-Rash Verified 01/25/21 07:36 sulfamethoxazole Allergy Unknown ALGY-Rash Verified 01/25/21 07:36 [From Bactrim] trimethoprim [From Bactrim] Allergy Unknown ALGY-Rash Verified 01/25/21 07:36 Current Medications Current Medications Generic Name Dose Route Start Last Admin Trade Name Freq PRN Reason Stop Dose Admin Fentanyl 50 mcg 01/24/21 21:53 01/25/21 03:01 Fentanyl 50 Mcg/Ml Inj 2ml IVP 50 mcg Q30M PRN Administration pain Heparin Sodium (Porcine) 0 unit 01/25/21 00:06 01/25/21 00:34 Heparin 5,000 Unit/Ml Inj 1 Ml IV 3,500 unit PRN PRN Administration Heparin weight-base protocol Protocol Esmolol HCl 2,500 mg in 250 mls @ 0 mls/hr 01/24/21 22:15 01/25/21 03:50 Brevibloc Drip IV 200 mcg/kg/min .Q0M JODIE 83.82 mls/hr Administration Protocol Per Protocol Heparin Sodium/Sodium Chloride 25,000 unit in 500 mls @ 0 mls/hr 01/25/21 00:15 01/25/21 00:42 Heparin Drip IV 14 unit/kg/hr .Q0M JODIE 19.56 mls/hr Administration Protocol Per Protocol Levofloxacin/Dextrose 500 mg in 100 mls @ 100 mls/hr 01/25/21 03:45 01/25/21 05:56 Levaquin-D5w IV Infused Q24H JODIE Infusion Protocol PFSH Acute PFSH: Medical History (Updated 01/25/21 @ 07:38 by Jorge Trujillo MD) Anxiety Aortic regurgitation Atrial fibrillation Back pain CAD (coronary artery disease) Angiogram 12/18/2020 showed single-vessel disease, distal circumflex high-grade lesion, recommendation for medical management at time CHF (congestive heart failure) EF 40 to 45% on echo and 20-25% on LV gram from cardiac angiogram with global LV hypokinesia, diastolic dysfunction. Chronic ankle pain, bilateral Chronic pain of both knees Depression GERD without esophagitis Interstitial cystitis Limb ischemia Acute limb ischemia with limb salvage percutaneous procedure performed. Migraine Mitral regurgitation Moderate episode of recurrent major depressive disorder Overactive bladder PAD (peripheral artery disease) Positive cardiac stress test (~11/2020) Recurrent UTI Tremor Surgical History (Updated 01/25/21 @ 03:18 by Tierra Rossi MD) History of cardiac catheterization (12/18/20) Dr Veronica Hx of hysterectomy Status post peripheral artery angioplasty with insertion of stent (12/31/20) Dr Jimenez, thrombectomy and balloon angioplasty RLE, drug eluting stent 2 x to peroneal artery Family History Mother , AT AGE 80 Diabetes Cancer CAD (coronary artery disease) Father CAD (coronary artery disease) Brother CAD (coronary artery disease) Sister CAD (coronary artery disease) Social History Smoking and tobacco status: never smoked Alcohol intake: never Marital status: / Current occupational status: disabled Vitals/I&O/Wt Last Vital Signs Temp 97.1 F L 01/25/21 03:00 Pulse 106 H 01/25/21 06:30 Resp 21 H 01/25/21 06:30 BP 99/81 01/25/21 06:30 Pulse Ox 100 01/25/21 06:30 01/24/21 01/25/21 01/25/21 22:59 06:59 14:59 Intake Total 869.460 / 869.460 Balance 869.460 / 869.460 Weight last 48 hrs Weight 147 lb 9.6 oz Weight 154 lb Physical Exam Narrative: EXAM NARRATIVE: Patient is conscious alert oriented X3, in mild distress BMI 23.1 Head and neck examination PERRLA no masses no cervical lymphadenopathy no jaundice Cardiac examination audible S1-S2 no murmurs no gallops no arrhythmias Chest is clear bilateral,abscence of Rhonchi or wheezes,no surgical emphysema Abdomen right upper quadrant and epigastric tenderess nondistended soft no organomegaly guarding or rigidity/no signs of peritonitis Right lower extremity femoral pulse is palpable, questionable palpable right popliteal artery and dopplerable right peroneal, right dorsalis pedis and posterior tibial arteries not dopplerable. Urinary Catheter Management^: Lopez: Cath Placed During This Visit: yes Reason for Continuing Indwelling Catheter: Accurate Measurement of Urinary Output in Critically Ill Patients Urinary Catheter Date of Insertion: 01/25/21 Urinary Catheter Time of Insertion: 00:45 Data Micro: Micro: Microbiology 01/24/21 23:15 Blood Culture - Pr eliminary Blood SPECIMEN COLLE ROSEMARIE 01/24/21 23:00 Blood Culture - Pr eliminary Blood SPECIMEN [facility] A&P Assessment and plan (1) Right upper quadrant abdominal pain: After history taking physical examination and reviewing the chart and images of the CT scan of the abdomen and pelvis and ultrasound with my personal interpretation. Certainly the patient does have pericholecystic fluid and showed some thickness of the gallbladder wall. Which can be concerning for acalculus cholecystitis. But also given the fact that the patient does have congestive heart failure and an enlarged liver could be part of a chronic congestive hepatopathy. I would recommend to keep the patient n.p.o. and obtain a HIDA scan when medically appropriate I do not see that the patient at the present time is an appropriate candidate for potential surgical intervention if approved to have cholecystitis. We will continue coordinating care with hospitalist and cardiology services If HIDA scan proves to show cholecystitis and patient continues to have concomitant pain and not responding to conservative measures in the form of broad-spectrum antibiotics an alternative would be a cholecystostomy tube to be placed by IR to alleviate her symptoms and to obtain cultures and sensitivities from the gallbladder fluid. We will continue to follow and also would recommend to have a trend of blood work including but not limited to liver function tests Thank you for consulting general surgery to participate taking care Ms. Valdez Status: Acute Consult Attestations Medical Necessity Statement: Per admitting service Time Spent in Patient Care: (>than 50% of time spent in counselling and/or direct pt care on unit). 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
[2021-01-25 07:21] LABS: Partial Thromboplastin Time 174.9 SECONDS (23.9-36.7)
[2021-01-25] MEDS: docusate sodium 100 mg Capsule PO ×2 (08:05→17:02)
[2021-01-25] MEDS: lisinopril 2.5 mg Tablet PO (08:05)
[2021-01-25] MEDS: nystatin 100,000 unit/mL UDC 5 mL 400000 UNIT PO ×4 (08:05→21:06)
[2021-01-25] MEDS: pantoprazole DR 40 mg Tablet PO (08:05)
[2021-01-25] MEDS: piperacillin-tazobactam 3.375 GM in sodium chloride 0.9% (plus) 50 ML IV ×2 (08:05→15:52)
--- NOTE | 2021-01-25 08:15 | P.PN_ITS ---
Subjective Subjective: Interval history: History and physical reviewed. Patient complains of pain in her right lower extremity, and her abdomen. Medications: Reviewed: Yes Vitals/I&O/Wt Last Vital Signs Temp 97.1 F L 01/25/21 03:00 Pulse 106 H 01/25/21 06:30 Resp 21 H 01/25/21 06:30 BP 99/81 01/25/21 06:30 Pulse Ox 100 01/25/21 06:30 01/24/21 01/25/21 01/25/21 22:59 06:59 14:59 Intake Total 869.460 / 869.460 138.461 / 138.461 Balance 869.460 / 869.460 138.461 / 138.461 Weight last 48 hrs Weight 66.95 kg Weight 69.853 kg Physical Exam Narrative: EXAM NARRATIVE: General exam, complaining of pain Neck is supple Cardiovascular irregular, irregular with accelerated rate Lungs clear Abdomen is soft. Positive bowel sounds. Tenderness is rather generalized in the abdomen but may be more so in the right upper quadrant. No obvious organomegaly. Extremities no cyanosis or clubbing seen currently. Cannot feel pulses on the right lower extremity. It is slightly cooler than the left. Urinary Catheter Management^: Lopez: Cath Placed During This Visit: yes Reason for Continuing Indwelling Catheter: Accurate Measurement of Urinary Output in Critically Ill Patients Urinary Catheter Date of Insertion: 01/25/21 Urinary Catheter Time of Insertion: 00:45 Data : 01/24/21 21:40 01/25/21 03:43 Micro: Microbiology 01/24/21 23:15 Blood Culture - Preliminary Blood SPECIMEN COLLECTED 01/24/21 23:00 Blood Culture - Preliminary Blood SPECIMEN COLLECTED A&P Assessment and plan (1) Back pain: This is patient's chief complaint, mid to lower back primarily on the right side without radiation associated with shortness of breath CT of her chest abdomen and pelvis demonstrated no pulmonary embolism, moderate bilateral effusions, possible cholecystitis Gallbladder ultrasound demonstrates thickened wall, positive Pena sign, small amount of edema Keep n.p.o. Qualifiers: Back pain location: low back pain Chronicity: acute Back pain laterality: right Sciatica presence: without sciatica Qualified Code(s): M54.50 - Low back pain, unspecified (2) Critical limb ischemia with history of revascularization of same extremity: Had 2 stents placed in the right peroneal artery on December by Dr. Jimenez with return of flow and dopplerable foot pulses. Currently without dopplerable pulses and absence of flow on arterial ultrasound in the right posterior tibial artery and dorsalis pedis artery. Has associated pain and duskiness and coolness of the foot. Supposed to be on Plavix and Eliquis but unclear if she is taking as directed. Interventional cardiology consult has been placed. Continue heparin drip Status: Acute (3) Acute cholecystitis: With report of inflammatory changes on CT imaging as well as wall thickening/edema and a positive Pena sign on gallbladder ultrasound concerning for early or evolving cholecystitis. Has elevation in total bilirubin, AST and ALT but alkaline phosphatase is normal which is not necessarily consistent. Liver enzyme abnormalities could be from congestion. In addition to positive M urphy sign on ultrasound imaging, she does have pain noted on physical exam as well Continue IV antibiotics of Zosyn, Levaquin Surgery consultation Status: Acute (4) UTI (urinary tract infection): In a patient with history of recurrent urinary tract infections. Specimen is contaminated with squamous epithelial cells. She does report dysuria and urinary frequency. Obtain urine culture Continue broad-spectrum antibiotics currently consisting of vancomycin, Zosyn and Levaquin Status: Acute Qualifiers: Urinary tract infection type: acute cystitis Hematuria presence: without hematuria Qualified Code(s): N30.00 - Acute cystitis without hematuria (5) Atrial fibrillation with RVR: Patient with known atrial fibrillation. Has been on metoprolol outpatient. Was difficult to control last hospital stay from review of records. Esmolol drip initiated in the emergency department Loading with digoxin Currently on heparin drip Has some element of acute systolic heart failure exacerbated by her arrhythmia. Last ejection fraction 40 to 45%. Hold YESI inhibitor secondary to lower blood pressures. If blood pressure improves, transition to oral beta-janelle and digoxin. Cardiology consultation Status: Acute (6) CHF (congestive heart failure): Acute on chronic with EF 40-45% on echo and 20-25% on LV gram from cardiac angiogram on 12/18/2020 with global LV hypokinesia, diastolic dysfunction. Has small pleural effusions and evidence of pulmonary edema on chest x-ray which I suspect is primarily from A. fib with RVR currently. See above, hold YESI inhibitor currently secondary to hypotension Status: Chronic Qualifiers: Heart failure chronicity: acute on chronic Heart failure type: systolic Qualified Code(s): I50.23 - Acute on chronic systolic (congestive) heart failure (7) Single vessel coronary artery disease: Left circumflex, underwent cardiac catheterization on December 18 of this year. Given the location and size of the vessel, decision was made for medical management at the time. Denies current chest pain. 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 Diagnoses Back pain M54.50 Back pain location: low back pain Chronicity: acute Back pain laterality: right Sciatica presence: without sciatica Critical limb ischemia with history of revascularization of same extremity I70.229; Z98.890 Acute cholecystitis K81.0 UTI (urinary tract infection) N30.00 Urinary tract infection type: acute cystitis Hematuria presence: without hematuria Atrial fibrillation with RVR I48.91 CHF (congestive heart failure) I50.23 Heart failure chronicity: acute on chronic Heart failure type: systolic Single vessel coronary artery disease I25.10 Chronic anticoagulation Z79.01
--- NOTE | 2021-01-25 09:11 | PC.CHAP ---
Pastoral Care Encounter/Spiritual Assessment Type of Contact [] Declined fishing gear mechanic visit [] Patient/Family/Request visit [] Outpatient visit [] Follow-up visit [] Physician referral [] Code/Alert [x] Routine visit [] Staff referral [] Actively dying [] Patient sleeping [] Family support [] [] Out of room [] Palliative care [] [x] Receiving care in room [] Pre-surgical visit [] Trauma [] Long length of stay [x] ICU visit [] Other: Relational/Emotional Strength [] Patient feels connected with others/family/visitors/staff [] Distress [] Loneliness/isolation [] Abandonment Spirituality of Patient [] Person of Joanna [] Attends Sikhism of their Joanna [] Believes in Prayer [] Reads Bible or Church materials [] There are Spiritual issues to be addressed Vascular Ultrasound Technician Interventions [x] Prayer [] Active listening [] Non-anxious presence [] Spiritual/emotional support [] Crisis/trauma care [] Spiritual counseling [] Bereavement support [] Provided bereavement packet [] Provided Bible/devotional materials [] Provided toy/stuffed animal, coloring book to patient or family member [] Provided Communion [] Anointing/[place] [] Salvation [x] Completed spiritual assessment [] Other: Impact on Illness or Injury [] Angry [] Fearful [] Anxious [] Often cries [] Exhaustion [] Unable to work [] Unable to attend mosque [] Unable to walk/stand [] Unable to read [] Unable to drive [] Unable to eat/drink [] Unable to sleep [] Unable to be with family [] Patient intubated [] Other: Summary Time spent with patient
--- NOTE | 2021-01-25 09:34 | PC.NURSE ---
Shift Assessment: Shift Assessment, pain assessment,rounding with Dr. Franco, and medication administration, completed this morning. Patient appears to be resting comfortably at this time.
[2021-01-25 10:22] LABS: Basophils % 0.4 %; Eosinophils % 0.2 %; Lymphocytes # 0.9 10^3/uL (0.8-4.8); Lymphocytes % 8.7 %; Mean Corpuscular HGB Conc 30.6 g/dL (30.0-36.0); Mean Corpuscular Volume 91.6 fl (81-99); Monocytes # 1.1 10^3/uL (0.2-0.9); Monocytes % 10.8 %; Neutrophils # 8.24 10^3/uL (1.8-7.7); Neutrophils % 79.2 %; Nucleated Red Blood Cells % 0.3 %; Platelet Count 97 10^3/cmm (130-400); Red Blood Count 3.93 10^6/uL (4.1-5.3); Red Cell Distribution Width 15.4 % (12.1-15.1); White Blood Count 10.4 10^3/uL (4.0-10.0)
[2021-01-25] MEDS: acetaminophen 325 mg Tablet 650 MG PO (10:35)
--- NOTE | 2021-01-25 11:23 | P.CONIM_ITS ---
Providers/Reason For Consult Consulting Physician/Specialty*: Cardiology Reason for Consult*: Cold feet absent pulses bilaterally Attending Physician: Juventino Franco MD Primary Care Provider: Travis Boss History of Present Illness History of Present Illness Sabina Valdez is a 70 year old female past medical history significant for severe peripheral arterial disease status post intervention of the left leg with one-vessel runoff when stent was placed below the knee for acute on chronic occlusion. Few weeks ago patient was admitted with new onset of atrial fibrillation with rapid ventricle response and chest pain heart rate was controlled she was taken to the [facility] she was noted to have distal circumflex lesion thought to be managed medically since patient is noncompliant and history of anemia at that time we thought that we should not be combining Plavix along with anticoagulation. Couple weeks after that patient presented with acute limb threatening ischemia. She was taken to [facility] for thrombectomy followed by balloon angioplasty and stent placement below the left knee was performed 1 vessel runoff was restored patient has chronically occluded disease below the knee not amenable to intervention. Last night patient was admitted with shortness of breath upper abdominal pain generalized weakness atrial fibrillation with rapid ventricle response and pain aches in both legs. Vascular ultrasound was performed which showed multiple segmental level stenosis throughout the peripheral arterial bed however there was flow. Patient was started on heparin for work-up warm this morning she has dopplerable anterior tibial pulse on the left and on the right side as well. Both feet appear to be warm moist and pinkish no acute limb ischemia noted. Patient appeared to be in atrial fibrillation with rapid ventricle response. She is being investigated by Dr. Obregon for gallbladder. Currently denies any chest pain. Review of Systems General: Reports: 10 or more systems reviewed and unremarkable except in HPI and below Const: Reports: chills, change in appetite (No appetite), fatigue and malaise; Denies: fever(s) Eyes: Denies: photophobia ENMT: Denies: throat pain, enlarged tonsils or nasal congestion Card: Reports: palpitations, dyspnea on exertion and leg pain with exertion; Denies: chest pain or edema Resp: Reports: dyspnea; Denies: pain on inspiration GI: Reports: abdominal pain; Denies: nausea, vomiting, diarrhea, constipation, hematochezia or melena : Reports: difficulty voiding and urinary frequency; Denies: hematuria Musc: Reports: back pain and extremity pain (Right lower extremity below the knee) Skin/Breast: Reports: other (No acute sores or new bruises) Neuro: Reports: numbness in extremities (Right lower extremity), weakness in extremities and difficulty walking (Secondary to pain) Psych: Denies: anxiety Ortega/Lymph: Denies: easy bruising All/Imm: Denies: acute wheezing Meds/Allergies Home Medications and Allergies Home Medications Medication Instructions Recorded Confirmed Last Taken Type cyanocobalamin (vitamin B-12) 250 mcg PO QAM 12/01/20 01/25/21 12/30/20 History [Vitamin B-12] Eliquis 5 mg PO BID 30 Days #60 tab 12/04/20 01/25/21 12/30/20 Rx fluticasone propionate 2 spray INTRANASAL DAILY 12/16/20 01/25/21 Unknown History ofloxacin 5 drp OTIC (EAR) DAILY 12/16/20 01/25/21 12/15/20 History acetaminophen 1,000 mg PO Q4H PRN 12/31/20 01/25/21 12/31/20 04:46 History ascorbic acid (vitamin C) [Vitamin 500 mg PO DAILY 12/31/20 01/25/21 12/30/20 History C] metoprolol tartrate 50 mg tablet 50 mg PO BID #60 tab 01/11/21 01/25/21 Unknown Rx clopidogrel 75 mg PO QAM 01/25/21 01/25/21 Unknown History lisinopril 2.5 mg PO DAILY 01/25/21 01/25/21 Unknown History Allergies Allergy/AdvReac Type Severity Reaction Status Date / Time codeine Allergy Unknown ALGY-Rash Verified 01/25/21 07:36 sulfamethoxazole Allergy Unknown ALGY-Rash Verified 01/25/21 07:36 [From Bactrim] trimethoprim [From Bactrim] Allergy Unknown ALGY-Rash Verified 01/25/21 07:36 Current Medications Current Medications Generic Name Dose Route Start Last Admin Trade Name Freq PRN Reason Stop Dose Admin Acetaminophen 650 mg 01/25/21 03:20 01/25/21 10:35 Acetaminophen 325 Mg Tablet PO 650 mg Q6H PRN Administration MILD PAIN Docusate Sodium 100 mg 01/25/21 09:00 01/25/21 08:05 Docusate Sodium 100 Mg Capsule PO 100 mg BID JODIE Administration Fentanyl 50 mcg 01/24/21 21:53 01/25/21 08:17 Fentanyl 50 Mcg/Ml Inj 2ml IVP 50 mcg Q30M PRN Administration pain Heparin Sodium (Porcine) 0 unit 01/25/21 00:06 01/25/21 00:34 Heparin 5,000 Unit/Ml Inj 1 Ml IV 3,500 unit PRN PRN Administration Heparin weight-base protocol Protocol Esmolol HCl 2,500 mg in 250 mls @ 0 mls/hr 01/24/21 22:15 01/25/21 09:03 Brevibloc Drip IV Infused .Q0M JODIE Titration Protocol Per Protocol Heparin Sodium/Sodium Chloride 25,000 unit in 500 mls @ 0 mls/hr 01/25/21 00:15 01/25/21 11:18 Heparin Drip IV 11.45 unit/kg/hr .Q0M JODIE 16 mls/hr Titration Protocol Per Protocol Piperacillin Sod/Tazobactam 50 mls @ 12.5 mls/hr 01/25/21 08:00 01/25/21 08:05 Sod 3.375 gm/ Sodium Chloride IV 12.5 mls/hr Q8H JODIE Administration Protocol Levofloxacin/Dextrose 500 mg in 100 mls @ 100 mls/hr 01/25/21 03:45 01/25/21 05:56 Levaquin-D5w IV Infused Q24H JODIE Infusion Protocol Nystatin 400,000 unit 01/25/21 09:00 01/25/21 08:05 Nystatin 100,000 Unit/Ml Udc 5 Ml PO 400,000 unit QID JODIE Administration Pantoprazole Sodium 40 mg 01/25/21 09:00 01/25/21 08:[address] 40 Mg Tablet PO 40 mg DAILY JODIE Administration PFSH Acute PFSH: Medical History (Updated 01/25/21 @ 07:38 by Jorge Trujillo MD) Anxiety Aortic regurgitation Atrial fibrillation Back pain CAD (coronary artery disease) Angiogram 12/18/2020 showed single-vessel disease, distal circumflex high- grade lesion, recommendation for medical management at time CHF (congestive heart failure) EF 40 to 45% on echo and 20-25% on LV gram from cardiac angiogram with global LV hypokinesia, diastolic dysfunction. Chronic ankle pain, bilateral Chronic pain of both knees Depression GERD without esophagitis Interstitial cystitis Limb ischemia Acute limb ischemia with limb salvage percutaneous procedure performed. Migraine Mitral regurgitation Moderate episode of recurrent major depressive disorder Overactive bladder PAD (peripheral artery disease) Positive cardiac stress test (~11/2020) Recurrent UTI Tremor Surgical History (Updated 01/25/21 @ 03:18 by Tierra Rossi MD) History of cardiac catheterization (12/18/20) Dr Veronica Hx of hysterectomy Status post peripheral artery angioplasty with insertion of stent (12/31/20) Dr Jimenez, thrombectomy and balloon angioplasty RLE, drug eluting stent 2 x to peroneal artery Family History Mother , AT AGE 80 Diabetes Cancer CAD (coronary artery disease) Father CAD (coronary artery disease) Brother CAD (coronary artery disease) Sister CAD (coronary artery disease) Social History Smoking and tobacco status: never smoked Alcohol intake: never Marital status: / Current occupational status: disabled Dietary Habits: Current diet type/program: regular Vitals/I&O/Wt Last Vital Signs Temp 98.1 F 01/25/21 09:23 Pulse 114 H 01/25/21 10:00 Resp 23 H 01/25/21 10:00 BP 122/94 01/25/21 10:00 Pulse Ox 96 01/25/21 10:00 01/24/21 01/25/21 01/25/21 22:59 06:59 14:59 Intake Total 869.460 / 869.460 388.461 / 388.461 Balance 869.460 / 869.460 388.461 / 388.461 Weight last 48 hrs Weight 147 lb 9.6 oz Weight 154 lb Physical Exam Narrative: EXAM NARRATIVE: GENERAL: Patient is alert, awake and oriented x3. NECK: No jugular vein distension. HEENT: No cyanosis. No icterus. No pallor. HEART: Regular S1 and S2. No murmur, rub or gallop. LUNGS: Clear to auscultate bilaterally. ABDOMEN: Soft, nontender and nondistended. Positive bowel sounds. No guarding, rebound or tenderness. CENTRAL NERVOUS SYSTEM: Grossly nonfocal. EXTREMITIES: Lower extremities with edema bilaterally. Pulses dopplerable in the lower extremities, both dorsalis pedis foot warm moist pinkish Urinary Catheter Management^: Lopez: Cath Placed During This Visit: yes Reason for Continuing Indwelling Catheter: Accurate Measurement of Urinary Output in Critically Ill Patients Urinary Catheter Date of Insertion: 01/25/21 Urinary Catheter Time of Insertion: 00:45 Data Micro: Micro: Microbiology 01/24/21 23:15 Blood Culture - Pr eliminary Blood SPECIMEN [facility] 01/24/21 23:00 Blood Culture - Pr eliminary Blood SPECIMEN [facility] A&P Assessment and plan (1) Atrial fibrillation with RVR: Not well controlled will optimize medicine patient is n.p.o. will use IV Lopressor every 6 hours otherwise may can start on Cardizem drip if required. Status: Acute (2) CHF (congestive heart failure): Well compensated. Continue current regimen Status: Chronic Qualifiers: Heart failure chronicity: acute on chronic Heart failure type: systolic Qualified Code(s): I50.23 - Acute on chronic systolic (congestive) heart failure (3) Single vessel coronary artery disease: Stable. Doing fine from a coronary disease perspective denies any chest pain continue current regimen Status: Acute (4) PAD (peripheral artery disease): Appear to be stable from peripheral arterial disease perspective patient has baseline stable flow at this point no further intervention needed. Continue to monitor closely Status: Chronic Consult Attestations Medical Necessity Statement: Patient require continuation hospitalization for above defined care. Coding Level of Care Code New Pt Acute Market Research Coordinator for Fredy Cabrera Patient Type New History Detailed Exam Detailed Medical Decision Making Moderate Complexity Diagnoses Atrial fibrillation with RVR I48.91 CHF (congestive heart failure) I50.23 Heart failure chronicity: acute on chronic Heart failure type: systolic Single vessel coronary artery disease I25.10 PAD (peripheral artery disease) I73.9
[2021-01-25] MEDS: vancomycin 1,500 MG/300 ML PIGGYBACK 150 MG IV (12:11)
[2021-01-25 13:46] LABS: Partial Thromboplastin Time 72.3 SECONDS (23.9-36.7)
--- NOTE | 2021-01-25 14:00 | PC.NURSE ---
Patient requested oxygen be removed while eating lunch. 2L oxygen removed for duration of lunch and not reapplied as oxygen level has remained above 96 percent.
--- NOTE | 2021-01-25 14:55 | PC.PHAR ---
pt states she takes care of her own medications-pt states she is unsure if she is taking lisinopril 2.5mg daily ext med history shows last filled on 12/19/20 30d/s-pt states she is still taking eliquis 5mg bid ext med history shows last filled on 12/04/20 30d/s-pt states she takes the medications entered
--- NOTE | 2021-01-25 18:16 | PC.NURSE ---
Shift Note Frequent safety and comfort rounds continue. Orders and/or nursing care completed as indicated. Patient monitored for response to intervention and treatment(s). Education provided includes education of current condition, medication education provided at administration, position changes educated and encouraged, diet education discussed with patient and grandson. Patient and grandson verbalize understanding of teachings. Reinforcement of educations recommended. Patients chief complaint this shift is of foot and back pain. Relieved by PRN fentanyl.
[2021-01-25 20:14] LABS: Partial Thromboplastin Time 88.4 SECONDS (23.9-36.7)
[2021-01-25] MEDS: sennosides 8.6 mg Tablet 17.2 MG PO (21:05)
[2021-01-25] MEDS: metoprolol tartrate 50 mg Tablet PO (21:06)
[2021-01-26] VITALS (67 sets, daily range): BP systolic 84–152; BP diastolic 51–102; PULSE 68–120; RESP 14–28; TEMP 36.5–37.1; O2SAT 92–99
[2021-01-26] MEDS: piperacillin-tazobactam 3.375 GM in sodium chloride 0.9% (plus) 50 ML IV ×3 (00:54→17:26)
[2021-01-26] MEDS: vancomycin 1,500 MG/300 ML PIGGYBACK 150 MG IV (00:54)
--- NOTE | 2021-01-26 00:58 | PC.NURSE ---
Addendum entered by Citlali Choe RN 01/26/21 03:05: Witnessed gtt changes, Sheridan Choe RN Addendum entered by Sri Jones RN 01/26/21 02:57: 02:50 Heparin gtt titrated per protocol with rate changed to 14 ml/hr witnessed by Citlali Mohamud RN. Addendum entered by Citlali Choe RN 01/26/21 01:09: Witnessed gtt changes Angie Choe RN Original Note: Heparin gtt titrated per protocol, documentation on MAY per MD orders, because there is no place for witness to sign on MAR, this nurse will document witness to gtt changes here: 20:25 Gtt at 13 ml/hr witness by Citlali MUNOZ
[2021-01-26 02:43] LABS: Partial Thromboplastin Time 52.9 SECONDS (23.9-36.7)
[2021-01-26 02:50] LABS: Alanine Aminotransferase 107 U/L (0-33); Albumin Level 2.7 g/dL (3.5-5.2); Alkaline Phosphatase 67 IU/L (35-105); Anion Gap 9.8 (5-19); Aspartate Amino Transferase 59 U/L (0-32); Blood Urea Nitrogen 20 mg/dL (8-23); Calcium 8.1 mg/dL (8.5-10.5); Carbon Dioxide 23 mmol/L (22-29); Chloride 110 mmol/L (98-107); Globulin 2.4 g/dL (1.3-4.6); Glucose 81 mg/dL (65-115); Osmolality Calculated 290 mOsm/kg (285-295); Potassium 3.8 mmol/L (3.5-5.1); Sodium 139 mmol/L (136-145); Total Bilirubin 1.1 mg/dL (0.15-1.2); Total Protein 5.1 g/dL (6.6-8.7)
[2021-01-26] MEDS: heparin 5,000 unit/mL INJ 1 mL IV (02:50)
[2021-01-26] MEDS: levofloxacin-dextrose 5 % 500 MG/100 ML PREMIX 100 MG IV (04:46)
[2021-01-26] MEDS: fentaNYL 50 mcg/mL INJ 2mL IVP (04:57)
--- NOTE | 2021-01-26 07:45 | NM_ITS ---
WS: [id number] NUCLEAR MEDICINE HIDA SCAN CLINICAL INFORMATION: Concern for Acalculus cholecystitis TECHNIQUE: Following intravenous administration of 8.1 mCi of technetium 99m mebrofenin, images of th e abdomen were obtained over the course of 60 minutes. Next, gallbladder ejection fraction was determ ined by obtaining preprandial and one-hour postprandial images of the gallbladder following oral bonita stion of Ensure. COMPARISON: Ultrasound January 25, 2021 FINDINGS: Normal hepatic uptake at 5 minutes. Normal hepatic excretion. Gallbladder is visualized at 15 minutes . No evidence of acute cholecystitis. Normal common bile duct and small bowel activity. Gallbladder ejection fraction only 1%. Findings gabino picious for chronic cholecystitis. NM/NM hepatobiliary w phar* [id number] IMPRESSION: 1. No evidence of acute cholecystitis. 2. Gallbladder ejection fraction only 1% compatible with gallbladder dysfuncti on. Findings suspicious for chronic cholecystitis.
[2021-01-26] MEDS: metoprolol tartrate 50 mg Tablet PO ×2 (08:14→20:50)
[2021-01-26 09:29] LABS: Basophils % 0.4 %; Eosinophils # 0.2 10^3/uL (0.0-0.8); Eosinophils % 1.6 %; Hematocrit 37.9 % (37.0-47.0); Hemoglobin 10.2 g/dL (11.5-15.3); Lymphocytes # 0.9 10^3/uL (0.8-4.8); Lymphocytes % 9.2 %; Mean Corpuscular HGB Conc 26.9 g/dL (30.0-36.0); Mean Corpuscular Hemoglobin 26.7 pg (28.0-34.0); Mean Corpuscular Volume 99.2 fl (81-99); Mean Platelet Volume 12.2 fL (7.4-10.4); Monocytes # 1.3 10^3/uL (0.2-0.9); Monocytes % 13.9 %; Neutrophils # 7.16 10^3/uL (1.8-7.7); Neutrophils % 74.6 %; Nucleated Red Blood Cells % 0.2 %; Platelet Count 102 10^3/cmm (130-400); Red Blood Count 3.82 10^6/uL (4.1-5.3); White Blood Count 9.6 10^3/uL (4.0-10.0)
--- NOTE | 2021-01-26 10:15 | P.PN_ITS ---
Subjective Subjective: Interval history: Sabina reports that her abdomen feels little bit better. No chest discomfort. Right foot still hurts. Medications: Reviewed: Yes Vitals/I&O/Wt Last Vital Signs Temp 97.8 F 01/26/21 04:00 Pulse 87 01/26/21 10:00 Resp 16 01/26/21 10:00 BP 140/78 01/26/21 10:00 Pulse Ox 96 01/26/21 10:00 01/25/21 01/26/21 01/26/21 22:59 06:59 14:59 Intake Total 433.867 / 1171.286 533.417 / 1704.703 Output Total 550 / 550 500 / 1050 Balance -116.133 / 621.286 33.417 / 654.703 Weight last 48 hrs Weight 69.763 kg Weight 66.95 kg Weight 69.853 kg Physical Exam Narrative: EXAM NARRATIVE: General exam, less complaints of pain than yesterday Neck is supple Cardiovascular irregular, irregular with controlled rate Lungs clear Abdomen is soft. Positive bowel sounds. Less tenderness. No obvious organomegaly. Extremities no cyanosis or clubbing seen currently. Cannot feel pulses on the right lower extremity. Right foot seems warm today. Urinary Catheter Management^: Lopez: Cath Placed During This Visit: yes Reason for Continuing Indwelling Catheter: Accurate Measurement of Urinary Output in Critically Ill Patients Urinary Catheter Date of Insertion: 01/25/21 Urinary Catheter Time of Insertion: 00:45 Data : 01/26/21 09:20 01/26/21 02:15 Micro: Microbiology 01/25/21 09:50 Urine Culture - Preliminary Urine Catheterized 01/24/21 23:15 Blood Culture - Preliminary Blood NEGATIVE TO DATE 01/24/21 23:00 Blood Culture - Preliminary Blood NEGATIVE TO DATE A&P Assessment and plan (1) Back pain: This is patient's chief complaint, mid to lower back primarily on the right side without radiation associated with shortness of breath CT of her chest abdomen and pelvis demonstrated no pulmonary embolism, moderate bilateral effusions, possible cholecystitis Gallbladder ultrasound demonstrates thickened wall, positive Pena sign, small amount of edema HIDA scan planned today Surgery following Qualifiers: Back pain location: low back pain Chronicity: acute Back pain laterality: right Sciatica presence: without sciatica Qualified Code(s): M54.50 - Low back pain, unspecified (2) Critical limb ischemia with history of revascularization of same extremity: Had 2 stents placed in the right peroneal artery on December by Dr. Jimenez with return of flow and dopplerable foot pulses. Currently without dopplerable pulses and absence of flow on arterial ultrasound in the right posterior tibial artery and dorsalis pedis artery. Interventional cardiology consult has been placed, no further intervention planned Change heparin to Lovenox Reinitiate Plavix if no gallbladder surgery planned Status: Acute (3) Acute cholecystitis: With report of inflammatory changes on CT imaging as well as wall thickening/edema and a positive Pena sign on gallbladder ultrasound concerning for early or evolving cholecystitis. Has elevation in total bilirubin, AST and ALT but alkaline phosphatase is normal which is not necessarily consistent. Liver enzyme abnormalities could be from congestion. In addition to positive Pena sign on ultrasound imaging, she does have pain noted on physical exam as well Liver enzymes improving Continue IV antibiotics of Zosyn, Levaquin Surgery consultation appreciated HIDA scan planned today Status: Acute (4) UTI (urinary tract infection): In a patient with history of recurrent urinary tract infections. Specimen is contaminated with squamous epithelial cells. She does report dysuria and urinary frequency. Obtain urine culture Continue broad-spectrum antibiotics currently consisting of Zosyn and Levaquin pending culture Status: Acute Qualifiers: Urinary tract infection type: acute cystitis Hematuria presence: without hematuria Qualified Code(s): N30.00 - Acute cystitis without hematuria (5) Atrial fibrillation with RVR: Patient with known atrial fibrillation. Has been on metoprolol outpatient. Was difficult to control last hospital stay from review of records. Esmolol has been discontinued Continue metoprolol Heparin drip changed to Lovenox Has some element of acute systolic heart failure exacerbated by her arrhythmia. Last ejection fraction 40 to 45%. YESI inhibitor can be reinitiated today Cardiology consultation appreciated Status: Acute (6) CHF (congestive heart failure): Acute on chronic with EF 40-45% on echo and 20-25% on LV gram from cardiac angiogram on 12/18/2020 with global LV hypokinesia, diastolic dysfunction. Has small pleural effusions and evidence of pulmonary edema on chest x-ray which I suspect is primarily from A. fib with RVR currently. Reinitiate YESI inhibitor at this time Status: Chronic Qualifiers: Heart failure chronicity: acute on chronic Heart failure type: systolic Qualified Code(s): I50.23 - Acute on chronic systolic (congestive) heart failure (7) Single vessel coronary artery disease: Left circumflex, underwent cardiac catheterization on December 18 of this year. Given the location and size of the vessel, decision was made for medical management at the time. Denies current chest pain. Status: Acute (8) Chronic anticoagulation: Supposed to be on Eliquis but unclear if she is taking as directed Status: Acute Additional A&P Information Weakness. Global weakness from multiple medical comorbidities. Appears to need retirement facility placement. Full code Lovenox for DVT prophylaxis Transfer out of ICU PT and OT consults Needs retirement facility placement Attestations Medical Necessity Statement*: Needs continued hospital stay for IV antibiotics related to UTI Coding Level of Care Code Acute Director Biomedical Engineering for Chg Fwd Diagnoses Back pain M54.50 Back pain location: low back pain Chronicity: acute Back pain laterality: right Sciatica presence: without sciatica Critical limb ischemia with history of revascularization of same extremity I70.229; Z98.890 Acute cholecystitis K81.0 UTI (urinary tract infection) N30.00 Urinary tract infection type: acute cystitis Hematuria presence: without hematuria Atrial fibrillation with RVR I48.91 CHF (congestive heart failure) I50.23 Heart failure chronicity: acute on chronic Heart failure type: systolic Single vessel coronary artery disease I25.10 Chronic anticoagulation Z79.01
[2021-01-26] MEDS: lisinopril 2.5 mg Tablet PO (12:08)
[2021-01-26] MEDS: enoxaparin 100 mg/mL Syringe 70 MG SUBCUT (12:08)
--- NOTE | 2021-01-26 12:21 | PC.NURSE ---
Patient off unit at this time for hida scan. PT AAOx4, VSS.
--- NOTE | 2021-01-26 12:49 | PM.PN ---
Subjective Subjective: Interval history: Patient overall complains of less abdominal pain. Patient continues to complain of right lower extremity pain Medications: Reviewed: Yes Vitals/I&O/Wt Last Vital Signs Temp 97.8 F 01/26/21 04:00 Pulse 88 01/26/21 12:00 Resp 22 H 01/26/21 12:00 BP 152/82 01/26/21 12:00 Pulse Ox 96 01/26/21 11:00 01/25/21 01/26/21 01/26/21 22:59 06:59 14:59 Intake Total 433.867 / 1171.286 533.417 / 1704.703 Output Total 550 / 550 500 / 1050 Balance -116.133 / 621.286 33.417 / 654.703 Weight last 48 hrs Weight 153 lb 12.8 oz Weight 147 lb 9.6 oz Weight 154 lb Physical Exam Narrative: EXAM NARRATIVE: Patient is conscious alert oriented X3, more comfortable today BMI 23.1 Head and neck examination PERRLA no masses no cervical lymphadenopathy no jaundice Abdomen right upper quadrant and epigastric less tender, nondistended soft no organomegaly guarding or rigidity/no signs of peritonitis Urinary Catheter Management^: Lopez: Cath Placed During This Visit: yes Reason for Continuing Indwelling Catheter: Accurate Measurement of Urinary Output in Critically Ill Patients Urinary Catheter Date of Insertion: 01/25/21 Urinary Catheter Time of Insertion: 00:45 Data : 01/26/21 09:20 01/26/21 02:15 Micro: Microbiology 01/25/21 09:50 Urine Culture - Preliminary Urine Catheterized 01/24/21 23:15 Blood Culture - Preliminary Blood NEGATIVE TO DATE 01/24/21 23:00 Blood Culture - Preliminary Blood NEGATIVE TO DATE A&P Assessment and plan (1) Right upper quadrant abdominal pain: HIDA scan is pending We will follow on results Trending down of liver function tests Repeated physical examination Thank you for consulting general surgery to participate taking care Ms. Valdez [id number] Later through the day the HIDA scan came back and showed chronic cholecystitis. Giving the fact that the patient is feeling better we will start her on oral intake and likely she would benefit from follow-up as an outpatient to discuss elective gallbladder surgery. Status: Acute Attestations Medical Necessity Statement*: Per admitting service Coding Level of Care Code Acute Cancer Program Director for Chg Fwd Diagnoses Right upper quadrant abdominal pain R10.11
--- NOTE | 2021-01-26 14:42 | PC.NURSE ---
[facility] [facility] Patient AAOx4.
[2021-01-26] MEDS: docusate sodium 100 mg Capsule PO (17:26)
[2021-01-26] MEDS: nystatin 100,000 unit/mL UDC 5 mL 400000 UNIT PO ×2 (17:26→20:50)
--- NOTE | 2021-01-26 19:52 | P.PN_ITS ---
Subjective Subjective: Interval history: Says her abdomen hurt Medications: Reviewed: Yes Vitals/I&O/Wt Last Vital Signs Temp 97.7 F 01/26/21 14:43 Pulse 89 01/26/21 18:30 Resp 21 H 01/26/21 18:30 BP 106/69 01/26/21 18:30 Pulse Ox 97 01/26/21 18:30 01/26/21 01/26/21 01/26/21 06:59 14:59 22:59 Intake Total 533.417 / 1704.703 4.583 / 4.583 502.917 / 507.500 Output Total 500 / 1050 675 / 675 Balance 33.417 / 654.703 4.583 / 4.583 -172.083 / -167.500 Weight last 48 hrs Weight 153 lb 12.8 oz Weight 147 lb 9.6 oz Weight 154 lb Physical Exam Narrative: EXAM NARRATIVE: GENERAL: Patient is alert, awake and oriented x3. NECK: No jugular vein distension. HEENT: No cyanosis. No icterus. No pallor. HEART: Regular S1 and S2. No murmur, rub or gallop. LUNGS: Clear to auscultate bilaterally. ABDOMEN: Soft, nontender and nondistended. Positive bowel sounds. No guarding, rebound or tenderness. CENTRAL NERVOUS SYSTEM: Grossly nonfocal. EXTREMITIES: Lower extremities with edema bilaterally. Pulses dopplerable in the lower extremities, both dorsalis pedis foot warm moist pinkish Urinary Catheter Management^: Lopez: Cath Placed During This Visit: yes Reason for Continuing Indwelling Catheter: Accurate Measurement of Urinary Output in Critically Ill Patients Urinary Catheter Date of Insertion: 01/25/21 Urinary Catheter Time of Insertion: 00:45 Data : 01/27/21 10:05 01/27/21 04:30 Micro: Microbiology 01/25/21 09:50 Urine Culture - Preliminary Urine Catheterized 01/24/21 23:15 Blood Culture - Preliminary Blood NEGATIVE TO DATE 01/24/21 23:00 Blood Culture - Preliminary Blood NEGATIVE TO DATE A&P Assessment and plan (1) Atrial fibrillation with RVR: Rate controlled, continue current Status: Acute (2) CHF (congestive heart failure): Well compensated. Continue current regimen Status: Chronic Qualifiers: Heart failure chronicity: acute on chronic Heart failure type: systolic Qualified Code(s): I50.23 - Acute on chronic systolic (congestive) heart failure (3) Single vessel coronary artery disease: Stable. Continue current meds Status: Acute (4) PAD (peripheral artery disease): Appear to be stable dopplerable pulses warm feet. No further intervention needed Status: Chronic Attestations Medical Necessity Statement*: Patient require continuation hospitalization for above defined care Coding Level of Care Code Established Pt Acute Ecosystem Ecology Professor for Chg Fwd Patient Type Established History Detailed Exam Detailed Medical Decision Making Moderate Complexity Diagnoses Atrial fibrillation with RVR I48.91 CHF (congestive heart failure) I50.23 Heart failure chronicity: acute on chronic Heart failure type: systolic Single vessel coronary artery disease I25.10 PAD (peripheral artery disease) I73.9
[2021-01-26] MEDS: sennosides 8.6 mg Tablet 17.2 MG PO (20:49)
[2021-01-26] MEDS: HYDROcodone-acetaminophen 5-325 mg Tablet 1 TAB PO (20:49)
[2021-01-27] VITALS (53 sets, daily range): BP systolic 83–144; BP diastolic 50–104; PULSE 70–132; RESP 14–31; TEMP 36.7–36.9; O2SAT 92–99
[2021-01-27] MEDS: enoxaparin 100 mg/mL Syringe 70 MG SUBCUT ×2 (01:23→12:25)
[2021-01-27] MEDS: levofloxacin-dextrose 5 % 500 MG/100 ML PREMIX 100 MG IV (02:19)
[2021-01-27] MEDS: piperacillin-tazobactam 3.375 GM in sodium chloride 0.9% (plus) 50 ML IV ×3 (03:27→18:13)
[2021-01-27 05:30] LABS: Alanine Aminotransferase 74 U/L (0-33); Albumin Level 2.5 g/dL (3.5-5.2); Alkaline Phosphatase 67 IU/L (35-105); Anion Gap 11.8 (5-19); Aspartate Amino Transferase 34 U/L (0-32); Blood Urea Nitrogen 12 mg/dL (8-23); Calcium 7.8 mg/dL (8.5-10.5); Carbon Dioxide 24 mmol/L (22-29); Chloride 105 mmol/L (98-107); Globulin 2.3 g/dL (1.3-4.6); Glomerular Filtration Rate 219.9 mL/min (90-130); Glucose 83 mg/dL (65-115); Osmolality Calculated 283 mOsm/kg (285-295); Potassium 3.8 mmol/L (3.5-5.1); Sodium 137 mmol/L (136-145); Total Protein 4.8 g/dL (6.6-8.7)
[2021-01-27] MEDS: pantoprazole DR 40 mg Tablet PO (09:24)
[2021-01-27] MEDS: lisinopril 2.5 mg Tablet PO (09:24)
[2021-01-27] MEDS: nystatin 100,000 unit/mL UDC 5 mL 400000 UNIT PO ×4 (09:24→20:33)
[2021-01-27] MEDS: docusate sodium 100 mg Capsule PO ×2 (09:24→18:13)
[2021-01-27] MEDS: metoprolol tartrate 50 mg Tablet PO ×2 (09:32→20:33)
--- NOTE | 2021-01-27 09:46 | PC.CHAP ---
Pastoral Care Encounter/Spiritual Assessment Type of Contact [] Declined chemical process operator visit [] Patient/Family/Request visit [] Outpatient visit [] Follow-up visit [] Physician referral [] Code/Alert [x] Routine visit [] Staff referral [] Actively dying [] Patient sleeping [] Family support [] [] Out of room [] Palliative care [] [] Receiving care in room [] Pre-surgical visit [] Trauma [] Long length of stay [x] ICU visit [] Other: Relational/Emotional Strength [] Patient feels connected with others/family/visitors/staff [] Distress [] Loneliness/isolation [] Abandonment Spirituality of Patient [x] Person of Joanna [] Attends Jainism of their Joanna [] Believes in Prayer [] Reads Bible or Muslim materials [] There are Spiritual issues to be addressed Medical Administrative Assistant Interventions [x] Prayer [x] Active listening [x] Non-anxious presence [x] Spiritual/emotional support [] Crisis/trauma care [] Spiritual counseling [] Bereavement support [] Provided bereavement packet [] Provided Bible/devotional materials [] Provided toy/stuffed animal, coloring book to patient or family member [] Provided Communion [] Anointing/[place] [] Salvation [x] Completed spiritual assessment [] Other: Impact on Illness or Injury [] Angry [] Fearful [] Anxious [] Often cries [] Exhaustion [] Unable to work [] Unable to attend caodaism [] Unable to walk/stand [] Unable to read [] Unable to drive [] Unable to eat/drink [] Unable to sleep [] Unable to be with family [] Patient intubated [] Other: Summary patient sitting up in bed.. blanket.. prayed for pain Time spent with patient 5 min
[2021-01-27 10:15] LABS: Basophils % 0.2 %; Eosinophils # 0.2 10^3/uL (0.0-0.8); Eosinophils % 1.9 %; Hematocrit 39.1 % (37.0-47.0); Hemoglobin 11.7 g/dL (11.5-15.3); Lymphocytes % 10.5 %; Mean Corpuscular HGB Conc 29.9 g/dL (30.0-36.0); Mean Corpuscular Hemoglobin 27.5 pg (28.0-34.0); Mean Platelet Volume 11.4 fL (7.4-10.4); Monocytes # 1.5 10^3/uL (0.2-0.9); Monocytes % 15.6 %; Neutrophils # 6.57 10^3/uL (1.8-7.7); Neutrophils % 70.7 %; Nucleated Red Blood Cells % 0 %; Platelet Count 116 10^3/cmm (130-400); Red Blood Count 4.25 10^6/uL (4.1-5.3); Red Cell Distribution Width 14.7 % (12.1-15.1); White Blood Count 9.3 10^3/uL (4.0-10.0)
[2021-01-27 10:47] LABS: Slide Review Slide Review Perform
[2021-01-27] MEDS: ondansetron 2 mg/ML SDV 2 mL 4 MG IVP (11:01)
--- NOTE | 2021-01-27 12:29 | P.PN_ITS ---
Subjective Subjective: Interval history: Sabina reports she feels a lot better. Foot hurts a lot less. Still having a little bit of back pain. Abdomen improved. Medications: Reviewed: Yes Vitals/I&O/Wt Last Vital Signs Temp 98.0 F 01/27/21 08:00 Pulse 79 01/27/21 11:59 Resp 24 H 01/27/21 11:59 BP 93/76 01/27/21 11:59 Pulse Ox 97 01/27/21 11:59 01/26/21 01/27/21 01/27/21 22:59 06:59 14:59 Intake Total 802.917 / 807.500 100 / 907.500 890 / 890 Output Total 675 / 675 600 / 600 Balance 127.917 / 132.500 100 / 232.500 290 / 290 Weight last 48 hrs Weight 68.521 kg Weight 69.763 kg Physical Exam Narrative: EXAM NARRATIVE: General exam, no distress Neck is supple Cardiovascular irregular, irregular with controlled rate Lungs clear Abdomen is soft. Positive bowel sounds. Less tenderness. No obvious organomegaly. Extremities no cyanosis or clubbing seen currently. Cannot feel pulses on the right lower extremity. Right foot warm Urinary Catheter Management^: Lopez: Cath Placed During This Visit: yes, but has since been removed by the nurse Reason for Continuing Indwelling Catheter: Decision to DC Catheter Urinary Catheter Date of Insertion: 01/25/21 Urinary Catheter Time of Insertion: 00:45 Date Urinary Catheter Removed: 01/27/21 Time Urinary Catheter Discontinued: 08:30 Data : 01/27/21 10:05 01/27/21 04:30 Micro: Microbiology 01/25/21 09:50 Urine Culture - Final Urine Catheterized A&P Assessment and plan (1) Back pain: This is patient's chief complaint, mid to lower back primarily on the right side without radiation associated with shortness of breath CT of her chest abdomen and pelvis demonstrated no pulmonary embolism, moderate bilateral effusions, possible cholecystitis Gallbladder ultrasound demonstrates thickened wall, positive Pena sign, small amount of edema HIDA scan showed chronic cholecystitis Surgery following, possibly outpatient procedure Qualifiers: Back pain location: low back pain Chronicity: acute Back pain laterality: right Sciatica presence: without sciatica Qualified Code(s): M54.50 - Low back pain, unspecified (2) Critical limb ischemia with history of revascularization of same extremity: Had 2 stents placed in the right peroneal artery on December by Dr. Jimenez with return of flow and dopplerable foot pulses. Currently without dopplerable pulses and absence of flow on arterial ultrasound in the right p osterior tibial artery and dorsalis pedis artery. Interventional cardiology consult has been placed, no further intervention planned Reinitiate Plavix Reinitiate Eliquis Status: Acute (3) Acute cholecystitis: With report of inflammatory changes on CT imaging as well as wall thickening/edema and a positive Pena sign on gallbladder ultrasound concerning for early or evolving cholecystitis. Has elevation in total bilirubin, AST and ALT but alkaline phosphatase is normal which is not necessarily consistent. Liver enzyme abnormalities could be from congestion. In addition to positive Pena sign on ultrasound imaging, she does have pain noted on physical exam as well Liver enzymes improved Continue IV antibiotics of Zosyn. Discontinue Levaquin. Surgery consultation appreciated HIDA scan planned today Status: Acute (4) UTI (urinary tract infection): Urine culture negative. Discontinue Levaquin. Status: Acute Qualifiers: Urinary tract infection type: acute cystitis Hematuria presence: without hematuria Qualified Code(s): N30.00 - Acute cystitis without hematuria (5) Atrial fibrillation with RVR: Patient with known atrial fibrillation. Has been on metoprolol outpatient. Was difficult to control last hospital stay from review of records. Esmolol has been discontinued Continue metoprolol Resume Cal Has some element of acute systolic heart failure exacerbated by her arrhythmia. Last ejection fraction 40 to 45%. YESI inhibitor can be reinitiated today Cardiology consultation appreciated Status: Acute (6) CHF (congestive heart failure): Acute on chronic with EF 40-45% on echo and 20-25% on LV gram from cardiac angiogram on 12/18/2020 with global LV hypokinesia, diastolic dysfunction. Has s mall pleural effusions and evidence of pulmonary edema on chest x-ray which I suspect is primarily from A. fib with RVR currently. Continue YESI inhibitor at this time Status: Chronic Qualifiers: Heart failure chronicity: acute on chronic Heart failure type: systolic Qualified Code(s): I50.23 - Acute on chronic systolic (congestive) heart failure (7) Single vessel coronary artery disease: Left circumflex, underwent cardiac catheterization on December 18 of this year. Given the location and size of the vessel, decision was made for medical management at the time. Denies current chest pain. Status: Acute (8) Chronic anticoagulation: Supposed to be on Eliquis but unclear if she is taking as directed Status: Acute Additional A&P Information Weakness. Global weakness from multiple medical comorbidities. Appears to need detention facility placement. Awaiting placement Full code Eliquis for DVT prophylaxis Discontinue Lopez PT and OT consults Needs detention facility placement Attestations Medical Necessity Statement*: Needs continued hospitalization for IV antibiotics secondary to chronic cholecystitis pending placement at detention facility. Coding Level of Care Code Acute Delinquent Tax Collector for g Fwd Diagnoses Back pain M54.50 Back pain location: low back pain Chronicity: acute Back pain laterality: right Sciatica presence: without sciatica Critical limb ischemia with history of revascularization of same extremity I70.229; Z98.890 Acute cholecystitis K81.0 UTI (urinary tract infection) N30.00 Urinary tract infection type: acute cystitis Hematuria presence: without hematuria Atrial fibrillation with RVR I48.91 CHF (congestive heart failure) I50.23 Heart failure chronicity: acute on chronic Heart failure type: systolic Single vessel coronary artery disease I25.10 Chronic anticoagulation Z79.01
[2021-01-27] MEDS: clopidogrel 75 mg Tablet PO (13:04)
--- NOTE | 2021-01-27 18:42 | P.PN_ITS ---
Subjective Subjective: Interval history: Denies any leg pain, says abdomen her Medications: Reviewed: Yes Vitals/I&O/Wt Last Vital Signs Temp 98.0 F 01/27/21 08:00 Pulse 116 H 01/27/21 18:00 Resp 19 H 01/27/21 18:00 BP 144/83 01/27/21 18:00 Pulse Ox 97 01/27/21 18:00 01/27/21 01/27/21 01/27/21 06:59 14:59 22:59 Intake Total 100 / 171.906 1094 / 1130 50 / 1180 Output Total 1100 / 1100 200 / 1300 Balance 100 / 232.500 30 / -150 / -120 Weight last 48 hrs Weight 151 lb 1 oz Weight 153 lb 12.8 oz Physical Exam Narrative: EXAM NARRATIVE: GENERAL: Patient is alert, awake and oriented x3. NECK: No jugular vein distension. HEENT: No cyanosis. No icterus. No pallor. HEART: Regular S1 and S2. No murmur, rub or gallop. LUNGS: Clear to auscultate bilaterally. ABDOMEN: Soft, nontender and nondistended. Positive bowel sounds. No guarding, rebound or tenderness. CENTRAL NERVOUS SYSTEM: Grossly nonfocal. EXTREMITIES: Lower extremities with edema bilaterally. Pulses dopplerable in the lower extremities, both dorsalis pedis foot warm moist pinkish Urinary Catheter Management^: Lopez: Cath Placed During This Visit: yes, but has since been removed by the nurse Reason for Continuing Indwelling Catheter: Decision to DC Catheter Urinary Catheter Date of Insertion: 01/25/21 Urinary Catheter Time of Insertion: 00:45 Date Urinary Catheter Removed: 01/27/21 Time Urinary Catheter Discontinued: 08:30 Data : 01/27/21 10:05 01/27/21 04:30 Micro: Microbiology 01/25/21 09:50 Urine Culture - Final Urine Catheterized A&P Assessment and plan (1) Atrial fibrillation with RVR: Well-controlled. Continue current regimen Status: Acute (2) CHF (congestive heart failure): Well compensated n Status: Chronic Qualifiers: Heart failure chronicity: acute on chronic Heart failure type: systolic Qualified Code(s): I50.23 - Acute on chronic systolic (congestive) heart failure (3) Single vessel coronary artery disease: Stable. Continue current regimen Status: Acute (4) PAD (peripheral artery disease): Appear to be stable dopplerable pulses warm feet. No further intervention needed Status: Chronic Attestations Medical Necessity Statement*: Patient require continuation hospitalization for above event care Coding Level of Care Code Established Pt Acute Orthotist Or Prosthetist for Fredy Cabrera Patient Type Established History Detailed Exam Detailed Medical Decision Making Moderate Complexity Diagnoses Atrial fibrillation with RVR I48.91 CHF (congestive heart failure) I50.23 Heart failure chronicity: acute on chronic Heart failure type: systolic Single vessel coronary artery disease I25.10 PAD (peripheral artery disease) I73.9
[2021-01-27] MEDS: sennosides 8.6 mg Tablet 17.2 MG PO (20:33)
[2021-01-28] VITALS (22 sets, daily range): BP systolic 97–141; BP diastolic 64–104; PULSE 89–117; RESP 15–27; TEMP 36.7–37.1; O2SAT 93–98
[2021-01-28] MEDS: piperacillin-tazobactam 3.375 GM in sodium chloride 0.9% (plus) 50 ML IV ×3 (02:07→18:12)
[2021-01-28 04:14] LABS: Basophils % 0.2 %; Eosinophils # 0.1 10^3/uL (0.0-0.8); Eosinophils % 1.7 %; Hematocrit 34.7 % (37.0-47.0); Hemoglobin 10.5 g/dL (11.5-15.3); Lymphocytes # 0.9 10^3/uL (0.8-4.8); Lymphocytes % 10.6 %; Mean Corpuscular HGB Conc 30.3 g/dL (30.0-36.0); Mean Corpuscular Hemoglobin 26.7 pg (28.0-34.0); Mean Corpuscular Volume 88.3 fl (81-99); Monocytes # 1.4 10^3/uL (0.2-0.9); Monocytes % 16.4 %; Neutrophils # 5.81 10^3/uL (1.8-7.7); Neutrophils % 70.3 %; Nucleated Red Blood Cells % 0 %; Platelet Count 128 10^3/cmm (130-400); Red Blood Count 3.93 10^6/uL (4.1-5.3); Red Cell Distribution Width 14.7 % (12.1-15.1); White Blood Count 8.3 10^3/uL (4.0-10.0)
[2021-01-28 04:43] LABS: Alanine Aminotransferase 51 U/L (0-33); Albumin Level 2.5 g/dL (3.5-5.2); Alkaline Phosphatase 66 IU/L (35-105); Anion Gap 9.7 (5-19); Aspartate Amino Transferase 22 U/L (0-32); Blood Urea Nitrogen 10 mg/dL (8-23); Calcium 7.9 mg/dL (8.5-10.5); Carbon Dioxide 26 mmol/L (22-29); Chloride 107 mmol/L (98-107); Globulin 2.4 g/dL (1.3-4.6); Glomerular Filtration Rate 157.8 mL/min (90-130); Glucose 132 mg/dL (65-115); Osmolality Calculated 289 mOsm/kg (285-295); Potassium 3.7 mmol/L (3.5-5.1); Sodium 139 mmol/L (136-145); Total Bilirubin 0.7 mg/dL (0.15-1.2); Total Protein 4.9 g/dL (6.6-8.7)
--- NOTE | 2021-01-28 07:25 | PC.NURSE ---
Dr. Laguerre at bedside, no n.o. at this time
--- NOTE | 2021-01-28 07:50 | PC.NURSE ---
Assessment: Pt oriented to self, place, birthday , and month. She repeated her date when asked for the current year. She stated she needed to use restroom then stated she would get out of bed later.
[2021-01-28] MEDS: pantoprazole DR 40 mg Tablet PO (08:32)
[2021-01-28] MEDS: clopidogrel 75 mg Tablet PO (08:32)
[2021-01-28] MEDS: digoxin 125 mcg Tablet PO (08:32)
[2021-01-28] MEDS: docusate sodium 100 mg Capsule PO ×2 (08:32→18:12)
[2021-01-28] MEDS: apixaban 5 mg Tablet PO ×2 (08:32→20:35)
[2021-01-28] MEDS: lisinopril 2.5 mg Tablet PO (08:32)
[2021-01-28] MEDS: nystatin 100,000 unit/mL UDC 5 mL 400000 UNIT PO ×4 (08:33→20:35)
[2021-01-28] MEDS: metoprolol tartrate 50 mg Tablet PO ×2 (08:33→20:35)
--- NOTE | 2021-01-28 08:42 | PC.NURSE ---
Pt still not out of bed, stated she had an accident. Reminded pt she stated she needed to use bathroom earlier then refused tp get out of bed at that time. Pt stated she does not remember that.
--- NOTE | 2021-01-28 09:12 | P.PN_ITS ---
Subjective Subjective: Interval history: Patient overall seems to be improving clinically and tolerating well p.o. intake. Medications: Reviewed: Yes Vitals/I&O/Wt Last Vital Signs Temp 98.7 F 01/28/21 08:00 Pulse 108 H 01/28/21 08:32 Resp 16 01/28/21 08:00 BP 129/80 01/28/21 08:00 Pulse Ox 98 01/28/21 08:00 01/27/21 01/28/21 01/28/21 22:59 06:59 14:59 Intake Total 100 / 1230 50 / 50 Output Total 200 / 1300 Balance -100 / -70 50 / 50 Weight last 48 hrs Weight 152 lb Weight 151 lb 1 oz Physical Exam Narrative: EXAM NARRATIVE: Patient is conscious alert oriented X3, more comfortable today BMI 23.1 Head and neck examination PERRLA no masses no cervical lymphadenopathy no jaundice Abdomen right upper quadrant and epigastric much less tender, nondistended soft no organomegaly guarding or rigidity/no signs of peritonitis Urinary Catheter Management^: Lopez: Cath Placed During This Visit: yes, but has since been removed by the nurse Reason for Continuing Indwelling Catheter: Decision to DC Catheter Urinary Catheter Date of Insertion: 01/25/21 Urinary Catheter Time of Insertion: 00:45 Date Urinary Catheter Removed: 01/27/21 Time Urinary Catheter Discontinued: 08:30 Data : 01/28/21 03:49 01/28/21 03:49 Micro: Microbiology 01/25/21 09:50 Urine Culture - Final Urine Catheterized A&P Assessment and plan (1) Right upper quadrant abdominal pain: Advance diet as tolerated advance diet as tolerated. Education about low-fat diet. Return to surgery office in 2 to 3 weeks as an outpatient Thank you for consulting general surgery to participate taking care Ms. Valdez Status: Acute Attestations Medical Necessity Statement*: Per admitting service Time Spent in Patient Care: (>than 50% of time spent in counselling and/or direct pt care on unit) . Coding Level of Care Code Acute Water Purifier Operator for Juliog Fwd Diagnoses Right upper quadrant abdominal pain R10.11
--- NOTE | 2021-01-28 14:13 | P.PN_ITS ---
Subjective Subjective: Interval history: Sabina reports she is doing okay. Still having some back pain, but able to eat okay. Foot does not hurt. Medications: Reviewed: Yes Vitals/I&O/Wt Last Vital Signs Temp 98.7 F 01/28/21 08:00 Pulse 98 01/28/21 10:00 Resp 21 H 01/28/21 10:00 BP 107/77 01/28/21 10:00 Pulse Ox 93 01/28/21 10:00 01/27/21 01/28/21 01/28/21 22:59 06:59 14:59 Intake Total 100 / 1230 700 / 700 Output Total 200 / 1300 Balance -100 / -70 700 / 700 Weight last 48 hrs Weight 68.946 kg Weight 68.521 kg Physical Exam Narrative: EXAM NARRATIVE: General exam, no distress Neck is supple Cardiovascular irregular, irregular with controlled rate Lungs clear Abdomen is soft. Positive bowel sounds. Less tenderness. No obvious organomegaly. Extremities no cyanosis or clubbing seen currently. Cannot feel pulses on the right lower extremity. Right foot warm Urinary Catheter Management^: Lopez: Cath Placed During This Visit: yes, but has since been removed by the nurse Reason for Continuing Indwelling Catheter: Decision to DC Catheter Urinary Catheter Date of Insertion: 01/25/21 Urinary Catheter Time of Insertion: 00:45 Date Urinary Catheter Removed: 01/27/21 Time Urinary Catheter Discontinued: 08:30 Data : 01/28/21 03:49 01/28/21 03:49 Micro: Microbiology 01/25/21 09:50 Urine Culture - Final Urine Catheterized A&P Assessment and plan (1) Back pain: This is patient's chief complaint, mid to lower back primarily on the right side without radiation associated with shortness of breath CT of her chest abdomen and pelvis demonstrated no pulmonary embolism, moderate bilateral effusions, possible cholecystitis Gallbladder ultrasound demonstrates thickened wall, positive Pena sign, small amount of edema HIDA scan showed chronic cholecystitis Surgery following, possibly outpatient procedure Qualifiers: Back pain location: low back pain Chronicity: acute Back pain laterality: right Sciatica presence: without sciatica Qualified Code(s): M54.50 - Low back pain, unspecified (2) Critical limb ischemia with history of revascularization of same extremity: Had 2 stents placed in the right peroneal artery on December by Dr. Jimenez with return of flow and dopplerable foot pulses. Currently without dopplerable pulses and absence of flow on arterial ultrasound in the right posterior tibial artery and dorsalis pedis artery. Interventional cardiology consult has been placed, no further intervention planned Continue Plavix and Eliquis Status: Acute (3) Acute cholecystitis: With report of inflammatory changes on CT imaging as well as wall thickening/edema and a positive Pena sign on gallbladder ultrasound concerning for early or evolving cholecystitis. Has elevation in total bilirubin, AST and ALT but alkaline phosphatase is normal which is not necessarily consistent. Liver enzyme abnormalities could be from congestion. In addition to positive Pena sign on ultrasound imaging, she does have pain noted on physical exam as well Liver enzymes improved Continue IV antibiotics of Zosyn. Surgery consultation appreciated HIDA scan demonstrated chronic cholecystitis She is clinically improving. Consideration of cholecystectomy as an outpatient. Status: Acute (4) UTI (urinary tract infection): Urine culture negative. Levaquin discontinued Status: Acute Qualifiers: Urinary tract infection type: acute cystitis Hematuria presence: without hematuria Qualified Code(s): N30.00 - Acute cystitis without hematuria (5) Atrial fibrillation with RVR: Patient with known atrial fibrillation. Has been on metoprolol outpatient. Was difficult to control last hospital stay from review of records. Esmolol has been discontinued Continue metoprolol Resume Cal Has some element of acute systolic heart failure exacerbated by her arrhythmia. Last ejection fraction 40 to 45%. YESI inhibitor can be reinitiated today Cardiology consultation appreciated Digoxin 0.125 mg daily. Heart rate slightly tachycardic at times. Status: Acute (6) CHF (congestive heart failure): Acute on chronic with EF 40-45% on echo and 20-25% on LV gram from cardiac angiogram on 12/18/2020 with global LV hypokinesia, diastolic dysfunction. Has small pleural effusions and evidence of pulmonary edema on chest x-ray which I suspect is primarily from A. fib with RVR currently. Continue YESI inhibitor at this time Status: Chronic Qualifiers: Heart failure chronicity: acute on chronic Heart failure type: systolic Qualified Code(s): I50.23 - Acute on chronic systolic (congestive) heart failure (7) Single vessel coronary artery disease: Left circumflex, underwent cardiac catheterization on December 18 of this year. Given the location and size of the vessel, decision was made for medical management at the time. Denies current chest pain. Status: Acute (8) Chronic anticoagulation: Supposed to be on Eliquis but unclear if she is taking as directed Status: Acute Additional A&P Information Weakness. Global weakness from multiple medical comorbidities. Appears to need snf facility placement. Awaiting placement Full code Eliquis for DVT prophylaxis Discontinue Lopez PT and OT consults Awaiting snf facility placement Attestations Medical Necessity Statement*: On IV antibiotics for acute on chronic cholecystitis pending nursing facility placement for rehabilitation. Coding Level of Care Code Acute Wire Weaving Loom Setter for Juliog Fwd Diagnoses Back pain M54.50 Back pain location: low back pain Chronicity: acute Back pain laterality: right Sciatica presence: without sciatica Critical limb ischemia with history of revascularization of same extremity I70.229; Z98.890 Acute cholecystitis K81.0 UTI (urinary tract infection) N30.00 Urinary tract infection type: acute cystitis Hematuria presence: without hematuria Atrial fibrillation with RVR I48.91 CHF (congestive heart failure) I50.23 Heart failure chronicity: acute on chronic Heart failure type: systolic Single vessel coronary artery disease I25.10 Chronic anticoagulation Z79.01
--- NOTE | 2021-01-28 14:13 | PC.NURSE ---
Dominic Bhardwaj called for an update. Giving update,then dominic stated he would be in to see pt.
--- NOTE | 2021-01-28 14:14 | PC.SOCIAL ---
IMM update IMM updated with patient. Verbalized an understanding. Copy pg2 provided. Initialled, dated, timed, and placed in chart.
--- NOTE | 2021-01-28 18:13 | PC.NURSE ---
Nystatin administration delay due to waiting for pt to finish her meal first.
--- NOTE | 2021-01-28 18:24 | PC.NURSE ---
Shift Note: Pt able to answer most of orientation questions correctly but still seems befuddled at times. She has a flat affect. She has been out of bed twice to chair and ambulated twice this shift. Second ambulation shorter due to her foot being sore. Acetaminophen offered pt declined. She was incontinent of urine ( She declined to get out of bed)this am but has since wanted to get out of bed to use BSC. She has remained in A-fib throughout the shift, the fastest heart rate 105 bpm. Waiting on [facility] to get insurance approval Frequent safety and comfort rounds continue. Orders and/or nursing care completed as indicated. Patient monitored for response to intervention and treatment(s). Education provided includes ambulation and improving bowel motility, medications, ways to stay active and social . Patient and/or union contract representative verbalized understanding of education and plan of care. Will continue to monitor.
--- NOTE | 2021-01-28 19:43 | PM.PN ---
Subjective Subjective: Interval history: Patient does not report any pain cramps in the legs heart rate is little bit on the higher side. A. fib is underlying rhythm Medications: Reviewed: Yes Vitals/I&O/Wt Last Vital Signs Temp 98.1 F 01/28/21 18:00 Pulse 117 H 01/28/21 18:00 Resp 16 01/28/21 18:00 BP 132/79 01/28/21 18:00 Pulse Ox 96 01/28/21 18:00 01/28/21 01/28/21 01/28/21 06:59 14:59 22:59 Intake Total 700 / 700 450 / 1150 Output Total 100 / 100 Balance 700 / 700 350 / 1050 Weight last 48 hrs Weight 152 lb Weight 151 lb 1 oz Physical Exam Narrative: EXAM NARRATIVE: GENERAL: Patient is alert, awake and oriented x3. NECK: No jugular vein distension. HEENT: No cyanosis. No icterus. No pallor. HEART: Irregularly irregular S1 and S2. No murmur, rub or gallop. LUNGS: Clear to auscultate bilaterally. ABDOMEN: Soft, nontender and nondistended. Positive bowel sounds. No guarding, rebound or tenderness. CENTRAL NERVOUS SYSTEM: Grossly nonfocal. EXTREMITIES: Lower extremities with edema bilaterally. Pulses dopplerable in the lower extremities, both dorsalis pedis foot warm moist pinkish Urinary Catheter Management^: Lopez: Cath Placed During This Visit: yes, but has since been removed by the nurse Reason for Continuing Indwelling Catheter: Decision to DC Catheter Urinary Catheter Date of Insertion: 01/25/21 Urinary Catheter Time of Insertion: 00:45 Date Urinary Catheter Removed: 01/27/21 Time Urinary Catheter Discontinued: 08:30 Data : 01/28/21 03:49 01/28/21 03:49 A&P Assessment and plan (1) Atrial fibrillation with RVR: I will increase metoprolol to 75 mg in the morning and 20 5 in the evening. Status: Acute (2) CHF (congestive heart failure): Continued well compensated. Continue current regimen Status: Chronic Qualifiers: Heart failure chronicity: acute on chronic Heart failure type: systolic Qualified Code(s): I50.23 - Acute on chronic systolic (congestive) heart failure (3) Single vessel coronary artery disease: Stable. Continue current regimen Status: Acute (4) PAD (peripheral artery disease): Stable, dopplerable pulses, warm feet. 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
[2021-01-28] MEDS: sennosides 8.6 mg Tablet 17.2 MG PO (20:35)
[2021-01-29] VITALS (10 sets, daily range): BP systolic 94–146; BP diastolic 66–104; PULSE 86–125; RESP 17–23; TEMP 36.6–36.8; O2SAT 95–98
[2021-01-29] MEDS: piperacillin-tazobactam 3.375 GM in sodium chloride 0.9% (plus) 50 ML IV ×2 (02:03→10:23)
[2021-01-29 09:02] LABS: Digoxin 0.6 ng/mL (0.6-1.2)
[2021-01-29] MEDS: pantoprazole DR 40 mg Tablet PO (09:18)
[2021-01-29] MEDS: lisinopril 2.5 mg Tablet PO (09:18)
[2021-01-29] MEDS: metoprolol tartrate 50 mg Tablet PO (09:18)
[2021-01-29] MEDS: clopidogrel 75 mg Tablet PO (09:19)
[2021-01-29] MEDS: apixaban 5 mg Tablet PO (09:19)
[2021-01-29] MEDS: docusate sodium 100 mg Capsule PO (09:19)
[2021-01-29] MEDS: nystatin 100,000 unit/mL UDC 5 mL 400000 UNIT PO ×2 (09:19→14:30)
[2021-01-29] MEDS: digoxin 250 mcg/ml INJ 2 mL IVP (09:20)
[2021-01-29] MEDS: HYDROcodone-acetaminophen 5-325 mg Tablet 1 TAB PO (09:23)
--- NOTE | 2021-01-29 10:04 | PC.CHAP ---
Pastoral Care Encounter/Spiritual Assessment Type of Contact [] Declined horse race starter visit [] Patient/Family/Request visit [] Outpatient visit [] Follow-up visit [] Physician referral [] Code/Alert [x] Routine visit [] Staff referral [] Actively dying [] Patient sleeping [] Family support [] [] Out of room [] Palliative care [] [] Receiving care in room [] Pre-surgical visit [] Trauma [] Long length of stay [x] ICU visit [] Other: Relational/Emotional Strength [] Patient feels connected with others/family/visitors/staff [] Distress [] Loneliness/isolation [] Abandonment Spirituality of Patient [] Person of Joanna [] Attends Confucianist of their Joanna [] Believes in Prayer [] Reads Bible or Faith materials [] There are Spiritual issues to be addressed Physical Science Teacher Interventions [x] Prayer [x] Active listening [x] Non-anxious presence [x] Spiritual/emotional support [] Crisis/trauma care [] Spiritual counseling [] Bereavement support [] Provided bereavement packet [] Provided Bible/devotional materials [] Provided toy/stuffed animal, coloring book to patient or family member [] Provided Communion [] Anointing/[place] [] Salvation [x] Completed spiritual assessment [] Other: Impact on Illness or Injury [] Angry [] Fearful [] Anxious [] Often cries [] Exhaustion [] Unable to work [] Unable to attend congregational [] Unable to walk/stand [] Unable to read [] Unable to drive [] Unable to eat/drink [] Unable to sleep [] Unable to be with family [] Patient intubated [] Other: Summary sitting up in chair, having breakfast Time spent with patient 5 min
--- NOTE | 2021-01-29 14:31 | PC.NURSE ---
Nystatin medication administration delayed due to computer/network issues.
--- NOTE | 2021-01-29 14:58 | P.DS_ITS ---
Discharge Providers Date of Admission: 01/25/21 02:36 Date of Discharge: January 29, 2021 Attending Provider at Admission: Tierra Rossi MD Attending Provider at Discharge: Juventino Franco MD Primary Care Provider: Travis Boss Diagnoses at Discharge Discharge Diagnosis (1) Atrial fibrillation with RVR: Status: Acute (2) CHF (congestive heart failure): Status: Chronic Permanent problem details: EF 40 to 45% on echo and 20-25% on LV gram from cardiac angiogram with global LV hypokinesia, diastolic dysfunction. Qualifiers: Heart failure chronicity: acute on chronic Heart failure type: systolic Qualified Code(s): I50.23 - Acute on chronic systolic (congestive) heart failure (3) Single vessel coronary artery disease: Status: Acute Permanent problem details: Distal left circumflex (4) PAD (peripheral artery disease): Status: Chronic Reason for Visit Reason for Visit: back pain Hospital Course Hospital Course Sabina is a 70-year-old female who presented to the hospital on January 25 with right leg pain, abdominal pain, and atrial fibrillation with rapid ventricular rate. She was diagnosed with acute cholecystitis, there were concerns of right lower extremity poor perfusion as well. General surgery was consulted. Patient was taken off Eliquis and placed on heparin drip. Broad-spectrum antibiotics were initiated for cholecystitis as well as possible UTI. Patient was loaded on digoxin for atrial fibrillation. Cardiology was consulted in regards to this as well as concerns of ischemic limb. Following day she still had abdominal and back pain. Cardiology reinstituted metoprolol for her atrial fibrillation. Surgery believed IV antibiotics were indicated, and ordered a HIDA scan for further evaluation of her gallbladder. Patient reported her right lower extremity was better, and on review by cardiology they believe no further intervention was necessary. The rest of her hospital stay, was focused on physical therapy and occupational therapy, and control of her heart rate. Further adjustments in digoxin, and metoprolol were made. By the end of her hospital stay she had no right lower extremity pain. Her Eliquis had been reinstituted along with her Plavix. Abdominal pain improved. Heart rate was approximately 90 at discharge. She was able to ambulate with contact assist. She required quite a bit of cueing, and it was thought she could benefit from senior care placement from a physical therapy and Occupational Therapy aspect. This would also allow further strengthening to reduce her risk of recurrent hospitalizations. Unfortunately, insurance refused to approve skilled care even though [id number] was done describing these concerns as well as concern of readmission. She will discharge on 5 days of Cipro and Flagyl, follow-up with surgery in regards to her cholecystitis, which was confirmed on HIDA scan. She should follow a low-fat diet. She will follow-up with cardiology in 2 weeks for atrial fibrillation. She will follow-up with her primary care provider 3 to 5 days with digoxin level. In-home services was ref used by the patient. Physical Exam Narrative: EXAM NARRATIVE: General exam no distress Neck is supple Cardiovascular irregular, irregular Lungs clear Abdomen is soft. Bowel sounds are noted Extremities no cyanosis clubbing or edema Urinary Catheter Management^: Lopez: Cath Placed During This Visit: yes, but has since been removed by the nurse Reason for Continuing Indwelling Catheter: Decision to DC Catheter Urinary Catheter Date of Insertion: 01/25/21 Urinary Catheter Time of Insertion: 00:45 Date Urinary Catheter Removed: 01/27/21 Time Urinary Catheter Discontinued: 08:30 Discharge Data Data Completed and Pending: Completed Studies During Hospitalization Category Date Time Status CT angio chest w abd pel w con Stat Cat Scan 01/24/21 22:21 Completed XR chest 1V arnav ble [id number] Stat Exams 01/24/21 21:45 Completed NM hepatobiliary w phar* [id number] Rout ine Nuc Med 01/26/21 07:45 [place] [id number] Stat Ultrasound 01/24/21 23:16 Completed US gall bladder 7 [id number] Urgent Ultrasound 01/24/21 23:37 Completed Pending at discharge Category Date Time Status Blood Culture Sta t Lab 01/24/21 23:15 Results Digoxin Routine Lab 01/29/21 13:02 Received Labs from last 24 hours 01/29/21 01/29/21 13:02 03:49 Digoxin Pending 0.6 Vitals: Last Vital Signs Temp 98.3 F 01/29/21 08:00 Pulse 112 H 01/29/21 10:00 Resp 23 H 01/29/21 10:00 BP 94/67 01/29/21 10:00 Pulse Ox 96 01/29/21 10:00 Discharge Plan Discharge Patient Disposition: Home Condition: Stable Prescriptions: New pantoprazole 40 mg Tablet,Delayed Release (Dr/Ec) 40 mg PO DAILY Qty: 30 RF: 0 digoxin 250 mcg (0.25 mg) Tablet 250 mcg PO DAILY Qty: 30 RF: 0 ciprofloxacin HCl [Cipro] 500 mg tablet 500 mg PO BID Qty: 10 RF: 0 docusate sodium 100 mg Capsule 100 mg PO BID Qty: 60 RF: 0 sennosides [Senna Lax] 8.6 mg Tablet 17.2 mg PO BEDTIME Qty: 30 RF: 0 metronidazole [Flagyl] 500 mg tablet 500 mg PO TID Qty: 15 RF: 0 Continued metoprolol tartrate 50 mg tablet 50 mg PO BID Qty: 60 RF: 3 cyanocobalamin (vitamin B-12) [Vitamin B-12] 250 mcg Tablet 250 mcg PO QAM RF: 0 Eliquis 5 mg Tablet 5 mg PO BID 30 Days Qty: 60 RF: 6 ofloxacin 0.3 % Drops 5 drp otic (ear) DAILY RF: 0 fluticasone propionate 50 mcg/actuation [place],Suspension 2 spray INTRANASAL DAILY RF: 0 acetaminophen 500 mg Tablet 1,000 mg PO Q4H PRN (Reason: Pain) RF: 0 ascorbic acid (vitamin C) [Vitamin C] 500 mg Tablet 500 mg PO DAILY RF: 0 clopidogrel 75 mg tablet 75 mg PO QAM RF: 0 lisinopril 2.5 mg tablet 2.5 mg PO DAILY RF: 0 Discharge Orders: Discharge Order (Routine); Ordered 01/29/21 Ordered By: Juventino Franco Referrals: Jorge Trujillo MD [Physician] - (Return to surgery office in 2-weeks.) Emilee Veronica MD [Physician] - 7-10 days (May follow-up with nurse practitioner for recheck of atrial fibrillation with rapid ventricular rate) Travis Boss [Primary Care Provider] - 4-7 days (Digoxin level on follow-up) Discharge Diet: Cardiac and GI Soft Discharge Activity: Increase activity as tolerated Patient Instructions: Opioid Safety Activity Restrictions/Additional Instructions: Take all medicines as prescribed Keep follow-up with primary care provider as well as surgery Finish all of your antibiotics Discharge Attestations Time Spent in Discharge Care*: greater than 30 min Status at Discharge: Cognitive status at discharge: cognitively intact , Behavioral status at discharge: cooperative , Quality Metrics Clinical Quality Measures During this hospital stay, did patient experience: None Coding Level of Care Code Acute Chg FW DC note Diagnoses Atrial fibrillation with RVR I48.91 CHF (congestive heart failure) I50.23 Heart failure chronicity: acute on chronic Heart failure type: systolic Single vessel coronary artery disease I25.10 PAD (peripheral artery disease) I73.9
--- NOTE | 2021-01-29 16:00 | PC.NURSE ---
All care and documentation by student nurse Lupe Quan directly supervised by this nurse.
--- NOTE | 2021-01-29 17:40 | PC.NURSE ---
Discharge instructions and pt to make follow up appts discussed. Pt nor grandson Juan M were very receptive to listening and/or engaging in discharge instructions about disease processes or digoxin toxicity. Pt did listen to new medication education and CHF stoplight.
--- NOTE | 2021-02-01 13:14 | PC.SOCIAL ---
spoke with [facility]on[facility], they are unable to accept pt due to staffing [facility] reports they never received referral, [facility] re-faxed info Vic will call sheet writer back.
--- NOTE | 2021-02-01 13:52 | PC.SOCIAL ---
Vic [facility]DENAS returned writers call they are unable to accept pt due to pt not being in network.
--- NOTE | 2021-02-02 08:50 | PC.SOCIAL ---
press writer followed up with [facility] this am, per [facility], they are unable to accept patient. Liana with [facility] reports she called yesterday and told someone they couldn't accept but liana doesn't recall the reason they are unable to accept.
== END 2021-01-29 17:15 | disposition home health service (06) | DRG 299 ==
LOC: ER 01-25 00:49 → ICU 01-25 01:39
PROVIDERS: Emergency Medicine; Student in an Organized Health Care Education/Training Program; Admitting Provider Hospitalist; Emergency Provider Emergency Medicine; PCP Clinical Nurse Specialist Adult Health; Visit Provider Internal Medicine
DX: I70.223 Atherosclerosis of native arteries of extremities with rest pain, bilateral legs (principal); I50.23 Acute on chronic systolic (congestive) heart failure; K81.0 Acute cholecystitis; I48.91 Unspecified atrial fibrillation; K57.90 Diverticulosis of intestine, part unspecified, without perforation or abscess without bleeding; I25.10 Atherosclerotic heart disease of native coronary artery without angina pectoris; K21.9 Gastro-esophageal reflux disease without esophagitis; I34.0 Nonrheumatic mitral (valve) insufficiency; Z95.820 Peripheral vascular angioplasty status with implants and grafts; Z79.01 Long term (current) use of anticoagulants; Z79.02 Long term (current) use of antithrombotics/antiplatelets; Z87.440 Personal history of urinary (tract) infections
CPT/HCPCS: 36415; 51702; 71045; 71275; 74177; 76705; 78227; 80053; 80162; 81001; 82977; 83605; 83615; 83690; 83735; 83880; 84443; 84484; 85025; 85610; 85730; 87040; 87086; 93005; 93925; 96365; 96366; 96367; 96372; 96375; 96376; 97116; 97162; 97165; 97530; 97535; 99291; A9537; J1160; J1644; J1650; J1956; J2405; J2543; J3010; J3370; J3490; J7040; Q9967

== ENCOUNTER 2021-04-07 13:44 | Inpatient (IN) | payer MEDICARE, MEDICAID, SELFPAY ==
[2021-04-07] VITALS (9 sets, daily range): BP systolic 92–126; BP diastolic 75–90; PULSE 99–155; RESP 14–22; TEMP 36.4; O2SAT 92–100; BMI 21.9
--- NOTE | 2021-04-07 14:02 | XRR_ITS ---
PROCEDURE INFORMATION: Exam: XR Chest Exam date and time: 04/07/2021 2:02 PM Age: 71 years old Clinical indication: Shortness of breath; Additional info: Eval for pna TECHNIQUE: Imaging protocol: XR of the chest. Views: 1 view. COMPARISON: CR XR chest 1V portable [id number] 01/24/2021 10:09 PM FINDINGS: Lungs: There is mildly increased lung markings, haziness of the lungs and small left pleural effusion, which in the setting of cardiomegaly is consistent with pulmonary edema. Pneumonia should be excluded clinically. No pneumothorax. Pleural spaces: See Lungs finding. Heart/Mediastinum: Stable cardiomediastinal silhouette. Bones/joints: Unremarkable. XR/XR chest 1V portable [id number] IMPRESSION: Imaging findings of mild pulmonary edema with small left pleural effusion. Pneumonia should be excluded clinically.
--- NOTE | 2021-04-07 14:45 | ED_ITS ---
HPI - General Adult General: Chief complaint: Weakness Stated complaint: WEAKNESS Time Seen by Provider: 04/07/21 13:47 History of Present Illness: HPI narrative: Patient is a 71-year-old female with history of PAD, CAD status post stent x1, atrial fibrillation presenting to emergency room with complaints of generalized weakness and inability to walk for the last 2 days. First patient's nephew, patient has been having difficulty walking for the last 2 days. Patient is feeling more tired than usual. Patient reports that she does not feel like she has strength in the lower extremity. Patient denies any chest pain, shortness breath, palpitation, fever/chills, cough, runny nose, sore throat, abdominal complaints, complaints, nausea/vomiting, diarrhea, melena or hematochezia. Onset: 2 days Duration:2 days Location:home Severity:moderate Associated symptoms: Deny chest pain, dyspnea, nausea, rash, palpitations or vomiting Review of Systems Const: Denies: fever(s) or chills Eyes: Denies: change in vision ENMT: Denies: mouth pain Card: Denies: chest pain or palpitations Resp: Denies: dyspnea or non-productive cough GI: Denies: abdominal pain, nausea, vomiting or diarrhea : Denies: dysuria Musc: Reports: other (inability to ambulate); Denies: extremity pain Skin/Breast: Denies: rash or new lesions Neuro: Denies: weakness in extremities Psych: Reports: other (Normal mood) Ortega/Lymph: Denies: easy bruising PFSH ED PFSH: Medical History Anxiety Aortic regurgitation Atrial fibrillation Back pain CAD (coronary artery disease) Angiogram 12/18/2020 showed single-vessel disease, distal circumflex high- grade lesion, recommendation for medical management at time CHF (congestive heart failure) EF 40 to 45% on echo and 20-25% on LV gram from cardiac angiogram with global LV hypokinesia, diastolic dysfunction. Chronic ankle pain, bilateral Chronic pain of both knees Depression GERD without esophagitis Interstitial cystitis Limb ischemia Acute limb ischemia with limb salvage percutaneous procedure performed. Migraine Mitral regurgitation Moderate episode of recurrent major depressive disorder Overactive bladder PAD (peripheral artery disease) Positive cardiac stress test (~11/2020) Recurrent UTI Tremor Surgical History History of cardiac catheterization (12/18/20) Dr Veronica Hx of hysterectomy Status post peripheral artery angioplasty with insertion of stent (12/31/20) Dr Jimenez, thrombectomy and balloon angioplasty RLE, drug eluting stent 2 x to peroneal artery Family History Mother , AT AGE 80 Diabetes Cancer CAD (coronary artery disease) Father CAD (coronary artery disease) Brother CAD (coronary artery disease) Sister CAD (coronary artery disease) Social History Smoking and tobacco status: never smoked Alcohol intake: never Marital status: / Current occupational status: disabled Physical Exam Const: COMMON NORMALS: alert HENMT: COMMON NORMALS: atraumatic HEAD & SCALP: atraumatic MOUTH: moist mucous membranes not abnormal Eye: COMMON NORMALS: EOMs intact bilaterally and conjunctivae normal CONJUNCTIVA: Yes conjunctivae normal Neck/C-Spine: COMMON NORMALS: full ROM and supple Resp: COMMON NORMALS: normal respiratory effort and clear to auscultation bilaterally AUSCULTATION: clear to auscultation bilaterally Cardio: COMMON NORMALS: regular rate RATE: regular rate GI: COMMON NORMALS: Soft to palpation and non-tender PALPATION: Yes Soft to palpation Extremity: NARRATIVE EXTREMITY EXAM: Has bilateral cool clammy extremities with cap refill greater than 5 seconds. No appreciable DP/PT pulses b/l Neuro: SENSORIUM/ORIENTATION: Yes alert MOTOR EXAM: No Abnormal motor strength present and Other motor observations present (no focal motor deficits) OTHER: Mental status? Awake, alert, and oriented to self, year, month, location, and situation.? Following simple axial and appendicular commands.? Has appropriate fund of knowledge, comprehension, and insight.? Able to recall and understands pertinent aspects of medical history and current treatment status.? ? Language? Speech is fluent without word-finding difficulties.? Intact naming, expression, entry level receptionist, and repetition.? ? Cranial nerves? 2,3,4,6: PERRL, EOMI with no nystagmus. 5: Intact sensation to light touch, symmetric? 7: Smile symmetrical, no facial droop.? 8: Hearing grossly intact.? 9,10: Normal palate movement.? 11: Normal strength in trapezius bilaterally 12: Tongue protrudes midline.? ? Motor examination? Normal bulk & tone. +Unable to move the lower extremities (knees/ankles/hips) Sensation? Light Touch: Grossly intact and equal in upper and lower extremities bilaterally? Romberg: Negative.? Distal joint position sense intact ? Coordination? Uyewrq-yc-gqtz-finger movements intact without dysmetria or past-pointing.? Rapid fingertaps: preserved amplitude without decriment.? No tremor, myoclonus or truncal ataxia.? ? Gait/stance? Steady, normal narrow base gait with appropriate arm swing and turning.? Tandem gait without hesitation or loss of balance. Psych: COMMON NORMALS: speech normal SPEECH: Yes normal speech MOOD & AFFECT: Yes euthymic mood Course Vital Signs: Vital signs: Vital Signs Temperature 97.5 F L 04/07/21 13:46 Pulse Rate 147 H 04/07/21 18:38 Respiratory Rate 14 04/07/21 18:28 Blood Pressure 123/90 04/07/21 18:38 Pulse Oximetry 93 04/07/21 18:38 MDM - General Adult MDM Narrative: Medical decision making narrative: Patient is a 71-year-old female with history of CAD s/p stent x1, atrial fibrillation on eliquis, PAD c/b prior limb ischemia presents emergency room for evaluation of acute generalized weakness, inability to ambulate for last 2 days. Patient reports generalized weakness. On exam, patient is neurologically intact. No signs of focal weakness in the lower extremities Work-up: CBC, CMP, lipase, BMP, troponin, EKG, XR chest, UA, CTA lower extremities CTA of lower extremity showed bilateral acute ischemia below the popliteal bilaterally. This, patient was found to have large left atrial filling defect consistent with possible myxoma versus mural thrombus. The case was immediately discussed with Dr. Varela who recommend talking to Dr. Veronica. Case was discussed with Dr. Bailon who will take patient for revascularization in the bottle labeler. Patient received 500 cc of fluid and then shortly after 4:03 PM went into A. fib with RVR 140-150. Patient received 10 mg of metoprolol total and 100 mg of p.o. metoprolol with mild improvement in heart rate. On reassessment, patient is found to have a white count 19.5, likely reactive secondary to limb ischemia. He is now suspected there is an acute ongoing infection at this time. BNP is significantly elevated at 13K with XR consistent with R pleural effusion and pulmonary edema. Will hold off on the lasix given soft blood pressure. NPO for now. Will be admitted to the ICU. Dr Bailon recommended holding heparin since patient is on eliquis. Disposition: ICU Lab Data: Labs: Lab Results 04/07/21 04/07/21 04/07/21 15:11 15:11 15:11 WBC 19.5 10^3/uL H 10 ^3/uL (4.0-10.0) RBC 5.98 10^6/uL H 10 ^6/uL (4.1-5.3) Hgb 14.8 g/dL g/dL (11.5-15.3) Hct 49.3 % H % (37.0-47.0) MCV 82.4 fl fl (81-99) MCH 24.7 pg L pg (28.0-34.0) MCHC 30.0 g/dL g/dL (30.0-36.0) RDW 19.3 % H % (12.1-15.1) Plt Count 125 10^3/cmm L 10 ^3/cmm (130-400) MPV Not Reportable Neut % (Auto) 84.9 % % Lymph % (Auto) 5.8 % % Dickens % (Auto) 8.0 % % Eos % (Auto) 0.0 % % Baso % (Auto) 0.2 % % Neut # (Auto) 16.54 10^3/uL H 1 0^3/uL (1.8-7.7) Lymph # (Auto) 1.1 10^3/uL 10^3/ uL (0.8-4.8) Dickens # (Auto) 1.6 10^3/uL H 10^ 3/uL (0.2-0.9) Eos # (Auto) 0.0 10^3/uL 10^3/ uL (0.0-0.8) Baso # (Auto) 0.0 10^3/uL 10^3/ uL (0.0-0.1) Nucleated RBC % (a uto) 0.1 % % Nucleated RBCs # 0.0 /100WBC /100W BC Sodium 135 mmol/L L mmol /L (136-145) Potassium 4.9 mmol/L mmol/L (3.5-5.1) Chloride 102 mmol/L mmol/L (98-107) Carbon Dioxide 14 mmol/L L mmol/ L (22-29) Anion Gap 23.9 H (5-19) BUN 30 mg/dL H mg/dL (8-23) Creatinine 0.6 mg/dL mg/dL (0.5-0.9) GFR Calculation Not Reportable Glucose 130 mg/dL H mg/dL (65-115) Calculated Osmolal ity 288 mOsm/kg mOsm/ kg (285-295) Calcium 8.5 mg/dL mg/dL (8.5-10.5) Total Bilirubin 1.3 mg/dL H mg/dL (0.15-1.2) AST 16 U/L U/L (0-32) ALT 8 U/L U/L (0-33) Alkaline Phosphata se 103 IU/L IU/L (35-105) Troponin T Baselin e 30 ng/L H ng/L (0-10) Troponin T 120 Min jamul Delta Troponin T NT-Pro-B Natriuret Pep 37330 pg/mL H pg/ mL (0-125) Total Protein 6.1 g/dL L g/dL (6.6-8.7) Albumin 2.5 g/dL L g/dL (3.5-5.2) Globulin 3.6 g/dL g/dL (1.3-4.6) Lipase 21 U/L U/L (13-60) 04/07/21 17:19 WBC RBC Hgb Hct MCV MCH MCHC RDW Plt Count MPV Neut % (Auto) Lymph % (Auto) Dickens % (Auto) Eos % (Auto) Baso % (Auto) Neut # (Auto) Lymph # (Auto) Dickens # (Auto) Eos # (Auto) Baso # (Auto) Nucleated RBC % (a uto) Nucleated RBCs # Sodium Potassium Chloride Carbon Dioxide Anion Gap BUN Creatinine GFR Calculation Glucose Calculated Osmolal ity Calcium Total Bilirubin AST ALT Alkaline Phosphata se Troponin T Baselin e Troponin T 120 Min jamul 28.67 ng/L H ng/L (0-10) Delta Troponin T -1.33 ABS# L ABS# (0-10) NT-Pro-B Natriuret Pep Total Protein Albumin Globulin Lipase Imaging Data^: Other Imaging: Radiologist's impression: [facility] Center[facility]se[address] [place], [place] [address] Scan ReportSigned with Addenda Patient: Sabina Valdez #: [id number]: 1950 /Sex: 71 / FADM Date: 04/07/21Loc: ERRoom/Bed:Attending Dr: Ordering Provider/Ordering MD: Richy Calderón MD Date of Service: 04/07/21 Procedure(s): CT angio abd aorta runof 26471 Accession Number(s): [id number] Report Number: [id number]/CT angio abd aorta runof 23372 THIS REPORT CONTAINS FINDINGS THAT MAY BE CRITICAL TO PATIENT CARE. The findings were verbally communicated via telephone conference with RICHY CALDERÓN at 5:30 PM STABLEHAND on 04/07/2021. The findings were acknowledged and understood. Addendum Dictated By: Crow AlvaradoAddendum Signed By: Crow AlvaradoSifelicita Date/Time:04/07/21 173Addendum Cosigned By: PROCEDURE INFORMATION: Exam: CTA Angiogram of the Abdominal Aorta and Bilateral Lower Extremities (Run-off) With IV Contrast Exam date and time: 04/07/2021 3:54 PM Age: 71 years old Clinical indication: Other: Cold extremities, weakness, unable to walk; Prior surgery; Surgery type: Hyst, cardiac cath; Patient HX: Best images possible. PT does not follow commands and will not keep arms up TECHNIQUE: Imaging protocol: CT angiogram of the abdominal aorta, pelvis and bilateral lower extremities with IV iodinated contrast. 3D rendering (Not supervised by radiologist): MIP and/or 3D reconstructed images were created by the technologist. Radiation optimization: All CT scans at this facility use at least one of these dose optimization techniques: automated exposure control; mA and/or kV adjustment per patient size (includes targeted exams where dose is matched to clinical indication); or iterative reconstruction. Contrast material: OMNI 350; Contrast volume: 95 ml; Contrast route: INTRAVENOUS (IV); COMPARISON: CT angio chest w abd pel w con 01/24/2021 10:52 PM RADIATION DOSE METRICS: Total DLP (mGy-cm): 1581.43 FINDINGS: Aorta: No aortic aneurysm. No aortic dissection. Celiac trunk and mesenteric arteries: No occlusion or significant stenosis. Renal arteries: No occlusion or significant stenosis. Right iliac arteries: No occlusion or significant stenosis. Right femoral/popliteal arteries: Abrupt occlusion of the right popliteal artery. Right infrapopliteal arteries: Occluded stent in the tibioperoneal trunk. Complete occlusion of the anterior tibial artery, tibioperoneal trunk, posterior tibial artery, and peroneal artery. No visible runoff to the foot. Left iliac arteries: No occlusion or significant stenosis. Left femoral/popliteal arteries: Small filling defect with near complete occlusion within a large posteromedial branch of the left profunda femoral artery. Abrupt occlusion of the left popliteal artery. Left infrapopliteal arteries: Occlusion of the left anterior tibial artery, tibioperoneal trunk, posterior tibial artery, and peroneal artery. No visible runoff to the foot. Lungs: Atelectasis and consolidation in both lower lobes, right greater than left. Heart: 5.5 cm large thrombus within an enlarged left atrium. 5.4 cm thrombus filling the left atrial appendage. 0.9 cm polypoid filling defect in the posteroinferior right atrium, most likely a small thrombus. Pleural space: Small pleural effusions, left greater than right. Liver: No mass. Gallbladder and bile ducts: Unremarkable. No calcified stones. No ductal dilation. Pancreas: Unremarkable. No mass. No ductal dilation. Spleen: Normal. No splenomegaly. Adrenals: Normal. No mass. Kidneys and ureters: Multiple central cysts in both kidneys, Hounsfield units less than 20. No follow-up imaging recommended. Multiple small chronic cortical defects in both kidneys. No hydronephrosis. Stomach and bowel: Large amount of stool in the rectum and distal sigmoid colon, possibly rectal impaction. Diverticulosis of the distal colon. No diverticulitis. The stomach and small bowel are unremarkable. Appendix: The appendix is not visualized. No secondary signs of appendicitis. Urinary bladder: Unremarkable. No mass. Reproductive: The uterus and ovaries are absent. Intraperitoneal space: No fluid collection. No free air. Lymph nodes: No lymphadenopathy. Bones/joints: Mild anterior subluxation of L5 on S1. Degenerative changes of the spine. No fracture. Soft tissues: Mild body wall edema. CT/CT angio abd aorta runof 66154 IMPRESSION: 1. Large polypoid filling defects within the cardiac left atrium and left atrial appendage. This is consistent with thrombus and/or tumor thrombus such as a myxoma. 2. Small polypoid filling defect in the posteroinferior right atrium is consistent with a small thrombus or myxoma. 3. Abrupt occlusion of the bilateral popliteal arteries, and complete occlusion of the bilateral infrapopliteal arteries. No visible runoff to the feet. Given the findings in the left atrium, this most likely represents severe thromboembolic disease. 4. Near complete segmental occlusion of a left profunda femoral artery branch, most likely thromboembolic disease. Dictated By:Wai Alvaradogned By:Shweta Alvarado Date/Time:04/07/21 1728DD/ [address] [address] ReportSigned Patient: Sabina Valdez #: [id number]: 1950cct#:[id number]/Sex: 71 / FADM Date: 04/07/21Loc: ERRoom/Bed:Attending Dr: Ordering Provider/Ordering MD: Richy Calderón MD Date of Service: 04/07/21 Procedure(s): XR chest 1V portable [id number] Accession Number(s): [id number] Report Number: [id number] PROCEDURE INFORMATION: Exam: XR Chest Exam date and time: 04/07/2021 2:02 PM Age: 71 years old Clinical indication: Shortness of breath; Additional info: Eval for pna TECHNIQUE: Imaging protocol: XR of the chest. Views: 1 view. COMPARISON: CR XR chest 1V portable [id number] 01/24/2021 10:09 PM FINDINGS: Lungs: There is mildly increased lung markings, haziness of the lungs and small left pleural effusion, which in the setting of cardiomegaly is consistent with pulmonary edema. Pneumonia should be excluded clinically. No pneumothorax. Pleural spaces: See Lungs finding. Heart/Mediastinum: Stable cardiomediastinal silhouette. Bones/joints: Unremarkable. XR/XR chest 1V portable [id number] IMPRESSION: Imaging findings of mild pulmonary edema with small left pleural effusion. Pneumonia should be excluded clinically. Dictated By:Leonardo Barreto By:Leonardo Barreto Date/Time:04/07/21 1429DD/ 1402 Discharge Plan Discharge Patient Disposition: Admitted As Inpatient Clinical Impression: Generalized weakness, Inability to walk, Critical limb ischemia of both lower extremities, CHF exacerbation, Atrial fibrillation with RVR Condition: Stable Coding Level of Care Code ED Custom Frame Assembler for Chg Fwd Exam Comprehensive
[2021-04-07] MEDS: sodium chloride 0.9% 500 ML IV (14:50)
[2021-04-07 15:31] LABS: Basophils % 0.2 %; Hematocrit 49.3 % (37.0-47.0); Hemoglobin 14.8 g/dL (11.5-15.3); Lymphocytes # 1.1 10^3/uL (0.8-4.8); Lymphocytes % 5.8 %; Mean Corpuscular Hemoglobin 24.7 pg (28.0-34.0); Mean Corpuscular Volume 82.4 fl (81-99); Monocytes # 1.6 10^3/uL (0.2-0.9); Neutrophils # 16.54 10^3/uL (1.8-7.7); Neutrophils % 84.9 %; Nucleated Red Blood Cells % 0.1 %; Platelet Count 125 10^3/cmm (130-400); Red Blood Count 5.98 10^6/uL (4.1-5.3); Red Cell Distribution Width 19.3 % (12.1-15.1); White Blood Count 19.5 10^3/uL (4.0-10.0)
--- NOTE | 2021-04-07 15:54 | CTR_ITS ---
PROCEDURE INFORMATION: Exam: CTA Angiogram of the Abdominal Aorta and Bilateral Lower Extremities (Run-off) With IV Contrast Exam date and time: 04/07/2021 3:54 PM Age: 71 years old Clinical indication: Other: Cold extremities, weakness, unable to walk; Prior surgery; Surgery type: Hyst, cardiac cath; Patient HX: Best images possible. PT does not follow commands and will not keep arms up TECHNIQUE: Imaging protocol: CT angiogram of the abdominal aorta, pelvis and bilateral lower extremities with IV iodinated contrast. 3D rendering (Not supervised by radiologist): MIP and/or 3D reconstructed images were created by the technologist. Radiation optimization: All CT scans at this facility use at least one of these dose optimization techniques: automated exposure control; mA and/or kV adjustment per patient size (includes targeted exams where dose is matched to clinical indication); or iterative reconstruction. Contrast material: OMNI 350; Contrast volume: 95 ml; Contrast route: INTRAVENOUS (IV); COMPARISON: CT angio chest w abd pel w con 01/24/2021 10:52 PM RADIATION DOSE METRICS: Total DLP (mGy-cm): 1581.43 FINDINGS: Aorta: No aortic aneurysm. No aortic dissection. Celiac trunk and mesenteric arteries: No occlusion or significant stenosis. Renal arteries: No occlusion or significant stenosis. Right iliac arteries: No occlusion or significant stenosis. Right femoral/popliteal arteries: Abrupt occlusion of the right popliteal artery. Right infrapopliteal arteries: Occluded stent in the tibioperoneal trunk. Complete occlusion of the anterior tibial artery, tibioperoneal trunk, posterior tibial artery, and peroneal artery. No visible runoff to the foot. Left iliac arteries: No occlusion or significant stenosis. Left femoral/popliteal arteries: Small filling defect with near complete occlusion within a large posteromedial branch of the left profunda femoral artery. Abrupt occlusion of the left popliteal artery. Left infrapopliteal arteries: Occlusion of the left anterior tibial artery, tibioperoneal trunk, posterior tibial artery, and peroneal artery. No visible runoff to the foot. Lungs: Atelectasis and consolidation in both lower lobes, right greater than left. Heart: 5.5 cm large thrombus within an enlarged left atrium. 5.4 cm thrombus filling the left atrial appendage. 0.9 cm polypoid filling defect in the posteroinferior right atrium, most likely a small thrombus. Pleural space: Small pleural effusions, left greater than right. Liver: No mass. Gallbladder and bile ducts: Unremarkable. No calcified stones. No ductal dilation. Pancreas: Unremarkable. No mass. No ductal dilation. Spleen: Normal. No splenomegaly. Adrenals: Normal. No mass. Kidneys and ureters: Multiple central cysts in both kidneys, Hounsfield units less than 20. No follow-up imaging recommended. Multiple small chronic cortical defects in both kidneys. No hydronephrosis. Stomach and bowel: Large amount of stool in the rectum and distal sigmoid colon, possibly rectal impaction. Diverticulosis of the distal colon. No diverticulitis. The stomach and small bowel are unremarkable. Appendix: The appendix is not visualized. No secondary signs of appendicitis. Urinary bladder: Unremarkable. No mass. Reproductive: The uterus and ovaries are absent. Intraperitoneal space: No fluid collection. No free air. Lymph nodes: No lymphadenopathy. Bones/joints: Mild anterior subluxation of L5 on S1. Degenerative changes of the spine. No fracture. Soft tissues: Mild body wall edema. CT/CT angio abd aorta runof [id number] IMPRESSION: 1. Large polypoid filling defects within the cardiac left atrium and left atrial appendage. This is consistent with thrombus and/or tumor thrombus such as a myxoma. 2. Small polypoid filling defect in the posteroinferior right atrium is consistent with a small thrombus or myxoma. 3. Abrupt occlusion of the bilateral popliteal arteries, and complete occlusion of the bilateral infrapopliteal arteries. No visible runoff to the feet. Given the findings in the left atrium, this most likely represents severe thromboembolic disease. 4. Near complete segmental occlusion of a left profunda femoral artery branch, most likely thromboembolic disease.
[2021-04-07 16:01] LABS: Slide Review Slide Review Perform
--- NOTE | 2021-04-07 16:03 | ECG_ITS ---
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 Measurements Intervals [place] Rate: 157 P: MS: QRS: 86 QRSD: 114 T: 260 QT: 290 QTc: 469 Interpretive Statements ATRIAL FIBRILLATION WITH RAPID VENTRICULAR RESPONSE WITH ABERRANT CONDUCTION OR VENTRICULAR PREMATURE COMPLEXES INCOMPLETE RIGHT BUNDLE BRANCH BLOCK [90+ ms QRS DURATION, TERMINAL R IN V1/V2, 40+ ms S IN I/aVL/V4/V5/V6] ST DEVIATION AND MODERATE T-WAVE ABNORMALITY, CONSIDER ANTEROLATERAL ISCHEMIA [-0.1+ mV T-WAVE IN V3-V6] CRITICAL TEST RESULT Compared to ECG 01/25/2021 04:18:23 Ventricular premature complex(es) now present Aberrant conduction of supraventricular beat(s) now present Incomplete right bundle-branch block now present Right bundle-branch block no longer present T-wave abnormality still present Possible ischemia still present Electronically Signed On 04-07-2021 20:12:46 BUILDING CONSTRUCTION SUPERVISOR by Ori Jimenez M.D. [email or web address]
[2021-04-07 16:05] LABS: Alanine Aminotransferase 8 U/L (0-33); Albumin Level 2.5 g/dL (3.5-5.2); Alkaline Phosphatase 103 IU/L (35-105); Anion Gap 23.9 (5-19); Aspartate Amino Transferase 16 U/L (0-32); Blood Urea Nitrogen 30 mg/dL (8-23); Calcium 8.5 mg/dL (8.5-10.5); Carbon Dioxide 14 mmol/L (22-29); Chloride 102 mmol/L (98-107); Globulin 3.6 g/dL (1.3-4.6); Glucose 130 mg/dL (65-115); Lipase 21 U/L (13-60); NT Pro B Type Natriuretic Pept 13495 pg/mL (0-125); Osmolality Calculated 288 mOsm/kg (285-295); Potassium 4.9 mmol/L (3.5-5.1); Sodium 135 mmol/L (136-145); Total Bilirubin 1.3 mg/dL (0.15-1.2); Total Protein 6.1 g/dL (6.6-8.7)
[2021-04-07] MEDS: metoprolol succinate ER (24 HR) 50 mg Tablet PO (16:08)
[2021-04-07] MEDS: metoprolol tartrate 1 mg/1 mL SDV 5 mL 5 MG IVP ×2 (16:09→17:09)
[2021-04-07] MEDS: iohexol 350 mg/mL 100 mL Btl IV (16:33)
[2021-04-07 17:13] LABS: Troponin(5th) Baseline 30 ng/L (0-10)
[2021-04-07 18:37] LABS: Troponin 5 2HR 28.67 ng/L (0-10)
[2021-04-07 18:45] LABS: Troponin 5 2HR Delta -1.33 ABS# (0-10)
--- NOTE | 2021-04-07 18:46 | CTR_ITS ---
PROCEDURE INFORMATION: Exam: CT Head Without Contrast Exam date and time: 04/07/2021 6:46 PM Age: 71 years old Clinical indication: Altered mental status/memory loss; Additional info: AMS TECHNIQUE: Imaging protocol: Computed tomography of the head without contrast. Radiation optimization: All CT scans at this facility use at least one of these dose optimization techniques: automated exposure control; mA and/or kV adjustment per patient size (includes targeted exams where dose is matched to clinical indication); or iterative reconstruction. COMPARISON: MRI IAC'S w/wo* [id number] 09/29/2017 2:45 PM RADIATION DOSE METRICS: Total DLP (mGy-cm): 766.43 FINDINGS: Brain: Mild cortical volume loss. Moderate air-fluid level in the right maxillary sinus. The other sinuses are clear. hypodensities in supratentorial periventricular and subcortical white matter, consistent with microangiopathy. No intracranial hemorrhage. Cerebral ventricles: No ventriculomegaly. Paranasal sinuses: See Brain finding. Mastoid air cells: Visualized mastoid air cells are well aerated. Vasculature: No hyperdense artery. Bones/joints: Unremarkable. No acute fracture. Soft tissues: Unremarkable. CT/CT head wo con* [id number] IMPRESSION: 1. No acute intracranial abnormality.
--- NOTE | 2021-04-07 18:47 | P.HP_ITS ---
Providers/Chief Complaint Primary Care Provider: Travis Boss Chief Complaint: WEAKNESS History of Present Illness Sabina Valdez is a 71 year old female atrial fibrillation on Eliquis, history of chronic acute limb ischemia bilateral, peripheral arterial disease, recent history of acute cholecystitis medically managed, CHF EF 20 to 25% and diastolic dysfunction, CAD with high-grade distal circumflex lesion medically managed, who presents to [facility] for inability to walk for the last 24 hours. Currently patient is alert to person, to place, not to time, she is a bit forgetful, her answers are minimal, she does follow some commands a lot of the history was provided by patient's family member at bedside. Patient's family tells me that after hospitalization patient was able to walk, she lives at home by herself, is able to ambulate, however he assists her with her activities of daily living, he will helps by her groceries, but for the most part she is able to take care of herself, is able to walk. However she was complaining of lower extremity pain, and weakness, which progressed to inability to walk for the last 24 hours. He brought her to the emergency room as she was not able to bear weight, not able to walk, no fractures, no trauma no fall. She was also complaining of lower extremity pain. Patient complains of lower extremity pain. Complains of lower extremity weakness. Does have some sensation to bilateral lower extremity, such as does withdraw from pain. She denies any chest pain. No palpitations. No lightheadedness, no dizziness. No facial droop, no slurring of words, no upper extremity weakness, no loss of vision. In the emergency room, patient was found to have acute on chronic limb ischemia, bilateral lower extremities were cool to touch, blue, DP PT pulses were not dopplerable, does have pain, does withdraw from pain, does report she does have sensation when lower extremities are palpated, is able to wiggle her toes, CTA shows abrupt occlusion of the bilateral popliteal arteries, and complete occlusion of the bilateral infrapopliteal arteries, no visible runoff to the feet, she was also found to have large polypoid filling defects within the cardiac left atrium and left atrial appendage, small polypoid filling defect in the posterior inferior right atrium all concerning for small thrombus or myxoma, there is concern for thromboembolic disease. In addition she was found to have A. fib with RVR in the emergency room heart rates in the 150s, normotensive, afe brile on room air Review of Systems Const: Denies: fever(s) Eyes: Denies: change in vision or blurry vision Card: Reports: palpitations; Denies: chest pain or lightheadedness Resp: Denies: dyspnea or non-productive cough GI: Denies: abdominal pain, nausea, vomiting, hematemesis, coffee ground emesis, hematochezia or melena : Denies: difficulty voiding or dysuria Musc: Reports: extremity pain; Denies: back pain Skin/Breast: Reports: skin pain Neuro: Denies: headache(s) Medications/Allergies Home Medications Medication Instructions Recorded Confirmed Last Taken Type cyanocobalamin (vitamin B-12) 250 mcg PO QAM 12/01/20 01/25/21 12/30/20 History [Vitamin B-12] Eliquis 5 mg PO BID 30 Days #60 tab 12/04/20 01/25/21 12/30/20 Rx fluticasone propionate 2 spray INTRANASAL DAILY 12/16/20 01/25/21 Unknown History ofloxacin 5 drp OTIC (EAR) DAILY 12/16/20 01/25/21 12/15/20 History acetaminophen 1,000 mg PO Q4H PRN 12/31/20 01/25/21 12/31/20 04:46 History ascorbic acid (vitamin C) [Vitamin 500 mg PO DAILY 12/31/20 01/25/21 12/30/20 History C] metoprolol tartrate 50 mg tablet 50 mg PO BID #60 tab 01/11/21 01/25/21 Unknown Rx clopidogrel 75 mg PO QAM 01/25/21 01/25/21 Unknown History lisinopril 2.5 mg PO DAILY 01/25/21 01/25/21 Unknown History ciprofloxacin HCl [Cipro] 500 mg PO BID #10 tab 01/29/21 Unknown Rx digoxin 250 mcg PO DAILY #30 tab 01/29/21 Unknown Rx docusate sodium 100 mg PO BID #60 cap 01/29/21 Unknown Rx metronidazole [Flagyl] 500 mg PO TID #15 tab 01/29/21 Unknown Rx pantoprazole 40 mg PO DAILY #30 tab 01/29/21 Unknown Rx sennosides [Senna Lax] 17.2 mg PO BEDTIME #30 tab 01/29/21 Unknown Rx Allergies Allergy/AdvReac Type Severity Reaction Status Date / Time codeine Allergy Unknown ALGY-Rash Verified 01/25/21 07:36 sulfamethoxazole Allergy Unknown ALGY-Rash Verified 01/25/21 07:36 [From Bactrim] trimethoprim [From Bactrim] Allergy Unknown ALGY-Rash Verified 01/25/21 07:36 PFSH Acute PFSH: Medical History Anxiety Aortic regurgitation Atrial fibrillation Back pain CAD (coronary artery disease) Angiogram 12/18/2020 showed single-vessel disease, distal circumflex high- grade lesion, recommendation for medical management at time CHF (congestive heart failure) EF 40 to 45% on echo and 20-25% on LV gram from cardiac angiogram with global LV hypokinesia, diastolic dysfunction. Chronic ankle pain, bilateral Chronic pain of both knees Depression GERD without esophagitis Interstitial cystitis Limb ischemia Acute limb ischemia with limb salvage percutaneous procedure performed. Migraine Mitral regurgitation Moderate episode of recurrent major depressive disorder Overactive bladder PAD (peripheral artery disease) Positive cardiac stress test (~11/2020) Recurrent UTI Tremor Surgical History History of cardiac catheterization (12/18/20) Dr Veronica Hx of hysterectomy Status post peripheral artery angioplasty with insertion of stent (12/31/20) Dr Jimenez, thrombectomy and balloon angioplasty RLE, drug eluting stent 2 x to peroneal artery Family History Mother , AT AGE 80 Diabetes Cancer CAD (coronary artery disease) Father CAD (coronary artery disease) Brother CAD (coronary artery disease) Sister CAD (coronary artery disease) Social History Smoking and tobacco status: never smoked Alcohol intake: never Marital status: / Current occupational status: disabled Vitals/I&O/Wt Last Vital Signs Temp 97.5 F L 04/07/21 13:46 Pulse 147 H 04/07/21 18:38 Resp 14 04/07/21 18:28 BP 123/90 01/12/22 18:38 Pulse Ox 93 04/07/21 18:38 04/07/21 04/07/21 04/07/21 06:59 14:59 22:59 Intake Total 500 / 500 Balance 500 / 500 Weight last 48 hrs Weight 63.503 kg Physical Exam Const: COMMON NORMALS: no acute distress GENERAL APPEARANCE: cooperative, comfortable and frail appearing ORIENTATION/CONSCIOUSNESS: Yes awake, Yes oriented to person and Yes confused; not oriented to place and not oriented to time HENMT: COMMON NORMALS: normocephalic HEAD & SCALP: normocephalic Eye: COMMON NORMALS: Equal, round and reactive pupils present and EOMs intact bilaterally GENERAL EYE: appearance normal, both eyes and all related structures PUPIL: Yes Equal, round and reactive pupils present Neck/C-Spine: COMMON NORMALS: full ROM and no lymphadenopathy THYROID: Thyroid normal Lymph: LYMPHATIC: no lymphadenopathy noted Resp: COMMON NORMALS: normal respiratory effort, No retractions, No use of accessory muscles and clear to auscultation bilaterally AUSCULTATION: clear to auscultation bilaterally Cardio: COMMON NORMALS: S1 normal heart sound present and S2 normal heart sound present RATE: tachycardic RHYTHM: abnormal rhythm irregularly irregular HEART SOUNDS: S1 normal heart sound present and S2 normal heart sound present GI: COMMON NORMALS: Normal to inspection, nondistended, normoactive bowel soun ds present, Soft to palpation and non-tender Extremity: NARRATIVE EXTREMITY EXAM: Bilateral lower extremities DP PT pulses nonpalpable, not dopplerable Bilateral lower extremities cool to touch, clammy, blue discoloration Is able to withdraw from pain Is able to wiggle her toes Neuro: COMMON NORMALS: CN's II-XII intact bilaterally, moves all extremities and no focal motor deficits Urinary Catheter Management^: Lopez: Cath Placed During This Visit: yes Reason for Continuing Indwelling Catheter: Required Immobilization for Trauma or Surgery or Anesthesia Urinary Catheter Date of Insertion: 04/07/21 Urinary Catheter Time of Insertion: 18:35 Data : 04/07/21 15:11 04/07/21 15:11 Micro: Microbiology 04/07/21 17:19 Blood Culture - Preliminary Blood SPECIMEN COLLECTED 04/07/21 15:11 Blood Culture - Preliminary Blood SPECIMEN COLLECTED A&P Assessment and plan (1) Critical limb ischemia of both lower extremities: -Acute on chronic lower extremity ischemia - Peripheral cath 01/13/2021 Lower Extremity Interventional Findings Periphreal intervention procedure: We obtained access in the left common femoral artery with a 6 [place] sheath.IV heparin was administered. Using a Glidewire, a long 8 Fr sheath was inserted in right external iliac artery going up and over after abdominal angiogram was performed. Mid SFA had total thrombotic occlusion. We crossed the occluded segment with Glidewire. CAT 8 penumbra catheter was inserted and used to perform mechanical thrombectomy. Significant amount of thrombus was extracted serially. Patient kept on having distal embolization of thrombus. Balloon angioplasty was also performed using a 5.0 x 40 mm balloon in the distal SFA to popliteal artery. We then used a 3.0 x 120 mm balloon to perform balloon angioplasty and TP trunk and proximal peroneal artery. At this time it was noted that patient's anterior tibial and posterior tibial arteries are occluded. Flow was noted in the peroneal artery. We performed balloon angioplasty from mid to distal peroneal artery using 2.0 x 200 mm balloon. This was followed by performing mechanical thrombectomy with a CAT Rx catheter. Proximal to mid peroneal artery seem to have residual thrombus. We decided to put coronary stents measuring 2.5 x 30 mm resolute [place] stent overlapping with a 2.75 x 30 mm resolute [place] stent. At this time final angiogram demonstrated single vessel runoff to the foot. Pulse was dopplerable. Collateral blood supply was also noted below the knee. Long sheath was switched to short 8 [place] sheath and was sutured in place for removal later.. Conclusions Acute limb ischemia with thrombotic occlusion of the mid SFA/popliteal artery and TP trunk (Source likely heart as had recent onset Atrial fibrillation and compliance with medications is not known). Severe below the knee peripheral artery disease. Single vessel runoff to the foot established. -CTA lower extremity 3. Abrupt occlusion of the bilateral popliteal arteries, and complete occlusion of the bilateral infrapopliteal arteries. No visible runoff to the feet. Given the findings in the left atrium, this most likely represents severe thromboembolic disease. 4. Near complete segmental occlusion of a left profunda femoral artery branch, most likely thromboembolic disease. -DP PT pulses not dopplerable, lower extremities cool, clammy, painful, able to move lower extremities, but reported inability to walk -Possible embolic phenomenon given findings of bilateral heart thrombus, failure of anticoagulation on Plavix, Eliquis Plan: -Admit to ICU -Start on heparin drip -Doppler pulses bilateral lower extremities, monitor -We will start on broad-spectrum antibiotic therapy, vancomycin, Zosyn -Warm bilateral lower extremities -N.p.o. midnight -Plan on peripheral intervention tomorrow morning -Cardiology on consult Status: Acute (2) Atrial fibrillation with RVR: - We will start on Cardizem drip -Telemetry monitoring, mag, TSH -Possible dig pushes based upon heart rate response to Cardizem Status: Acute (3) Single vessel coronary artery disease: - History of distal left circumflex disease, medical management Status: Acute (4) PAD (peripheral artery disease): Status: Chronic (5) CHF (congestive heart failure): - Elevated BNP, no complaint of shortness of breath, no crackles on exam, hold off on Lasix as there is plans on peripheral angiogram tomorrow Status: Chronic Qualifiers: Heart failure chronicity: acute on chronic Heart failure type: systolic Qualified Code(s): I50.23 - Acute on chronic systolic (congestive) heart failure (6) Generalized weakness: Status: Acute (7) Left heart thrombus: -Cardiac thrombus seen in bilateral heart chambers on CTA - We will do a cardiac echo with and without contrast -On heparin drip -CT of the head possible embolic phenomenon Status: Acute (8) Pneumonia: - Seen on chest x-ray, will order vancomycin, Zosyn -Follow blood cultures, urine cultures, sputum cultures, Status: Acute (9) Acute encephalopathy: - Etiology unclear -Follow urine cultures -CT of the head -Chest x-ray showing follow-up possible pneumonia on antibiotics as above -We will order carotid artery ultrasound -Neurochecks, aspiration precautions, NIH Status: Acute Attestations Medical Necessity Statement*: Patient requires hospitalization for acute on chronic limb ischemia, A. fib with RVR, bilateral cardiac thrombus, pneumonia, acute encephalopathy, critical care time spent over 55 minutes, requiring ICU admission, greater than 2 midnights Coding Level of Care Code Acute Mold Stacker for [facility] Fwd Diagnoses Critical limb ischemia of both lower extremities I70.223 Atrial fibrillation with RVR I48.91 Single vessel coronary artery disease I25.10 PAD (peripheral artery disease) I73.9 CHF (congestive heart failure) I50.23 Heart failure chronicity: acute on chronic Heart failure type: systolic Generalized weakness R53.1 Left heart thrombus I51.3 Pneumonia J18.9 Acute encephalopathy G93.40
[2021-04-07 19:07] LABS: Bilirubin Urine 1+ (Negative); Blood Urine 3+ (Negative); Glucose Urine UA Norm (Normal); Ketones Urine 1+ (Negative); Nitrate Urine Negative (Negative); Protein Urine Trace (Negative); Specific Gravity, Urine 1.015 (1.005-1.030); Urine Appearance Cloudy (CLEAR); Urine Color Dark Yellow (Yellow); Urobilinogen Urine 8 mg/dL (Negative); pH Urine 5 (5-7)
[2021-04-07 19:08] LABS: Add Urine Culture? Yes; Add Urine Microscopic? YES; Bacteria Urine 4+ /hpf; Leukocyte Esterase Urine 2+ (Negative); RBC Urine TOO NUMEROUS TO CNT /hpf (0-2); WBC Urine TOO NUMEROUS TO CNT /hpf (0-5)
--- NOTE | 2021-04-07 20:03 | ECG_ITS ---
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[id number] Requested By: Richy Calderón Order Number: [id number] Reading MD: ANDREA GUILLORY Measurements Intervals [place] Rate: 131 P: NC: QRS: 89 QRSD: 122 T: 268 QT: 306 QTc: 453 Interpretive Statements ATRIAL FIBRILLATION WITH RAPID VENTRICULAR RESPONSE WITH ABERRANT CONDUCTION OR VENTRICULAR PREMATURE COMPLEXES POSSIBLE RIGHT VENTRICULAR CONDUCTION DELAY [RSR (QR) IN V1/V2] PROBABLE INFERIOR MYOCARDIAL INFARCTION , OF INDETERMINATE AGE [35 ms Q WAVE IN II/aVF] ST DEVIATION AND MODERATE T-WAVE ABNORMALITY, CONSIDER ANTEROLATERAL ISCHEMIA [-0.1+ mV T-WAVE IN V3-V6] WARNING: DATA QUALITY MAY AFFECT INTERPRETATION Compared to ECG 04/07/2021 15:58:25 Myocardial infarct finding now present Incomplete right bundle-branch block no longer present T-wave abnormality still present Possible ischemia still present Electronically Signed On 04-09-2021 18:21:56 [employer]AT 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
[2021-04-07] MEDS: piperacillin-tazobactam 3.375 GM in sodium chloride 0.9% (plus) 50 ML IV (20:08)
--- NOTE | 2021-04-07 20:41 | P.CONIM_ITS ---
Providers/Reason For Consult Consulting Physician/Specialty*: Cardiology Reason for Consult*: Generalized weakness, atrial fibrillation with rapid ventricle response critical limb ischemia Attending Physician: Alexander Barkley MD Primary Care Provider: Travis Boss History of Present Illness History of Present Illness Sabina Valdez is a 71 year old female past medical history significant for being frail, failure to thrive, dementia, confusion, severe peripheral arterial disease termed as not amenable to intervention due to extensive disease below the knee, she had multiple intervention in the past and thought that at some point she may will be needing amputation, history of congestive heart failure, history of coronary artery disease with mild to moderate mid LAD 40% and distal circumflex 90% thought to be managed medically in order to avoid bleeding since he is high risk for bleeding and because of the fact it was a distal lesion and atrial fibrillation. She presented as for the last few days she is not able to walk due to generalized weakness, she is not able to tell me whether she is hurting in her legs or not she has cold lower legs and feet with dusky coloration which is not changed from the prior admissions. She stated that leg stays cold, she does not have bilateral lower extremity pulse, vascular and CTA with runoff was suggestive of severe peripheral occlusive vascular disease below the knee. On CT scan she was noted to have biatrial right and left atrial mass suggestive of cardiac tumor versus thrombus, patient already on anticoagulation and antiplatelet, she has taken Plavix Eliquis onboard, she is high risk for bleeding and vascular complication. She is in A. fib with rapid ventricle response, otherwise she denies any chest pain denies significant leg pain upon, she does not follow commands very well she stays most of the time she appeared to be not understanding well. Her nephew is by bedside, I am not sure how much he is understanding he is against of transferring her to any other center as he think that he cannot go anywhere he wants her to be treated here, he would like everything be to be done for her. Review of Systems Const: Denies: fever(s) or chills Eyes: Denies: change in vision, blurry vision or photophobia ENMT: Denies: enlarged tonsils or mouth pain Card: Reports: palpitations; Denies: chest pain or lightheadedness Resp: Denies: dyspnea or non-productive cough GI: Denies: abdominal pain, nausea, vomiting, hematemesis, coffee ground emesis, diarrhea, hematochezia or melena : Denies: difficulty voiding or dysuria Musc: Reports: extremity pain and other (inability to ambulate); Denies: back pain Skin/Breast: Reports: skin pain; Denies: rash or new lesions Neuro: Denies: headache(s) or weakness in extremities Psych: Reports: other (Normal mood) Ortega/Lymph: Denies: easy bruising All/Imm: Denies: acute wheezing Medications/Allergies Home Medications Medication Instructions Recorded Confirmed Last Taken Type cyanocobalamin (vitamin B-12) 250 mcg PO QAM 12/01/20 04/08/21 12/30/20 History [Vitamin B-12] ascorbic acid (vitamin C) [Vitamin 500 mg PO DAILY 12/31/20 04/08/21 12/30/20 History C] metoprolol tartrate 50 mg tablet 50 mg PO BID #60 tab 01/11/21 04/08/21 Unknown Rx clopidogrel 75 mg PO QAM 01/25/21 04/08/21 Unknown History Allergies Allergy/AdvReac Type Severity Reaction Status Date / Time codeine Allergy Unknown ALGY-Rash Verified 04/08/21 07:27 sulfamethoxazole Allergy Unknown ALGY-Rash Verified 04/08/21 07:27 [From Bactrim] trimethoprim [From Bactrim] Allergy Unknown ALGY-Rash Verified 04/08/21 07:27 PFSH Acute PFSH: Medical History (Updated 04/08/21 @ 11:45 by Alexander Barkley MD) Anxiety Aortic regurgitation Atrial fibrillation Back pain CAD (coronary artery disease) Angiogram 12/18/2020 showed single-vessel disease, distal circumflex high- grade lesion, recommendation for medical management at time CAD (coronary artery disease) CHF (congestive heart failure) EF 40 to 45% on echo and 20-25% on LV gram from cardiac angiogram with global LV hypokinesia, diastolic dysfunction. Chronic ankle pain, bilateral Chronic pain of both knees Critical limb ischemia of both lower extremities Depression GERD without esophagitis Interstitial cystitis Limb ischemia Acute limb ischemia with limb salvage percutaneous procedure performed. Migraine Mitral regurgitation Moderate episode of recurrent major depressive disorder Overactive bladder PAD (peripheral artery disease) Positive cardiac stress test (~11/2020) Recurrent UTI Tremor Surgical History History of cardiac catheterization (12/18/20) Dr Veronica Hx of hysterectomy Status post peripheral artery angioplasty with insertion of stent (12/31/20) Dr Jimenez, thrombectomy and balloon angioplasty RLE, drug eluting stent 2 x to peroneal artery Family History Mother , AT AGE 80 Diabetes Cancer CAD (coronary artery disease) Father CAD (coronary artery disease) Brother CAD (coronary artery disease) Sister CAD (coronary artery disease) Social History Smoking and tobacco status: never smoked Alcohol intake: never Marital status: / Current occupational status: disabled Dietary Habits: Current diet type/program: regular Vitals/I&O/Wt Last Vital Signs Temp 97.5 F L 04/07/21 13:46 Pulse 152 H 04/07/21 20:05 Resp 22 H 04/07/21 20:05 BP 123/90 04/07/21 18:38 Pulse Ox 100 04/07/21 20:05 04/07/21 04/07/21 04/07/21 06:59 14:59 22:59 Intake Total 500 / 500 Balance 500 / 500 Weight last 48 hrs Weight 140 lb Physical Exam Narrative: EXAM NARRATIVE: GENERAL: Patient is awake but not well oriented I am not sure what is at baseline, I am not sure whether she can comprehend, it appeared to me she has underlying dementia she does not remember prior interventions. Frail and weak, appeared to be dry NECK: No jugular vein distension. HEENT: No cyanosis. No icterus. No pallor. HEART: Irregularly irregular S1 and S2. No murmur, rub or gallop. LUNGS: Clear to auscultate bilaterally. ABDOMEN: Soft, nontender and nondistended. Positive bowel sounds. No guarding, rebound or tenderness. CENTRAL NERVOUS SYSTEM: Grossly nonfocal. EXTREMITIES: Lower extremities without edema bilaterally. Pulses not palpable in the lower extremities, both dorsalis pedis and posterior tibial. Patient able to wiggle her toes sensation and motor intact, both legs appear to be purplish Urinary Catheter Management^: Lopez: Cath Placed During This Visit: yes Reason for Continuing Indwelling Catheter: Required Immobilization for Trauma or Surgery or Anesthesia Urinary Catheter Date of Insertion: 04/07/21 Urinary Catheter Time of Insertion: 18:35 Data Micro: Micro: Microbiology 04/07/21 17:19 Blood Culture - Pr eliminary Blood SPECIMEN [facility] 04/07/21 15:11 Blood Culture - Pr eliminary Blood SPECIMEN [facility] A&P Assessment and plan (1) Critical limb ischemia of both lower extremities: Patient already on anticoagulation antiplatelet she is high risk for bleeding she has disease below the knee which is not amenable to treatment bilaterally she has multiple prior interventions. She has underlying dementia she is frail she has many comorbidities she is high risk for contrast-induced nephropathy bleeding infection vascular injury embolic phenomena, I am not sure keeping in mind her advanced peripheral arterial disease specially below the knee anything can be done much she is not a candidate for vascular surgery due to her comorbidities underlying cardiomyopathy, A. fib with rapid ventricular response until she is stabilized and be assessed again. At this point I would like to treat her medically. Patient and her nephew by bedside was explained all risk benefits alternatives and treatment options. They are in agreement. We will keep lower extremity warm. Continue anticoagulation Status: Acute (2) Atrial fibrillation with rapid ventricular response: Patient is in A. fib with RVR would like to control it advised Cardizem drip she is already on Eliquis. Will hold Eliquis and start patient on heparin IV Status: Acute (3) Cardiac mass: Will ask for echo with contrast to assess presence of thrombus myxoma or artifact continue anticoagulation for now, further plan be advised as per progress of the Status: Acute (4) CHF (congestive heart failure): Patient appeared to be in dry state, may will give IV fluid Status: Chronic Qualifiers: Heart failure chronicity: acute on chronic Heart failure type: systolic Qualified Code(s): I50.23 - Acute on chronic systolic (congestive) heart failure (5) CAD (coronary artery disease): Stable. Continue current regimen Status: Acute Qualifiers: Associated angina: without angina Coronary Disease-Associated Artery/Lesion type: [place] artery [place] vs. transplanted heart: [place] heart Qualified Code(s): I25.10 - Atherosclerotic heart disease of [place] coronary artery without angina pectoris Consult Attestations Medical Necessity Statement: Patient require continuation hospitalization for above defined care. I am expecting her stay to cross more than 2 midnight. Coding Level of Care Code New Pt Acute Physical Geographer for Chg Fwd Patient Type New History Comprehensive Exam Comprehensive Medical Decision Making High Complexity Diagnoses Critical limb ischemia of both lower extremities I70.223 Atrial fibrillation with rapid ventricular response I48.91 Cardiac mass I51.89 CHF (congestive heart failure) I50.23 Heart failure chronicity: acute on chronic Heart failure type: systolic CAD (coronary artery disease) I25.10 Associated angina: without angina Coronary Disease-Associated Artery/Lesion type: [place] artery [place] vs. transplanted heart: [place] heart
[2021-04-07 21:56] LABS: Lactic Sepsis W/Reflex 3.4 mmol/L (0.5-2.2)
[2021-04-07 22:06] LABS: Procalcitonin 0.46 ng/mL (0-0.5); Thyroid Stimulating Hormone 2.82 uIU/mL (0.27-4.20)
[2021-04-07 22:16] LABS: C Reactive Protein 154.3 mg/L (0.0-4.9)
[2021-04-07 23:21] LABS: Reflex Lactate Order REFLEX LACTIC ORDERD
[2021-04-08] VITALS (57 sets, daily range): BP systolic 87–124; BP diastolic 61–94; PULSE 76–138; RESP 11–30; TEMP 37; O2SAT 72–100
[2021-04-08 00:09] LABS: Lactic Acid level (Lactate) 3.2 mmol/L (0.5-2.2)
[2021-04-08] MEDS: pantoprazole 40 mg SDV IVP ×3 (01:09→22:55)
[2021-04-08] MEDS: vancomycin 1,000 MG in sodium chloride 0.9% 250 ML 250 MG IV ×2 (01:21→21:00)
[2021-04-08] MEDS: morphine 4 mg/mL SDV 1 mL 1 MG IVP (02:38)
[2021-04-08] MEDS: heparin drip 25,000 UNIT/500 ML PREMIX 17.78 UNIT IV (04:03)
[2021-04-08 04:08] LABS: Basophils % 0.1 %; Hematocrit 38.9 % (37.0-47.0); Lymphocytes # 1.4 10^3/uL (0.8-4.8); Lymphocytes % 7.3 %; Mean Corpuscular HGB Conc 30.8 g/dL (30.0-36.0); Mean Corpuscular Hemoglobin 24.6 pg (28.0-34.0); Mean Corpuscular Volume 79.7 fl (81-99); Mean Platelet Volume 11.9 fL (7.4-10.4); Monocytes % 10.4 %; Neutrophils # 15.73 10^3/uL (1.8-7.7); Neutrophils % 81.3 %; Nucleated Red Blood Cells % 0.1 %; Platelet Count 133 10^3/cmm (130-400); Red Blood Count 4.88 10^6/uL (4.1-5.3); Red Cell Distribution Width 18.4 % (12.1-15.1); White Blood Count 19.4 10^3/uL (4.0-10.0)
[2021-04-08 04:32] LABS: INR 1.23 (0.8-1.2)
[2021-04-08 04:43] LABS: Alanine Aminotransferase 8 U/L (0-33); Albumin Level 2.4 g/dL (3.5-5.2); Alkaline Phosphatase 92 IU/L (35-105); Anion Gap 18.3 (5-19); Aspartate Amino Transferase 17 U/L (0-32); Blood Urea Nitrogen 27 mg/dL (8-23); Calcium 8.1 mg/dL (8.5-10.5); Carbon Dioxide 16 mmol/L (22-29); Chloride 107 mmol/L (98-107); Glucose 137 mg/dL (65-115); Osmolality Calculated 291 mOsm/kg (285-295); Potassium 4.3 mmol/L (3.5-5.1); Sodium 137 mmol/L (136-145); Total Bilirubin 1.3 mg/dL (0.15-1.2); Total Protein 5.4 g/dL (6.6-8.7)
[2021-04-08 04:44] LABS: Lactic Sepsis W/Reflex 2.1 mmol/L (0.5-2.2); Magnesium 1.8 mg/dL (1.7-2.3); Phosphorus 2.3 mg/dL (2.5-4.5)
[2021-04-08 04:51] LABS: Slide Review Slide Review Perform
[2021-04-08 04:53] LABS: NT Pro B Type Natriuretic Pept 10088 pg/mL (0-125)
[2021-04-08 05:50] LABS: Reflex Lactate Order REFLEX LACTIC ORDERD
--- NOTE | 2021-04-08 06:35 | PC.NURSE ---
Sacral Pressure Wound Large pressure area noted on patient sacrum with excoriation. Foul smell present with serosanguineous drainage. Patient cleaned, topical protective ointment applied. Patient placed on left side with pillows to relieve pressure from wound. Patient position changed Q2hr.
--- NOTE | 2021-04-08 06:43 | PC.NURSE ---
Infusing Medications Cardizem drip set at 15MG/HR. Hospitalist advised to continue rate until patient heart consistently remains at 110 b/m to begin titrating down, per policy/protocol. Heparin drip set at 17mL/HR (850 units/hr) per Hospitalist order. PTT draw scheduled for 0930 for 6 hour, per policy/protocol.
--- NOTE | 2021-04-08 07:27 | PC.PHAR ---
pts family verified the pts medications-pts nephew jerrell states he stop giving the pt her clopidogrel a week ago-pts nephew states the pt is only taking the metoprolol tartrate 50mg bid, states the pt also takes vitamin c and vit b-12 but states she hasnt had in a few weeks-pts nephew states the pt was taking the meds she was discharged with in jan 2021 but states they didnt have refills so she hasnt been taking since feb digoxin 250mcg daily,colace bid,pantoprazole 40mg daily and senna lax 17.2mg hs all filled on 01/29/21 30d/s-pts nephew states the pt hasnt taken eliquis in months ext med history shows last filled 12/04/20 30ds/
[2021-04-08 07:31] LABS: Lactic Acid level (Lactate) 1.7 mmol/L (0.5-2.2)
[2021-04-08] MEDS: metoprolol tartrate 50 mg Tablet PO ×2 (08:15→22:30)
[2021-04-08 10:47] LABS: Partial Thromboplastin Time 100.4 SECONDS (23.9-36.7)
--- NOTE | 2021-04-08 11:41 | P.PN_ITS ---
Subjective Subjective: Interval history: Patient was seen this morning, she is alert to person, to place, not to time, she does follow commands, she tells me that her lower extremity continue to hurt, has movement in both lower extremities, has generalized weakness, she tells that she did not sleep much last night, her grandson is at bedside Vitals/I&O/Wt Last Vital Signs Temp 97.5 F L 04/07/21 13:46 Pulse 112 H 04/08/21 10:58 Resp 18 04/08/21 10:58 BP 87/71 04/08/21 10:58 Pulse Ox 100 04/08/21 10:58 04/07/21 04/08/21 04/08/21 22:59 06:59 14:59 Intake Total 508.25 / 508.25 300 / 808.25 Balance 508.25 / 508.25 300 / 808.25 Weight last 48 hrs Weight 63.503 kg Physical Exam Const: COMMON NORMALS: no acute distress GENERAL APPEARANCE: cooperative, comfortable and frail appearing ORIENTATION/CONSCIOUSNESS: Yes awake, Yes oriented to person and Yes oriented to place; not oriented to time Resp: COMMON NORMALS: normal respiratory effort, No retractions, No use of accessory muscles and clear to auscultation bilaterally AUSCULTATION: clear to auscultation bilaterally Cardio: COMMON NORMALS: regular rate, regular rhythm, S1 normal heart sound present and S2 normal heart sound present RATE: regular rate RHYTHM: regular rhythm HEART SOUNDS: S1 normal heart sound present and S2 normal heart sound present GI: COMMON NORMALS: Normal to inspection, nondistended, normoactive bowel sounds present, Soft to palpation and non-tender PALPATION: Yes Soft to palpation Extremity: NARRATIVE EXTREMITY EXAM: Bilateral lower extremities DP PT pulses nonpalpable, not dopplerable Bilateral lower extremities cool to touch, clammy, blue discoloration Is able to withdraw from pain Is able to wiggle her toes Neuro: SENSORIUM/ORIENTATION: Yes oriented to person, Yes oriented to place and No oriented to time Psych: COMMON NORMALS: mental status grossly normal Urinary Catheter Management^: Lopez: Cath Placed During This Visit: yes Reason for Continuing Indwelling Catheter: Accurate Measurement of Urinary Output in Critically Ill Patients Urinary Catheter Date of Insertion: 04/07/21 Urinary Catheter Time of Insertion: 18:35 Data : 04/08/21 03:57 04/08/21 03:57 Micro: Microbiology 04/07/21 17:19 Blood Culture - Preliminary Blood SPECIMEN COLLECTED 04/07/21 15:11 Blood Culture - Preliminary Blood SPECIMEN COLLECTED A&P Assessment and plan (1) Critical limb ischemia of both lower extremities: -Acute on chronic lower extremity ischemia - Peripheral cath 01/13/2021 Lower Extremity Interventional Findings Periphreal intervention procedure: We obtained access in the left common femoral artery with a 6 [place] sheath.IV heparin was administered. Using a Glidewire, a long 8 Fr sheath was inserted in right external iliac artery going up and over after abdominal angiogram was performed. Mid SFA had total thrombotic occlusion. We crossed the occluded segment with Glidewire. CAT 8 penumbra catheter was inserted and used to perform mechanical thrombectomy. Significant amount of thrombus was extracted serially. Patient kept on having distal embolization of thrombus. Balloon angioplasty was also performed using a 5.0 x 40 mm balloon in the distal SFA to popliteal artery. We then used a 3.0 x 120 mm balloon to perform balloon angioplasty and TP trunk and proximal peroneal artery. At this time it was noted that patient's anterior tibial and posterior tibial arteries are occluded. Flow was noted in the peroneal artery. We performed balloon angioplasty from mid to distal peroneal artery using 2.0 x 200 mm balloon. This was followed by performing mechanical thrombectomy with a CAT Rx catheter. Proximal to mid peroneal artery seem to have residual thrombus. We decided to put coronary stents measuring 2.5 x 30 mm resolute [place] stent overlapping with a 2.75 x 30 mm resolute [place] stent. At this time final angiogram demonstrated single vessel runoff to the foot. Pulse was dopplerable. Collateral blood supply was also noted below the knee. Long sheath was switched to short 8 Armenian sheath and was sutured in place for removal later.. Conclusions Acute limb ischemia with thrombotic occlusion of the mid SFA/popliteal artery and TP trunk (Source likely heart as had recent onset Atrial fibrillation and compliance with medications is not known). Severe below the knee peripheral artery disease. Single vessel runoff to the foot established. -CTA lower extremity 3. Abrupt occlusion of the bilateral popliteal arteries, and complete occlusion of the bilateral infrapopliteal arteries. No visible runoff to the feet. Given the findings in the left atrium, this most likely represents severe thromboembolic disease. 4. Near complete segmental occlusion of a left [place]unda femoral artery branch, most likely thromboembolic disease. -DP PT pulses not dopplerable, lower extremities cool, clammy, painful, able to move lower extremities, but reported inability to walk -Possible embolic phenomenon given findings of bilateral heart thrombus, failure of anticoagulation on Plavix, Eliquis Plan: -Admit to cardiac stepdown unit -Start on heparin drip -Doppler pulses bilateral lower extremities, monitor -We will start on broad-spectrum antibiotic therapy, vancomycin, Zosyn -Warm bilateral lower extremities -N.p.o. midnight -Plan on peripheral intervention tomorrow morning -Cardiology on consult Status: Acute (2) Atrial fibrillation with RVR: - We will start on Cardizem drip -Continues to have A. fib heart rates in the 150s, start metoprolol 50 twice daily -Mag rater than 2, potassium greater than 4 -Telemetry monitoring, -Hold off on rhythm control given risk of cardioverting, and risk of embolization Status: Acute (3) Single vessel coronary artery disease: - History of distal left circumflex disease, medical management Status: Acute (4) PAD (peripheral artery disease): Status: Chronic (5) CHF (congestive heart failure): - Elevated BNP, no complaint of shortness of breath, no crackles on exam, hold off on Lasix as there is plans on peripheral angiogram tomorrow Status: Chronic Qualifiers: Heart failure chronicity: acute on chronic Heart failure type: systolic Qualified Code(s): I50.23 - Acute on chronic systolic (congestive) heart failure (6) Generalized weakness: Status: Acute (7) Left heart thrombus: -Cardiac thrombus seen in bilateral heart chambers on CTA - We will do a cardiac echo with and without contrast -On heparin drip -CT of the head possible embolic phenomenon Status: Acute (8) Pneumonia: - Seen on chest x-ray, will order vancomycin, Zosyn -Follow blood cultures, urine cultures, sputum cultures, Status: Acute (9) Acute encephalopathy: - Etiology of her UTI, pneumonia -Follow urine cultures -CT of the head no acute CVA -Chest x-ray showing follow-up possible pneumonia on antibiotics as above -We will order carotid artery ultrasound -Neurochecks, aspiration precautions, NIH Status: Acute (10) UTI (urinary tract infection): Status: Acute Attestations Medical Necessity Statement*: Patient requires hospitalization for A. fib with RVR, acute limb ischemia, critical care time spent over 35 minutes Coding Level of Care Code Acute Network Cable Installer for Chg Fwd Diagnoses Critical limb ischemia of both lower extremities I70.223 Atrial fibrillation with RVR I48.91 Single vessel coronary artery disease I25.10 PAD (peripheral artery disease) I73.9 CHF (congestive heart failure) I50.23 Heart failure chronicity: acute on chronic Heart failure type: systolic Generalized weakness R53.1 Left heart thrombus I51.3 Pneumonia J18.9 Acute encephalopathy G93.40 UTI (urinary tract infection) N39.0
--- NOTE | 2021-04-08 12:30 | PC.NURSE ---
Patient arrived from ER on carrier. In repositioning patient it was notes that patient's buttocks (bilaterally were red, chafedand damp. Patient also had a stage 2 ulcer on her coccyx. Linens changed.
--- NOTE | 2021-04-08 12:59 | P.PN_ITS ---
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 She is feeling little better. Medications: Reviewed: Yes Vitals/I&O/Wt Last Vital Signs Temp 97.5 F L 04/07/21 13:46 Pulse 109 H 04/08/21 12:22 Resp 18 04/08/21 10:58 BP 91/72 04/08/21 12:22 Pulse Ox 99 04/08/21 12:22 04/07/21 04/08/21 04/08/21 22:59 06:59 14:59 Intake Total 508.25 / 508.25 300 / 808.25 Balance 508.25 / 508.25 300 / 808.25 Weight last 48 hrs Weight 140 lb Physical Exam Narrative: EXAM NARRATIVE: GENERAL: Patient is awake but does not talk much she mostly stares, NECK: No jugular vein distension. HEENT: No cyanosis. No icterus. No pallor. HEART: Irregularly irregular S1 and S2. No murmur, rub or gallop. LUNGS: Clear to auscultate bilaterally. ABDOMEN: Soft, nontender and nondistended. Positive bowel sounds. No guarding, rebound or tenderness. CENTRAL NERVOUS SYSTEM: Grossly nonfocal. EXTREMITIES: Lower extremities without edema bilaterally. Pulses not palpable in the lower extremities, both dorsalis pedis and posterior tibial. Patient able to wiggle her toes sensation and motor intact, both legs appear to be purplish Urinary Catheter Management^: Lopez: Cath Placed During This Visit: yes Reason for Continuing Indwelling Catheter: Accurate Measurement of Urinary Output in Critically Ill Patients Urinary Catheter Date of Insertion: 04/07/21 Urinary Catheter Time of Insertion: 18:35 Data : 04/08/21 03:57 04/08/21 03:57 Micro: Microbiology 04/07/21 17:19 Blood Culture - Preliminary Blood SPECIMEN COLLECTED 04/07/21 15:11 Blood Culture - Preliminary Blood SPECIMEN COLLECTED A&P Assessment and plan (1) Critical limb ischemia of both lower extremities: Patient already on anticoagulation antiplatelet she is high risk for bleeding she has disease below the knee which is not amenable to treatment b ilaterally she has multiple prior interventions. She has underlying dementia she is frail she has many comorbidities she is high risk for contrast-induced nephropathy bleeding infection vascular injury embolic phenomena, I am not sure keeping in mind her advanced peripheral arterial disease specially below the knee anything can be done much she is not a candidate for vascular surgery due to her comorbidities underlying cardiomyopathy, A. fib with rapid ventricular response until she is stabilized and be assessed again. At this point I would like to treat her medically. Patient and her nephew by bedside was explained all risk benefits alternatives and treatment options. They are in agreement. We will keep lower extremity warm. Continue anticoagulation. 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 Patient already was on apixaban at home. According to the nephew she is compliant with it. She was started on heparin last night I will switch her to Lovenox. I do not think so that patient has embolized to the lower extremities. She has extensive peripheral arterial disease below the knee and these are her baseline legs. He in general he is weak due to A. fib with rapid ventricular response and worsening of heart function. Our plan is to medically manage her. I have detailed discussion with the patient and her nephew. Patient understand today and not willing to go for any intervention and also declined to transfer any other facility including [place] or nearby such as [facility]. They would like to be treated here. We suggested that she should be medically managed and comfort care given her comorbidities. Patient agrees with it however her nephew is trying to convince her that she should get heart surgery and mass to be taken out. I have detailed meeting with him since he was not understanding her condition. I explained him that she is almost terminally ill, she has declined surgery intubation, she has told the nurse she does not need any pain medicine but she is not hurting. Atrial fibrillation has improved heart rate staying into 90s. Status: Acute (2) Atrial fibrillation with rapid ventricular response: After bolus of fluid and Cardizem heart rate has improved. Continue to monitor for anticoagulation she is on Lovenox. 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 In case of myxoma patient is not a surgical candidate I have requested advice from our cardiac surgeon Dr. Varela. For now we will swi tch her to Lovenox Status: Acute (4) CHF (congestive heart failure): Patient appeared to be in dry state, may will give IV fluid Status: Chronic Qualifiers: Heart failure chronicity: acute on chronic Heart failure type: systolic Qualified Code(s): I50.23 - Acute on chronic systolic (congestive) heart failure (5) CAD (coronary artery disease): Stable. Continue current regimen Status: Acute Qualifiers: Coronary Disease-Associated Artery/Lesion type: [place] artery [place] vs. transplanted heart: [place] heart Associated angina: without angina Qualified Code(s): I25.10 - Atherosclerotic heart disease of [place] coronary artery without angina pectoris Attestations Medical Necessity Statement*: Patient require continuation hospitalization for above defined care. Coding Level of Care Code New Pt Acute Biometrics Technician for Fredy Cabrera Patient Type New History Comprehensive Exam Comprehensive Medical Decision Making High Complexity Diagnoses Critical limb ischemia of both lower extremities I70.223 Atrial fibrillation with rapid ventricular response I48.91 Cardiac mass I51.89 CHF (congestive heart failure) I50.23 Heart failure chronicity: acute on chronic Heart failure type: systolic CAD (coronary artery disease) I25.10 Coronary Disease-Associated Artery/Lesion type: [place] artery [place] vs. transplanted heart: [place] heart Associated angina: without angina
--- NOTE | 2021-04-08 13:21 | PC.NURSE ---
call received from Dr reddy with instructions to give 1000ml bolus and call with heart rate after 500ml echo with and with out contrast to assess for Blood clots
[2021-04-08] MEDS: sodium chloride 0.9% 1,000 ML 999 ML IV (13:36)
[2021-04-08] MEDS: piperacillin-tazobactam 3.375 GM in sodium chloride 0.9% (plus) 50 ML IV ×2 (13:50→23:01)
[2021-04-08] MEDS: midodrine 5 mg TABLET 10 MG PO ×2 (13:51→23:28)
[2021-04-08] MEDS: magnesium sulfate premix 2 GM/50 ML PIGGYBACK IV (14:16)
[2021-04-08 14:18] LABS: Lactate (Lactic Acid level) 1.8 mmol/L (0.5-2.2)
[2021-04-08] MEDS: perflutren protein-a microsphr 0.22 mg/mL SDV 3 mL IV (14:19)
--- NOTE | 2021-04-08 15:09 | PC.NURSE ---
Phone call placed to Juan M, Sabina's nephew, at the request of Dr. Veronica. Dr. Veronica requesting to meet with family to discuss tests results and patient condition. Juan M states he can be here at the hospital at 1530.
[2021-04-08 16:08] LABS: Partial Thromboplastin Time 107.7 SECONDS (23.9-36.7)
--- NOTE | 2021-04-08 18:46 | USCV_ITS ---
Sabina Valdez Age: 71 Gender: F : 1950 Exam Date: 04/08/2021 13:33 Ordering Phys: Alexander Barkley MD Technologist: Exam Location: [facility] [place] Indication: THROMBUS BP: 105 / 72 HR: 135 Rhythm: Sinus Technical Quality: Good MEASUREMENTS (Male / Female) Normal Values 2D ECHO LV Diastolic Diameter PLAX 4.4 cm 4.2 - 5.9 / 3.9 - 5.3 cm LV Systolic Diameter PLAX 4.2 cm IVS Diastolic Thickness 0.9 cm 0.6 - 1.0 / 0.6 - 0.9 cm IVS Systolic Thickness 1.1 cm LVPW Diastolic Thickness 1.2 cm 0.6 - 1.0 / 0.6 - 0.9 cm LVPW Systolic Thickness 1.0 cm LVOT Diameter 2.1 cm LV Ejection Fraction 2D Teich 8.9 % LV Ejection Fraction MOD 2C 9.4 % LV Ejection Fraction 2C AL 6.8 % LA Diameter 5.1 cm LA Width 4.9 cm LA Height 6.0 cm RA Width 4.7 cm RA Height 6.3 cm M-MODE Aortic Annulus Diameter 3.2 cm LA Ao Ratio MM 1.7 MV E Point Septal Separation 1.7 cm DOPPLER AV Peak Velocity 119.0 cm/s LVOT Peak Velocity 82.0 cm/s AV Area Cont Eq vti 2.5 cm squared AV Area Cont Eq pk 2.5 cm squared MV Area PHT 5.0 cm squared Mitral E to A Ratio 2.9 MV E' Velocity 115.0 cm/s Mitral E to LV E' Septal Ratio 38.4 TR Peak Velocity 222.8 cm/s TR Peak Gradient 19.8 mmHg Right Atrial Pressure 3.0 mmHg Pulmonary Artery Systolic Pressu 22.8 mmHg FINDINGS Left Ventricle Moderately increased left ventricular cavity size. Severely decreased left ventricular systolic function. Global left ventricular hypokinesis. Left ventricular ejection fraction is estimated at 20 %. In the presence of atrial fibrillation diastolic function cannot be assessed accurately. Right Ventricle The right ventricle is normal in size and function. Right Atrium Moderately increased right atrial size. Left Atrium Severely increased left atrial size. Well-circumscribed mass with area of 11 cm2 was noted in the left atrium appeared to be attached to the roof, differential diagnosis would be tumor such as myxoma versus thrombus, clinical correlation advised, further assessment with MRI Mitral Valve Moderately thickened mitral valve. No mitral valve stenosis. Mild mitral valve regurgitation. Aortic Valve Severe aortic valve calcification. No aortic valve stenosis. Mild aortic valve regurgitation. Tricuspid Valve Severe tricuspid valve regurgitation. Pulmonic Valve Structurally normal pulmonic valve without significant stenosis. There is no pulmonic regurgitation. Pericardium Normal pericardium without effusion. Aorta Normal ascending aorta dimension. CONCLUSIONS 1-Moderately increased left ventricular cavity size. Severely decreased left ventricular systolic function. Global left ventricular hypokinesis. Left ventricular ejection fraction is estimated at 20 %. In the presence of atrial fibrillation diastolic function cannot be assessed accurately. 2-Severely increased left atrial size. Well-circumscribed mass with area of 11 cm2 was noted in the left atrium appeared to be attached to the roof, differential diagnosis would be tumor such as myxoma versus thrombus, clinical correlation advised, further assessment with MRI. 3-Moderately thickened mitral valve. No mitral valve stenosis. Mild mitral valve regurgitation. 4-Severe aortic valve calcification. No aortic valve stenosis. Mild aortic valve regurgitation. 5-Severe tricuspid valve regurgitation. 6-There is no pericardial effusion. 7-When compared to the prior echocardiogram dated December 02, 2020 there is worsening/ventricular ejection fraction from moderately depressed 40% to severely depressed 20% now. There is well-circumscribed mass with area of 11 cm2 was noted in the left atrium appeared to be attached to the roof, differential diagnosis would be tumor such as myxoma versus thrombus, clinical correlation advised, further assessment with MRI. There is severe tricuspid valve regurgitation. Emilee Veronica MD (Electronically Signed) Final Date: 08 April 2021 21:02 S
--- NOTE | 2021-04-08 18:46 | US_ITS ---
WS: [id number] ULTRASOUND ABDOMEN LIMITED CLINICAL INFORMATION: hx of acute micaela COMPARISON: None. FINDINGS: Technically difficult examination Liver Size: Normal. Craniocaudal length: 13.3 cm. Echogenicity: Normal. Surface nodularity: None. Mass (size and location): None. Bile ducts Intrahepatic ducts: Normal. Common bile duct diameter: 0.4 cm. Gallbladder Normal. Gallstones: None. Gallbladder sludge: None. Gallbladder wall thickening: Minimal measuring 4.2 mm Pericholecystic fluid: None. Sonographic Pena sign: Absent. Pancreas Normal as visualized. Right kidney: Mid pole simple right renal cyst measures 1.2 x 1.3 x 1.3 cm Hydronephrosis: None. Size: 10.1 cm x 4.9 cm x 5.0 cm. Abdominal aorta and IVC Visualized portions are normal. Ascites: None. US/US gall bladder [id number] IMPRESSION: 1. Normal liver measuring 13.2 cm. 2. Gallbladder is normal. Normal common bile duct. No cholelithiasis. Minimal wall thickening. Wall thickening has significantly improved compared to Novembe r 2020 3. No hydronephrosis in right kidney. 4. Mid pole simple right renal cyst measures 1.2 x 1.3 x 1.3 cm
--- NOTE | 2021-04-08 19:25 | PC.NURSE ---
Patient's nephew, Juan M is her primary resident care aide. I mentioned to him, Hank's red, chafed buttocks. Nephew asked me if this could be caused because she is often wet . Education provided regarding incontinence skin care and using a barrier cream for skin protection.
[2021-04-08] MEDS: enoxaparin 60 mg/0.6 mL Syringe SUBCUT (20:14)
[2021-04-08] MEDS: sodium chloride 0.9% 1,000 ML 100 ML IV (21:00)
--- NOTE | 2021-04-08 22:08 | USCV_ITS ---
Sabina Valdez Age: 71 Gender: F : 1950 Exam Date: 04/08/2021 13:56 Ordering Phys: Alexander Barkley MD Technologist: Exam Location: [facility] [place] Indication: TIA Risk Factors: Previous Vascular Surgery: Right Brachial BP: / Left Brachial BP: / Right Left Velocity (cm/s) Spectral Plaque Velocity (cm/s) Spectral Plaque Syst/Diast Broadening Syst/Diast Broadening 33.40/ 6.20 Prox CCA 60.50 / 9.20 35.00/ 7.00 Mid CCA 55.90 / 9.20 36.90/ 8.50 Distal CCA 46.70 / 8.50 32.60/ 5.80 Prox ICA 44.00 / 9.90 32.60/ 7.00 Mid ICA 46.70 / 9.90 49.30/ 17.70 Distal ICA 40.10 / 11.80 49.70 ECA 71.60 1.34 ICA/CCA 0.77 Antegrade Vertebral Antegrade 34.00/ 9.00 cm/s 40.80/ 9.90 cm/s Bi Subclavian Tri 49.30 66.40 CONCLUSIONS Right ICA stenosis <50%. Left ICA stenosis <50%. Normal antegrade Doppler flow noted in the right vertebral artery. Normal antegrade Doppler flow noted in the left vertebral artery. Suman Powell MD (Electronically Signed) Final Date: 08 April 2021 14:43 S
[2021-04-09] VITALS (74 sets, daily range): BP systolic 93–120; BP diastolic 56–91; PULSE 70–108; RESP 3–36; TEMP 36.8–37.1; O2SAT 94–100; BMI 20.4
[2021-04-09 02:47] LABS: Basophils % 0.1 %; Hematocrit 34.9 % (37.0-47.0); Hemoglobin 10.4 g/dL (11.5-15.3); Lymphocytes # 1.6 10^3/uL (0.8-4.8); Mean Corpuscular HGB Conc 29.8 g/dL (30.0-36.0); Mean Corpuscular Hemoglobin 24.3 pg (28.0-34.0); Mean Corpuscular Volume 81.5 fl (81-99); Mean Platelet Volume 11.8 fL (7.4-10.4); Monocytes # 2.2 10^3/uL (0.2-0.9); Monocytes % 10.8 %; Neutrophils # 16.03 10^3/uL (1.8-7.7); Neutrophils % 80.1 %; Nucleated Red Blood Cells % 0.2 %; Platelet Count 136 10^3/cmm (130-400); Red Blood Count 4.28 10^6/uL (4.1-5.3); Red Cell Distribution Width 18.4 % (12.1-15.1)
[2021-04-09 03:10] LABS: Magnesium 2.4 mg/dL (1.7-2.3); Phosphorus 2.5 mg/dL (2.5-4.5)
[2021-04-09 03:13] LABS: Alanine Aminotransferase 14 U/L (0-33); Albumin Level 2.1 g/dL (3.5-5.2); Alkaline Phosphatase 90 IU/L (35-105); Anion Gap 14.8 (5-19); Aspartate Amino Transferase 33 U/L (0-32); Blood Urea Nitrogen 28 mg/dL (8-23); Calcium 7.6 mg/dL (8.5-10.5); Carbon Dioxide 16 mmol/L (22-29); Chloride 111 mmol/L (98-107); Globulin 2.5 g/dL (1.3-4.6); Glucose 102 mg/dL (65-115); Osmolality Calculated 292 mOsm/kg (285-295); Potassium 3.8 mmol/L (3.5-5.1); Sodium 138 mmol/L (136-145); Total Bilirubin 1.4 mg/dL (0.15-1.2); Total Protein 4.6 g/dL (6.6-8.7)
[2021-04-09] MEDS: piperacillin-tazobactam 3.375 GM in sodium chloride 0.9% (plus) 50 ML IV ×3 (03:48→19:59)
[2021-04-09] MEDS: midodrine 5 mg TABLET 10 MG PO ×3 (03:53→19:58)
[2021-04-09 04:18] LABS: INR 1.39 (0.8-1.2)
[2021-04-09] MEDS: enoxaparin 60 mg/0.6 mL Syringe SUBCUT (06:04)
[2021-04-09] MEDS: sodium chloride 0.9% 1,000 ML 100 ML IV (06:05)
[2021-04-09] MEDS: metoprolol tartrate 50 mg Tablet PO ×2 (09:38→19:58)
--- NOTE | 2021-04-09 10:37 | PC.CHAP ---
Pastoral Care Encounter/Spiritual Assessment Type of Contact [] Declined sound designer visit [] Patient/Family/Request visit [] Outpatient visit [] Follow-up visit [] Physician referral [] Code/Alert [] Routine visit [] Staff referral [] Actively dying [xx] Patient sleeping [] Family support [] [] Out of room [] Palliative care [] [] Receiving care in room [] Pre-surgical visit [] Trauma [] Long length of stay [] ICU visit [] Other: Relational/Emotional Strength [] Patient feels connected with others/family/visitors/staff [] Distress [] Loneliness/isolation [] Abandonment Spirituality of Patient [] Person of Joanna [] Attends Baptism of their Joanna [] Believes in Prayer [] Reads Bible or Gnosticism materials [] There are Spiritual issues to be addressed Cloth Shearer Interventions [] Prayer [] Active listening [] Non-anxious presence [] Spiritual/emotional support [] Crisis/trauma care [] Spiritual counseling [] Bereavement support [] Provided bereavement packet [] Provided Bible/devotional materials [] Provided toy/stuffed animal, coloring book to patient or family member [] Provided Communion [] Anointing/[place] [] Salvation [] Completed spiritual assessment [] Other: Impact on Illness or Injury [] Angry [] Fearful [] Anxious [] Often cries [] Exhaustion [] Unable to work [] Unable to attend oriental orthodox [] Unable to walk/stand [] Unable to read [] Unable to drive [] Unable to eat/drink [] Unable to sleep [] Unable to be with family [] Patient intubated [] Other: Summary Time spent with patient
--- NOTE | 2021-04-09 10:40 | PM.CONSULT ---
Providers/Reason For Consult Consulting Physician/Specialty*: Dr. Varela/cardiothoracic surgery Reason for Consult*: Severe peripheral arterial disease/left atrial mass Requesting Physician: Dr. Barkley Attending Physician: Alexander Barkley MD Primary Care Provider: Travis Boss History of Present Illness History of Present Illness Sabina Valdez is a 71 year old female with multiple medical problems, neurolyse deconditioning who presented to the emergency department complaining of chronic bilateral lower extremity pain for about a week. She was found to have very cool skin with some discoloration and blue tent below the knees distally. She was able to wiggle her toes and subsequent CTA revealed abrupt arterial occlusion at the popliteal arteries bilaterally with no distal runoff. In addition, she was found to have a filling defect in her left atrium consistent with thrombus versus myxoma. She was also noted to be in atrial fibrillation. Upon presentation she was alert to person and place but disoriented to time and could only answer some basic questions. Apparently, she resides alone with a nephew who lives nearby. She has been previously evaluated by our interventional vascular team and is found to have extensive disease not amenable to percutaneous therapy. She has a past history of her peripheral interventions previously, but due to her distal disease, it was felt that no further therapeutic options were available. The most recent therapy was by Dr. Jimenez on December 31, 2020 which included peripheral artery angioplasty and stent placement along with thrombectomy and balloon angioplasty of the right lower extremity with drug-eluting stent x2 to the peroneal artery. The consideration for amputation has been entertained in prior conversations, as it is felt that no further interventions are available.. The CTA also revealed biatrial filling defects with a substantial mass in the left atrium. She has a past history of atrial fibrillation and had been previously placed on Eliquis. There is some concerns that perhaps with increasing cognitive dysfunction, she may not be completely compliant with her medications. She also has a prior history for coronary artery disease with previous documentation of distal circumflex lesion that was treated with medical management. Prior studies have revealed an ejection fraction of 40 to 45% though the most recent echocardiogram during this hospitalization reveals an EF of 20%. She maintains atrial fibrillation and is currently on Lovenox therapy. I have reviewed the various studies and have conferred with my colleagues, Dr. Veronica and Dr. Barkley. During my visit with Ms. Valdez today, she only responded with helcristiano to my introduction and asked the nurse for some milk. She did not provide meaningful answers to any of my other questions. Review of Systems Narrative: Review of systems is obtained from the chart and my conversation with with my other colleague providers, as Ms. Valdez was unable to answer my questions. Card: Reports: palpitations GI: Denies: abdominal pain or hematemesis Musc: Reports: extremity pain Neuro: Reports: difficulty walking Medications/Allergies Home Medications Medication Instructions Recorded Confirmed Last Taken Type cyanocobalamin (vitamin B-12) 250 mcg PO QAM 12/01/20 04/08/21 12/30/20 History [Vitamin B-12] ascorbic acid (vitamin C) [Vitamin 500 mg PO DAILY 12/31/20 04/08/21 12/30/20 History C] metoprolol tartrate 50 mg tablet 50 mg PO BID #60 tab 01/11/21 04/08/21 Unknown Rx clopidogrel 75 mg PO QAM 01/25/21 04/08/21 Unknown History Allergies Allergy/AdvReac Type Severity Reaction Status Date / Time codeine Allergy Unknown ALGY-Rash Verified 04/08/21 07:27 sulfamethoxazole Allergy Unknown ALGY-Rash Verified 04/08/21 07:27 [From Bactrim] trimethoprim [From Bactrim] Allergy Unknown ALGY-Rash Verified 04/08/21 07:27 Current Medications Generic Name Dose Route Start Last Admin Trade Name Freq PRN Reason Stop Dose Admin Enoxaparin Sodium 60 mg 04/08/21 18:00 04/09/21 06:04 Enoxaparin 60 Mg/0.6 Ml Syringe SUBCUT 60 mg Q12H JODIE Administration Piperacillin Sod/Tazobactam 50 mls @ 12.5 mls/hr 04/07/21 19:30 04/09/21 08:00 Sod 3.375 gm/ Sodium Chloride IV Infused Q8H JODIE Infusion Protocol Diltiazem HCl 125 mg/ Sodium 125 mls @ 0 mls/hr 04/07/21 18:46 04/09/21 06:41 Chloride IV 10 mg/hr .Q0M JODIE 10 mls/hr Administration Protocol Per Protocol Vancomycin HCl 1,000 mg/ 250 mls @ 250 mls/hr 04/08/21 19:30 04/09/21 01:20 Sodium Chloride IV Infused Q18H JODIE Infusion Protocol Sodium Chloride 1,000 mls @ 100 mls/hr 04/08/21 18:30 04/09/21 06:05 Sodium Chloride 0.9% IV 100 mls/hr .Q10H JODIE Administration Metoprolol Tartrate 50 mg 04/08/21 08:00 04/09/21 09:38 Metoprolol Tartrate 50 Mg Tablet PO 50 mg Q12H JODIE Administration Midodrine 10 mg 04/08/21 11:30 04/09/21 03:53 Midodrine 5 Mg Tablet PO 10 mg Q8H JODIE Administration Morphine Sulfate 1 mg 04/07/21 22:08 04/08/21 02:38 Morphine 4 Mg/Ml Sdv 1 Ml IVP 1 mg Q4H PRN Administration SEVERE PAIN Pantoprazole Sodium 40 mg 04/07/21 22:08 04/08/21 22:55 Pantoprazole 40 Mg Sdv IVP 40 mg Q12H JODIE Administration PFSH Acute PFSH: Medical History Anxiety Aortic regurgitation Atrial fibrillation Back pain CAD (coronary artery disease) Angiogram 12/18/2020 showed single-vessel disease, distal circumflex high-grade lesion, recommendation for medical management at time CAD (coronary artery disease) CHF (congestive heart failure) EF 40 to 45% on echo and 20-25% on LV gram from cardiac angiogram with global LV hypokinesia, diastolic dysfunction. Chronic ankle pain, bilateral Chronic pain of both knees Critical limb ischemia of both lower extremities Depression GERD without esophagitis Interstitial cystitis Limb ischemia Acute limb ischemia with limb salvage percutaneous procedure performed. Migraine Mitral regurgitation Moderate episode of recurrent major depressive disorder Overactive bladder PAD (peripheral artery disease) Positive cardiac stress test (~11/2020) Recurrent UTI Tremor Surgical History History of cardiac catheterization (12/18/20) Dr Glenys Brown of hysterectomy Status post peripheral artery angioplasty with insertion of stent (12/31/20) Dr Jimenez, thrombectomy and balloon angioplasty RLE, drug eluting stent 2 x to peroneal artery Family History Mother , AT AGE 80 Diabetes Cancer CAD (coronary artery disease) Father CAD (coronary artery disease) Brother CAD (coronary artery disease) Sister CAD (coronary artery disease) Social History Smoking and tobacco status: never smoked Alcohol intake: never Marital status: / Current occupational status: disabled Vitals/I&O/Wt Last Vital Signs Temp 98.3 F 04/09/21 03:15 Pulse 94 04/09/21 06:00 Resp 13 04/09/21 06:00 BP 106/56 04/09/21 06:00 Pulse Ox 100 04/09/21 06:00 04/08/21 04/09/21 04/09/21 22:59 06:59 14:59 Intake Total 1212.75 / 1329.50 1325.416 / 2654.916 50 / 50 Balance 1212.75 / 1329.50 1325.416 / 2654.916 50 / 50 Weight last 48 hrs Weight 130 lb 3.2 oz Weight 130 lb Weight 140 lb Physical Exam HENMT: COMMON NORMALS: normocephalic, hearing grossly normal bilaterally, external ears normal and Normal external nose present HEAD & SCALP: normocephalic NOSE: Normal external nose present EXTERNAL EAR: Yes external ears normal Neck/C-Spine: COMMON NORMALS: No carotid bruits; negative for full ROM Chest: COMMONS NORMALS: normal palpation of entire chest wall CHEST: No crepitus Resp: COMMON NORMALS: normal respiratory effort and No use of accessory muscles AUSCULTATION: diminished lung sounds bilateral (Due to poor inspiratory effort) Cardio: COMMON NORMALS: regular rate and S1 normal heart sound present; negative for regular rhythm PALPATION: normal PMI RATE: regular rate RHYTHM: abnormal rhythm and abnormal rhythm irregularly irregular HEART SOUNDS: S1 normal heart sound present BRUITS: no abdominal aortic bruits, no carotid bruits and no femoral bruits PERIPHERAL PULSES: radial pulses present positive bilateral 1+ GI: COMMON NORMALS: Normal to inspection, nondistended, normoactive bowel sounds present and Soft to palpation PALPATION: Yes Soft to palpation Extremity: GENERAL: Yes pallor and Yes pulses abnormal OTHER: There is bilateral lower extremity bluish discoloration and coolness to the skin getting approximately 5 cm below the knee bilaterally. This extends down through the feet which also have pallor. She is able to move her toes somewhat. There are no open lesions though clearly this represents substantial lower extremity ischemia which does appear to be chronic in nature given her prior interventions and documented severe peripheral vascular disease distally. This perhaps may represent a combination of her known chronic PAD as well as possible embolic phenomenon from perhaps inconsistent anticoagulation for her A. fib. Urinary Catheter Management^: Lopez: Cath Placed During This Visit: yes Reason for Continuing Indwelling Catheter: Assist healing open wound Urinary Catheter Date of Insertion: 04/07/21 Urinary Catheter Time of Insertion: 18:35 Data Micro: Micro: Microbiology 04/07/21 17:19 Blood Culture - Pr eliminary Blood NEGATIVE TO ANATOLY E 04/07/21 15:11 Blood Culture - Pr eliminary Blood NEGATIVE TO ANATOLY E 04/07/21 18:16 Urine Culture - Pr eliminary Urine,Clean Catch Gram Negative R ods A&P Assessment and plan (1) Cardiac mass: Large left atrial mass by echocardiography and confirmed by CTA appears to originate on the free wall or toward the appendage. 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 Given her history of A. fib and questionable compliance with anticoagulation related to perhaps cognitive decline, this may well represent a large thrombus. Her overall condition is very poor. Her ejection fraction is 20% and she is substantially deconditioned with cognitive decline. Unfortunately, I do not think there is an operative option available for which she would survive. I recommend continuing anticoagulation and supportive measures such as group home care. From my exam and review, I do not think she can continue with independent living. Status: Acute (2) Critical limb ischemia of both lower extremities: I have reviewed her most recent CTA. Given her previous heroic interventions by our interventional cardiology team, it appears there are no further options available given her severe disease and small vessel targets. I concur with the current plan to continue anticoagulation, hopefully through a skilled care setting, so that she may receive the support she needs as well as confirmation of medication compliance. Indeed, there may require settings where major amputation would be required should she develop systemic complications of ongoing lower extremity ischemia. Even amputation, would be a life-threatening procedure given her severe debilitated condition. Status: Acute Consult Attestations Medical Necessity Statement: Severe cardiac dysfunction with left atrial mass and severe peripheral vascular disease with ongoing lower extremity ischemia. Time Spent in Patient Care: Greater than 35 minutes Coding Level of Care Code Acute Manager Technical Training for Chg Fwd Diagnoses Cardiac mass I51.89 Critical limb ischemia of both lower extremities I70.223
[2021-04-09] MEDS: pantoprazole 40 mg SDV IVP ×2 (12:50→19:58)
--- NOTE | 2021-04-09 12:52 | P.NPUCON_ITS ---
Providers/Reason for Consult Consulting Physican/Specialty*: Vicente Campos MD/Psychiatist Reason for Consult*: Assistance with the capacity to quality assurance assistant medical care decision making. Attending Physician: Alexander Barkley MD Primary Care Provider: Travis Boss Psych Consult HPI History of Present Illness Sabina Valdez is a 71 year old female with multiple medical problems including acute ischemia of her legs. She is not able to walk. She also has dementia. She does know that she is in the hospital and said that leg pain is her primary problem. She could not tell me any other medical problems that she has. She says that she is here to get her legs taken care of. She said that they are going to do surgery on her legs. She does not know of any other considerations of treatment. She does not know what town she is or the name of the hospital. He could remember any of 3 objects after 5 minutes. She could not name the city even after I told her. She does not know the year or the month but does know that David Ponce is the president of [facility]. She does not appear to be aware of her medical conditions enough to make decisions. Meds Current Medications: Current Medications Generic Name Dose Route Start Last Admin Trade Name Freq PRN Reason Stop Dose Admin Enoxaparin Sodium 60 mg 04/08/21 18:00 04/09/21 06:04 Enoxaparin 60 Mg /0.6 Ml Syringe SUBCUT 60 mg Q12H JODIE Administration Piperacillin Sod/T azobactam 50 mls @ 12.5 mls /hr 04/07/21 19:30 04/09/21 12:50 Sod 3.375 gm/ So dium Chloride IV 12.5 mls/hr Q8H JODIE Administration Protocol Diltiazem HCl 125 mg/ Sodium 125 mls @ 0 mls/h r 04/07/21 18:46 04/09/21 06:41 Chloride IV 10 mg/hr .Q0M JODIE 10 mls/hr Administration Protocol Per Protocol Vancomycin HCl 1,0 00 mg/ 250 mls @ 250 mls /hr 04/08/21 19:30 04/09/21 01:20 Sodium Chloride IV Infused Q18H JODIE Infusion Protocol Sodium Chloride 1,000 mls @ 100 m ls/hr 04/08/21 18:30 04/09/21 06:05 Sodium Chloride 0.9% IV 100 mls/hr .Q10H JODIE Administration Metoprolol Tartrat e 50 mg 04/08/21 08:00 04/09/21 09:38 Metoprolol Tartr ate 50 Mg Tablet PO 50 mg Q12H JODIE Administration Midodrine 10 mg 04/08/21 11:30 04/09/21 12:50 Midodrine 5 Mg T ablet PO 10 mg Q8H JODIE Administration Morphine Sulfate 1 mg 04/07/21 22:08 04/08/21 02:38 Morphine 4 Mg/Ml Sdv 1 Ml IVP 1 mg Q4H PRN Administration SEVERE PAIN Pantoprazole Sodiu m 40 mg 04/07/21 22:08 04/09/21 12:50 Pantoprazole 40 Mg Sdv IVP 40 mg Q12H JODIE Administration PFSH NPU PFSH: Medical History Anxiety Aortic regurgitation Atrial fibrillation Back pain CAD (coronary artery disease) Angiogram 12/18/2020 showed single-vessel disease, distal circumflex high- grade lesion, recommendation for medical management at time CAD (coronary artery disease) CHF (congestive heart failure) EF 40 to 45% on echo and 20-25% on LV gram from cardiac angiogram with global LV hypokinesia, diastolic dysfunction. Chronic ankle pain, bilateral Chronic pain of both knees Critical limb ischemia of both lower extremities Depression GERD without esophagitis Interstitial cystitis Limb ischemia Acute limb ischemia with limb salvage percutaneous procedure performed. Migraine Mitral regurgitation Moderate episode of recurrent major depressive disorder Overactive bladder PAD (peripheral artery disease) Positive cardiac stress test (~11/2020) Recurrent UTI Tremor Surgical History History of cardiac catheterization (12/18/20) Dr Veronica Hx of hysterectomy Status post peripheral artery angioplasty with insertion of stent (12/31/20) Dr Jimenez, thrombectomy and balloon angioplasty RLE, drug eluting stent 2 x to peroneal artery Family History Mother , AT AGE 80 Diabetes Cancer CAD (coronary artery disease) Father CAD (coronary artery disease) Brother CAD (coronary artery disease) Sister CAD (coronary artery disease) Social History Smoking and tobacco status: never smoked Alcohol intake: never Marital status: / Current occupational status: disabled Mental Status Exam MSE Comments: This is a 71-year-old thin female who appears her stated age and is in no acute distress. psychomotor activity is normal.She is mildly tremulous. Speech is at a regular rate and rhythm, normal volume, good articulation, not pressured. Alert, oriented only to self and that she is in a hospital for her legs Attention and concentration she does not appear to have any problems paying attention to her environment. Memory for recent events is very poor Mood is not depressed. Affect is mildly anxious. Thought process is is difficult to discern. There is no spontaneous speech ot her than asking for some water. She could not answer most questions. Thought content: Denies auditory and visual hallucinations. No delusions or paranoia are noted. No current suicidal ideation, and no homicidal ideation. Fund of knowledge is diminished. Insight and judgment appear to be limited by her awareness of her situation and medical problems. Impulse control is fair. Vitals/I&O/Wt Last Vital Signs Temp 98.3 F 04/09/21 03:15 Pulse 94 04/09/21 06:00 Resp 13 04/09/21 06:00 BP 106/56 04/09/21 06:00 Pulse Ox 100 04/09/21 06:00 04/08/21 04/09/21 04/09/21 22:59 06:59 14:59 Intake Total 1212.75 / 1329.50 1325.416 / 2654.916 50 / 50 Balance 1212.75 / 1329.50 1325.416 / 2654.916 50 / 50 Weight last 48 hrs Weight 59.058 kg Weight 58.967 kg Weight 63.503 kg Physical Exam Urinary Catheter Management^: Lopez: Cath Placed During This Visit: yes Reason for Continuing Indwelling Catheter: Assist healing open wound Urinary Catheter Date of Insertion: 04/07/21 Urinary Catheter Time of Insertion: 18:35 Data NPU Micro: Micro: Microbiology 04/07/21 18:16 Urine Culture - Fi nal Urine,Clean Catch Escherichia col i 04/07/21 17:19 Blood Culture - Pr eliminary Blood NEGATIVE TO ANATOLY E 04/07/21 15:11 Blood Culture - Pr eliminary Blood NEGATIVE TO ANATOLY E Microbiology 04/07/21 18:16 Urine,Clean Catch Urine Culture - Final Escherichia coli 04/07/21 17:19 Blood Blood Culture - Preliminary NEGATIVE TO DATE 04/07/21 15:11 Blood Blood Culture - Preliminary NEGATIVE TO DATE A&P Assessment and plan (1) Dementia: Status: Acute Qualifiers: Dementia type: unspecified type Dementia behavioral disturbance: without behavioral disturbance Qualified Code(s): F03.90 - Unspecified dementia without behavioral disturbance (2) Inability to walk: Status: Acute Additional A&P Information This is a 71-year-old female who has multiple medical problems as well as dementia. She could not tell me about her medical problems. She knows that her legs hurt and she does not know why. She does not know the treatment options for her condition. She says that they are going to do surgery on her legs. She is obviously unable to take care of herself at home. She is obviously unable to assist in determining of her medical care needs. Attestations NPU Medical Necessity Statement*: See attending physician's notes on medical necessity. Coding Level of Care Code Acute Computer Assembler for Fredy Cabrera Diagnoses Dementia F03.90 Dementia type: unspecified type Dementia behavioral disturbance: without behavioral disturbance Inability to walk R26.2
--- NOTE | 2021-04-09 13:20 | PM.PN ---
Subjective Subjective: Interval history: This morning patient was seen, she is complaining of pain in both lower extremities, she is alert to person, to place, not to time, she does not know why her lower extremities hurting, she tells me that they need surgery, I discussed with her her heart failure, decreased ejection fraction, her atrial fibrillation, her left atrial thrombus, her critical limb ischemia, however she is not able to have verbalized understanding, when I asked her if she understood she said yes, when I asked her to repeat back to me what was happening and why said she was unable to, The following discussion was made in front of nurseMattie -Patient is alert to person, to place, not to time, she does follow commands -Grandson at bedside is not biologically related to him, he is treated like a grandson, she has 2 sons, 1 son he is not locatable, the other son lives somewhere in [place], we do not have a contact -There is no other immediate family members -Patient lives at home by herself -She has help from friends including this grandson who calls her grandson as a term of endearment, and his mother -I discussed with patient my concerns for her alteration in mentation, I suspect that she has underlying dementia -In terms of her heart her EF is down to 20%, she also has evidence of a left atrial mass either a thrombus or a myxoma -I discussed with her her critical limb ischemia bilateral extremity acute on chronic -After discussing with specialist, patient is not deemed a reasonable surgical candidate -She would have a high risk of morbidity mortality and surgical interventions -They have recommended medical management in addition I have recommended medical management -Patient is bedbound, she has deconditioning, sacral decubitus ulcers, poor functional status -In my opinion carrying out surgical interventions would carry significant risk, high risk of morbidity mortality in pursuing surgical interventions, significant suffering -We could pursue medical interventions -However, currently I am concerned that even medical interventions have reached their limits, in her near future she is approaching infection of bilateral lower extremities due to lack of blood flow, septicemia, septic shock -Certainly we could pursue antibiotics, however they would reach their limit, she would require bilateral extremity amputation, and given the condition of her heart failure, and above findings I think that she would likely have significant morbidity and mortality and suffering associated with surgical intervention -In addition with her cardiac thrombus versus tumor, we discussed with cardiothoracic surgery and cardiology, who recommended medical management, pursuing surgical intervention with carry significant risks, significant morbidity mortality, issue with likely not be able to survive surgical intervention. Thus we have pursued medical intervention, however she does have a risk of embolization, and complications associated with the thrombus, but we can medically manage her -Unfortunately her decision is quite dire and difficult, more specifically for her bilateral extremities, given her elevated white count I am concerned that she is headed towards septicemia, and further infection, she is on broad-spectrum antibiotic therapy. However there is really no good solution if she wants to pursue medical intervention as the most effective way to control her infection would be an amputation but she would not be able to tolerate the surgery in my opinion, and if she did she would likely require intubation, be placed in ICU be critically ill -Ultimately her reasonable options would be medical interventions versus hospice, if she pursued hospice we could just make her comfortable, either pain ease or suffering, allow her to enjoy her remaining days and we would not pursue aggressive interventions, which would avoid extensive surgery aches, ICU admissions, aggressive interventions which would carry significant morbidity mortality and poor outcome and significant suffering -However medical interventions, could carry some degree of positive outcome although I feel unlikely -I advised patient that certainly this is difficult to situation, difficult decision to make -After discussing all options with her I was not able to get any confirmation of her understanding certainly it is a complex decision but even basic answers I am not able to get from her, I am not able to discern that she understands what I am telling her, not able to discern that she understands the complexity of the situation -Does I am not able to gauge from her she understands what is going on, thus we will try to reach out to her 2 sons, if were not able to reach them, then we will have to proceed to determine her capacity and ultimately guardianship -At the end of my conversation patient tells me she wants to go home, she wants to go home -I advised patient that she is in no capacity to go home currently she cannot walk, she has bilateral sacral ulcers, she is ill, deconditioned -Certainly going home with hospice would be a reasonable option -However again I am not able to gauge from her that she understands hospice, or the severity of her medical illness -Patient has three sons -Anup nobody has his number or location -[facility] #[phone], lives in [place], I was able to talk to him about all as above, he tells me that he is estranged from his mom, as she threw him in custodial, and he does not want to make decisions for her, her healthcare power of research attorney is taught -I have tried to reach out to Nixon Mandujano, who is patient's healthcare power of research attorney, phone #[phone], went to [employer] and left a message -I spoke to Hawa: [phone], who is the legal guardian of Marck, daughter who is 7 Vitals/I&O/Wt Last Vital Signs Temp 98.3 F 04/09/21 03:15 Pulse 94 04/09/21 06:00 Resp 13 04/09/21 06:00 BP 106/56 04/09/21 06:00 Pulse Ox 100 04/09/21 06:00 04/08/21 04/09/21 04/09/21 22:59 06:59 14:59 Intake Total 1212.75 / 1329.50 1325.416 / 2654.916 50 / 50 Balance 1212.75 / 1329.50 1325.416 / 2654.916 50 / 50 Weight last 48 hrs Weight 59.058 kg Weight 58.967 kg Weight 63.503 kg Physical Exam Const: COMMON NORMALS: no acute distress GENERAL APPEARANCE: cooperative, comfortable and frail appearing ORIENTATION/CONSCIOUSNESS: Yes awake, Yes oriented to person and Yes oriented to place; not oriented to time Resp: COMMON NORMALS: normal respiratory effort, No retractions, No use of accessory muscles and clear to auscultation bilaterally AUSCULTATION: clear to auscultation bilaterally Cardio: COMMON NORMALS: regular rate, S1 normal heart sound present and S2 normal heart sound present RATE: regular rate RHYTHM: abnormal rhythm irregularly irregular HEART SOUNDS: S1 normal heart sound present and S2 normal heart sound present GI: COMMON NORMALS: Normal to inspection, nondistended, normoactive bowel sounds present, Soft to palpation and non-tender PALPATION: Yes Soft to palpation Extremity: NARRATIVE EXTREMITY EXAM: ToBilateral lower extremities, pale, blue, DP PT pulses nonpalpable DP PT pulses nonpalpable, not dopplerable Bilateral lower extremities cool to touch, clammy, blue discoloration Is able to withdraw from pain Is able to wiggle her toes Sacrum, sacral decubitus ulcers, stage1-2 Neuro: SENSORIUM/ORIENTATION: Yes oriented to person, Yes oriented to place and No oriented to time Urinary Catheter Management^: Lopez: Cath Placed During This Visit: yes Reason for Continuing Indwelling Catheter: Assist healing open wound Urinary Catheter Date of Insertion: 04/07/21 Urinary Catheter Time of Insertion: 18:35 Data : 04/09/21 02:03 04/09/21 02:03 Micro: Microbiology 04/07/21 18:16 Urine Culture - Final Urine,Clean Catch Escherichia coli 04/07/21 17:19 Blood Culture - Preliminary Blood NEGATIVE TO DATE 04/07/21 15:11 Blood Culture - Preliminary Blood NEGATIVE TO DATE A&P Assessment and plan (1) Critical limb ischemia of both lower extremities: -Acute on chronic lower extremity ischemia - Peripheral cath 01/13/2021 Lower Extremity Interventional Findings Periphreal intervention procedure: We obtained access in the left common femoral artery with a 6 Barb[place] sheath.IV heparin was administered. Using a Glidewire, a long 8 Fr sheath was inserted in right external iliac artery going up and over after abdominal angiogram was performed. Mid SFA had total thrombotic occlusion. We crossed the occluded segment with Glidewire. CAT 8 penumbra catheter was inserted and used to perform mechanical thrombectomy. Significant amount of thrombus was extracted serially. Patient kept on having distal embolization of thrombus. Balloon angioplasty was also performed using a 5.0 x 40 mm balloon in the distal SFA to popliteal artery. We then used a 3.0 x 120 mm balloon to perform balloon angioplasty and TP trunk and proximal peroneal artery. At this time it was noted that patient's anterior tibial and posterior tibial arteries are occluded. Flow was noted in the peroneal artery. We performed balloon angioplasty from mid to distal peroneal artery using 2.0 x 200 mm balloon. This was followed by performing mechanical thrombectomy with a CAT Rx catheter. Proximal to mid peroneal artery seem to have residual thrombus. We decided to put coronary stents measuring 2.5 x 30 mm resolute [place] stent overlapping with a 2.75 x 30 mm resolute [place] stent. At this time final angiogram demonstrated single vessel runoff to the foot. Pulse was dopplerable. Collateral blood supply was also noted below the knee. Long sheath was switched to short 8 Barbadian sheath and was sutured in place for removal later.. Conclusions Acute limb ischemia with thrombotic occlusion of the mid SFA/popliteal artery and TP trunk (Source likely heart as had recent onset Atrial fibrillation and compliance with medications is not known). Severe below the knee peripheral artery disease. Single vessel runoff to the foot established. -CTA lower extremity 3. Abrupt occlusion of the bilateral popliteal arteries, and complete occlusion of the bilateral infrapopliteal arteries. No visible runoff to the feet. Given the findings in the left atrium, this most likely represents severe thromboembolic disease. 4. Near complete segmental occlusion of a left profunda femoral artery branch, most likely thromboembolic disease. -DP PT pulses not dopplerable, lower extremities cool, clammy, painful, able to move lower extremities, but reported inability to walk -Possible embolic phenomenon given findings of bilateral heart thrombus, failure of anticoagulation on Plavix, Eliquis Plan: -Admit to cardiac stepdown unit -On Lovenox -Doppler pulses bilateral lower extremities, monitor -We will start on broad-spectrum antibiotic therapy, vancomycin, Zosyn -Warm bilateral lower extremities -I concern with elevated white count, that she is progressing towards septicemia -Currently given her cardiac status, poor candidate for surgical invention, high morbidity mortality associated -Cardiology on consult Status: Acute (2) Atrial fibrillation with RVR: - Transition off Cardizem drip -Metoprolol 50 twice daily -Mag rater than 2, potassium greater than 4 -Telemetry monitoring, -Hold off on rhythm control given risk of cardioverting, and risk of embolization Status: Acute (3) Single vessel coronary artery disease: - History of distal left circumflex disease, medical management Status: Acute (4) PAD (peripheral artery disease): Status: Chronic (5) CHF (congestive heart failure): - Elevated BNP, no complaint of shortness of breath, no crackles on exam, hold off on Lasix 1-Moderately increased left ventricular cavity size. Severely decreased left ventricular systolic function. Global left ventricular hypokinesis. Left ventricular ejection fraction is estimated at 20 %. In the presence of atrial fibrillation diastolic function cannot be assessed accurately. 2-Severely increased left atrial size. Well-circumscribed mass with area of 11 cm2 was noted in the left atrium appeared to be attached to the roof, differential diagnosis would be tumor such as myxoma versus thrombus, clinical correlation advised, further assessment with MRI. 3-Moderately thickened mitral valve. No mitral valve stenosis. Mild mitral valve regurgitation. 4-Severe aortic valve calcification. No aortic valve stenosis. Mild aortic valve regurgitation. 5-Severe tricuspid valve regurgitation. 6-There is no pericardial effusion. 7-When compared to the prior echocardiogram dated December 02, 2020 there is worsening/ventricular ejection fraction from moderately depressed 40% to severely depressed 20% now. There is well-circumscribed mass with area of 11 cm2 was noted in the left atrium appeared to be attached to the roof, differential diagnosis would be tumor such as myxoma versus thrombus, clinical correlation advised, further assessment with MRI. There is severe tricuspid valve regurgitation. Status: Chronic Qualifiers: Heart failure chronicity: acute on chronic Heart failure type: systolic Qualified Code(s): I50.23 - Acute on chronic systolic (congestive) heart failure (6) Generalized weakness: Status: Acute (7) Left heart thrombus: -Mass in left atrium, thrombus versus tumor -Discussed with cardiothoracic surgery, cardiology, not amenable to surgical intervention -Continue medical management, anticoagulation, Lovenox Status: Acute (8) Pneumonia: - Seen on chest x-ray, will order vancomycin, Zosyn -Follow blood cultures, urine cultures, sputum cultures, Status: Acute (9) Acute encephalopathy: - Etiology of her UTI, pneumonia, possible progressing to lower extremity septicemia -Follow urine cultures -CT of the head no acute CVA -Chest x-ray showing follow-up possible pneumonia on antibiotics as above -Neurochecks, aspiration precautions, NIH -I have reached out to Nixon, went to voicemail, if were not able to confirm that he is healthcare power of research attorney, and family members are not willing to make decisions for her, then we will have to pursue guardianship, psychiatry to evaluate for capacity making decision Status: Acute (10) UTI (urinary tract infection): Status: Acute Attestations Medical Necessity Statement*: Patient requires hospitalization for bilateral extremity ischemia, left atrial thrombus, Coding Level of Care Code Acute Student Life Dean for [facility] Fwd Exam Expanded Problem Focused Diagnoses Critical limb ischemia of both lower extremities I70.223 Atrial fibrillation with RVR I48.91 Single vessel coronary artery disease I25.10 PAD (peripheral artery disease) I73.9 CHF (congestive heart failure) I50.23 Heart failure chronicity: acute on chronic Heart failure type: systolic Generalized weakness R53.1 Left heart thrombus I51.3 Pneumonia J18.9 Acute encephalopathy G93.40 UTI (urinary tract infection) N39.0
[2021-04-09 13:45] LABS: Vancomycin Trough 10.4 ug/mL (10-15)
[2021-04-09] MEDS: vancomycin 1,000 MG in sodium chloride 0.9% 250 ML 250 MG IV (14:45)
[2021-04-09] MEDS: dilTIAZem 30 mg Tablet PO ×2 (14:46→19:58)
--- NOTE | 2021-04-09 16:47 | PM.PN ---
Subjective Subjective: Interval history: Patient is feeling better she is more alert awake today, both legs are better she is moving them around she denies any pain in the legs both lower extremities are warm today Medications: Reviewed: Yes Vitals/I&O/Wt Last Vital Signs Temp 98.3 F 04/09/21 03:15 Pulse 94 04/09/21 06:00 Resp 13 04/09/21 06:00 BP 106/56 04/09/21 06:00 Pulse Ox 100 04/09/21 06:00 04/09/21 04/09/21 04/09/21 06:59 14:59 22:59 Intake Total 1325.416 / 2654.916 50 / 50 250 / 300 Balance 1325.416 / 2654.916 50 / 50 250 / 300 Weight last 48 hrs Weight 130 lb 3.2 oz Weight 130 lb Physical Exam Narrative: EXAM NARRATIVE: GENERAL: Patient is awake but does not talk much she mostly stares, NECK: No jugular vein distension. HEENT: No cyanosis. No icterus. No pallor. HEART: Irregularly irregular S1 and S2. No murmur, rub or gallop. LUNGS: Clear to auscultate bilaterally. ABDOMEN: Soft, nontender and nondistended. Positive bowel sounds. No guarding, rebound or tenderness. CENTRAL NERVOUS SYSTEM: Grossly nonfocal. EXTREMITIES: Lower extremities without edema bilaterally. Pulses not palpable in the lower extremities, both dorsalis pedis and posterior tibial. Patient able to wiggle her toes sensation and motor intact, both legs are warm legs warm Urinary Catheter Management^: Lopez: Cath Placed During This Visit: yes Reason for Continuing Indwelling Catheter: Assist healing open wound Urinary Catheter Date of Insertion: 04/07/21 Urinary Catheter Time of Insertion: 18:35 Data : 04/09/21 02:03 04/09/21 02:03 Micro: Microbiology 04/07/21 18:16 Urine Culture - Final Urine,Clean Catch Escherichia coli 04/07/21 17:19 Blood Culture - Preliminary Blood NEGATIVE TO DATE 04/07/21 15:11 Blood Culture - Preliminary Blood NEGATIVE TO DATE A&P Assessment and plan (1) Cardiac mass: Large left atrial mass by echocardiography and confirmed by CTA appears to originate on the free wall or toward the appendage. 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 Given her history of A. fib and questionable compliance with anticoagulation related to perhaps cognitive decline, this may well represent a large thrombus. Her overall condition is very poor. Her ejection fraction is 20% and she is substantially deconditioned with cognitive decline. Unfortunately, I do not think there is an operative option available for which she would survive. I recommend continuing anticoagulation and supportive measures such as senior living care. From my exam and review, I do not think she can continue with independent living. I have a chance to speak with the patient. She would not like to have any intervention. We will continue to treat her medically continue anticoagulation May will switch to oral anticoagulation once she started eating more Status: Acute (2) Critical limb ischemia of both lower extremities: I have reviewed her most recent CTA. Given her previous heroic interventions by our interventional cardiology team, it appears there are no further options available given her severe disease and small vessel targets. I concur with the current plan to continue anticoagulation, hopefully through a skilled care setting, so that she may receive the support she needs as well as confirmation of medication compliance. Indeed, there may require settings where major amputation would be required should she develop systemic complications of ongoing lower extremity ischemia. Even amputation, would be a life-threatening procedure given her severe debilitated condition. Both legs she has reasonably good feelings both legs are warm. Patient is not amenable to intervention due to extensive below the knee disease, continue to treat medically Status: Acute (3) Atrial fibrillation with rapid ventricular response: Rate controlled, patient has been switched to metoprolol and Cardizem. We will switch patient to oral Xarelto 20 mg since patient was on Eliquis before possible she is not taking twice a day was it not working. Status: Acute (4) CHF exacerbation: Appears compensated continue current regimen Status: Acute Attestations Medical Necessity Statement*: Patient require continuation hospitalization above defined care Coding Level of Care Code Acute Hot Metal Charger for [facility] Diagnoses Cardiac mass I51.89 Critical limb ischemia of both lower extremities I70.223 Atrial fibrillation with rapid ventricular response I48.91 CHF exacerbation I50.9
[2021-04-09] MEDS: apixaban 5 mg Tablet PO (17:31)
--- NOTE | 2021-04-09 19:49 | PC.NURSE ---
Received report from AVANI Anne. Patient resting in bed. Patient turned and cleaned. Noted large area of maceration and open areas with peeling sking to entire buttocks. Applied aloe vesta cream liberally to entire area x2 assist From midshin to toes bilaterally are cold to touch and dark colored. No doppled pulses heard to bilateral lower extremities. Patient appears confused and has yes or no answers only to questions. Patient denies pain presently. No other distress observed. Will continue to monitor.
--- NOTE | 2021-04-09 22:43 | PC.NURSE ---
Patient lying in bed wide awake. Requested something to help with sleep. Informed Dr Ramos and received telephone order for Benadryl 25mg PO bedtime PRN for sleep.
[2021-04-09] MEDS: diphenhydrAMINE 25 mg Capsule PO (23:02)
[2021-04-10] VITALS (29 sets, daily range): BP systolic 80–119; BP diastolic 60–83; PULSE 83–114; RESP 16–32; TEMP 36.6; O2SAT 68–100
[2021-04-10] MEDS: dilTIAZem 30 mg Tablet PO ×3 (02:29→20:12)
[2021-04-10] MEDS: midodrine 5 mg TABLET 10 MG PO ×3 (02:32→20:10)
[2021-04-10] MEDS: piperacillin-tazobactam 3.375 GM in sodium chloride 0.9% (plus) 50 ML IV ×3 (02:32→20:13)
[2021-04-10 04:59] LABS: Basophils % 0.1 %; Eosinophils % 0.2 %; Hematocrit 32.1 % (37.0-47.0); Hemoglobin 9.6 g/dL (11.5-15.3); Lymphocytes % 10.6 %; Mean Corpuscular HGB Conc 29.9 g/dL (30.0-36.0); Mean Corpuscular Hemoglobin 24.1 pg (28.0-34.0); Mean Corpuscular Volume 80.7 fl (81-99); Mean Platelet Volume 11.2 fL (7.4-10.4); Monocytes % 10.7 %; Neutrophils % 76.4 %; Nucleated Red Blood Cells # 0.1 /100WBC; Nucleated Red Blood Cells % 0.4 %; Platelet Count 129 10^3/cmm (130-400); Red Blood Count 3.98 10^6/uL (4.1-5.3); Red Cell Distribution Width 18.1 % (12.1-15.1); White Blood Count 18.5 10^3/uL (4.0-10.0)
[2021-04-10 05:27] LABS: Alanine Aminotransferase 20 U/L (0-33); Albumin Level 1.9 g/dL (3.5-5.2); Alkaline Phosphatase 82 IU/L (35-105); Aspartate Amino Transferase 42 U/L (0-32); Chloride 101 mmol/L (98-107); Globulin 2.7 g/dL (1.3-4.6); Glucose 102 mg/dL (65-115); Phosphorus 1.1 mg/dL (2.5-4.5); Potassium 3.8 mmol/L (3.5-5.1); Sodium 127 mmol/L (136-145); Total Protein 4.6 g/dL (6.6-8.7)
[2021-04-10 05:40] LABS: Blood Urea Nitrogen 19 mg/dL (8-23); Calcium 7.3 mg/dL (8.5-10.5); Carbon Dioxide 15 mmol/L (22-29); Magnesium 1.7 mg/dL (1.7-2.3); Total Bilirubin 1.3 mg/dL (0.15-1.2)
[2021-04-10] MEDS: apixaban 5 mg Tablet PO ×2 (05:41→18:15)
[2021-04-10] MEDS: morphine 4 mg/mL SDV 1 mL 1 MG IVP ×2 (05:47→20:14)
[2021-04-10 05:59] LABS: Anion Gap 14.8 (5-19); Osmolality Calculated 266 mOsm/kg (285-295)
--- NOTE | 2021-04-10 06:07 | PC.NURSE ---
Shift Note Frequent safety and comfort rounds continue. Orders and/or nursing care completed as indicated. Patient monitored for response to intervention and treatment(s). Education provided includes Cal and shaun. Patient verbalized understanding however will require further reinforcement. Patient's BLE from mid-velazquez to toes becoming colder and more painful to touch. Unable to dopple pulses to lower extremities. Patient denies other needs. No other distress observed. Will continue to monitor.
[2021-04-10] MEDS: vancomycin 1,000 MG in sodium chloride 0.9% 250 ML 250 MG IV (07:32)
[2021-04-10] MEDS: metoprolol tartrate 50 mg Tablet PO (07:33)
--- NOTE | 2021-04-10 09:26 | PC.SOCIAL ---
IMM Update Pg. 2 of IMM not updated at this time. Patient not anticipated to discharge within 48hours. She has been deemed incompetent to make decisions for herself and no family at bedside currently. Will attempt to reach family.
[2021-04-10] MEDS: pantoprazole 40 mg SDV IVP ×2 (10:24→20:14)
[2021-04-10] MEDS: magnesium sulfate premix 4 GM/100 ML PREMIX IV (10:24)
--- NOTE | 2021-04-10 10:55 | PM.PN ---
Subjective Subjective: Interval history: Patient was seen this morning, she is alert to person, to place, not to time, she is eating breakfast, does follow commands, -I was able to speak to Nixon, he tells me that he in fact is her healthcare power of immigration attorney, but the paperwork was filed in for [facility], and he does not have copies of it, he tells me that she has a copy of it. His other brothers are difficult to find, they have gone to different areas of the country, because their mom has pushed them away, and they have a lot of family drama. Nixon tells me that he has been helping his mom for some time, keeping in touch, but she pushed him out of his life over the course of the last few years, he tells me that she is been involved with another man. I discussed the case in detail with Nixon, I discussed patient's severe heart failure, left atrial thrombi, deconditioning, dementia, critical limb ischemia bilateral extremity, she is a poor surgical candidate, she has a high morbidity mortality for any surgical intervention, she has a high risk of septicemia and poor outcome from her lower limb ischemia if we were to proceed to surgery, and likely even with medical management this lower limb ischemia would worsen resulting in septicemia, significant suffering, poor outcome. I advised him that this is certainly a difficult decision, however it would be my opinion and specialist opinion to pursue medical interventions, and to pursue hospice. This option would carry no most reasonable chance of least aggressive interventions, and we would treat her pain into her suffering. After discussing the risks and benefits of all options, he voiced understanding, all questions answered he wants us to pursue hospice and residential placement. I will discuss with case management, and discussed with our legal team, if we can proceed with his decision. As I have tried to reach out to his other brothers, 1 of which David who said that he did not want make decisions for his mom, he wanted to talk to make decisions. I have not been able to reach Rashid. Medications: Reviewed: Yes Vitals/I&O/Wt Last Vital Signs Temp 98 F 04/10/21 07:43 Pulse 102 H 04/10/21 10:43 Resp 18 04/10/21 10:43 BP 96/70 04/10/21 07:43 Pulse Ox 100 04/10/21 10:43 04/09/21 04/10/21 04/10/21 22:59 06:59 14:59 Intake Total 838 / 1242 740 / 1982 368 / 368 Output Total 280 / 280 300 / 580 Balance 558 / 962 440 / 1402 368 / 368 Weight last 48 hrs Weight 59.33 kg Weight 59.058 kg Weight 58.967 kg Physical Exam Const: COMMON NORMALS: no acute distress GENERAL APPEARANCE: cooperative, comfortable and frail appearing ORIENTATION/CONSCIOUSNESS: Yes awake, Yes oriented to person and Yes oriented to place; not oriented to time Resp: COMMON NORMALS: normal respiratory effort, No retractions, No use of accessory muscles and clear to auscultation bilaterally AUSCULTATION: clear to auscultation bilaterally Cardio: COMMON NORMALS: regular rate, regular rhythm, S1 normal heart sound present and S2 normal heart sound present RATE: regular rate RHYTHM: regular rhythm HEART SOUNDS: S1 normal heart sound present and S2 normal heart sound present GI: COMMON NORMALS: Normal to inspection, nondistended, normoactive bowel sounds present, Soft to palpation and non-tender PALPATION: Yes Soft to palpation Extremity: COMMON NORMALS: no pedal edema NARRATIVE EXTREMITY EXAM: ToBilateral lower extremities, pale, blue, DP PT pulses nonpalpable DP PT pulses nonpalpable, not dopplerable Bilateral lower extremities cool to touch, clammy, blue discoloration Is able to withdraw from pain Is able to wiggle her toes Sacrum, sacral decubitus ulcers, stage1-2 Neuro: SENSORIUM/ORIENTATION: Yes oriented to person, Yes oriented to place and No oriented to time Urinary Catheter Management^: Lopez: Cath Placed During This Visit: yes Reason for Continuing Indwelling Catheter: Acute Urinary Retention or Obstruction Urinary Catheter Date of Insertion: 04/07/21 Urinary Catheter Time of Insertion: 18:35 Data : 04/10/21 04:46 04/10/21 04:46 Micro: Microbiology 04/07/21 18:16 Urine Culture - Final Urine,Clean Catch Escherichia coli A&P Assessment and plan (1) Critical limb ischemia of both lower extremities: -Acute on chronic lower extremity ischemia - Peripheral cath 01/13/2021 Lower Extremity Interventional Findings Periphreal intervention procedure: We obtained access in the left common femoral artery with a 6 Ukrainian sheath.IV heparin was administered. Using a Glidewire, a long 8 Fr sheath was inserted in right external iliac artery going up and over after abdominal angiogram was performed. Mid SFA had total thrombotic occlusion. We crossed the occluded segment with Glidewire. CAT 8 penumbra catheter was inserted and used to perform mechanical thrombectomy. Significant amount of thrombus was extracted serially. Patient kept on having distal embolization of thrombus. Balloon angioplasty was also performed using a 5.0 x 40 mm balloon in the distal SFA to popliteal artery. We then used a 3.0 x 120 mm balloon to perform balloon angioplasty and TP trunk and proximal peroneal artery. At this time it was noted that patient's anterior tibial and posterior tibial arteries are occluded. Flow was noted in the peroneal artery. We performed balloon angioplasty from mid to distal peroneal artery using 2.0 x 200 mm balloon. This was followed by performing mechanical thrombectomy with a CAT Rx catheter. Proximal to mid peroneal artery seem to have residual thrombus. We decided to put coronary stents measuring 2.5 x 30 mm resolute Ananth stent overlapping with a 2.75 x 30 mm resolute [place] stent. At this time final angiogram demonstrated single vessel runoff to the foot. Pulse was dopplerable. Collateral blood supply was also noted below the knee. Long sheath was switched to short 8 Ukrainian sheath and was sutured in place for removal later.. Conclusions Acute limb ischemia with thrombotic occlusion of the mid SFA/popliteal artery and TP trunk (Source likely heart as had recent onset Atrial fibrillation and compliance with medications is not known). Severe below the knee peripheral artery disease. Single vessel runoff to the foot established. -CTA lower extremity 3. Abrupt occlusion of the bilateral popliteal arteries, and complete occlusion of the bilateral infrapopliteal arteries. No visible runoff to the feet. Given the findings in the left atrium, this most likely represents severe thromboembolic disease. 4. Near complete segmental occlusion of a left profunda femoral artery branch, most likely thromboembolic disease. -DP PT pulses not dopplerable, lower extremities cool, clammy, painful, able to move lower extremities, but reported inability to walk -Possible embolic phenomenon given findings of bilateral heart thrombus, failure of anticoagulation on Plavix, Eliquis Plan: -Admit to cardiac stepdown unit -On eliquis -Doppler pulses bilateral lower extremities, monitor -on broad-spectrum antibiotic therapy, vancomycin, Zosyn -Warm bilateral lower extremities -I concern with elevated white count, that she is progressing towards septicemia -Currently given her cardiac status, functional status, poor candidate for surgical invention, high morbidity and mortality with surgical invention. And in the near future she has a high risk of losing bilateral lower extremities to critical limb ischemia, which would require surgical intervention such as amputation which is also associate with increased risk of morbidity and mortality. -Cardiology on consult Status: Acute (2) Atrial fibrillation with RVR: - Continue p.o. Cardizem -Metoprolol 50 twice daily -Mag rater than 2, potassium greater than 4 -Telemetry monitoring, -Hold off on rhythm control given risk of cardioverting, and risk of embolization Status: Acute (3) Single vessel coronary artery disease: - History of distal left circumflex disease, medical management Status: Acute (4) PAD (peripheral artery disease): Status: Chronic (5) CHF (congestive heart failure): - Elevated BNP, no complaint of shortness of breath, no crackles on exam, hold off on Lasix 1-Moderately increased left ventricular cavity size. Severely decreased left ventricular systolic function. Global left ventricular hypokinesis. Left ventricular ejection fraction is estimated at 20 %. In the presence of atrial fibrillation diastolic function cannot be assessed accurately. 2-Severely increased left atrial size. Well-circumscribed mass with area of 11 cm2 was noted in the left atrium appeared to be attached to the roof, differential diagnosis would be tumor such as myxoma versus thrombus, clinical correlation advised, further assessment with MRI. 3-Moderately thickened mitral valve. No mitral valve stenosis. Mild mitral valve regurgitation. 4-Severe aortic valve calcification. No aortic valve stenosis. Mild aortic valve regurgitation. 5-Severe tricuspid valve regurgitation. 6-There is no pericardial effusion. 7-When compared to the prior echocardiogram dated December 02, 2020 there is worsening/ventricular ejection fraction from moderately depressed 40% to severely depressed 20% now. There is well-circumscribed mass with area of 11 cm2 was noted in the left atrium appeared to be attached to the roof, differential diagnosis would be tumor such as myxoma versus thrombus, clinical correlation advised, further assessment with MRI. There is severe tricuspid valve regurgitation. Status: Chronic Qualifiers: Heart failure chronicity: acute on chronic Heart failure type: systolic Qualified Code(s): I50.23 - Acute on chronic systolic (congestive) heart failure (6) Generalized weakness: Status: Acute (7) Left heart thrombus: -Mass in left atrium, thrombus versus tumor -Discussed with cardiothoracic surgery, cardiology, not amenable to surgical intervention -Continue medical management, anticoagulation, Eliquis Status: Acute (8) Pneumonia: - Seen on chest x-ray, will order vancomycin, Zosyn -Follow blood cultures, urine cultures, sputum cultures, Status: Acute (9) Acute encephalopathy: - Etiology of her UTI, pneumonia, possible progressing to lower extremity septicemia -Follow urine cultures -CT of the head no acute CVA -Chest x-ray showing follow-up possible pneumonia on antibiotics as above -Neurochecks, aspiration precautions, NIH -I have reached out to Nixon, he wants us to pursue comfort, residential placement, does not want aggressive mentions, he is a DPOA, but DPOA paperwork was filed in [place], and we do not have a copy of healthcare and financial DPOA confirmation Status: Acute (10) UTI (urinary tract infection): Status: Acute Attestations Medical Necessity Statement*: Patient requires hospitalization for left atrial thrombus, critical limb ischemia, encephalopathy, hypomagnesemia, acidosis Coding Level of Care Code Acute Ehs Engineer for [facility] Fwd Exam Detailed Diagnoses Critical limb ischemia of both lower extremities I70.223 Atrial fibrillation with RVR I48.91 Single vessel coronary artery disease I25.10 PAD (peripheral artery disease) I73.9 CHF (congestive heart failure) I50.23 Heart failure chronicity: acute on chronic Heart failure type: systolic Generalized weakness R53.1 Left heart thrombus I51.3 Pneumonia J18.9 Acute encephalopathy G93.40 UTI (urinary tract infection) N39.0
--- NOTE | 2021-04-10 11:51 | PC.CHAP ---
Pastoral Care Encounter/Spiritual Assessment Type of Contact [] Declined employment officer visit [] Patient/Family/Request visit [] Outpatient visit [] Follow-up visit [] Physician referral [] Code/Alert [XX] Routine visit [] Staff referral [] Actively dying [] Patient sleeping [] Family support [] [] Out of room [] Palliative care [] [] Receiving care in room [] Pre-surgical visit [] Trauma [] Long length of stay [] ICU visit [XX] Other: spoke with friend of the patient; patient was sleeping; see SUMMARY Relational/Emotional Strength [] Patient feels connected with others/family/visitors/staff [] Distress [] Loneliness/isolation [] Abandonment Spirituality of Patient [] Person of Joanna [] Attends Judaism of their Joanna [] Believes in Prayer [] Reads Bible or Muslim materials [] There are Spiritual issues to be addressed Billposting Supervisor Interventions [] Prayer [XX] Active listening [XX] Non-anxious presence [] Spiritual/emotional support [] Crisis/trauma care [] Spiritual counseling [] Bereavement support [] Provided bereavement packet [] Provided Bible/devotional materials [] Provided toy/stuffed animal, coloring book to patient or family member [] Provided Communion [] Anointing/Sabinal [] Salvation [] Completed spiritual assessment [XX] Other: advocacy Impact on Illness or Injury [] Angry [] Fearful [] Anxious [] Often cries [] Exhaustion [] Unable to work [] Unable to attend anglican [] Unable to walk/stand [] Unable to read [] Unable to drive [] Unable to eat/drink [] Unable to sleep [] Unable to be with family [] Patient intubated [] Other: Summary: Young man at pt's bedside holding pt's hand. He introduced himself as pt's nephew but later stated that he had become her friend about 3 years ago. Billposting Supervisor inquired about the present situation and pt's friend is concerned about reaching pt's family as he perceives that she is not doing well and family needs to be notified. Billposting Supervisor will notify Social Work. Time spent with patient: 10 mins
--- NOTE | 2021-04-10 13:37 | PM.PN ---
Subjective Subjective: Interval history: Patient denies any pain in the legs, heart rate is little bit on the higher side blood pressure is into the 90s she is sitting she denies any complaint. Her caregiver who said he is a nephew but I was told he is not in live nearby standing on the bedside. He tried to talk her into to do everything for her he wanted her to get heart surgery he wanted her to get operated on the legs. Patient has told me she is not interested in this as she would like to be treated medically and I agree with her. I was told that she has her son Nixon who has power of clin application specialist. She has been switched to p.o. Cardizem and metoprolol. Medications: Reviewed: Yes Vitals/I&O/Wt Last Vital Signs Temp 97.9 F 04/10/21 12:00 Pulse 98 04/10/21 12:00 Resp 18 04/10/21 10:43 BP 91/60 04/10/21 12:00 Pulse Ox 100 04/10/21 10:43 04/09/21 04/10/21 04/10/21 22:59 06:59 14:59 Intake Total 838 / 1242 740 / 1982 568 / 568 Output Total 280 / 280 300 / 580 200 / 200 Balance 558 / 962 440 / 1402 368 / 368 Weight last 48 hrs Weight 130 lb 12.8 oz Weight 130 lb 3.2 oz Weight 130 lb Physical Exam Narrative: EXAM NARRATIVE: GENERAL: Patient is awake but does not talk much she mostly stares, NECK: No jugular vein distension. HEENT: No cyanosis. No icterus. No pallor. HEART: Irregularly irregular S1 and S2. No murmur, rub or gallop. LUNGS: Clear to auscultate bilaterally. ABDOMEN: Soft, nontender and nondistended. Positive bowel sounds. No guarding, rebound or tenderness. CENTRAL NERVOUS SYSTEM: Grossly nonfocal. EXTREMITIES: Lower extremities without edema bilaterally. Pulses not palpable in the lower extremities, both dorsalis pedis and posterior tibial. Patient able to move her legs, legs are warm legs are warm right foot is on the colder side today but she denies pain this is her chronic presentation and not new from her normal Urinary Catheter Management^: Lopez: Cath Placed During This Visit: yes Reason for Continuing Indwelling Catheter: Acute Urinary Retention or Obstruction Urinary Catheter Date of Insertion: 04/07/21 Urinary Catheter Time of Insertion: 18:35 Data : 04/10/21 04:46 04/10/21 04:46 Micro: Microbiology 04/07/21 18:16 Urine Culture - Final Urine,Clean Catch Escherichia coli A&P Assessment and plan (1) Cardiac mass: Large left atrial mass by echocardiography and confirmed by CTA appears to originate on the free wall or toward the appendage. 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 Given her history of A. fib and questionable compliance with anticoagulation related to perhaps cognitive decline, this may well represent a large thrombus. Her overall condition is very poor. Her ejection fraction is 20% and she is substantially deconditioned with cognitive decline. Unfortunately, I do not think there is an operative option available for which she would survive. I recommend continuing anticoagulation and supportive measures such as custodial care. From my exam and review, I do not think she can continue with independent living. I have a chance to speak with the patient. She would not like to have any intervention. We will continue to treat her medically continue anticoagulation May will switch to oral anticoagulation once she started eating more We will continue to manage her medically. Patient is not a candidate for any intervention. Status: Acute (2) Critical limb ischemia of both lower extremities: I have reviewed her most recent CTA. Given her previous heroic interventions by our interventional cardiology team, it appears there are no further options available given her severe disease and small vessel targets. I concur with the current plan to continue anticoagulation, hopefully through a skilled care setting, so that she may receive the support she needs as well as confirmation of medication compliance. Indeed, there may require settings where major amputation would be required should she develop systemic complications of ongoing lower extremity ischemia. Even amputation, would be a life-threatening procedure given her severe debilitated condition. Both legs she has reasonably good feelings both legs are warm. Patient is not amenable to intervention due to extensive below the knee disease, continue to treat medically. Denies any more pain in the legs her extremities are at her baseline she has critical limb ischemia but not amenable to intervention due to other comorbidities and nature of diffuse disease below the knee Status: Acute (3) Atrial fibrillation with rapid ventricular response: Rate controlled getting improved but whenever she moves around heart rate goes up we will optimize medicine at this point blood pressure is on the lower side so I will not increase the koby janelle Status: Acute (4) CHF exacerbation: Appears compensated continue current regimen Status: Acute Attestations Medical Necessity Statement*: Require continuation of hospitalization for above defined care. 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
[2021-04-10] MEDS: sodium bicarbonate 8.4% 1 mEq/mL 50mL Syr 50 MEQ IVP (14:02)
[2021-04-10] MEDS: metoprolol tartrate 50 mg Tablet 25 MG PO (20:11)
--- NOTE | 2021-04-10 20:40 | PC.NURSE ---
Received report from AVANI Anne. Patient resting in bed with eyes closed. Opens eyes spontaneously with verbal stimuli. Patient c/o pain to bilateral legs and feet. Medication administered as ordered. Instructed patient on morphine. Will require reinforcment due to forgetfulness of patient. Lopez in place. No other distress observed. Will continue to monitor.
[2021-04-11] VITALS (24 sets, daily range): BP systolic 77–122; BP diastolic 48–82; PULSE 84–128; RESP 21–27; TEMP 37; O2SAT 88–100
[2021-04-11] MEDS: dilTIAZem 30 mg Tablet PO ×2 (00:59→05:15)
[2021-04-11] MEDS: vancomycin 1,000 MG in sodium chloride 0.9% 250 ML 250 MG IV ×2 (00:59→19:58)
[2021-04-11] MEDS: piperacillin-tazobactam 3.375 GM in sodium chloride 0.9% (plus) 50 ML IV ×3 (03:06→19:59)
[2021-04-11] MEDS: midodrine 5 mg TABLET 10 MG PO ×3 (03:07→19:56)
[2021-04-11 04:02] LABS: Basophils % 0.2 %; Eosinophils % 0.1 %; Hematocrit 37.2 % (37.0-47.0); Hemoglobin 11.5 g/dL (11.5-15.3); Lymphocytes # 1.4 10^3/uL (0.8-4.8); Lymphocytes % 6.4 %; Mean Corpuscular HGB Conc 30.9 g/dL (30.0-36.0); Mean Corpuscular Hemoglobin 24.5 pg (28.0-34.0); Mean Corpuscular Volume 79.3 fl (81-99); Monocytes # 2.2 10^3/uL (0.2-0.9); Monocytes % 10.3 %; Neutrophils # 17.16 10^3/uL (1.8-7.7); Nucleated Red Blood Cells % 0.2 %; Platelet Count 178 10^3/cmm (130-400); Red Blood Count 4.69 10^6/uL (4.1-5.3); Red Cell Distribution Width 18.6 % (12.1-15.1); White Blood Count 21.2 10^3/uL (4.0-10.0)
[2021-04-11 04:08] LABS: INR 1.64 (0.8-1.2)
[2021-04-11 04:19] LABS: Lactate (Lactic Acid level) 1.5 mmol/L (0.5-2.2)
[2021-04-11 04:31] LABS: NT Pro B Type Natriuretic Pept 5149 pg/mL (0-125); Procalcitonin 0.38 ng/mL (0-0.5)
[2021-04-11 04:44] LABS: Alanine Aminotransferase 20 U/L (0-33); Albumin Level 1.7 g/dL (3.5-5.2); Alkaline Phosphatase 104 IU/L (35-105); Aspartate Amino Transferase 35 U/L (0-32); Blood Urea Nitrogen 13 mg/dL (8-23); C Reactive Protein 142.6 mg/L (0.0-4.9); Calcium 7.4 mg/dL (8.5-10.5); Carbon Dioxide 15 mmol/L (22-29); Chloride 97 mmol/L (98-107); Globulin 3.6 g/dL (1.3-4.6); Glucose 128 mg/dL (65-115); Magnesium 2.1 mg/dL (1.7-2.3); Osmolality Calculated 262 mOsm/kg (285-295); Phosphorus 1.9 mg/dL (2.5-4.5); Sodium 125 mmol/L (136-145); Total Bilirubin 1.4 mg/dL (0.15-1.2); Total Protein 5.3 g/dL (6.6-8.7)
[2021-04-11] MEDS: apixaban 5 mg Tablet PO ×2 (05:15→17:42)
--- NOTE | 2021-04-11 06:36 | PC.NURSE ---
Shift Note Frequent safety and comfort rounds continue. Orders and/or nursing care completed as indicated. Patient monitored for response to intervention and treatment(s). Education provided includes Eliquis. Patient verbalized understanding with yes answer. Reinforcement will be needed. Noted patient to have decreased output this evening with brooks catheter in place. Patient will open eyes to verbal stimuli and answer yes or no questions only. Patient returns to sleeping with ease. No other distress observed. Will continue to monitor.
[2021-04-11] MEDS: metoprolol tartrate 50 mg Tablet 25 MG PO (09:35)
[2021-04-11] MEDS: phosphorus 250 mg Tablet PO ×2 (09:35→17:42)
[2021-04-11] MEDS: pantoprazole 40 mg SDV IVP ×2 (09:35→22:27)
[2021-04-11] MEDS: sodium chloride 1 gm Tablet PO ×2 (09:35→17:42)
--- NOTE | 2021-04-11 10:17 | PM.PN ---
Subjective Subjective: Interval history: Patient was seen this morning, she had poor appetite this morning, alert to person, to place, her only complaints that her lower extremities are hurting her, no fevers overnight, currently in A. fib with RVR, normotensive on room air Vitals/I&O/Wt Last Vital Signs Temp 97.8 F 04/10/21 19:40 Pulse 120 H 04/11/21 08:00 Resp 22 H 04/11/21 07:00 BP 111/82 04/11/21 07:00 Pulse Ox 100 04/11/21 07:00 04/10/21 04/11/21 04/11/21 22:59 06:59 14:59 Intake Total 934.0909 / 1502.0909 540 / 2042.0909 50 / 50 Output Total 250 / 450 275 / 725 Balance 684.0909 / 1052.0909 265 / 1317.0909 50 / 50 Weight last 48 hrs Weight 63.594 kg Weight 59.33 kg Physical Exam Const: COMMON NORMALS: no acute distress GENERAL APPEARANCE: cooperative, comfortable and frail appearing ORIENTATION/CONSCIOUSNESS: Yes awake, Yes oriented to person and Yes oriented to place; not oriented to time Resp: COMMON NORMALS: normal respiratory effort, No retractions, No use of accessory muscles and clear to auscultation bilaterally AUSCULTATION: clear to auscultation bilaterally Cardio: COMMON NORMALS: regular rate, regular rhythm, S1 normal heart sound present and S2 normal heart sound present RATE: regular rate RHYTHM: regular rhythm HEART SOUNDS: S1 normal heart sound present and S2 normal heart sound present GI: COMMON NORMALS: Normal to inspection, nondistended, normoactive bowel sounds present, Soft to palpation and non-tender PALPATION: Yes Soft to palpation Extremity: COMMON NORMALS: no pedal edema NARRATIVE EXTREMITY EXAM: ToBilateral lower extremities, pale, blue, DP PT pulses nonpalpable DP PT pulses nonpalpable, not dopplerable Bilateral lower extremities cool to touch, clammy, blue discoloration Is able to withdraw from pain Is able to wiggle her toes Sacrum, sacral decubitus ulcers, stage1-2 Neuro: SENSORIUM/ORIENTATION: Yes oriented to person, Yes oriented to place and No oriented to time Psych: COMMON NORMALS: mental status grossly normal Urinary Catheter Management^: Lopez: Cath Placed During This Visit: yes Reason for Continuing Indwelling Catheter: Accurate Measurement of Urinary Output in Critically Ill Patients Urinary Catheter Date of Insertion: 04/07/21 Urinary Catheter Time of Insertion: 18:35 Data : 04/11/21 03:40 04/11/21 03:40 A&P Assessment and plan (1) Critical limb ischemia of both lower extremities: -Acute on chronic lower extremity ischemia - Peripheral cath 01/13/2021 Lower Extremity Interventional Findings Periphreal intervention procedure: We obtained access in the left common femoral artery with a 6 [place] sheath.IV heparin was administered. Using a Glidewire, a long 8 Fr sheath was inserted in right external iliac artery going up and over after abdominal angiogram was performed. Mid SFA had total thrombotic occlusion. We crossed the occluded segment with Glidewire. CAT 8 penumbra catheter was inserted and used to perform mechanical thrombectomy. Significant amount of thrombus was extracted serially. Patient kept on having distal embolization of thrombus. Balloon angioplasty was also performed using a 5.0 x 40 mm balloon in the distal SFA to popliteal artery. We then used a 3.0 x 120 mm balloon to perform balloon angioplasty and TP trunk and proximal peroneal artery. At this time it was noted that patient's anterior tibial and posterior tibial arteries are occluded. Flow was noted in the peroneal artery. We performed balloon angioplasty from mid to distal peroneal artery using 2.0 x 200 mm balloon. This was followed by performing mechanical thrombectomy with a CAT Rx catheter. Proximal to mid peroneal artery seem to have residual thrombus. We decided to put coronary stents measuring 2.5 x 30 mm resolute [place] stent overlapping with a 2.75 x [address] [place] stent. At this time final angiogram demonstrated single vessel runoff to the foot. Pulse was dopplerable. Collateral blood supply was also noted below the knee. Long sheath was switched to short 8 [place] sheath and was sutured in place for removal later.. Conclusions Acute limb ischemia with thrombotic occlusion of the mid SFA/popliteal artery and TP trunk (Source likely heart as had recent onset Atrial fibrillation and compliance with medications is not known). Severe below the knee peripheral artery disease. Single vessel runoff to the foot established. -CTA lower extremity 3. Abrupt occlusion of the bilateral popliteal arteries, and complete occlusion of the bilateral infrapopliteal arteries. No visible runoff to the feet. Given the findings in the left atrium, this most likely represents severe thromboembolic disease. 4. Near complete segmental occlusion of a left profunda femoral artery branch, most likely thromboembolic disease. -DP PT pulses not dopplerable, lower extremities cool, clammy, painful, able to move lower extremities, but reported inability to walk -Possible embolic phenomenon given findings of bilateral heart thrombus, failure of anticoagulation on Plavix, Eliquis Plan: -Admit to cardiac stepdown unit -On eliquis -Doppler pulses bilateral lower extremities, monitor -on broad-spectrum antibiotic therapy, vancomycin, Zosyn -Warm bilateral lower extremities -I have concern with elevated white count, that she is progressing towards septicemia -Currently given her cardiac status, functional status, poor candidate for surgical invention, high morbidity and mortality with surgical invention. And in the near future she has a high risk of losing bilateral lower extremities to critical limb ischemia, which would require surgical intervention such as amputation which is also associate with increased risk of morbidity and mortality. -Currently does not have capacity to make decisions for herself -Nixon wants to pursue comfort care, is the healthcare power of ip attorney, not known if it is over medical and/or financial, filed in the [facility], Nixon said Sabina has a copy of this, we are not able to locate it -Rashid wants to talk to make decisions -William, nobody has his location or number -We will have to talk to ethics committee about the situation -Cardiology on consult Status: Acute (2) Atrial fibrillation with RVR: - Continue p.o. Cardizem -Metoprolol 12.5 mg twice a day -Mag rater than 2, potassium greater than 4 -Telemetry monitoring, -Hold off on rhythm control given risk of cardioverting, and risk of embolization Status: Acute (3) Single vessel coronary artery disease: - History of distal left circumflex disease, medical management Status: Acute (4) PAD (peripheral artery disease): Status: Chronic (5) CHF (congestive heart failure): - Elevated BNP, no complaint of shortness of breath, no crackles on exam, hold off on Lasix 1-Moderately increased left ventricular cavity size. Severely decreased left ventricular systolic function. Global left ventricular hypokinesis. Left ventricular ejection fraction is estimated at 20 %. In the presence of atrial fibrillation diastolic function cannot be assessed accurately. 2-Severely increased left atrial size. Well-circumscribed mass with area of 11 cm2 was noted in the left atrium appeared to be attached to the roof, differential diagnosis would be tumor such as myxoma versus thrombus, clinical correlation advised, further assessment with MRI. 3-Moderately thickened mitral valve. No mitral valve stenosis. Mild mitral valve regurgitation. 4-Severe aortic valve calcification. No aortic valve stenosis. Mild aortic valve regurgitation. 5-Severe tricuspid valve regurgitation. 6-There is no pericardial effusion. 7-When compared to the prior echocardiogram dated December 02, 2020 there is worsening/ventricular ejection fraction from moderately depressed 40% to severely depressed 20% now. There is well-circumscribed mass with area of 11 cm2 was noted in the left atrium appeared to be attached to the roof, differential diagnosis would be tumor such as myxoma versus thrombus, clinical correlation advised, further assessment with MRI. There is severe tricuspid valve regurgitation. Status: Chronic Qualifiers: Heart failure chronicity: acute on chronic Heart failure type: systolic Qualified Code(s): I50.23 - Acute on chronic systolic (congestive) heart failure (6) Generalized weakness: Status: Acute (7) Left heart thrombus: -Mass in left atrium, thrombus versus tumor -Discussed with cardiothoracic surgery, cardiology, not amenable to surgical intervention -Continue medical management, anticoagulation, Eliquis Status: Acute (8) Pneumonia: - Seen on chest x-ray, will order vancomycin, Zosyn -Follow blood cultures, urine cultures, sputum cultures, Status: Acute (9) Acute encephalopathy: - Etiology of her UTI, pneumonia, possible progressing to lower extremity septicemia -Follow urine cultures -CT of the head no acute CVA -Chest x-ray showing follow-up possible pneumonia on antibiotics as above -Neurochecks, aspiration precautions, NIH -I have reached out to Nixon, he wants us to pursue comfort, shelter placement, does not want aggressive mentions, he is a DPOA, but DPOA paperwork was filed in [place], and we do not have a copy of healthcare and financial DPOA confirmation Status: Acute (10) UTI (urinary tract infection): Status: Acute Attestations Medical Necessity Statement*: Patient requires hospitalization for critical limb ischemia, A. 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
[2021-04-11] MEDS: dilTIAZem 30 mg Tablet 60 MG PO ×2 (13:40→22:28)
[2021-04-11] MEDS: sodium chloride 0.9% 1,000 ML 100 ML IV ×2 (13:41→22:48)
--- NOTE | 2021-04-11 14:11 | PM.PN ---
Subjective Subjective: Interval history: Patient mental status swings sometimes it feels like she understand sometimes does not, when I ask about the leg pain she told me she is not in pain. She is laying in the bed comfortably atrial fibrillation with fast heart rate, atrial fibrillation is not well controlled. She is breathing fine. Medications: Reviewed: Yes Vitals/I&O/Wt Last Vital Signs Temp 98.6 F 04/11/21 14:01 Pulse 105 H 04/11/21 14:05 Resp 23 H 04/11/21 14:01 BP 117/48 04/11/21 14:01 Pulse Ox 100 04/11/21 14:01 04/10/21 04/11/21 04/11/21 22:59 06:59 14:59 Intake Total 934.0909 / 1502.0909 540 / 2042.0909 740 / 740 Output Total 250 / 450 275 / 725 Balance 684.0909 / 1052.0909 265 / 1317.0909 740 / 740 Weight last 48 hrs Weight 140 lb 3.2 oz Weight 130 lb 12.8 oz Physical Exam Narrative: EXAM NARRATIVE: GENERAL: Patient is awake but does not talk much she mostly stares, NECK: No jugular vein distension. HEENT: No cyanosis. No icterus. No pallor. HEART: Irregularly irregular S1 and S2. No murmur, rub or gallop. LUNGS: Clear to auscultate bilaterally. ABDOMEN: Soft, nontender and nondistended. Positive bowel sounds. No guarding, rebound or tenderness. CENTRAL NERVOUS SYSTEM: Grossly nonfocal. EXTREMITIES: Lower extremities without edema bilaterally. Pulses not palpable in the lower extremities, both dorsalis pedis and posterior tibial. Patient not moving her legs I am not sure that she did not understanding me that she cannot move. She has a wound on the back of the legs banded, Urinary Catheter Management^: Lopez: Cath Placed During This Visit: yes Reason for Continuing Indwelling Catheter: Accurate Measurement of Urinary Output in Critically Ill Patients Urinary Catheter Date of Insertion: 04/07/21 Urinary Catheter Time of Insertion: 18:35 Data : 04/11/21 03:40 04/11/21 03:40 A&P Assessment and plan (1) Cardiac mass: Large left atrial mass by echocardiography and confirmed by CTA appears to originate on the free wall or toward the appendage. 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 Given her history of A. fib and questionable compliance with anticoagulation related to perhaps cognitive decline, this may well represent a large thrombus. Her overall condition is very poor. Her ejection fraction is 20% and she is substantially deconditioned with cognitive decline. Unfortunately, I do not think there is an operative option available for which she would survive. I recommend continuing anticoagulation and supportive measures such as senior living care. From my exam and review, I do not think she can continue with independent living. I have a chance to speak with the patient. She would not like to have any intervention. We will continue to treat her medically continue anticoagulation May will switch to oral anticoagulation once she started eating more We will continue to manage her medically. Patient is not a candidate for any intervention. Patient is on Eliquis continue medical management masses myxoma versus thrombus. In myxoma case she cannot be operated upon while in case of thrombus the best treatment at this point is anticoagulation. Status: Acute (2) Critical limb ischemia of both lower extremities: I have reviewed her most recent CTA. Given her previous heroic interventions by our interventional cardiology team, it appears there are no further options available given her severe disease and small vessel targets. I concur with the current plan to continue anticoagulation, hopefully through a skilled care setting, so that she may receive the support she needs as well as confirmation of medication compliance. Indeed, there may require settings where major amputation would be required should she develop systemic complications of ongoing lower extremity ischemia. Even amputation, would be a life-threatening procedure given her severe debilitated condition. Both legs she has reasonably good feelings both legs are warm. Patient is not amenable to intervention due to extensive below the knee disease, continue to treat medically. Denies any more pain in the legs her extremities are at her baseline she has critical limb ischemia but not amenable to intervention due to other comorbidities and nature of diffuse disease below the knee We will still continue to manage her medically patient is not a candidate for intervention due to high risk for bleeding, lower extremities are not intervene able she is noncompliant with the medicine she has underlying dementia but at times when she is more aware I have multiple time discussion with her and firearms assembly supervisor who is by bedside with some time claims to be nephew that there is if she need to be transferred anywhere but patient refused and he also refused. Patient would not like to be sent anywhere for second opinion she would not like to be intervened to want to be treated only medically she understand that legs in May will be amputated but I am not sure whether she can tolerate it, we will therefore continue to manage her medically she also also has sacral wound. WBCs are high lactic acid was within normal limits. She has been started on antibiotics by medicine Status: Acute (3) Atrial fibrillation with rapid ventricular response: I will increase Cardizem and beta-janelle to control her heart rate better he also appeared to be little bit dehydrated I may will give her something Status: Acute (4) CHF exacerbation: Well compensated rather overcompensated lungs are clear she appeared to be dry. 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
[2021-04-11] MEDS: morphine 4 mg/mL SDV 1 mL 1 MG IVP (14:56)
--- NOTE | 2021-04-11 19:24 | PC.NURSE ---
Shift Note Frequent safety and comfort rounds continue. Orders and/or nursing care completed as indicated. Patient monitored for response to intervention and treatment(s). Education provided includes repositioning due to sacral wound, heel protectors for feet, neurovascular checks. Patient and/or employee representative needed reinforcement. Will continue to monitor.
[2021-04-11] MEDS: metoprolol tartrate 25 mg Tablet 37.5 MG PO (19:56)
[2021-04-12] VITALS (15 sets, daily range): BP systolic 88–132; BP diastolic 51–83; PULSE 100–128; RESP 18–44; TEMP 36.6–37.2; O2SAT 97–100; BMI 21.9
[2021-04-12] MEDS: piperacillin-tazobactam 3.375 GM in sodium chloride 0.9% (plus) 50 ML IV ×3 (02:55→18:51)
[2021-04-12] MEDS: midodrine 5 mg TABLET 10 MG PO ×3 (02:56→18:51)
[2021-04-12 03:40] LABS: Basophils % 0.2 %; Eosinophils # 0.1 10^3/uL (0.0-0.8); Eosinophils % 0.6 %; Hematocrit 32.4 % (37.0-47.0); Hemoglobin 9.6 g/dL (11.5-15.3); Lymphocytes # 1.1 10^3/uL (0.8-4.8); Lymphocytes % 7.6 %; Mean Corpuscular HGB Conc 29.6 g/dL (30.0-36.0); Mean Corpuscular Hemoglobin 23.9 pg (28.0-34.0); Mean Corpuscular Volume 80.8 fl (81-99); Mean Platelet Volume 10.6 fL (7.4-10.4); Monocytes # 1.7 10^3/uL (0.2-0.9); Monocytes % 11.6 %; Neutrophils # 11.71 10^3/uL (1.8-7.7); Neutrophils % 78.3 %; Nucleated Red Blood Cells % 0 %; Platelet Count 195 10^3/cmm (130-400); Red Blood Count 4.01 10^6/uL (4.1-5.3); Red Cell Distribution Width 18.6 % (12.1-15.1)
[2021-04-12 03:49] LABS: INR 2.26 (0.8-1.2)
[2021-04-12 04:05] LABS: NT Pro B Type Natriuretic Pept 4004 pg/mL (0-125); Procalcitonin 0.36 ng/mL (0-0.5)
[2021-04-12 04:16] LABS: Alanine Aminotransferase 19 U/L (0-33); Albumin Level 1.8 g/dL (3.5-5.2); Alkaline Phosphatase 103 IU/L (35-105); Anion Gap 15.6 (5-19); Aspartate Amino Transferase 39 U/L (0-32); Blood Urea Nitrogen 14 mg/dL (8-23); C Reactive Protein 110.8 mg/L (0.0-4.9); Calcium 7.2 mg/dL (8.5-10.5); Carbon Dioxide 17 mmol/L (22-29); Chloride 104 mmol/L (98-107); Globulin 2.8 g/dL (1.3-4.6); Glucose 97 mg/dL (65-115); Magnesium 1.8 mg/dL (1.7-2.3); Osmolality Calculated 276 mOsm/kg (285-295); Phosphorus 1.7 mg/dL (2.5-4.5); Potassium 3.6 mmol/L (3.5-5.1); Sodium 133 mmol/L (136-145); Total Bilirubin 1.1 mg/dL (0.15-1.2); Total Protein 4.6 g/dL (6.6-8.7)
[2021-04-12] MEDS: dilTIAZem 30 mg Tablet 60 MG PO ×3 (05:55→21:08)
[2021-04-12] MEDS: apixaban 5 mg Tablet PO ×2 (05:55→17:03)
[2021-04-12] MEDS: metoprolol tartrate 25 mg Tablet 37.5 MG PO ×2 (09:16→18:51)
[2021-04-12] MEDS: sodium chloride 1 gm Tablet PO ×2 (09:16→17:03)
[2021-04-12] MEDS: phosphorus 250 mg Tablet PO ×2 (09:16→17:03)
[2021-04-12] MEDS: sodium chloride 0.9% 1,000 ML 100 ML IV (10:12)
[2021-04-12] MEDS: pantoprazole 40 mg SDV IVP ×2 (11:01→21:10)
--- NOTE | 2021-04-12 12:21 | P.PN_ITS ---
Subjective Subjective: Interval history: Patient was seen this morning, is alert to person, to place, not to time, is much more withdrawn this morning, does not follow commands at times, remained afebrile, blood pressure soft, remains on room air, her breakfast tray is at her bedside, she has not attempted to eat breakfast Vitals/I&O/Wt Last Vital Signs Temp 98.2 F 04/12/21 11:21 Pulse 100 04/12/21 11:21 Resp 25 H 04/12/21 11:21 BP 105/75 04/12/21 11:21 Pulse Ox 100 04/12/21 11:21 04/11/21 04/12/21 04/12/21 22:59 06:59 14:59 Intake Total 2291.667 / 3031.667 50 / 3081.667 1290 / 1290 Output Total 1075 / 1075 450 / 450 Balance 1216.667 / 1956.667 50 / 2006.667 840 / 840 Weight last 48 hrs Weight 63.594 kg Weight 63.594 kg Physical Exam Const: COMMON NORMALS: no acute distress GENERAL APPEARANCE: frail appearing ORIENTATION/CONSCIOUSNESS: Yes awake, Yes oriented to person and Yes confused; not oriented to place and not oriented to time HENMT: COMMON NORMALS: normocephalic HEAD & SCALP: normocephalic Resp: COMMON NORMALS: normal respiratory effort, No retractions, No use of accessory muscles and clear to auscultation bilaterally AUSCULTATION: clear to auscultation bilaterally Cardio: COMMON NORMALS: regular rate, regular rhythm, S1 normal heart sound present and S2 normal heart sound present RATE: regular rate RHYTHM: regular rhythm HEART SOUNDS: S1 normal heart sound present and S2 normal heart sound present GI: COMMON NORMALS: Normal to inspection, nondistended, normoactive bowel soun ds present, Soft to palpation and non-tender PALPATION: Yes Soft to palpation Extremity: COMMON NORMALS: no pedal edema NARRATIVE EXTREMITY EXAM: To Bilateral lower extremities, pale, blue, DP PT pulses nonpalpable DP PT pulses nonpalpable, not dopplerable Bilateral lower extremities cool to touch, clammy, blue discoloration at ankle level, above the ankle there is warm Is able to withdraw from pain Is able to wiggle her toes Sacrum, sacral decubitus ulcers, stage1-2 Neuro: SENSORIUM/ORIENTATION: Yes oriented to person, No oriented to place and No oriented to time Urinary Catheter Management^: Lopez: Cath Placed During This Visit: yes Reason for Continuing Indwelling Catheter: Assist healing open wound Urinary Catheter Date of Insertion: 04/07/21 Urinary Catheter Time of Insertion: 18:35 Data : 04/12/21 03:20 04/12/21 03:20 A&P Assessment and plan (1) Critical limb ischemia of both lower extremities: -Acute on chronic lower extremity ischemia - Peripheral cath 01/13/2021 Lower Extremity Interventional Findings Periphreal intervention procedure: We obtained access in the left common femoral artery with a 6 English sheath.IV heparin was administered. Using a Glidewire, a long 8 Fr sheath was inserted in right external iliac artery going up and over after abdominal angiogram was performed. Mid SFA had total thrombotic occlusion. We crossed the occluded segment with Glidewire. CAT 8 penumbra catheter was inserted and used to perform mechanical thrombectomy. Significant amount of thrombus was extracted serially. Patient kept on having distal embolization of thrombus. Balloon angioplasty was also performed using a 5.0 x 40 mm balloon in the distal SFA to popliteal artery. We then used a 3.0 x 120 mm balloon to perform balloon angioplasty and TP trunk and proximal peroneal artery. At this time it was noted that patient's anterior tibial and posterior tibial arteries are occluded. Flow was noted in the peroneal artery. We performed balloon angioplasty from mid to distal peroneal artery using 2.0 x 200 mm balloon. This was followed by performing mechanical thrombectomy with a CAT Rx catheter. Proximal to mid peroneal artery seem to have residual thrombus. We decided to put coronary stents measuring 2.5 x 30 mm resolute Moore[place] stent overlapping with a 2.75 x 30 mm resolute [place] stent. At this time final angiogram demonstrated single vessel runoff to the foot. Pulse was dopplerable. Collateral blood supply was also noted below the knee. Long sheath was switched to short 8 English sheath and was sutured in place for removal later.. Conclusions Acute limb ischemia with thrombotic occlusion of the mid SFA/popliteal artery and TP trunk (Source likely heart as had recent onset Atrial fibrillation and compliance with medications is not known). Severe below the knee peripheral artery disease. Single vessel runoff to the foot established. -CTA lower extremity 3. Abrupt occlusion of the bilateral popliteal arteries, and complete occlusion of the bilateral infrapopliteal arteries. No visible runoff to the feet. Given the findings in the left atrium, this most likely represents severe thromboembolic disease. 4. Near complete segmental occlusion of a left profunda femoral artery branch, most likely thromboembolic disease. -DP PT pulses not dopplerable, lower extremities cool, clammy, painful, able to move lower extremities, but reported inability to walk -Possible embolic phenomenon given findings of bilateral heart thrombus, failure of anticoagulation on Plavix, Eliquis Plan: -Admit to cardiac stepdown unit -On eliquis -Doppler pulses bilateral lower extremities, monitor -on broad-spectrum antibiotic therapy, vancomycin, Zosyn -Warm bilateral lower extremities -Continues to have acute encephalopathy, likely underlying dementia -Currently given her cardiac status, functional status, poor candidate for surgical invention, high morbidity and mortality with surgical invention. And in the near future she has a high risk of losing bilateral lower extremities to critical limb ischemia, which would require surgical intervention such as a mputation which is also associate with increased risk of morbidity and mortality. -Previously she has declined surgical interventions -In terms of her CODE STATUS I do not get a straightforward answer from her -Currently does not have capacity to make decisions for herself -Nixon wants to pursue comfort care, DNR/DNI is the healthcare power of managing attorney, not known if it is over medical and/or financial, filed in the [facility], Nixon said Sabina has a copy of this, we are not able to locate it -Rashid wants to nixon to make decisions -William, nobody has his location or number -We will have to talk to ethics committee about the situation -For now pursue guardianship -Cardiology on consult Status: Acute (2) Atrial fibrillation with RVR: - Continue p.o. Cardizem -Metoprolol 12.5 mg twice a day -Mag rater than 2, potassium greater than 4 -Telemetry monitoring, -Hold off on rhythm control given risk of cardioverting, and risk of embolization Status: Acute (3) Single vessel coronary artery disease: - History of distal left circumflex disease, medical management Status: Acute (4) PAD (peripheral artery disease): Status: Chronic (5) CHF (congestive heart failure): - Elevated BNP, no complaint of shortness of breath, no crackles on exam, hold off on Lasix 1-Moderately increased left ventricular cavity size. Severely decreased left ventricular systolic function. Global left ventricular hypokinesis. Left ventricular ejection fraction is estimated at 20 %. In the presence of atrial fibrillation diastolic function cannot be assessed accurately. 2-Severely increased left atrial size. Well-circumscribed mass with area of 11 cm2 was noted in the left atrium appeared to be attached to the roof, differential diagnosis would be tumor such as myxoma versus thrombus, clinical correlation advised, further assessment with MRI. 3-Moderately thickened mitral valve. No mitral valve stenosis. Mild mitral valve regurgitation. 4-Severe aortic valve calcification. No aortic valve stenosis. Mild aortic valve regurgitation. 5-Severe tricuspid valve regurgitation. 6-There is no pericardial effusion. 7-When compared to the prior echocardiogram dated December 02, 2020 there is worsening/ventricular ejection fraction from moderately depressed 40% to severely depressed 20% now. There is well-circumscribed mass with area of 11 cm2 was noted in the left atrium appeared to be attached to the roof, differential diagnosis would be tumor such as myxoma versus thrombus, clinical correlation advised, further assessment with MRI. There is severe tricuspid valve regurgitation. Status: Chronic Qualifiers: Heart failure chronicity: acute on chronic Heart failure type: systolic Qualified Code(s): I50.23 - Acute on chronic systolic (congestive) heart failure (6) Generalized weakness: Status: Acute (7) Left heart thrombus: -Mass in left atrium, thrombus versus tumor -Discussed with cardiothoracic surgery, cardiology, not amenable to surgical intervention -Continue medical management, anticoagulation, Eliquis Status: Acute (8) Pneumonia: - Seen on chest x-ray, will order vancomycin, Zosyn -Follow blood cultures, urine cultures, sputum cultures, Status: Acute (9) Acute encephalopathy: - Etiology of her UTI, pneumonia, possible progressing to lower extremity septicemia -Follow urine cultures -CT of the head no acute CVA -Chest x-ray showing follow-up possible pneumonia on antibiotics as above -Neurochecks, aspiration precautions, NIH -I have reached out to Nixon, he wants us to pursue comfort, longterm placement, does not want aggressive mentions, he is a DPOA, but DPOA paperwork was filed in [place], and we do not have a copy of healthcare and financial DPOA confirmation Status: Acute (10) UTI (urinary tract infection): Status: Acute (11) Sacral decubitus ulcer: Status: Acute (12) Dementia: Status: Acute Qualifiers: Dementia type: unspecified type Dementia behavioral disturbance: without behavioral disturbance Qualified Code(s): F03.90 - Unspecified dementia without behavioral disturbance (13) Physical deconditioning: Status: Acute Attestations Medical Necessity Statement*: Patient requires hospitalization for critical limb ischemia, A. fib, deconditioning, acute encephalopathy, Coding Level of Care Code Acute Executive Talent Acquisition Consultant for [facility] Diagnoses Critical limb ischemia of both lower extremities I70.223 Atrial fibrillation with RVR I48.91 Single vessel coronary artery disease I25.10 PAD (peripheral artery disease) I73.9 CHF (congestive heart failure) I50.23 Heart failure chronicity: acute on chronic Heart failure type: systolic Generalized weakness R53.1 Left heart thrombus I51.3 Pneumonia J18.9 Acute encephalopathy G93.40 UTI (urinary tract infection) N39.0 Sacral decubitus ulcer L89.159 Dementia F03.90 Dementia type: unspecified type Dementia behavioral disturbance: without behavioral disturbance Physical deconditioning R53.81
--- NOTE | 2021-04-12 13:59 | PC.SOCIAL ---
IMM Update Called and updated/reviewed IMM w/ patients next of kin Nixon. Copy placed in patients room.
[2021-04-12] MEDS: vancomycin 1,000 MG in sodium chloride 0.9% 250 ML 250 MG IV (14:02)
[2021-04-12 14:29] LABS: Vancomycin Trough 9.5 ug/mL (10-15)
--- NOTE | 2021-04-12 16:32 | PC.OT ---
PER DISCUSSION WITH DOCTOR, DISCHARGE OT AT THIS TIME.
[2021-04-12] MEDS: morphine 4 mg/mL SDV 1 mL 1 MG IVP (18:16)
--- NOTE | 2021-04-12 18:43 | PC.NURSE ---
Spoke with physician regarding rapid heart rate. Received orders to give 2100 metoprolol dose NOW>
--- NOTE | 2021-04-12 18:49 | P.PN_ITS ---
Subjective Subjective: Interval history: Patient denies any complaint today she is sleeping but she says she is not hurting, heart rate reasonably under control but at occasion it increases to 110 Medications: Reviewed: Yes Vitals/I&O/Wt Last Vital Signs Temp 98.9 F 04/12/21 15:26 Pulse 105 H 04/12/21 15:26 Resp 44 H 04/12/21 18:16 BP 95/68 04/12/21 15:26 Pulse Ox 100 04/12/21 18:16 04/12/21 04/12/21 04/12/21 06:59 14:59 22:59 Intake Total 50 / 3081.667 1530 / 1530 300 / 1830 Output Total 450 / 450 Balance 50 2005.667 1080 / 1080 300 / 1380 Weight last 48 hrs Weight 140 lb 3.2 oz Weight 140 lb 3.2 oz Physical Exam Narrative: EXAM NARRATIVE: GENERAL: Patient is sleepy but tried to talk and says that she is not hurting NECK: No jugular vein distension. HEENT: No cyanosis. No icterus. No pallor. HEART: Irregularly irregular S1 and S2. No murmur, rub or gallop. LUNGS: Clear to auscultate bilaterally. ABDOMEN: Soft, nontender and nondistended. Positive bowel sounds. No guarding, rebound or tenderness. CENTRAL NERVOUS SYSTEM: Grossly nonfocal. EXTREMITIES: Lower extremities without edema bilaterally. Pulses not palpable in the lower extremities, both dorsalis pedis and posterior tibial. Patient not moving her legs I am not sure that she did not understanding me that she cannot move. She has a wound on the back of the legs banded, Urinary Catheter Management^: Lopez: Cath Placed During This Visit: yes Reason for Continuing Indwelling Catheter: Assist healing open wound Urinary Catheter Date of Insertion: 04/07/21 Urinary Catheter Time of Insertion: 18:35 Data : 04/12/21 03:20 04/12/21 03:20 Micro: Microbiology 04/07/21 17:19 Blood Culture - Final Blood NO GROWTH AFTER 5 DAYS 04/07/21 15:11 Blood Culture - Final Blood NO GROWTH AFTER 5 DAYS A&P Assessment and plan (1) Cardiac mass: Large left atrial mass by echocardiography and confirmed by CTA appears to originate on the free wall or toward the appendage. 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 Given her history of A. fib and questionable compliance with anticoagulation related to perhaps cognitive decline, this may well represent a large thrombus. Her overall condition is very poor. Her ejection fraction is 20% and she is substantially deconditioned with cognitive decline. Unfortunately, I do not think there is an operative option available for which she would survive. I recommend continuing anticoagulation and supportive measures such as assisted care. From my exam and review, I do not think she can continue with independent living. I have a chance to speak with the patient. She would not like to have any intervention. We will continue to treat her medically continue anticoagulation May will switch to oral anticoagulation once she started eating more We will continue to manage her medically. Patient is not a candidate for any intervention. Patient is on Eliquis continue medical management masses myxoma versus thrombus. In myxoma case she cannot be operated upon while in case of thrombus the best treatment at this point is anticoagulation. Continue current regimen. Patient is considering hospice. We agree with it Status: Acute (2) Critical limb ischemia of both lower extremities: I have reviewed her most recent CTA. Given her previous heroic interventions by our interventional cardiology team, it appears there are no further options available given her severe disease and small vessel targets. I concur with the current plan to continue anticoagulation, hopefully through a skilled care setting, so that she may receive the support she needs as well as confirmation of medication compliance. Indeed, there may require settings where major amputation would be required should she develop systemic complications of ongoing lower extremity ischemia. Even amputation, would be a life-threatening procedure given her severe debilitated condition. Both legs she has reasonably good feelings both legs are warm. Patient is not amenable to intervention due to extensive below the knee disease, continue to treat medically. Denies any more pain in the legs her extremities are at her baseline she has critical limb ischemia but not amenable to intervention due to other comorbidities and nature of diffuse disease below the knee We will still continue to manage her medically patient is not a candidate for intervention due to high risk for bleeding, lower extremities are not intervene able she is noncompliant with the medicine she has underlying dementia but at times when she is more aware I have multiple time discussion with her and perl programmer who is by bedside with some time claims to be nephew that there is if she need to be transferred anywhere but patient refused and he also refused. Patient would not like to be sent anywhere for second opinion she would not like to be intervened to want to be treated only medically she understand that legs in May will be amputated but I am not sure whether she can tolerate it, we will therefore continue to manage her medically she also also has sacral wound. WBCs are high lactic acid was within normal limits. She has been started on antibiotics by medicine. As defined above we will continue to manage her medically patient is not a good candidate for intervention not she would like to wait. She is considering hospice Status: Acute (3) Atrial fibrillation with rapid ventricular response: Continue to optimize medicine Status: Acute (4) CHF exacerbation: Appear to be compensated Status: Acute Attestations Medical Necessity Statement*: Patient require continuation hospitalization for above defined care Coding Level of Care Code Established Pt Acute Medical Doctor Nuclear Medicine for [facility] Patient Type Established History Comprehensive Exam Comprehensive Medical Decision Making Moderate Complexity Diagnoses Cardiac mass I51.89 Critical limb ischemia of both lower extremities I70.223 Atrial fibrillation with rapid ventricular response I48.91 CHF exacerbation I50.9
--- NOTE | 2021-04-12 22:53 | PC.NURSE ---
Patient with afib/RVR. Patient HR 130-140. Phoned Dr. Colin. No new orders at this time as patient is asymtomatic. Will continue to monitor.
[2021-04-13] VITALS (12 sets, daily range): BP systolic 83–122; BP diastolic 59–101; PULSE 107–176; RESP 29–44; TEMP 36.6–37.7; O2SAT 88–100
[2021-04-13] MEDS: sodium chloride 0.9% 1,000 ML 100 ML IV (00:40)
[2021-04-13] MEDS: metoprolol tartrate 1 mg/1 mL SDV 5 mL 5 MG IVP ×2 (00:40→05:26)
--- NOTE | 2021-04-13 02:19 | PC.NURSE ---
Patient was given 5mg IV lopressor. Heart rate lowered to the 120's for a brief time however it returned to the 140's. Patient with known history of afib/RVR. MD aware. Patient asymptomatic. Will continue to monitor.
--- NOTE | 2021-04-13 03:07 | PC.NURSE ---
Patient still remains in the 150's. Phoned Dr. Jimenez, on all cardiology. Order for Dig .25IV x received.
[2021-04-13 03:28] LABS: Basophils # 0.1 10^3/uL (0.0-0.1); Basophils % 0.3 %; Eosinophils % 0.1 %; Hematocrit 39.5 % (37.0-47.0); Hemoglobin 11.9 g/dL (11.5-15.3); Lymphocytes # 1.1 10^3/uL (0.8-4.8); Mean Corpuscular HGB Conc 30.1 g/dL (30.0-36.0); Mean Corpuscular Hemoglobin 24.6 pg (28.0-34.0); Mean Corpuscular Volume 81.6 fl (81-99); Mean Platelet Volume 10.4 fL (7.4-10.4); Monocytes # 1.6 10^3/uL (0.2-0.9); Monocytes % 8.6 %; Neutrophils # 15.56 10^3/uL (1.8-7.7); Neutrophils % 82.4 %; Nucleated Red Blood Cells % 0 %; Platelet Count 312 10^3/cmm (130-400); Red Blood Count 4.84 10^6/uL (4.1-5.3); White Blood Count 18.9 10^3/uL (4.0-10.0)
[2021-04-13] MEDS: piperacillin-tazobactam 3.375 GM in sodium chloride 0.9% (plus) 50 ML IV ×2 (03:37→14:00)
[2021-04-13] MEDS: midodrine 5 mg TABLET 10 MG PO (03:38)
[2021-04-13] MEDS: digoxin 250 mcg/ml INJ 2 mL IVP ×2 (03:39→11:12)
[2021-04-13 03:57] LABS: Lactate (Lactic Acid level) 2.5 mmol/L (0.5-2.2)
--- NOTE | 2021-04-13 04:03 | PC.NURSE ---
Iv digoxin given at 0339. Heartrate continues to be above 150 - 170 at this time 25 mins later. Patient denies feeling like her heart is racing. Charge nurse notified Dr. Colin. Will continue to monitor.
--- NOTE | 2021-04-13 04:03 | PC.NURSE ---
Addendum entered by Joselin Ca RN 04/13/21 04:21: Dr. Colin ordered to give another 5 of Metoprolol in one hour. Addendum entered by Joselin Ca RN 04/13/21 04:17: Dr. Colin notified that patient is mostly maintaining a rate of 150s, but has hit 190 a few times. Original Note: Dr. Colin notified that patient's heart rate is reaching 180s-190s at times. Dr. Colin notified that practice specialist was made aware as well and ordered Digoxin, which has been given with little improvement.
[2021-04-13 04:06] LABS: NT Pro B Type Natriuretic Pept 4899 pg/mL (0-125); Procalcitonin 0.32 ng/mL (0-0.5)
--- NOTE | 2021-04-13 04:06 | PC.NURSE ---
Frequent safety and comfort rounds continue. Orders and/or nursing care completed as indicated. Patient monitored for response to intervention and treatment(s). Education provided includes lopressor IV and Digoxin IV. Patient and/or sales representative girls' apparel will need further teaching. Medications doing little for improvement for heart rate. Will continue to monitor.
[2021-04-13 04:17] LABS: Alanine Aminotransferase 19 U/L (0-33); Albumin Level 2.1 g/dL (3.5-5.2); Alkaline Phosphatase 102 IU/L (35-105); Aspartate Amino Transferase 23 U/L (0-32); Blood Urea Nitrogen 17 mg/dL (8-23); C Reactive Protein 103.1 mg/L (0.0-4.9); Calcium 7.5 mg/dL (8.5-10.5); Carbon Dioxide 14 mmol/L (22-29); Chloride 104 mmol/L (98-107); Globulin 3.1 g/dL (1.3-4.6); Glucose 160 mg/dL (65-115); Magnesium 1.8 mg/dL (1.7-2.3); Osmolality Calculated 281 mOsm/kg (285-295); Phosphorus 1.9 mg/dL (2.5-4.5); Sodium 133 mmol/L (136-145); Total Protein 5.2 g/dL (6.6-8.7)
[2021-04-13 04:26] LABS: Creatinine Clr Calc Pharmacy 66.8235
[2021-04-13] MEDS: dilTIAZem 30 mg Tablet 60 MG PO (05:26)
[2021-04-13] MEDS: apixaban 5 mg Tablet PO (05:27)
--- NOTE | 2021-04-13 05:54 | PC.NURSE ---
Patient given another dose of 5mg IV metroprolol. Heart rate 125 at this time. Will continue to monitor.
--- NOTE | 2021-04-13 07:03 | PC.NURSE ---
Physician rounding Dr. Colin rounded and received verbal order to start cardizem drip for sustained afib w/rvr w/ HR- ranges from 140s to 160s. BP stable in 122/101.
--- NOTE | 2021-04-13 07:30 | PC.NURSE ---
Initial bedside rounding During initial bedside rounding this morning, Pt is noted to be in respiratory distress, coarse crackles on lungs, pt is in labored breathing and diaphoretic and is sustaining afib w/rvr 150s to 160s. Notified and received order to start amiodarone loading bolus and amio drip, give ivp lasix 40 mg, hold vancomycin and po meds for now. will keep monitoring.
[2021-04-13] MEDS: FUROsemide 10 mg/mL SDV 4mL 40 MG IVP ×2 (08:31→11:12)
--- NOTE | 2021-04-13 08:52 | PC.CHAP ---
Pastoral Care Encounter/Spiritual Assessment Type of Contact [] Declined archery equipment repairer visit [] Patient/Family/Request visit [] Outpatient visit [] Follow-up visit [] Physician referral [] Code/Alert [x] Routine visit [] Staff referral [] Actively dying [] Patient sleeping [] Family support [] [] Out of room [] Palliative care [] [] Receiving care in room [] Pre-surgical visit [] Trauma [] Long length of stay [] ICU visit [] Other: Relational/Emotional Strength [] Patient feels connected with others/family/visitors/staff [] Distress [] Loneliness/isolation [] Abandonment Spirituality of Patient [] Person of Joanna [] Attends Shinto of their Joanna [] Believes in Prayer [] Reads Bible or Muslim materials [x] There are Spiritual issues to be addressed Jacket Changer Interventions [] Prayer [] Active listening [x] Non-anxious presence [x] Spiritual/emotional support [] Crisis/trauma care [] Spiritual counseling [] Bereavement support [] Provided bereavement packet [] Provided Bible/devotional materials [] Provided toy/stuffed animal, coloring book to patient or family member [] Provided Communion [] Anointing/[place] [] Salvation [x] Completed spiritual assessment [] Other: Impact on Illness or Injury [] Angry [] Fearful [] Anxious [] Often cries [] Exhaustion [] Unable to work [] Unable to attend oriental orthodox [] Unable to walk/stand [] Unable to read [] Unable to drive [] Unable to eat/drink [] Unable to sleep [] Unable to be with family [] Patient intubated [] Other: Summary Pt is pretty much non verbal but does shake her head yes or no to questions. Jacket Changer asked if there was anything as a archery equipment repairer that could be done for her and she shook her head no. Jacket Changer asked if she would like prayer before archery equipment repairer left and she again shook her head no. Time spent with patient 5m
[2021-04-13] MEDS: morphine 4 mg/mL SDV 1 mL 1 MG IVP ×2 (09:56→17:16)
[2021-04-13] MEDS: pantoprazole 40 mg SDV IVP (11:12)
[2021-04-13] MEDS: LORazepam 2 mg/mL INJ 1 mL 0.5 MG IVP (14:10)
[2021-04-13] MEDS: metoprolol tartrate 50 mg Tablet PO (14:46)
[2021-04-13] MEDS: metOLazone 5 MG Tablet 10 MG PO (14:46)
--- NOTE | 2021-04-13 15:04 | P.PN_ITS ---
Subjective Subjective: Interval history: Patient was seen multiple times throughout the morning -She is alert to person, to place, not to time, she is increasingly tachypneic, nasal flaring, intercostal retractions having crackles on exam, on 3 L nasal cannula, she has developed A. fib with RVR, with mild acute respiratory failure, she has been given 250 of dig overnight, 250 again this morning, has received 3 boluses of amiodarone, placed on amiodarone drip, 2 doses of Lasix with metolazone -Again exam this afternoon, remains in A. fib, heart rates in the 130s, on 2 L, resting a bit more comfortably, alert a bit more alert, she did not eat much of her breakfast this morning Medications: Reviewed: Yes Vitals/I&O/Wt Last Vital Signs Temp 100 F H 04/13/21 08:00 Pulse 176 H 04/13/21 08:01 Resp 44 H 04/13/21 08:01 BP 122/101 04/13/21 08:00 Pulse Ox 94 04/13/21 08:01 04/13/21 04/13/21 04/13/21 06:59 14:59 22:59 Intake Total 1050 / 3136 256 / 256 Output Total 250 / 250 Balance 1050 / 1886 6 / 6 Weight last 48 hrs Weight 71.668 kg Weight 63.594 kg Physical Exam Const: COMMON NORMALS: no acute distress GENERAL APPEARANCE: cooperative, comfortable and frail appearing ORIENTATION/CONSCIOUSNESS: Yes awake, Yes oriented to person and Yes oriented to place Neck/C-Spine: COMMON NORMALS: full ROM, no lymphadenopathy and Thyroid normal THYROID: Thyroid normal Lymph: LYMPHATIC: no lymphadenopathy noted Resp: EFFORT & INSPECTION: Yes tachypneic, Yes respiratory distress (mild) and Yes retractions AUSCULTATION: wheezes Cardio: COMMON NORMALS: S1 normal heart sound present and S2 normal heart sound present RATE: tachycardic RHYTHM: abnormal rhythm irregularly irregular HEART SOUNDS: S1 normal heart sound present and S2 normal heart sound present GI: COMMON NORMALS: Normal to inspection, nondistended, normoactive bowel sounds present, Soft to palpation and non-tender PALPATION: Yes Soft to palpation Extremity: COMMON NORMALS: no pedal edema NARRATIVE EXTREMITY EXAM: To Bilateral lower extremities, pale, blue, DP PT pulses nonpalpable DP PT pulses nonpalpable, not dopplerable Bilateral lower extremities cool to touch, clammy, blue discoloration at ankle level, above the ankle there is warm Is able to withdraw from pain Is able to wiggle her toes Sacrum, sacral decubitus ulcers, stage1-2 Neuro: SENSORIUM/ORIENTATION: Yes oriented to person and Yes oriented to place Urinary Catheter Management^: Lopez: Cath Placed During This Visit: yes Reason for Continuing Indwelling Catheter: Acute Urinary Retention or Obstruct ion Urinary Catheter Date of Insertion: 04/07/21 Urinary Catheter Time of Insertion: 18:35 Data : 04/13/21 03:00 04/13/21 03:00 Micro: Microbiology 04/07/21 17:19 Blood Culture - Final Blood NO GROWTH AFTER 5 DAYS 04/07/21 15:11 Blood Culture - Final Blood NO GROWTH AFTER 5 DAYS A&P Assessment and plan (1) Critical limb ischemia of both lower extremities: -Acute on chronic lower extremity ischemia - Peripheral cath 01/13/2021 Lower Extremity Interventional Findings Periphreal intervention procedure: We obtained access in the left common femoral artery with a 6 [place] sheath.IV heparin was administered. Using a Glidewire, a long 8 Fr sheath was inserted in right external iliac artery going up and over after abdominal angiogram was performed. Mid SFA had total thrombotic occlusion. We crossed the occluded segment with Glidewire. CAT 8 penumbra catheter was inserted and used to perform mechanical thrombectomy. Significant amount of thrombus was extracted serially. Patient kept on having distal embolization of thrombus. Balloon angioplasty was also performed using a 5.0 x 40 mm balloon in the distal SFA to popliteal artery. We then used a 3.0 x 120 mm balloon to perform balloon angioplasty and TP trunk and proximal peroneal artery. At this time it was noted that patient's anterior tibial and posterior tibial arteries are occluded. Flow was noted in the peroneal artery. We performed balloon angioplasty from mid to distal peroneal artery using 2.0 x 200 mm balloon. This was followed by performing mechanical thrombectomy with a CAT Rx catheter. Proximal to mid peroneal artery seem to have residual thrombus. We decided to put coronary stents measuring 2.5 x 30 mm resolute [place] stent overlapping with a 2.75 x 30 mm resolute [place] stent. At this time final angiogram demonstrated single vessel runoff to the foot. Pulse was dopplerable. Collateral blood supply was also noted below the knee. Long sheath was switched to short 8 Indonesian sheath and was sutured in place for removal later.. Conclusions Acute limb ischemia with thrombotic occlusion of the mid SFA/popliteal artery and TP trunk (Source likely heart as had recent onset Atrial fibrillation and compliance with medications is not known). Severe below the knee peripheral artery disease. Single vessel runoff to the foot established. -CTA lower extremity 3. Abrupt occlusion of the bilateral popliteal arteries, and complete occlusion of the bilateral infrapopliteal arteries. No visible runoff to the feet. Given the findings in the left atrium, this most likely represents severe thromboembolic disease. 4. Near complete segmental occlusion of a left profunda femoral artery branch, most likely thromboembolic disease. -DP PT pulses not dopplerable, lower extremities cool, clammy, painful, able to move lower extremities, but reported inability to walk -Possible embolic phenomenon given findings of bilateral heart thrombus, failure of anticoagulation on Plavix, Eliquis Plan: -Admit to cardiac stepdown unit -On eliquis -Doppler pulses bilateral lower extremities, monitor -on broad-spectrum antibiotic therapy, vancomycin, Zosyn -Warm bilateral lower extremities -Continues to have acute encephalopathy, likely underlying dementia -Currently given her cardiac status, functional status, poor candidate for surgical invention, high morbidity and mortality with surgical invention. And in the near future she has a high risk of losing bilateral lower extremities to critical limb ischemia, which would require surgical intervention such as amputation which is also associate with increased risk of morbidity and mortality. -Previously she has declined surgical interventions -In terms of her CODE STATUS I do not get a straightforward answer from her -Currently does not have capacity to make decisions for herself -Nixon wants to pursue comfort care, DNR/DNI is the healthcare power of cancer program consultant, not known if it is over medical and/or financial, filed in the [facility], Nixon said Sabina has a copy of this, we are not able to locate it -Rashid wants to nixon to make decisions -William, nobody has his location or number -We will have to talk to ethics committee about the situation -For now pursue guardianship -Cardiology on consult Currently A. fib with RVR with acute hypoxic respiratory failure -Continue oxygen therapy, Lasix, metolazone, monitor respiratory status closely -Amiodarone boluses with amiodarone drip, I have exhausted digoxin pushes -We will see if metoprolol is an option given her blood pressures -Infusion of magnesium Status: Acute (2) Atrial fibrillation with RVR: - Amiodarone boluses, continue amiodarone drip -Has received 2 digoxin pushes -Further metoprolol pushes -Mag rater than 2, potassium greater than 4 Status: Acute (3) Single vessel coronary artery disease: - History of distal left circumflex disease, medical management Status: Acute (4) PAD (peripheral artery disease): Status: Chronic (5) CHF (congestive heart failure): - Elevated BNP, no complaint of shortness of breath, no crackles on exam, hold off on Lasix 1-Moderately increased left ventricular cavity size. Severely decreased left ventricular systolic function. Global left ventricular hypokinesis. Left ventricular ejection fraction is estimated at 20 %. In the presence of atrial fibrillation diastolic function cannot be assessed accurately. 2-Severely increased left atrial size. Well-circumscribed mass with area of 11 cm2 was noted in the left atrium appeared to be attached to the roof, differential diagnosis would be tumor such as myxoma versus thrombus, clinical correlation advised, further assessment with MRI. 3-Moderately thickened mitral valve. No mitral valve stenosis. Mild mitral valve regurgitation. 4-Severe aortic valve calcification. No aortic valve stenosis. Mild aortic valve regurgitation. 5-Severe tricuspid valve regurgitation. 6-There is no pericardial effusion. 7-When compared to the prior echocardiogram dated December 02, 2020 there is worsening/ventricular ejection fraction from moderately depressed 40% to severely depressed 20% now. There is well-circumscribed mass with area of 11 cm2 was noted in the left atrium appeared to be attached to the roof, differential diagnosis would be tumor such as myxoma versus thrombus, clinical correlation advised, further assessment with MRI. There is severe tricuspid valve regurgitation. Status: Chronic Qualifiers: Heart failure chronicity: acute on chronic Heart failure type: systolic Qualified Code(s): I50.23 - Acute on chronic systolic (congestive) heart failure (6) Generalized weakness: Status: Acute (7) Left heart thrombus: -Mass in left atrium, thrombus versus tumor -Discussed with cardiothoracic surgery, cardiology, not amenable to surgical intervention -Continue medical management, anticoagulation, Eliquis Status: Acute (8) Pneumonia: - Seen on chest x-ray, will order vancomycin, Zosyn -Follow blood cultures, urine cultures, sputum cultures, Status: Acute (9) Acute encephalopathy: - Etiology of her UTI, pneumonia, possible progressing to lower extremity septicemia -Follow urine cultures -CT of the head no acute CVA -Chest x-ray showing follow-up possible pneumonia on antibiotics as above -Neurochecks, aspiration precautions, NIH -I have reached out to Nixon, he wants us to pursue comfort, mcc placement, does not want aggressive mentions, he is a DPOA, but DPOA paperwork was filed in [place], and we do not have a copy of healthcare and financial DPOA confirmation Status: Acute (10) UTI (urinary tract infection): Status: Acute (11) Sacral decubitus ulcer: Status: Acute (12) Dementia: Status: Acute Qualifiers: Dementia type: unspecified type Dementia behavioral disturbance: without behavioral disturbance Qualified Code(s): F03.90 - Unspecified dementia without behavioral disturbance (13) Physical deconditioning: Status: Acute Attestations Medical Necessity Statement*: Patient requires hospitalization for A. fib with RVR, acute respiratory distress Coding Level of Care Code Acute Autocad Technician for Chg Fwd Exam Expanded Problem Focused Diagnoses Critical limb ischemia of both lower extremities I70.223 Atrial fibrillation with RVR I48.91 Single vessel coronary artery disease I25.10 PAD (peripheral artery disease) I73.9 CHF (congestive heart failure) I50.23 Heart failure chronicity: acute on chronic Heart failure type: systolic Generalized weakness R53.1 Left heart thrombus I51.3 Pneumonia J18.9 Acute encephalopathy G93.40 UTI (urinary tract infection) N39.0 Sacral decubitus ulcer L89.159 Dementia F03.90 Dementia type: unspecified type Dementia behavioral disturbance: without behavioral disturbance Physical deconditioning R53.81
[2021-04-13] MEDS: magnesium sulfate premix 4 GM/100 ML PREMIX IV (15:58)
--- NOTE | 2021-04-13 19:57 | PC.NURSE ---
family updated Dr. Barkley talked to Nixon regarding pt's condition today that she is getting unstable. Talked to Rashid on the phone that his mother is not doing well and Nixon agreed to the doctor to put her on comfort care. Rashid stated, just make her comfortable. Updated Juan M in person when he visited the pt and informed him he is not doing better. They all verbalizes understanding.
--- NOTE | 2021-04-13 20:06 | PC.NURSE ---
Shift Note Frequent safety and comfort rounds continue. Orders and/or nursing care completed as indicated. Patient monitored for response to intervention and treatment(s). Education provided includes comfort care measures. Patient and/or senior outside sales representative . Will continue to monitor.
--- NOTE | 2021-04-13 21:11 | P.PN_ITS ---
Subjective Subjective: Interval history: Patient breathing hard, she appears anxious. She is in A. fib with rapid ventricle response Medications: Reviewed: Yes Vitals/I&O/Wt Last Vital Signs Temp 100 F H 04/13/21 08:00 Pulse 111 H 04/13/21 16:00 Resp 29 H 04/13/21 17:16 BP 83/59 04/13/21 16:00 Pulse Ox 88 L 04/13/21 16:00 04/13/21 04/13/21 04/13/21 06:59 14:59 22:59 Intake Total 1050 / 3136 256 / 256 103 / 359 Output Total 250 / 250 Balance 1050 / 1886 6 / 6 103 / 109 Weight last 48 hrs Weight 158 lb Weight 140 lb 3.2 oz Physical Exam Narrative: EXAM NARRATIVE: GENERAL: Patient lethargic breathing fast. NECK: No jugular vein distension. HEENT: No cyanosis. No icterus. No pallor. HEART: Irregularly irregular S1 and S2. No murmur, rub or gallop. LUNGS: Inspiratory crackles bilaterally. ABDOMEN: Soft, nontender and nondistended. Positive bowel sounds. No guarding, rebound or tenderness. CENTRAL NERVOUS SYSTEM: Grossly nonfocal. EXTREMITIES: Lower extremities without edema bilaterally. Pulses not palpable in the lower extremities, both dorsalis pedis and posterior tibial. Patient not moving her legs, she has developed blisters on the right leg, she has a wound on the back of the legs banded, Urinary Catheter Management^: Lopez: Cath Placed During This Visit: yes Reason for Continuing Indwelling Catheter: Acute Urinary Retention or Obstruction Urinary Catheter Date of Insertion: 04/07/21 Urinary Catheter Time of Insertion: 18:35 Data : 04/13/21 03:00 04/13/21 03:00 Micro: Microbiology 04/07/21 17:19 Blood Culture - Final Blood NO GROWTH AFTER 5 DAYS 04/07/21 15:11 Blood Culture - Final Blood NO GROWTH AFTER 5 DAYS A&P Assessment and plan (1) Cardiac mass: Large left atrial mass by echocardiography and confirmed by CTA appears to originate on the free wall or toward the appendage. 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 Given her history of A. fib and questionable compliance with anticoagulation related to perhaps cognitive decline, this may well represent a large thrombus. Her overall condition is very poor. Her ejection fraction is 20% and she is substantially deconditioned with cognitive decline. Unfortunately, I do not think there is an operative option available for which she would survive. I recommend continuing anticoagulation and supportive measures such as [facility] care. From my exam and review, I do not think she can continue with independent living. I have a chance to speak with the patient. She would not like to have any intervention. We will continue to treat her medically continue anticoagulation May will switch to oral anticoagulation once she started eating more We will continue to manage her medically. Patient is not a candidate for any intervention. Patient is on Eliquis continue medical management masses myxoma versus thrombus. In myxoma case she cannot be operated upon while in case of thrombus the best treatment at this point is anticoagulation. Continue current regimen. Patient is considering hospice. We agree with it Continue medical management patient has opted for hospice Status: Acute (2) Critical limb ischemia of both lower extremities: I have reviewed her most recent CTA. Given her previous heroic interventions by our interventional cardiology team, it appears there are no further options available given her severe disease and small vessel targets. I concur with the current plan to continue anticoagulation, hopefully through a skilled care setting, so that she may receive the support she needs as well as confirmation of medication compliance. Indeed, there may require settings where major amputation would be required should she develop systemic complications of ongoing lower extremity ischemia. Even amputation, would be a life-threatening procedure given her severe debili tated condition. Both legs she has reasonably good feelings both legs are warm. Patient is not amenable to intervention due to extensive below the knee disease, continue to treat medically. Denies any more pain in the legs her extremities are at her baseline she has critical limb ischemia but not amenable to intervention due to other comorbidities and nature of diffuse disease below the knee We will still continue to manage her medically patient is not a candidate for intervention due to high risk for bleeding, lower extremities are not intervene able she is noncompliant with the medicine she has underlying dementia but at times when she is more aware I have multiple time discussion with her and decorative cutting machine tender who is by bedside with some time claims to be nephew that there is if she need to be transferred anywhere but patient refused and he also refused. Patient would not like to be sent anywhere for second opinion she would not like to be intervened to want to be treated only medically she understand that legs in May will be amputated but I am not sure whether she can tolerate it, we will therefore continue to manage her medically she also also has sacral wound. WBCs are high lactic acid was within normal limits. She has been started on antibiotics by medicine. As defined above we will continue to manage her medically patient is not a good candidate for intervention not she would like to wait. She is considering hospice Patient is hospice now continue to manage with comfort care Status: Acute (3) Atrial fibrillation with rapid ventricular response: Continue to optimize medicine Multiple medicine has been tried so far including Cardizem digoxin beta-janelle, at this point amiodarone has been added Status: Acute (4) CHF exacerbation: Appear to be in decompensated heart failure IV Lasix was given by medicine. Status: Acute Attestations Medical Necessity Statement*: Unfortunately patient has poor short and long- term prognosis, we agree with patient and her son decision for hospice. I am also in agreement Coding Level of Care Code Established Pt Acute Software Validation Technician for Fredy Cabrera Patient Type Established History Expanded Problem Focused Exam Expanded Problem Focused Medical Decision Making Moderate Complexity Diagnoses Cardiac mass I51.89 Critical limb ischemia of both lower extremities I70.223 Atrial fibrillation with rapid ventricular response I48.91 CHF exacerbation I50.9
[2021-04-13] MEDS: morphine 4 mg/mL SDV 1 mL IVP (21:50)
--- NOTE | 2021-04-13 21:54 | PC.NURSE ---
Patient on comfort care. Morphine given for pain and to assist with breathing. Patient will look at you but does not respond. Will monitor.
[2021-04-14] VITALS: PULSE 107
[2021-04-14 03:45] VITALS: PULSE 107
[2021-04-14 03:47] VITALS: PULSE 109
[2021-04-14 03:48] VITALS: BMI 24.7
[2021-04-14] MEDS: morphine 4 mg/mL SDV 1 mL IVP (04:43)
--- NOTE | 2021-04-14 05:57 | PC.NURSE ---
Patient given another dose of morphine 4 mg. Agonal breathing at the time of administration. Opens eyes, does not respond. Will continue to monitor.
--- NOTE | 2021-04-14 05:58 | PC.NURSE ---
Frequent safety and comfort rounds continue. Patient on comfort care, medications given as needed. Patient pulse remaining around 100. Patient will open eyes slightly but does not respond. Lopez catheter only drained 50ml out this shift. Orders and/or nursing care completed as indicated. Patient monitored for response to intervention and treatment(s). Patient not able to respond at this. Will continue to monitor.
--- NOTE | 2021-04-14 07:19 | PC.NURSE ---
post mortem care provided lines discontinued, sponge bath provided.
--- NOTE | 2021-04-14 07:34 | PC.NURSE ---
Patient at 0650. Verified by auscultation by two RN's. Family notified. gear repair supervisor notified. Post mortem care done. MTS called.
--- NOTE | 2021-04-14 11:34 | P.DES_ITS ---
Discharge Providers DDS Date of Admission: 04/07/21 17:55 Date Summary Completed: 04/14/21 Attending Provider at Admission: Alexander Barkley MD Time of : 06:50 Attending Provider at Discharge: Alexander Barkley MD Primary Care Provider: Travis DOBSON Diagnoses Hospital Diagnoses (1) Cardiac mass: (2) Critical limb ischemia of both lower extremities: (3) Atrial fibrillation with rapid ventricular response: (4) CHF exacerbation: Reason for Visit Reason for Visit: WEAKNESS Summary Date and Time of Date of : 04/14/21 Time of : 06:50 Summary Summary: Sabina Valdez is a 71 year old female atrial fibrillation on Eliquis, history of chronic acute limb ischemia bilateral, peripheral arterial disease, recent history of acute cholecystitis medically managed, CHF EF 20 to 25% and diastolic dysfunction, CAD with high-grade distal circumflex lesion medically managed, who presents to [facility] for inability to walk for the last 24 hours. Patient was admitted to [facility] for acute on chronic critical limb ischemia, A. fib with RVR, CHF, systolic, left heart thrombus, acute encephalopathy Patient had a complicated course details as below: -Patient was admitted to [facility] for acute on chronic limb ischemia, was a poor surgical candidate, poor candidate for intervention, decision was made to pursue medical therapy, Eliquis -She had A. 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 But did have underlying dementia. -Patient was determined that she did not have capacity to make decisions -Her son Nixon, who is her decision-maker wanted us to pursue care home, hospice, did not want aggressive interventions -Plans were medical management, pursuing guardianship, and placing her on a care home, and pursuing hospice -Morning of 04/13/2021, patient developed A. fib with RVR, hypotension, acute respiratory failure respiratory failure. After exhausting all medical measures including multiple attempts with digoxin, Cardizem, amiodarone, metoprolol, diuretics, midodrine. However patient continued to have A. fib with RVR, she developed worsening hypotension, worsening respiratory failure, worsening encephalopathy. Patient began to suffer, agonal breathing, evidence of respiratory failure, became nonresponsive. After discussion with son Nixon, he did not want his mother to suffer, he wanted her to be comfortable, after discussing risks and benefits of comfort care, he voiced understanding, all questions answered, agreed to proceed with inpatient comfort care. Patient was made comfort care, 04/14/2021 at 6:50 AM (1) Critical limb ischemia of both lower extremities: -Acute on chronic lower extremity ischemia - Peripheral cath 01/13/2021 Lower Extremity Interventional Findings Periphreal intervention procedure: We obtained access in the left common femoral artery with a 6 [place] sheath.IV heparin was administered. Using a Glidewire, a long 8 Fr sheath was inserted in right external iliac artery going up and over after abdominal angiogram was performed. Mid SFA had total thrombotic occlusion. We crossed the occluded segment with Glidewire. CAT 8 penumbra catheter was inserted and used to perform mechanical thrombectomy. Significant amount of thrombus was extracted serially. Patient kept on having distal embolization of thrombus. Balloon angioplasty was also performed using a 5.0 x 40 mm balloon in the distal SFA to popliteal artery. We then used a 3.0 x 120 mm balloon to perform balloon angioplasty and TP trunk and proximal peroneal artery. At this time it was noted that patient's anterior tibial and posterior tibial arteries are occluded. Flow was noted in the peroneal artery. We performed balloon angioplasty from mid to distal peroneal artery using 2.0 x 200 mm balloon. This was followed by performing mechanical thrombectomy with a CAT Rx catheter. Proximal to mid peroneal artery seem to have residual thrombus. We decided to put coronary stents measuring 2.5 x 30 mm resolute Ananth stent overlapping with a 2.75 x 30 mm resolute Mallie stent. At this time final angiogram demonstrated single vessel runoff to the foot. Pulse was dopplerable. Collateral blood supply was also noted below the knee. Long sheath was switched to short 8 [place]er sheath and was sutured in place for removal later.. Conclusions Acute limb ischemia with thrombotic occlusion of the mid SFA/popliteal artery and TP trunk (Source likely heart as had recent onset Atrial fibrillation and compliance with medications is not known). Severe below the knee peripheral artery disease. Single vessel runoff to the foot established. -CTA lower extremity 3. Abrupt occlusion of the bilateral popliteal arteries, and complete occlusion of the bilateral infrapopliteal arteries. No visible runoff to the feet. Given the findings in the left atrium, this most likely represents severe thromboembolic disease. 4. Near complete segmental occlusion of a left profunda femoral artery branch, most likely thromboembolic disease. -DP PT pulses not dopplerable, lower extremities cool, clammy, painful, able to move lower extremities, but reported inability to walk -Possible embolic phenomenon given findings of bilateral heart thrombus, failure of anticoagulation on Plavix, Eliquis -On eliquis -Doppler pulses bilateral lower extremities, monitor -on broad-spectrum antibiotic therapy, vancomycin, Zosyn -Warm bilateral lower extremities -Continues to have acute encephalopathy, likely underlying dementia, possible septicemia from limb ischemia -Currently given her cardiac status, functional status, poor candidate for surgical invention, high morbidity and mortality with surgical invention. And in the near future she has a high risk of losing bilateral lower extremities to critical limb ischemia, which would require surgical intervention such as amputation which is also associate with increased risk of morbidity and mortality. -Previously she has declined surgical interventions -Currently does not have capacity to make decisions for herself -Nixon wants to pursue comfort care, DNR/DNI is the healthcare power of stockroom supervisor, not known if it is over medical and/or financial, filed in the [facility], Nixon said Sabina has a copy of this, we are not able to locate it -Rashid wants to nixon to make decisions -William, nobody has his location or number -We will have to talk to ethics committee about the situation -For now pursue guardianship -Cardiology on consult Currently [place] with RVR with acute hypoxic respiratory failure -Continue oxygen therapy, Lasix, metolazone, monitor respiratory status closely -Amiodarone boluses with amiodarone drip, I have exhausted digoxin pushes -We will see if metoprolol is an option given her blood pressures -Infusion of magnesium Status: Acute (2) Atrial fibrillation with RVR: - Amiodarone boluses, continue amiodarone drip -Has received 2 digoxin pushes -Further metoprolol pushes -Mag rater than 2, potassium greater than 4 Status: Acute (3) Single vessel coronary artery disease: - History of distal left circumflex disease, medical management Status: Acute (4) PAD (peripheral artery disease): Status: Chronic (5) CHF (congestive heart failure): - Elevated BNP, no complaint of shortness of breath, no crackles on exam, hold off on Lasix 1-Moderately increased left ventricular cavity size. Severely decreased left ventricular systolic function. Global left ventricular hypokinesis. Left ventricular ejection fraction is estimated at 20 %. In the presence of atrial fibrillation diastolic function cannot be assessed accurately. 2-Severely increased left atrial size. Well-circumscribed mass with area of 11 cm2 was noted in the left atrium appeared to be attached to the roof, differential diagnosis would be tumor such as myxoma versus thrombus, clinical correlation advised, further assessment with MRI. 3-Moderately thickened mitral valve. No mitral valve stenosis. Mild mitral valve regurgitation. 4-Severe aortic valve calcification. No aortic valve stenosis. Mild aortic valve regurgitation. 5-Severe tricuspid valve regurgitation. 6-There is no pericardial effusion. 7-When compared to the prior echocardiogram dated December 02, 2020 there is worsening/ventricular ejection fraction from moderately depressed 40% to severely depressed 20% now. There is well-circumscribed mass with area of 11 cm2 was noted in the left atrium appeared to be attached to the roof, differential diagnosis would be tumor such as myxoma versus thrombus, clinical correlation advised, further assessment with MRI. There is severe tricuspid valve regurgitation. Status: Chronic Qualifiers: Heart failure chronicity: acute on chronic Heart failure type: systolic Qualified Code(s): I50.23 - Acute on chronic systolic (congestive) heart failure (6) Generalized weakness: Status: Acute (7) Left heart thrombus: -Mass in left atrium, thrombus versus tumor -Discussed with cardiothoracic surgery, cardiology, not amenable to surgical intervention -Continue medical management, anticoagulation, Eliquis Status: Acute (8) Pneumonia: - Seen on chest x-ray, will order vancomycin, Zosyn -Follow blood cultures, urine cultures, sputum cultures, Status: Acute (9) Acute encephalopathy: - Etiology of her UTI, pneumonia, possible progressing to lower extremity septicemia -Follow urine cultures -CT of the head no acute CVA -Chest x-ray showing follow-up possible pneumonia on antibiotics as above -Neurochecks, aspiration precautions, NIH -I have reached out to Nixon, he wants us to pursue comfort, care home placement, does not want aggressive mentions, he is a DPOA, but DPOA paperwork was filed in [place], and we do not have a copy of healthcare and financial DPOA confirmation Status: Acute (10) UTI (urinary tract infection): Status: Acute (11) Sacral decubitus ulcer: Status: Acute (12) Dementia: Status: Acute Qualifiers: Dementia type: unspecified type Dementia behavioral disturbance: without behavioral disturbance Qualified Code(s): F03.90 - Unspecified dementia without behavioral disturbance (13) Physical deconditioning: Status: Acute Additional Data Confirmation of as documented by pronouncing clinician: no pulse and no respirations Family: contacted Additional persons at bedside: nursing staff Attending/PCP notified?: I am attending Was code activated?: No Autopsy requested?: No Advance directives?: No Hospice patient?: No Discharge Plan Discharge Patient Disposition: Condition: Stable Probable Cause of Probable cause of : Cardiac arrest DS Attestations Time Spent in /Discharge Care*: greater than 30 min Quality - AMI: AMI present?: No Quality - Stroke: CVA present?: No Quality - VTE: VTE present?: No Deep Vein Thrombosis/Pulmonary Embolism Present on Admission: Yes Coding Level of Care Code Acute Flatware Maker for g Fwd Diagnoses Cardiac mass I51.89 Critical limb ischemia of both lower extremities I70.223 Atrial fibrillation with rapid ventricular response I48.91 CHF exacerbation I50.9
== END 2021-04-14 06:50 | disposition expired | DRG 299 ==
LOC: ER 18:09 → ER IP 19:28 → CSU 04-08 12:09
PROVIDERS: Internal Medicine Cardiovascular Disease; Student in an Organized Health Care Education/Training Program; Admitting Provider Family Medicine; Emergency Provider Emergency Medicine; PCP Clinical Nurse Specialist Adult Health; Visit Provider Family Medicine
DX: I70.223 Atherosclerosis of native arteries of extremities with rest pain, bilateral legs (principal); J96.01 Acute respiratory failure with hypoxia; I50.23 Acute on chronic systolic (congestive) heart failure; J18.9 Pneumonia, unspecified organism; I74.3 Embolism and thrombosis of arteries of the lower extremities; I48.20 Chronic atrial fibrillation, unspecified; G93.40 Encephalopathy, unspecified; N39.0 Urinary tract infection, site not specified; I70.92 Chronic total occlusion of artery of the extremities; F33.9 Major depressive disorder, recurrent, unspecified; I82.433 Acute embolism and thrombosis of popliteal vein, bilateral; Z79.01 Long term (current) use of anticoagulants; Z66 Do not resuscitate; I25.10 Atherosclerotic heart disease of native coronary artery without angina pectoris; Z51.5 Encounter for palliative care; F03.90 Unspecified dementia, unspecified severity, without behavioral disturbance, psychotic disturbance, mood disturbance, and anxiety; I51.3 Intracardiac thrombosis, not elsewhere classified; B96.20 Unspecified Escherichia coli [E. coli] as the cause of diseases classified elsewhere; L89.149 Pressure ulcer of left lower back, unspecified stage; L89.139 Pressure ulcer of right lower back, unspecified stage; Z95.820 Peripheral vascular angioplasty status with implants and grafts; Z95.5 Presence of coronary angioplasty implant and graft; I95.9 Hypotension, unspecified; I08.3 Combined rheumatic disorders of mitral, aortic and tricuspid valves
CPT/HCPCS: 36415; 51702; 70450; 71045; 75635; 76705; 80053; 80202; 81001; 83605; 83690; 83735; 83880; 84100; 84145; 84443; 84484; 85025; 85610; 85730; 86140; 87040; 87077; 87086; 87186; 93005; 93880; 96372; 96374; 96375; 96376; 97163; 97165; 97530; 99285; C8924; C8929; C9113; J0282; J1160; J1644; J1650; J1940; J2060; J2270; J2543; J3370; J3475; J3490; J7030; J7040; J7050; J7060; Q9956; Q9967